=== PATIENT | male | born 1950 | race Caucasian/White ===

== ENCOUNTER → 2018-02-19 | Outpatient (CLI) | payer MEDICARE ==
--- NOTE | 2018-02-19 16:17 | US ---
EXAMINATION TYPE: US venous doppler duplex LE DATE OF EXAM: 02/19/2018 4:09 PM COMPARISON: NONE CLINICAL HISTORY: R60.0 Localized edema. Bilateral leg swelling x 4-5 months SIDE PERFORMED: Bilateral TECHNIQUE: The lower extremity deep venous system is examined utilizing real time linear array sonog shonda with graded compression, doppler sonography and color-flow sonography. VESSELS IMAGED: External Iliac Vein (EIV) Common Femoral Vein Deep Femoral Vein Greater Saphenous Vein * Femoral Vein Popliteal Vein Small Saphenous Vein * Proximal Calf Veins (* superficial vessels) Grayscale, color doppler, spectral doppler imaging performed of the deep veins of the lower extremiti es. There is normal flow, compressibility, vascular waveforms. Right Leg: Negative for DVT Left Leg: Negative for DVT Results called to Trisha at Dr's office at time of exam IMPRESSION: No sonographic evidence of deep venous thrombosis within either lower extremity.
== END ==
LOC: RADUSWWP 15:40
PROVIDERS: ATTEND Family Medicine
DX: R60.0 Localized edema (principal)
CPT/HCPCS: 93970

== ENCOUNTER → 2018-02-26 | Outpatient (CLI) | payer MEDICARE ==
--- NOTE | 2018-02-26 13:05 | US ---
EXAMINATION TYPE: US duplex aorta DATE OF EXAM: 02/26/2018 COMPARISON: NONE CLINICAL HISTORY: Z13.9 Encounter for screening, unspecified. Patient stated no HTN; HT6'4, WT 300lbs EXAM MEASUREMENTS: Abdominal Aorta: Proximal: 2.0 by 2.2cm Trans Mid: 2.2cm A/P by 1.9 cm transversely Distal: 2.0 by 2.1cm Trans Bifurcation: not seen due to overlying bowel gas Exam was technically limited for visualization of aorta due to large body habitus and overlying bowel gas. Suboptimal study as the aorta is not successfully visualized bifurcation. Visualized portions show no aneurysm change. IMPRESSION: Suboptimal study, visualized portion of aorta shows no aneurysmal change.
== END ==
LOC: RADUSWWP 07:29
PROVIDERS: ATTEND Family Medicine
DX: Z13.9 Encounter for screening, unspecified (principal)
CPT/HCPCS: 93979

== ENCOUNTER 2020-07-17 10:48 | Inpatient (IN) | payer MEDICARE ==
[2020-07-17 10:54] LABS: Glucose,Whole Blood >600 mg/dL (75-99)
[2020-07-17] MEDS ORDERED: SODIUM CHLORIDE 0.9% 1,000 ML IV STA (11:06)
[2020-07-17 11:39] LABS: HCT 48.3 % (39.0-53.0); HGB 15.1 gm/dL (13.0-17.5); Hypochromasia Slight; MCHC 31.3 g/dL (31.0-37.0); MCV 99.3 fL (80.0-100.0); Mean Platelet Volume 9.8; Platelet Count 179 k/uL (150-450); RBC 4.86 m/uL (4.30-5.90); RDW 13.6 % (11.5-15.5); WBC 9.3 k/uL (3.8-10.6)
[2020-07-17 11:40] LABS: ALT 30 U/L (4-49); AST 23 U/L (17-59); African American GFR (CKD) 12 (>60 ml/min/1.73 sqM); Albumin 3.2 g/dL (3.5-5.0); Alkaline Phosphatase 114 U/L (38-126); Anion Gap 22 mmol/L; Blood Urea Nitrogen 85 mg/dL (9-20); Calcium 8.9 mg/dL (8.4-10.2); Carbon Dioxide 15 mmol/L (22-30); Chloride 89 mmol/L (98-107); Magnesium 2.4 mg/dL (1.6-2.3); Non-African American GFR(CKD) 10 (>60 ml/min/1.73 sqM); Potassium 5.1 mmol/L (3.5-5.1); Sodium 126 mmol/L (137-145); Total Bilirubin 0.7 mg/dL (0.2-1.3)
[2020-07-17 11:45] LABS: INR 0.9 (<1.2)
--- NOTE | 2020-07-17 11:46 | XR ---
EXAMINATION TYPE: XR chest 2V DATE OF EXAM: 07/17/2020 COMPARISON: NONE HISTORY: Weakness, trauma TECHNIQUE: Frontal and lateral views of the chest are obtained. FINDINGS: There is no focal air space opacity, pleural effusion, or pneumothorax seen. The cardiac silhouette size is within normal limits. The osseous structures are intact, there is thoracic spond ylosis, there are overlying cardiac leads. IMPRESSION: No acute cardiopulmonary process.
[2020-07-17 11:49] LABS: Glucose 910 mg/dL (74-99)
[2020-07-17 11:51] LABS: Partial Thromboplastin Time 19.5 sec (22.0-30.0)
[2020-07-17] MEDS ORDERED: INSULIN REGULAR BOLUS (FROM DRIP BAG) IV ONE (11:51)
[2020-07-17] MEDS: INSULIN REGULAR 100 UNIT in SODIUM CHLORIDE 0.9% 100 ML IV SCH ×3 (12:06→18:13)
[2020-07-17] MEDS ORDERED: SODIUM CHLORIDE 0.9% 1,000 ML IV SCH (12:15)
[2020-07-17 12:16] LABS: Amorphous Sediment,Urine Occasional /hpf; Appearance,Urine Cloudy (Clear); Bacteria,Urine Moderate /hpf; Bilirubin,Urine Negative (Negative); Blood,Urine Moderate (Negative); Budding Yeast,Urine Rare /hpf; Color,Urine Light Yellow; Glucose,Urine (UA) 4+ (Negative); Ketones,Urine 1+ (Negative); Leukocyte Esterase,Urine Large (Negative); Mucus,Urine Rare /hpf; Nitrite,Urine Negative (Negative); PH, Urine 6.5 (5.0-8.0); Protein,Urine 2+ (Negative); RBC,Urine 31 /hpf (0-5); Specific Gravity,Urine 1.013 (1.001-1.035); Squamous Epithelial Cell,Urine 17 /hpf (0-4); Urobilinogen,Urine <2.0 mg/dL (<2.0); WBC,Urine 15 /hpf (0-5)
[2020-07-17] MEDS ORDERED: SODIUM CHLORIDE 0.9% 1,000 ML IV ONE (12:28)
--- NOTE | 2020-07-17 12:34 | ED ---
General Adult HPI - General Chief complaint: Weakness Stated complaint: weakness Time Seen by Provider: 07/17/20 10:56 Source: patient, RN notes reviewed Mode of arrival: EMS Limitations: no limitations - History of Present Illness Initial comments: 69-year-old male presents emergency Department chief complaint of generalized weakness, increased thirst, not feeling well. Patient states started after receiving his covid vaccine a few days ago. Patient states she'sa past history does not taking current medications he states he sees Dr. Daugherty has not had any recent lab work. Patient states she's had polyuria did see, shaking episodes and states his legs are so weak. - Related Data Home Medications Medication Instructions Recorded Confirmed No Known Home Medications 07/17/20 07/17/20 Allergies Allergy/AdvReac Type Severity Reaction Status Date / Time No Known Allergies Allergy Verified 07/17/20 11:54 Review of Systems ROS Statement: Those systems with pertinent positive or pertinent negative responses have been documented in the HPI. ROS Other: All systems not noted in ROS Statement are negative. Past Medical History Past Medical History: No Reported History History of Any Multi-Drug Resistant Organisms: None Reported Past Surgical History: No Surgical Hx Reported Additional Past Surgical History / Comment(s): eye sx Past Anesthesia/Blood Transfusion Reactions: No Reported Reaction Past Psychological History: No Psychological Hx Reported Smoking Status: Former smoker Past Alcohol Use History: Rare Past Drug Use History: None Reported - Past Family History Mother Family Medical History: Cancer Additional Family Medical History / Comment(s): CA: breast, she's 91 Father Family Medical History: Cancer Additional Family Medical History / Comment(s): CA: lung (" from") General Exam Limitations: no limitations General appearance: alert, in no apparent distress Head exam: Present: atraumatic, normocephalic, normal inspection Eye exam: Present: normal appearance, PERRL, EOMI. Absent: scleral icterus, conjunctival injection, periorbital swelling ENT exam: Present: normal oropharynx, mucous membranes dry. Absent: normal exam, mucous membranes moist Neck exam: Present: normal inspection. Absent: tenderness, meningismus, lymphadenopathy Respiratory exam: Present: normal lung sounds bilaterally. Absent: respiratory distress, wheezes, rales, rhonchi, stridor Cardiovascular Exam: Present: regular rate, normal rhythm, normal heart sounds. Absent: systolic murmur, diastolic murmur, rubs, gallop, clicks GI/Abdominal exam: Present: soft, normal bowel sounds. Absent: distended, tenderness, guarding, rebound, rigid Neurological exam: Present: alert, oriented X3, CN II-XII intact, reflexes normal. Absent: motor sensory deficit Course Vital Signs 07/17/20 07/17/20 07/17/20 10:50 11:28 12:00 Temperature 98.1 F 98.5 F Pulse Rate 94 90 89 Respiratory 20 18 18 Rate Blood Pressure 132/92 114/84 116/82 O2 Sat by Pulse 96 94 L 95 Oximetry Medical Decision Making - Medical Decision Making Case discussed with Dr. Barth. Patient will be admitted on DKA protocol. Patient will have consultation to nephrology. Patient was started on fluids insulin drip - Lab Data Result diagrams: 07/17/20 10:58 07/17/20 10:58 Lab Results 07/17/20 07/17/20 07/17/20 Range/Units 10:52 10:58 10:58 WBC 9.3 (3.8-10.6) k/uL RBC 4.86 (4.30-5.90) m/uL Hgb 15.1 (13.0-17.5) gm/dL Hct 48.3 (39.0-53.0) % MCV 99.3 (80.0-100.0) fL MCH 31.0 (25.0-35.0) pg MCHC 31.3 (31.0-37.0) g/dL RDW 13.6 (11.5-15.5) % Plt Count 179 (150-450) k/uL MPV 9.8 Neutrophils % Not Reportable Lymphocytes % Not Reportable Monocytes % Not Reportable Eosinophils % Not Reportable Basophils % Not Reportable Neutrophils # Not Reportable Lymphocytes # Not Reportable Monocytes # Not Reportable Eosinophils # Not Reportable Basophils # Not Reportable Hypochromasia Slight PT 10.0 (9.0-12.0) sec INR 0.9 (<1.2) APTT 19.5 L (22.0-30.0) sec Sodium (137-145) mmol/L Potassium (3.5-5.1) mmol/L Chloride (98-107) mmol/L Carbon Dioxide (22-30) mmol/L Anion Gap mmol/L BUN (9-20) mg/dL Creatinine (0.66-1.25) mg/dL Est GFR (CKD-EPI)AfAm (>60 ml/min/1.73 sqM) Est GFR (CKD-EPI)NonAf (>60 ml/min/1.73 sqM) Glucose (74-99) mg/dL POC Glucose (mg/dL) >600 H (75-99) mg/dL POC Glu [place]htank Operator ID Familia Peterson Plasma Lactic Acid Rajan (0.7-2.0) mmol/L Calcium (8.4-10.2) mg/dL Magnesium (1.6-2.3) mg/dL Total Bilirubin (0.2-1.3) mg/dL AST (17-59) U/L ALT (4-49) U/L Alkaline Phosphatase (38-126) U/L Troponin I (0.000-0.034) ng/mL Total Protein (6.3-8.2) g/dL Albumin (3.5-5.0) g/dL Urine Color Urine Appearance (Clear) Urine pH (5.0-8.0) Ur Specific [place] (1.001-1.035) Urine Protein (Negative) Urine Glucose (UA) (Negative) Urine Ketones (Negative) Urine Blood (Negative) Urine Nitrite (Negative) Urine Bilirubin (Negative) Urine Urobilinogen (<2.0) mg/dL Ur Leukocyte Esterase (Negative) Urine RBC (0-5) /hpf Urine WBC (0-5) /hpf Urine WBC Clumps (None) /hpf Ur Squamous Epith Cells (0-4) /hpf Amorphous Sediment (None) /hpf Urine Bacteria (None) /hpf Urine Mucus (None) /hpf Urine Yeast (Budding) (None) /hpf Acetone, Qual (Negative) 07/17/20 07/17/20 07/17/20 Range/Units 10:58 10:58 10:58 WBC (3.8-10.6) k/uL RBC (4.30-5.90) m/uL Hgb (13.0-17.5) gm/dL Hct (39.0-53.0) % MCV (80.0-100.0) fL MCH (25.0-35.0) pg MCHC (31.0-37.0) g/dL RDW (11.5-15.5) % Plt Count (150-450) k/uL MPV Neutrophils % Lymphocytes % Monocytes % Eosinophils % Basophils % Neutrophils # Lymphocytes # Monocytes # Eosinophils # Basophils # Hypochromasia PT (9.0-12.0) sec INR (<1.2) APTT (22.0-30.0) sec Sodium 126 L (137-145) mmol/L Potassium 5.1 (3.5-5.1) mmol/L Chloride 89 L (98-107) mmol/L Carbon Dioxide 15 L (22-30) mmol/L Anion Gap 22 mmol/L BUN 85 H (9-20) mg/dL Creatinine 5.36 H (0.66-1.25) mg/dL Est GFR (CKD-EPI)AfAm 12 (>60 ml/min/1.73 sqM) Est GFR (CKD-EPI)NonAf 10 (>60 ml/min/1.73 sqM) Glucose 910 H* (74-99) mg/dL POC Glucose (mg/dL) (75-99) mg/dL POC Glu [place]ht[place] Operator ID Plasma Lactic Acid Rajan 2.9 H* (0.7-2.0) mmol/L Calcium 8.9 (8.4-10.2) mg/dL Magnesium 2.4 H (1.6-2.3) mg/dL Total Bilirubin 0.7 (0.2-1.3) mg/dL AST 23 (17-59) U/L ALT 30 (4-49) U/L Alkaline Phosphatase 114 (38-126) U/L Troponin I 0.097 H* (0.000-0.034) ng/mL Total Protein 6.0 L (6.3-8.2) g/dL Albumin 3.2 L (3.5-5.0) g/dL Urine Color Urine Appearance (Clear) Urine pH (5.0-8.0) Ur Specific [place] (1.001-1.035) Urine Protein (Negative) Urine Glucose (UA) (Negative) Urine Ketones (Negative) Urine Blood (Negative) Urine Nitrite (Negative) Urine Bilirubin (Negative) Urine Urobilinogen (<2.0) mg/dL Ur Leukocyte Esterase (Negative) Urine RBC (0-5) /hpf Urine WBC (0-5) /hpf Urine WBC Clumps (None) /hpf Ur Squamous Epith Cells (0-4) /hpf Amorphous Sediment (None) /hpf Urine Bacteria (None) /hpf Urine Mucus (None) /hpf Urine Yeast (Budding) (None) /hpf Acetone, Qual Positive (Negative) 07/17/20 Range/Units 12:00 WBC (3.8-10.6) k/uL RBC (4.30-5.90) m/uL Hgb (13.0-17.5) gm/dL Hct (39.0-53.0) % MCV (80.0-100.0) fL MCH (25.0-35.0) pg MCHC (31.0-37.0) g/dL RDW (11.5-15.5) % Plt Count (150-450) k/uL MPV Neutrophils % Lymphocytes % Monocytes % Eosinophils % Basophils % Neutrophils # Lymphocytes # Monocytes # Eosinophils # Basophils # Hypochromasia PT (9.0-12.0) sec INR (<1.2) APTT (22.0-30.0) sec Sodium (137-145) mmol/L Potassium (3.5-5.1) mmol/L Chloride (98-107) mmol/L Carbon Dioxide (22-30) mmol/L Anion Gap mmol/L BUN (9-20) mg/dL Creatinine (0.66-1.25) mg/dL Est GFR (CKD-EPI)AfAm (>60 ml/min/1.73 sqM) Est GFR (CKD-EPI)NonAf (>60 ml/min/1.73 sqM) Glucose (74-99) mg/dL POC Glucose (mg/dL) (75-99) mg/dL POC Glu [place]ht[place] Operator ID Plasma Lactic Acid Rajan (0.7-2.0) mmol/L Calcium (8.4-10.2) mg/dL Magnesium (1.6-2.3) mg/dL Total Bilirubin (0.2-1.3) mg/dL AST (17-59) U/L ALT (4-49) U/L Alkaline Phosphatase (38-126) U/L Troponin I (0.000-0.034) ng/mL Total Protein (6.3-8.2) g/dL Albumin (3.5-5.0) g/dL Urine Color Light Yellow Urine Appearance Cloudy (Clear) Urine pH 6.5 (5.0-8.0) Ur Specific [place] 1.013 (1.001-1.035) Urine Protein 2+ H (Negative) Urine Glucose (UA) 4+ H (Negative) Urine Ketones 1+ H (Negative) Urine Blood Moderate H (Negative) Urine Nitrite Negative (Negative) Urine Bilirubin Negative (Negative) Urine Urobilinogen <2.0 (<2.0) mg/dL Ur Leukocyte Esterase Large H (Negative) Urine RBC 31 H (0-5) /hpf Urine WBC 15 H (0-5) /hpf Urine WBC Clumps Rare H (None) /hpf Ur Squamous Epith Cells 17 H (0-4) /hpf Amorphous Sediment Occasional H (None) /hpf Urine Bacteria Moderate H (None) /hpf Urine Mucus Rare H (None) /hpf Urine Yeast (Budding) Rare H (None) /hpf Acetone, Qual (Negative) Critical Care Time Critical Care Time: Yes Total Critical Care Time: 35 Critical Care Time: Total 35 minutes of critical care time used to initiate outpatient now review past multiple history or during labs EKG. Patient found to be in acute DKA, glucose of 910 with an anion gap of 22 and bicarb 15. Patient does have mild lactic acidosis at 2.9. Patient also vomited in acute renal failure with a creatinine of 5.36 and GFR 10. Patient concerned fluid bolus, maintenance fluids, insulin infusion. Patient does have an elevated troponin with no EKG changes. Most likely elevated from renal failure. Disposition Clinical Impression: DKA (diabetic ketoacidoses), Diabetes mellitus, new onset, UTI (urinary tract infection), Hyponatremia, Dehydration, Acute renal failure Disposition: ADMITTED IP TO THIS HOSP Condition: Serious Referrals: Shen Daugherty MD [Primary Care Provider] - 1-2 days
[2020-07-17 12:46] LABS: Band Neutrophils % 10 %; Lymphocytes # (M) 0.47 k/uL (1.0-4.8); Monocytes # (M) 0.84 k/uL (0-1.0); Neutrophils % (M) 76 %; Nucleated Red Blood Cells 0 /100 WBC (0-0); Total Cells Counted 100
[2020-07-17 13:08] LABS: Glucose,Whole Blood >600 mg/dL (75-99)
[2020-07-17] MEDS: SODIUM CHLORIDE 0.9% 1,000 ML IV SCH ×2 (14:01→17:32)
[2020-07-17 14:04] LABS: Glucose,Whole Blood >600 mg/dL (75-99)
[2020-07-17 15:01] LABS: Phosphorus 7.1 mg/dL (2.5-4.5)
[2020-07-17] MEDS ORDERED: ALPRAZolam 0.25 MG TAB PO PRN (15:04)
[2020-07-17] MEDS ORDERED: HYDROcodone/APAP 5-325MG 1 EACH TAB PO PRN (15:04)
[2020-07-17 15:14] LABS: Glucose,Whole Blood 430 mg/dL (75-99)
[2020-07-17 16:20] LABS: Glucose,Whole Blood 429 mg/dL (75-99)
--- NOTE | 2020-07-17 17:03 | HP ---
HISTORY AND PHYSICAL I am covering for Dr. Daugherty. DATE OF SERVICE: 07/17/2020 CHIEF COMPLAINT: Weakness. HISTORY OF PRESENT ILLNESS: This 69-year-old gentleman with a past medical history of no significant medical issues, being followed by by Dr. Shen Daugherty in the outpatient setting. The patient apparently recently got Covid vaccine, but currently the patient complaining of increased weakness and tiredness and recent thirst and the patient thought it was a Covid vaccine reaction. Because of increased difficulty, the patient came to [facility] and was admitted for further evaluation and treatment. Recent lab work was also done. In the ER, the patient had multiple medical issues, including diabetes mellitus and acute diabetic ketosis. Glucose was 1910. The anion gap was 20, CO2 was 15, and patient also had significant renal failure with creatinine 5.36 and DKA protocol was initiated. Patient also has some abnormal urine indicating UTI also. There is no history of fever, rigors. No history of headache, loss of consciousness, seizures. PAST MEDICAL HISTORY: No significant cardiorespiratory illness. MEDICATIONS: Prior to admission include home medications are none. ALLERGIES: None. FAMILY HISTORY: History of breast cancer in the family. SOCIAL HISTORY: Previous history of smoking, otherwise no history of alcohol intake. REVIEW OF SYSTEMS: ENT diminished hearing. Diminished vision. CARDIOVASCULAR: No angina. RESPIRATION: No cough. GI: As mentioned earlier. : As mentioned earlier. NERVOUS SYSTEM: As mentioned earlier. ALLERGY/IMMUNOLOGY: No history of asthma or hayfever. MUSCULOSKELETAL: As mentioned earlier. HEMATOLOGY/ONCOLOGY: No history of anemia. ENDOCRINE: As mentioned earlier. CONSTITUTIONAL: As mentioned earlier. DERMATOLOGY: Negative. RHEUMATOLOGY: Negative. PSYCHIATRY: As mentioned earlier. PHYSICAL EXAMINATION: Alert and oriented times three. Pulse 78, blood pressure 117/69, respiration 20, temperature 98.4, pulse ox 94% on room air. HEENT: Conjunctivae normal. Oral mucosa dry. NECK is no jugular venous distention. No carotid bruit. No lymph node enlargement. CARDIOVASCULAR SYSTEM: S1, S2. No S3, no S4. RESPIRATION: Breath sounds diminished in the bases. A few scattered rhonchi. ABDOMEN: Soft, nontender. No mass palpable. LEGS: No edema. No swelling. NERVOUS SYSTEM: Higher functions as mentioned earlier. Moves all 4 limbs. No focal motor or sensory deficits. LYMPHATICS: No lymph nodes palpable in the neck, axillae or groin. SKIN: No ulcer, no rash and no bleeding. JOINTS: No active deforming arthropathy. LABS: CBC within normal limits. INR 0.9 sodium 126, potassium 5.1, BUN is 15, creatinine 5.3, glucose 1910. Lactic acid 2.90. Troponin 0.097. Albumin 3.2. ASSESSMENT: 1. Diabetes mellitus type 2 new onset with uncontrolled hyperglycemia with acute diabetic ketoacidosis, present on admission. 2. Acute renal failure with acute tubular necrosis and prerenal factors. 3. Hyponatremia. 4. Severe metabolic acidosis. 5. Elevated plasma lactic acid. 6. Possible acute urinary tract infection with sepsis, present on admission. 7. Elevated troponin 0.097. 8. Hypoalbuminemia with mild protein calorie malnutrition. 9. Gait dysfunction. 10.Remote history of nicotine dependence. RECOMMENDATIONS AND DISCUSSION: This 69-year-old gentleman who presented with multiple complex medical issues, we will monitor the patient closely, continue the current medications, management and symptomatic treatment. We will initiate DKA protocol. Otherwise, empiric antibiotics will be initiated. Cultures will be ere obtained. Monitor closely. Nephrology evaluation for the renal failure. DVT prophylaxis. Incentive spirometry. Proton pump inhibitors. Symptomatic treatment will also be provided. PT/OT will also be consulted. Possible ECF rehab also will be looked up to because of the multiple complex medical issues. Overall prognosis extremely guarded because of multiple complex medical issues which I discussed with the family at bedside. A copy of dictation is being forwarded to Dr. Shen Daugherty who is the primary physician. MMODL / IJN: [id number] /
[2020-07-17 17:20] LABS: Glucose,Whole Blood 274 mg/dL (75-99)
[2020-07-17] MEDS: D5-0.45% NACL WITH KCL 20MEQ/L 1,000 ML IV SCH (18:05)
[2020-07-17 18:18] LABS: Phosphorus 5.7 mg/dL (2.5-4.5); Potassium 3.8 mmol/L (3.5-5.1)
[2020-07-17 18:22] LABS: Glucose,Whole Blood 238 mg/dL (75-99)
[2020-07-17] MEDS: PANTOPRAZOLE 40 MG/10 ML VIAL IVP SCH (18:24)
[2020-07-17 19:31] LABS: Glucose,Whole Blood 192 mg/dL (75-99)
[2020-07-17] MEDS: HEPARIN SODIUM,PORCINE 5,000 UNIT/ML 1 ML VIAL SQ SCH (19:47)
[2020-07-17 20:34] LABS: Glucose,Whole Blood 160 mg/dL (75-99)
[2020-07-17 21:45] LABS: Glucose,Whole Blood 90 mg/dL (75-99)
[2020-07-17 22:24] LABS: Glucose,Whole Blood 70 mg/dL (75-99)
[2020-07-17 22:48] LABS: Glucose,Whole Blood 108 mg/dL (75-99)
[2020-07-17 23:18] LABS: Glucose,Whole Blood 143 mg/dL (75-99)
[2020-07-17 23:29] LABS: Hemoglobin A1C 16.4 % (4.0-6.0)
[2020-07-18 00:15] LABS: Glucose,Whole Blood 170 mg/dL (75-99)
[2020-07-18 00:24] LABS: Phosphorus 5.4 mg/dL (2.5-4.5); Potassium 4.2 mmol/L (3.5-5.1)
[2020-07-18] MEDS: D5-0.45% NACL WITH KCL 20MEQ/L 1,000 ML IV SCH ×2 (00:29→06:56)
[2020-07-18 01:14] LABS: Glucose,Whole Blood 107 mg/dL (75-99)
[2020-07-18 02:00] LABS: Glucose,Whole Blood 105 mg/dL (75-99)
[2020-07-18 03:14] LABS: Glucose,Whole Blood 108 mg/dL (75-99)
[2020-07-18 03:57] LABS: Glucose,Whole Blood 132 mg/dL (75-99)
[2020-07-18 04:49] LABS: HCT 42.4 % (39.0-53.0); HGB 13.7 gm/dL (13.0-17.5); MCH 30.4 pg (25.0-35.0); MCHC 32.3 g/dL (31.0-37.0); Platelet Count 153 k/uL (150-450); RBC 4.52 m/uL (4.30-5.90); RDW 13.9 % (11.5-15.5)
[2020-07-18 05:06] LABS: Calcium 8.2 mg/dL (8.4-10.2); Phosphorus 4.9 mg/dL (2.5-4.5); Potassium 4.3 mmol/L (3.5-5.1)
[2020-07-18 05:13] LABS: Glucose,Whole Blood 187 mg/dL (75-99)
[2020-07-18 05:13] LABS: Band Neutrophils % 27 %; Lymphocytes # (M) 1.12 k/uL (1.0-4.8); Monocytes # (M) 1.28 k/uL (0-1.0); Neutrophils % (M) 43 %; Nucleated Red Blood Cells 0 /100 WBC (0-0); Total Cells Counted 200
[2020-07-18 05:14] LABS: Toxic Granulation Present
[2020-07-18 06:07] LABS: Glucose,Whole Blood 192 mg/dL (75-99)
[2020-07-18 07:02] LABS: Glucose,Whole Blood 233 mg/dL (75-99)
[2020-07-18 08:05] LABS: Glucose,Whole Blood 274 mg/dL (75-99)
[2020-07-18] MEDS: PANTOPRAZOLE 40 MG/10 ML VIAL IVP SCH (08:19)
[2020-07-18] MEDS: MULTIVITAMINS, THERA 1 EACH TAB PO SCH (08:20)
[2020-07-18] MEDS: HEPARIN SODIUM,PORCINE 5,000 UNIT/ML 1 ML VIAL SQ SCH ×2 (08:20→21:20)
[2020-07-18 09:03] LABS: Glucose,Whole Blood 269 mg/dL (75-99)
[2020-07-18 10:08] LABS: Glucose,Whole Blood 291 mg/dL (75-99)
--- NOTE | 2020-07-18 10:41 | US ---
EXAMINATION TYPE: US kidneys/renal and bladder DATE OF EXAM: 07/18/2020 COMPARISON: Ultrasound December 31, 2011 CLINICAL HISTORY: RF. abn labs EXAM MEASUREMENTS: Right Kidney: 13.9 x 7.9 x 5.1 cm Left Kidney: 12.0 x 6.7 x 4.0 cm Right Kidney: Cystic area upper pole . 3.0 x 4.1 x 2.9 cm Left Kidney: No kidney tissue visualized. Severe hydronephrosis. Bladder: anechoic Bilateral Jets seen: no The urinary bladder is anechoic. Simple appearing 4.1 cm partially exophytic upper pole of the right kidney is redemonstrated, can be seen on prior study is felt slightly larger in size. No hydronephrosis. Left kidney shows marked cortical thinning and suspected new severe hydronephrosis. Bladder satisfact orily distended. Unable to observe bilateral distal ureter jets. IMPRESSION: New severe left-sided hydronephrosis. Follow-up advised.
[2020-07-18 11:06] LABS: Glucose,Whole Blood 244 mg/dL (75-99)
[2020-07-18 11:39] VITALS: BMI 25.9
[2020-07-18 12:05] LABS: Glucose,Whole Blood 281 mg/dL (75-99)
[2020-07-18 13:05] LABS: Glucose,Whole Blood 248 mg/dL (75-99)
[2020-07-18] MEDS: INSULIN DETEMIR (LEVEMIR) 100 UNIT/ML SYR SQ SCH (13:14)
[2020-07-18] MEDS: INSULIN REGULAR 100 UNIT in SODIUM CHLORIDE 0.9% 100 ML IV SCH (16:20)
[2020-07-18] MEDS: SODIUM CHLORIDE 0.9% 1,000 ML IV SCH (16:22)
[2020-07-18 16:51] LABS: Glucose,Whole Blood 282 mg/dL (75-99)
--- NOTE | 2020-07-18 17:25 | PN ---
PROGRESS NOTE DATE OF SERVICE: 07/18/2020 I am covering for Dr. Daugherty. INTERVAL HISTORY: This is a 69-year-old gentleman admitted with acute diabetic ketoacidosis and diabetes mellitus also. The patient has also had some change in mental status. Patient also has renal failure with creatinine elevated up to 5. The patient's anion gap is improved. At this time I would recommend the patient be switched from insulin drip to Lantus insulin once a day at 40 units and Accu-Cheks before meals and HS with scale also. The patient also had ultrasound of the kidneys, which showed significant hydronephrosis also. Nephrology has been consulted. PAST MEDICAL HISTORY: Reviewed. REVIEW OF SYSTEMS: CARDIOVASCULAR: No angina. RESPIRATORY: As mentioned earlier. GI: As mentioned earlier. : As mentioned earlier. NERVOUS SYSTEM: Diffusely weak. CURRENT MEDICATIONS: Reviewed include Tylenol, [place], Rocephin, NovoLog, Levemir, Protonix. Doses reviewed. PHYSICAL EXAM: GENERAL: Patient is alert and oriented times two. VITAL SIGNS: Pulse 85, blood pressure 117/70, respirations 16, temperature 97.8, pulse ox 94% on room air. HEENT: Conjunctivae normal. NECK: No jugular venous distention. RESPIRATORY: Breath sounds diminished at the bases. A few scattered rhonchi. HEART: S1 and S2, muffled. ABDOMEN: Soft, no tenderness. Obese. EXTREMITIES: No edema, no swelling. NERVOUS: No focal deficits. LABS: Accu-Cheks 244 and 248. Other labs are noted. Sodium 132. ASSESSMENT: 1. Diabetes mellitus type 2, new onset with uncontrolled hyperglycemia with acute diabetic ketoacidosis present on admission. 2. Acute renal failure with acute tubular necrosis and prerenal factors, multifactorial. 3. Change in mental status, acute metabolic encephalopathy. 4. Left hydronephrosis. 5. Hyponatremia. 6. Severe metabolic acidosis. 7. Elevated plasma lactic acid. 8. Acute urinary tract infection present on admission with sepsis. 9. Elevated troponin 0.097, undetermined etiology. 10.Hypoalbuminemia with mild protein calorie malnutrition. 11.Gait dysfunction. 12.Remote history of nicotine dependence. RECOMMENDATIONS AND DISCUSSION: Recommend to continue current medication, continue symptomatic treatment. Otherwise at this time I recommend continue the IV fluids. Start 40 units Lantus insulin. Accu- Cheks before meals and bedtime, continue with scale. Nephrology evaluation. Obtain the cultures. Guarded prognosis. Further recommendations to follow. Continue the antibiotics. Discussed with the patient. Dr. Daugherty will follow tomorrow. JONO / DIONEN: [id number] /
[2020-07-18] MEDS: INSULIN ASPART (NovoLOG) 100 UNIT/ML VIAL SQ SCH ×2 (17:34→21:20)
--- NOTE | 2020-07-18 18:42 | P.GSCN ---
History of Present Illness Consult date: 07/18/20 History of present illness: This is a 69-year-old gentleman who presented emergency room with increasing thirst, increasing weakness with a new onset diagnosis of diabetes. He has diabetic ketoacidosis. He also has acute renal failure. During the evaluation he is found to have severe chronic left hydronephrosis. We are asked to see the patient. The patient was in our office 11 years ago for a kidney stone. He has not been seen since then. He denies symptoms of stones. There's been no hematuria or flank pain and dysuria. His urinalysis looked inflamed however the patient is not circumcised and there are a lot of epithelial cells which could explain the abnormal urinalysis. Review of Systems All systems: negative - Constitutional Denies fever, Denies weight loss - EENT Eyes: denies blurred vision Ears, nose, mouth and throat: Denies dysphagia - Cardiovascular Denies chest pain, Denies shortness of breath - Respiratory Denies cough, Denies 7 - Gastrointestinal Reports as per HPI - Genitourinary Denies dysuria, Denies hematuria - Integumentary Denies rash, Denies unusual bruising - Neurological Denies headaches, Denies syncope - Hematologic/Lymphatic Denies easy bleeding, Denies easy bruising Past Medical History Past Medical History: No Reported History Additional Past Medical History / Comment(s): Kidney stones History of Any Multi-Drug Resistant Organisms: None Reported Past Surgical History: No Surgical Hx Reported Additional Past Surgical History / Comment(s): eye sx for cataracts, colonoscopy prior to 2009 Past Anesthesia/Blood Transfusion Reactions: No Reported Reaction Past Psychological History: No Psychological Hx Reported Smoking Status: Former smoker Past Alcohol Use History: Rare Additional Past Alcohol Use History / Comment(s): started 1969 stop 05/14 ppd. ETOH: 2 drinks per week Past Drug Use History: None Reported - Past Family History Mother Family Medical History: Cancer Additional Family Medical History / Comment(s): CA: breast, she's 91 Father Family Medical History: Cancer Additional Family Medical History / Comment(s): CA: lung (" from") Medications and Allergies Home Medications Medication Instructions Recorded Confirmed Type No Known Home Medications 07/17/20 07/17/20 History Allergies Allergy/AdvReac Type Severity Reaction Status Date / Time No Known Allergies Allergy Verified 07/17/20 11:54 Surgical - Exam Vital Signs Temp Pulse Resp BP Pulse Ox 98.1 F 94 20 132/92 96 07/17/20 10:50 07/17/20 10:50 07/17/20 10:50 07/17/20 10:50 07/17/20 10:50 - General well developed, well nourished, no distress - Eyes PERRL - ENT no hearing loss - Neck trachea midline - Respiratory normal expansion, normal respiratory effort - Cardiovascular Rhythm: regular - Abdomen Abdomen: soft, non tender - Genitourinary The patient is not circumcised. The foreskin is quite chronically scarred and is not easily retractile. The hygiene is poor of the foreskin. The prostate is 30 g soft and benign - Rectum Rectum: no tenderness - Integumentary no rash, no growths - Neurologic normal coordination, normal sensation - Musculoskeletal normal posture - Psychiatric oriented to time, oriented to person, oriented to place, speech is normal, memory intact Results - Labs 07/18/20 04:28 07/18/20 04:28 Abnormal Lab Results - Last 24 Hours (Table) 07/17/20 07/17/20 07/17/20 Range/Units 10:58 19:19 20:23 Monocytes # (Manual) (0-1.0) k/uL Sodium (137-145) mmol/L Carbon Dioxide (22-30) mmol/L BUN (9-20) mg/dL Creatinine (0.66-1.25) mg/dL Glucose (74-99) mg/dL POC Glucose (mg/dL) 192 H 160 H (75-99) mg/dL Hemoglobin A1c 16.4 H (4.0-6.0) % Plasma Lactic Acid Rajan (0.7-2.0) mmol/L Calcium (8.4-10.2) mg/dL Phosphorus (2.5-4.5) mg/dL 07/17/20 07/17/20 07/17/20 Range/Units 20:28 22:14 22:36 Monocytes # (Manual) (0-1.0) k/uL Sodium (137-145) mmol/L Carbon Dioxide (22-30) mmol/L BUN (9-20) mg/dL Creatinine (0.66-1.25) mg/dL Glucose (74-99) mg/dL POC Glucose (mg/dL) 70 L 108 H (75-99) mg/dL Hemoglobin A1c (4.0-6.0) % Plasma Lactic Acid Rajan 3.6 H* (0.7-2.0) mmol/L Calcium (8.4-10.2) mg/dL Phosphorus (2.5-4.5) mg/dL 07/17/20 07/17/20 07/17/20 Range/Units 23:07 23:28 23:33 Monocytes # (Manual) (0-1.0) k/uL Sodium 134 L (137-145) mmol/L Carbon Dioxide 16 L (22-30) mmol/L BUN 86 H (9-20) mg/dL Creatinine 4.91 H (0.66-1.25) mg/dL Glucose (74-99) mg/dL POC Glucose (mg/dL) 143 H (75-99) mg/dL Hemoglobin A1c (4.0-6.0) % Plasma Lactic Acid Rajan 2.9 H* (0.7-2.0) mmol/L Calcium (8.4-10.2) mg/dL Phosphorus 5.4 H (2.5-4.5) mg/dL 07/18/20 07/18/20 07/18/20 Range/Units 00:08 01:12 01:57 Monocytes # (Manual) (0-1.0) k/uL Sodium (137-145) mmol/L Carbon Dioxide (22-30) mmol/L BUN (9-20) mg/dL Creatinine (0.66-1.25) mg/dL Glucose (74-99) mg/dL POC Glucose (mg/dL) 170 H 107 H 105 H (75-99) mg/dL Hemoglobin A1c (4.0-6.0) % Plasma Lactic Acid Rajan (0.7-2.0) mmol/L Calcium (8.4-10.2) mg/dL Phosphorus (2.5-4.5) mg/dL 07/18/20 07/18/20 07/18/20 Range/Units 03:04 03:56 04:28 Monocytes # (Manual) 1.28 H (0-1.0) k/uL Sodium (137-145) mmol/L Carbon Dioxide (22-30) mmol/L BUN (9-20) mg/dL Creatinine (0.66-1.25) mg/dL Glucose (74-99) mg/dL POC Glucose (mg/dL) 108 H 132 H (75-99) mg/dL Hemoglobin A1c (4.0-6.0) % Plasma Lactic Acid Rajan (0.7-2.0) mmol/L Calcium (8.4-10.2) mg/dL Phosphorus (2.5-4.5) mg/dL 07/18/20 07/18/20 07/18/20 Range/Units 04:28 05:12 06:06 Monocytes # (Manual) (0-1.0) k/uL Sodium 132 L (137-145) mmol/L Carbon Dioxide 18 L (22-30) mmol/L BUN 86 H (9-20) mg/dL Creatinine 5.00 H (0.66-1.25) mg/dL Glucose 147 H (74-99) mg/dL POC Glucose (mg/dL) 187 H 192 H (75-99) mg/dL Hemoglobin A1c (4.0-6.0) % Plasma Lactic Acid Rajan (0.7-2.0) mmol/L Calcium 8.2 L (8.4-10.2) mg/dL Phosphorus 4.9 H (2.5-4.5) mg/dL 07/18/20 07/18/20 07/18/20 Range/Units 07:00 08:01 09:01 Monocytes # (Manual) (0-1.0) k/uL Sodium (137-145) mmol/L Carbon Dioxide (22-30) mmol/L BUN (9-20) mg/dL Creatinine (0.66-1.25) mg/dL Glucose (74-99) mg/dL POC Glucose (mg/dL) 233 H 274 H 269 H (75-99) mg/dL Hemoglobin A1c (4.0-6.0) % Plasma Lactic Acid Rajan (0.7-2.0) mmol/L Calcium (8.4-10.2) mg/dL Phosphorus (2.5-4.5) mg/dL 07/18/20 07/18/20 07/18/20 Range/Units 10:05 11:03 12:02 Monocytes # (Manual) (0-1.0) k/uL Sodium (137-145) mmol/L Carbon Dioxide (22-30) mmol/L BUN (9-20) mg/dL Creatinine (0.66-1.25) mg/dL Glucose (74-99) mg/dL POC Glucose (mg/dL) 291 H 244 H 281 H (75-99) mg/dL Hemoglobin A1c (4.0-6.0) % Plasma Lactic Acid Rajan (0.7-2.0) mmol/L Calcium (8.4-10.2) mg/dL Phosphorus (2.5-4.5) mg/dL 07/18/20 07/18/20 Range/Units 13:04 16:49 Monocytes # (Manual) (0-1.0) k/uL Sodium (137-145) mmol/L Carbon Dioxide (22-30) mmol/L BUN (9-20) mg/dL Creatinine (0.66-1.25) mg/dL Glucose (74-99) mg/dL POC Glucose (mg/dL) 248 H 282 H (75-99) mg/dL Hemoglobin A1c (4.0-6.0) % Plasma Lactic Acid Rajan (0.7-2.0) mmol/L Calcium (8.4-10.2) mg/dL Phosphorus (2.5-4.5) mg/dL Microbiology - Last 24 Hours (Table) 07/17/20 13:58 Blood Culture - Preliminary Blood No Growth after 24 hours 07/17/20 12:00 Urine Culture - Preliminary Urine,Voided Diabetes panel 07/17/20 07/17/20 07/18/20 Range/Units 10:58 23:33 04:28 Sodium 134 L 132 L (137-145) mmol/L Potassium 4.2 4.3 (3.5-5.1) mmol/L Chloride 103 104 (98-107) mmol/L Carbon Dioxide 16 L 18 L (22-30) mmol/L BUN 86 H 86 H (9-20) mg/dL Creatinine 4.91 H 5.00 H (0.66-1.25) mg/dL Glucose 147 H (74-99) mg/dL Hemoglobin A1c 16.4 H (4.0-6.0) % Calcium 8.2 L (8.4-10.2) mg/dL Calcium panel 07/17/20 07/18/20 Range/Units 23:33 04:28 Calcium 8.2 L (8.4-10.2) mg/dL Phosphorus 5.4 H 4.9 H (2.5-4.5) mg/dL Pituitary panel 07/17/20 07/18/20 Range/Units 23:33 04:28 Sodium 134 L 132 L (137-145) mmol/L Potassium 4.2 4.3 (3.5-5.1) mmol/L Chloride 103 104 (98-107) mmol/L Carbon Dioxide 16 L 18 L (22-30) mmol/L BUN 86 H 86 H (9-20) mg/dL Creatinine 4.91 H 5.00 H (0.66-1.25) mg/dL Glucose 147 H (74-99) mg/dL Calcium 8.2 L (8.4-10.2) mg/dL Adrenal panel 07/17/20 07/18/20 Range/Units 23:33 04:28 Sodium 134 L 132 L (137-145) mmol/L Potassium 4.2 4.3 (3.5-5.1) mmol/L Chloride 103 104 (98-107) mmol/L Carbon Dioxide 16 L 18 L (22-30) mmol/L BUN 86 H 86 H (9-20) mg/dL Creatinine 4.91 H 5.00 H (0.66-1.25) mg/dL Glucose 147 H (74-99) mg/dL Calcium 8.2 L (8.4-10.2) mg/dL - Imaging US - kidney/bladder: report reviewed, image reviewed Assessment and Plan Assessment: Impression: Diabetic ketoacidosis [place] his new), acute renal failure verbally related to the new onset diabetes. This could be aggravated by the chronic hydronephrosis on the left. History of kidney stones. Recommendations. A computed tomography scan of the abdomen without contrast would be appropriate to look for a cause for the obstruction of the left ureter. Pending the results of that as to further recommendations. Do not think that he has urine infection but more inflamed foreskin making urine looked infected. He would probably need a circumcision down the road.
--- NOTE | 2020-07-18 19:17 | CONS ---
CONSULTATION REASON FOR CONSULT: Renal failure. HISTORY OF PRESENT ILLNESS: Patient is a 69-year-old male who was admitted to the hospital with complaints of weakness, not feeling well, decreased appetite after his second dose of the COVID vaccine. The patient denied any fevers or chills. He did have some nausea. No significant urinary symptoms. On admission, patient was noted to have a serum glucose of 1910 mg/dL. His creatinine was 5.36. A serum acetone was positive. CO2 was 15. The patient is being treated for DKA. He denies any prior history of kidney disease. He has had good urine output. Blood pressure has been slightly on the lower side, although no severe hypotension noted. Patient denies use of any nonsteroidal anti-inflammatory agents. He is not on HARRIET inhibitors or angiotensin receptor blockers. Ultrasound of the kidneys was ordered this morning and shows new severe left-sided hydronephrosis. PAST MEDICAL HISTORY: None. PAST SURGICAL HISTORY: None. MEDICATIONS: None. REVIEW OF SYSTEMS: As per HPI. Other systems negative. ALLERGIES: None. EXAMINATION: Currently patient is comfortable, awake. He is not in any acute distress. This morning blood pressure was 117/70, heart rate 85 per minute, he is afebrile. Examination of the heart S1, S2. Examination of the lungs, bilateral breath sounds are heard. Abdomen is soft, nontender. Examination of lower extremities shows no evidence of edema. NURSE TECHNICIAN exam grossly intact. LAB: Show sodium 132, potassium 4.3, chloride 104, CO2 is 18, BUN 86, serum creatinine 5.0, lactic acid 1.7, phosphorus 4.9, hemoglobin 13.7, white cell count 8.0. UA shows 2+ protein, 4+ glucose, 1+ ketone, moderate blood, RBCs 31, WBCs 15. Coronavirus PCR is negative. ASSESSMENT: 1. Acute kidney injury, prerenal associated with volume depletion, diabetic ketoacidosis as well as a component of obstructive uropathy as ultrasound shows severe left hydronephrosis. The patient may have underlying obstruction on the right side too although not significantly evident on the ultrasound. I will place a Friend catheter and we will consult Urology and continue with the IV fluids for now. 2. New diagnosis of diabetes with diabetic ketoacidosis on admission, currently improved. 3. Pyuria, rule out urinary tract infection, maintained on antibiotics. 4. Mild hyponatremia associated with hyperglycemia, currently improved. 5. Metabolic acidosis associated with diabetic ketoacidosis and renal failure. PLAN: Continue with IV fluids. Consult Urology. Place Friend catheter. Repeat labs in a.m. Thank you for this consultation. We will continue to follow the patient with you during his hospitalization. JONO / JULIAN: [id number] /
[2020-07-18 20:25] LABS: Glucose,Whole Blood 193 mg/dL (75-99)
--- NOTE | 2020-07-18 21:15 | CT ---
EXAMINATION TYPE: CT abdomen pelvis wo con DATE OF EXAM: 07/18/2020 COMPARISON: Patient with ultrasound of the kidneys from 07/18/2020. No prior similar image is available for comparison. HISTORY: Left hydronephrosis. CT DLP: 873.1 mGycm Automated exposure control for dose reduction was used. TECHNIQUE: Helical acquisition of images was performed from the lung bases through the pelvis. FINDINGS: LUNG BASES: No significant abnormality is appreciated. LIVER/GB: No significant abnormality is appreciated. PANCREAS: Atrophic. SPLEEN: No significant abnormality is seen. ADRENALS: No significant abnormality is seen. KIDNEYS: On the left, As seen on ultrasound examination, there is almost complete atrophy of the left kidney. There is severe left-sided hydronephrosis. No obstructive lesion is identified. The ureter d oes not appear dilated. No stones are seen along the ureteral course. On the right, there is moderate right-sided hydronephrosis without evidence of an obstructive lesion. No obstructive stones are seen. Etiology for right-sided hydronephrosis. Right ureter is nondilated. No stones are seen along the right ureter course of the bladder. Bladder appears thin-walled. FREE AIR: No free air is visualized RETROPERITONEAL ADENOPATHY: None visualized REPRODUCTIVE ORGANS: No significant abnormality is seen URINARY BLADDER: No stones. Thin-walled bladder. PELVIC ADENOPATHY: None visualized. OSSEOUS STRUCTURES: No significant abnormality is seen. BOWEL: No significant abnormality is seen. IMPRESSION: SEVERE LEFT CORTICAL ATROPHY AND SEVERE LEFT-SIDED HYDRONEPHROSIS WITHOUT OBSTRUCTING STONE OR MASS. MODERATE RIGHT-SIDED HYDRONEPHROSIS WITHOUT OBSTRUCTIVE STONE OR MASS. NO STONES ARE SEEN ALONG THE C OURSE OR THE BLADDER.
[2020-07-19 05:59] LABS: Glucose,Whole Blood 77 mg/dL (75-99)
[2020-07-19] MEDS: INSULIN ASPART (NovoLOG) 100 UNIT/ML VIAL SQ SCH ×4 (06:52→20:44)
[2020-07-19] MEDS: SODIUM CHLORIDE 0.9% 1,000 ML IV SCH ×2 (06:53→20:44)
[2020-07-19 07:53] LABS: Albumin 2.4 g/dL (3.5-5.0); Calcium 8.3 mg/dL (8.4-10.2); Magnesium 2.2 mg/dL (1.6-2.3); Total Bilirubin 0.4 mg/dL (0.2-1.3); Total Protein 5.1 g/dL (6.3-8.2)
[2020-07-19] MEDS: INSULIN DETEMIR (LEVEMIR) 100 UNIT/ML SYR SQ SCH (08:07)
[2020-07-19] MEDS: HEPARIN SODIUM,PORCINE 5,000 UNIT/ML 1 ML VIAL SQ SCH ×2 (08:07→20:41)
[2020-07-19] MEDS: PANTOPRAZOLE 40 MG TABLET PO SCH (08:07)
[2020-07-19 09:20] LABS: Basophils % (A) 0 %; Eosinophils % (A) 0 %; HCT 42.8 % (39.0-53.0); HGB 13.9 gm/dL (13.0-17.5); Lymphocytes # (A) 0.9 k/uL (1.0-4.8); Lymphocytes % (A) 14 %; MCH 31.2 pg (25.0-35.0); MCHC 32.4 g/dL (31.0-37.0); MCV 96.4 fL (80.0-100.0); Mean Platelet Volume 10.2; Monocytes # (A) 0.6 k/uL (0-1.0); Monocytes % (A) 8 %; Neutrophils % (A) 75 %; Platelet Count 157 k/uL (150-450); RBC 4.44 m/uL (4.30-5.90); RDW 13.7 % (11.5-15.5); WBC 6.7 k/uL (3.8-10.6)
--- NOTE | 2020-07-19 11:00 | ECHOF ---
Referral Reason:[facility] MEASUREMENTS -------- HEIGHT: 162.6 cm WEIGHT: 94.3 kg BP: 94/50 RVIDd: 4.0 cm (< 3.3) IVSd: 1.3 cm (0.6 - 1.1) LVIDd: 3.5 cm (3.9 - 5.3) LVPWd: 1.5 cm (0.6 - 1.1) IVSs: 1.6 cm LVIDs: 3.0 cm LVPWs: 1.2 cm LAESV Index (A-L): 18.89 ml/m Ao Diam: 4.2 cm (2.0 - 3.7) AV Cusp: 2.0 cm (1.5 - 2.6) LA Diam: 4.3 cm (2.7 - 3.8) MV EXCURSION: 17.180 mm (> 18.000) MV EF SLOPE: 60 mm/s (70 - 150) EPSS: 0.7 cm MV E Asif: 0.32 m/s MV DecT: 343 ms MV A Asif: 0.70 m/s MV E/A Ratio: 0.46 RAP: 5.00 mmHg RVSP: 43.59 mmHg FINDINGS -------- Sinus rhythm. This was a technically adequate study. LV size, wall thickness and systolic function are normal, with an EF greater than 55%. The left [place] tricular size is normal. The right ventricle is normal in size. Normal LA size by volume 22+/-6 ml/m2. The right atrial size is normal. Aortic valve is trileaflet and is mildly thickened. The mitral valve leaflets are mildly thickened. Mild mitral regurgitation is present. Mild tricuspid regurgitation present. There is mild pulmonary hypertension. The right ventricular systolic pressure, as measured by Doppler, is 43.59mmHg. There is no pulmonic regurgitation present. The aortic root size is normal. There is no pericardial effusion. CONCLUSIONS -------- 1. LV size, wall thickness and systolic function are normal, with an EF greater than 55%. 2. Normal LA size by volume 22+/-6 ml/m2. 3. Aortic valve is trileaflet and is mildly thickened. 4. Mild mitral regurgitation is present. 5. Mild tricuspid regurgitation present. 6. There is mild pulmonary hypertension. 7. There is no pericardial effusion. TRANSPORT TECH: Rosalinda Harley RDCS
[2020-07-19 11:24] LABS: Cholesterol 139 mg/dL (<200); HDL Cholesterol 42 mg/dL (40-60); LDL Cholesterol,Calculated 65 mg/dL (0-99); Triglycerides 161 mg/dL (<150)
--- NOTE | 2020-07-19 11:34 | P.CRDCN ---
History of Present Illness Consult date: 07/19/20 History of present illness: HISTORY OF PRESENT ILLNESS: This is a 69-year-old male with a past medical history significant for kidney stones and former nicotine dependence. 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 We have been asked to see the patient in consultation for abnormal troponins. Patient examined at the bedside. Patient states he presented to the hospital secondary to weakness, fatigue, and frequent falls. Patient was found to be in acute renal failure and diabetic ketoacidosis. The patient was diagnosed with new-onset diabetes mellitus. The patient denies any chest pain or pressure. He denies shortness of breath. Denies dizziness or lightheadedness. He states he has been expressing some difficulty swallowing since receiving his first Coreg seen on 07/13/2020. He denies a family history of coronary artery disease. The patient is a former cigarette smoker and stopped smoking in 1981. He smoked a half a pack per day at that time. The patient reports occasional alcohol use. EKG reveals sinus mechanism with first-degree AV block. Left axis deviation. Chest xray negative for acute process Laboratory data: WBC 6.7. Hemoglobin 13.9. Platelet count 157. Sodium 138. Potassium 4.0. BUN 87. Creatinine 5.11. Magnesium 2.2. Current home cardiac medications include none Echocardiogram completed revealed ejection fraction greater than 55%, mild mitral regurgitation, mild tricuspid regurgitation, and mild pulmonary hypertension REVIEW OF SYSTEMS: At the time of my exam: CONSTITUTIONAL: Denies fever or chills. HEENT: Denies blurred vision, vision changes, or eye pain. Denies hemoptysis CARDIOVASCULAR: Denies chest pain. Denies orthopnea. Denies PND. Denies palpitat ions RESPIRATORY: Denies shortness of breath. GASTROINTESTINAL: Denies abdominal pain. Denies nausea or vomiting. HEMATOLOGIC: Denies bleeding disorders. GENITOURINARY: Denies any blood in urine. SKIN: Denies pruitis. Denies rash. PHYSICAL EXAM: VITAL SIGNS: Reviewed. GENERAL: Well-developed in no acute distress. HEENT: Head is normocephalic. Pupils are equal, round. Sclerae anicteric. Mucous membranes of the mouth are moist. Neck supple. No JVD or thyromegaly LUNGS: Respirations even and unlabored. Lungs essentially clear to auscultation bilaterally. HEART: Regular rate and rhythm. S1 and S2 heard. ABDOMEN: Soft. Nondistended. Nontender. EXTREMITIES: Normal range of motion. No clubbing or cyanosis. Peripheral pulses intact. No lower extremity edema NEUROLOGIC: Awake and alert. Oriented x 3. ASSESSMENT: New-onset diabetes mellitus Diabetic ketoacidosis Acute renal failure Abnormal troponin, suspect secondary to acute renal failure Former nicotine dependence PLAN: Obtain additional troponin level Obtain lipid panel Will begin Lipitor 10 mg daily secondary to new onset diabetes Will not initiate HARRIET inhibitor at this time secondary to acute renal failure Further recommendations pending patient course Nurse practitioner note has been reviewed by physician. Signing provider agrees with the documented findings, assessment, and plan of care. Past Medical History Past Medical History: No Reported History Additional Past Medical History / Comment(s): Kidney stones History of Any Multi-Drug Resistant Organisms: None Reported Past Surgical History: No Surgical Hx Reported Additional Past Surgical History / Comment(s): eye sx for cataracts, colonoscopy prior to 2009 Past Anesthesia/Blood Transfusion Reactions: No Reported Reaction Past Psychological History: No Psychological Hx Reported Smoking Status: Former smoker Past Alcohol Use History: Rare Additional Past Alcohol Use History / Comment(s): started 1969 stop 05/14 ppd. ETOH: 2 drinks per week Past Drug Use History: None Reported - Past Family History Mother Family Medical History: Cancer Additional Family Medical History / Comment(s): CA: breast, she's 91 Father Family Medical History: Cancer Additional Family Medical History / Comment(s): CA: lung (" from") Medications and Allergies Home Medications Medication Instructions Recorded Confirmed Type No Known Home Medications 07/17/20 07/17/20 History Allergies Allergy/AdvReac Type Severity Reaction Status Date / Time No Known Allergies Allergy Verified 07/17/20 11:54 Physical Exam Vitals: Vital Signs Temp Pulse Resp BP BP Pulse Ox 07/19/20 08:00 97.9 F 95 16 125/81 92 L 07/19/20 04:00 98.4 F 83 18 94/50 97 07/19/20 00:57 81 18 07/19/20 00:00 97.6 F 81 18 107/68 98 07/18/20 20:00 98.4 F 84 18 114/67 94 L 07/18/20 16:00 97.6 F 72 16 98/54 98 07/18/20 14:00 16 07/18/20 12:00 97.7 F 89 16 113/73 94 L Intake and Output 07/18/20 07/19/20 07/19/20 22:59 06:59 14:59 Intake Total 118 240 Output Total 1200 900 Balance 118 -1200 -660 Intake: Oral 118 240 Output: Urine 1200 900 Other: Voiding Method Urinal Indwelling Catheter Indwelling Catheter # Voids 3 Weight 94.8 kg Results 07/19/20 06:24 07/19/20 06:24 Cardiac Enzymes 07/19/20 Range/Units 06:24 AST 17 (17-59) U/L CBC 07/19/20 Range/Units 06:24 WBC 6.7 (3.8-10.6) k/uL RBC 4.44 (4.30-5.90) m/uL Hgb 13.9 (13.0-17.5) gm/dL Hct 42.8 (39.0-53.0) % Plt Count 157 (150-450) k/uL Comprehensive Metabolic Panel 07/19/20 Range/Units 06:24 Sodium 138 (137-145) mmol/L Potassium 4.0 (3.5-5.1) mmol/L Chloride 111 H (98-107) mmol/L Carbon Dioxide 19 L (22-30) mmol/L BUN 87 H (9-20) mg/dL Creatinine 5.11 H (0.66-1.25) mg/dL Glucose 63 L (74-99) mg/dL Calcium 8.3 L (8.4-10.2) mg/dL AST 17 (17-59) U/L ALT 16 (4-49) U/L Alkaline Phosphatase 75 (38-126) U/L Total Protein 5.1 L (6.3-8.2) g/dL Albumin 2.4 L (3.5-5.0) g/dL Current Medications Generic Name Dose Route Start Last Admin Trade Name Freq PRN Reason Stop Dose Admin Acetaminophen 500 mg 07/17/20 15:04 Acetaminophen Tab 500 Mg Tab PO Q6HR PRN Fever and/ or Pain Hydrocodone Bitart/Acetaminophen 1 each 07/17/20 15:04 Hydrocodone/Apap 5-325mg 1 Each Tab PO Q6HR PRN Pain Alprazolam 0.25 mg 07/17/20 15:04 Alprazolam 0.25 Mg Tab PO TID PRN Anxiety Atorvastatin Calcium 10 mg 07/19/20 21:00 Atorvastatin 10 Mg Tab PO HS NAI Heparin Sodium (Porcine) 5,000 unit 07/17/20 21:00 07/19/20 08:07 Heparin Sodium,Porcine 5,000 Unit/Ml 1 Ml Vial SQ 5,000 unit Q12HR NAI Administration Ceftriaxone Sodium 1 gm/ 50 mls @ 100 mls/hr 07/18/20 09:00 07/19/20 08:06 Sodium Chloride IVPB 100 mls/hr Q24HR NAI Administration Sodium Chloride 1,000 mls @ 75 mls/hr 07/18/20 15:45 07/19/20 06:53 Saline 0.9% IV 75 mls/hr .[id number] NAI Administration Insulin Aspart 0 unit 07/18/20 17:30 07/19/20 06:52 Insulin Aspart (Novolog) 100 Unit/Ml Vial SQ Not Given ACHS [facility] Protocol Insulin Detemir 40 unit 07/18/20 13:00 07/19/20 08:07 Insulin Detemir (Levemir) 100 Unit/Ml Syr SQ 40 unit DAILY@0700 NAI Administration Multivitamins 1 each 07/18/20 12:00 07/18/20 08:20 Multivitamins, Thera 1 Each Tab PO 1 each DAILY@1200 NAI Administration Pantoprazole Sodium 40 mg 07/19/20 09:00 07/19/20 08:07 Pantoprazole 40 Mg Tablet PO 40 mg DAILY NAI Administration Intake and Output 07/18/20 07/19/20 07/19/20 22:59 06:59 14:59 Intake Total 118 240 Output Total 1200 900 Balance 118 -1200 -660 Intake: Oral 118 240 Output: Urine 1200 900 Other: Voiding Method Urinal Indwelling Catheter Indwelling Catheter # Voids 3 Weight 94.8 kg 07/19/20 06:24 07/19/20 06:24
[2020-07-19] MEDS: MULTIVITAMINS, THERA 1 EACH TAB PO SCH (11:45)
[2020-07-19 11:49] LABS: Glucose,Whole Blood 102 mg/dL (75-99)
--- NOTE | 2020-07-19 15:57 | P.PN ---
Subjective Progress Note Date: 07/19/20 The patient was seen for hydronephrosis. He is in the hospital with diabetic ketoacidosis, new onset. A computed tomography scan of the abdomen was obtained. He has bilateral hydronephrosis. The left shows a chronically dilated kidney with minimal remaining parenchyma. The right shows a mild to moderate hydronephrosis. The patient's creatinine today is 5. His sugars are much better controlled. 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 The left side looks to be beyond repair. The right side probably will need to be dealt with. I think urgently cystoscopy and placement of double-J catheter on the right would be the treatment of choice until the sugar has been stabilized and the patient has a treatment plan in the future. There also was question of urinary infection. The patient has severe phimosis with significant amounts of debris under the foreskin leading to be abnormal urinalysis. I do not think he is infected. Plan on doing cystoscopy retrograde pyelograms and probable double-J catheter placement tomorrow. Objective - Vital Signs Vital signs: Vital Signs Temp 98.0 F 07/19/20 11:40 Pulse 78 07/19/20 11:40 Resp 16 07/19/20 11:40 BP 111/69 07/19/20 11:40 Pulse Ox 100 07/19/20 11:40 Intake & Output 07/18/20 07/19/20 07/19/20 18:59 06:59 18:59 Intake Total 728.390 360 Output Total 1200 900 Balance 728.390 -1200 -540 Weight 96.5 kg 94.8 kg Intake: Intake, IV Titration 10.390 Amount Insulin Regular 100 unit 10.390 In Sodium Chloride 0.9% 100 ml @ 0.1 UNITS/KG/HR 9.04 mls/hr IV .[id number] [facility] Rx#:[id number] Oral 718 360 Output: Urine 1200 900 Other: Voiding Method Urinal Indwelling Catheter Indwelling Catheter # Voids 3 - Labs CBC & Chem 7: 07/19/20 06:24 07/19/20 06:24 Labs: Abnormal Lab Results - Last 24 Hours (Table) 07/18/20 07/18/20 07/19/20 Range/Units 16:49 20:23 06:24 Lymphocytes # 0.9 L (1.0-4.8) k/uL Chloride (98-107) mmol/L Carbon Dioxide (22-30) mmol/L BUN (9-20) mg/dL Creatinine (0.66-1.25) mg/dL Glucose (74-99) mg/dL POC Glucose (mg/dL) 282 H 193 H (75-99) mg/dL Calcium (8.4-10.2) mg/dL Troponin I (0.000-0.034) ng/mL Total Protein (6.3-8.2) g/dL Albumin (3.5-5.0) g/dL Triglycerides (<150) mg/dL 07/19/20 07/19/20 07/19/20 Range/Units 06:24 06:24 06:24 Lymphocytes # (1.0-4.8) k/uL Chloride 111 H (98-107) mmol/L Carbon Dioxide 19 L (22-30) mmol/L BUN 87 H (9-20) mg/dL Creatinine 5.11 H (0.66-1.25) mg/dL Glucose 63 L (74-99) mg/dL POC Glucose (mg/dL) (75-99) mg/dL Calcium 8.3 L (8.4-10.2) mg/dL Troponin I 0.044 H* (0.000-0.034) ng/mL Total Protein 5.1 L (6.3-8.2) g/dL Albumin 2.4 L (3.5-5.0) g/dL Triglycerides 161 H (<150) mg/dL 07/19/20 Range/Units 11:48 Lymphocytes # (1.0-4.8) k/uL Chloride (98-107) mmol/L Carbon Dioxide (22-30) mmol/L BUN (9-20) mg/dL Creatinine (0.66-1.25) mg/dL Glucose (74-99) mg/dL POC Glucose (mg/dL) 102 H (75-99) mg/dL Calcium (8.4-10.2) mg/dL Troponin I (0.000-0.034) ng/mL Total Protein (6.3-8.2) g/dL Albumin (3.5-5.0) g/dL Triglycerides (<150) mg/dL Microbiology - Last 24 Hours (Table) 07/17/20 12:00 Urine Culture - Final Urine,Voided 07/17/20 13:58 Blood Culture - Preliminary Blood No Growth after 24 hours
--- NOTE | 2020-07-19 16:31 | PN ---
PROGRESS NOTE Patient is seen for followup for acute kidney injury. Patient's CT of the abdomen showed bilateral hydronephrosis with evidence of right renal atrophy as well. Currently patient is comfortable, awake. He is not in any acute distress. He has an indwelling Friend catheter. PHYSICAL EXAMINATION: On examination today, blood pressure 125/81, heart rate 95 per minute. He is afebrile. EXAMINATION OF THE HEART: S1 and S2. EXAMINATION OF LUNGS: Bilateral breath sounds are heard. ABDOMEN: Soft, non-tender. Examination of lower extremities shows no significant edema. REHABILITATION SERVICES COORDINATOR exam is grossly intact. LABS: Sodium 138, potassium 4.0, chloride 111. CO2 is 19, BUN 87, serum creatinine 5.1 mg/dL. ASSESSMENT: 1. Acute kidney injury, obstructive uropathy with left renal atrophy and bilateral hydronephrosis noted on CT scan of the abdomen and pelvis. Patient has been evaluated by Nephrology. He will likely need further intervention, as serum creatinine is staying at 5 mg/dL. 2. New diagnosis of diabetes this admission. 3. Diabetic ketoacidosis on admission. 4. Metabolic acidosis associated with diabetic ketoacidosis as well as renal failure, improved. 5. Pyuria with urine culture showing skin and genital letha. PLAN: Await urology input. May continue with IV fluids for now. Repeat labs in a.m. MMODL / IJN: [id number] /
[2020-07-19 16:40] LABS: Glucose,Whole Blood 155 mg/dL (75-99)
--- NOTE | 2020-07-19 19:49 | P.PN ---
Subjective Progress Note Date: 07/19/20 (0800) Principal diagnosis: Acute diabetic ketoacidosis new onset diabetes mellitus acute kidney injury with elevated creatinine of five possibly acute urinary tract infection 69-year-old male was admitted to the hospital with acute diabetic ketoacidosis, with new on set diabetes mellitus. Secondarily, patient has acute kidney injury with elevated serum creatinine and BUN. Patient ion gap has closed, insulin drip stop yesterday patient on basal insulin and sliding scale for glycemic control. Nephrology, urology and cardiology for multidisciplinary approach. Patient denies any complaints at this time. Objective - Vital Signs Vital signs: Vital Signs Temp 98.0 F 07/19/20 16:00 Pulse 75 07/19/20 16:00 Resp 16 07/19/20 16:00 BP 108/59 07/19/20 16:00 Pulse Ox 92 L 07/19/20 16:00 Intake & Output 07/19/20 07/19/20 07/20/20 06:59 18:59 06:59 Intake Total 360 600 Output Total 1200 900 900 Balance -1200 -540 -300 Weight 94.8 kg Intake: Intake, IV Titration 600 Amount Sodium Chloride 0.9% 1, 600 000 ml @ 75 mls/hr IV . [id number] [facility] Rx#:[id number] Oral 360 Output: Urine 1200 900 900 Other: Voiding Method Indwelling Catheter Indwelling Catheter - Constitutional General appearance: Present: cooperative - EENT Eyes: Present: EOMI, PERRLA ENT: Present: pharyngeal erythema Ears: bilateral: normal - Neck Neck: Present: normal ROM Carotids: bilateral: upstroke normal - Respiratory Respiratory: bilateral: diminished (Anterior posterior lung castrejon) - Cardiovascular Details: Normal sinus rhythm with the first-degree block Heart rate: 74 Rhythm: regular Heart sounds: normal: S1, S2 - Peripheral pulses radial pulse Peripheral Pulses: bilateral: Normal dorsalis pedis Peripheral Pulses: bilateral: Normal - Gastrointestinal General gastrointestinal: Present: normal bowel sounds - Integumentary Integumentary: Present: decreased turgor - Neurologic Neurologic: Present: CNII-XII intact - Musculoskeletal Musculoskeletal: Present: generalized weakness - Psychiatric Psychiatric: Present: appropriate affect, intact judgment & insight - Allied health notes Allied health notes reviewed: nursing - Labs CBC & Chem 7: 07/19/20 06:24 07/19/20 06:24 Labs: Abnormal Lab Results - Last 24 Hours (Table) 07/18/20 07/19/20 07/19/20 Range/Units 20:23 06:24 06:24 Lymphocytes # 0.9 L (1.0-4.8) k/uL Chloride 111 H (98-107) mmol/L Carbon Dioxide 19 L (22-30) mmol/L BUN 87 H (9-20) mg/dL Creatinine 5.11 H (0.66-1.25) mg/dL Glucose 63 L (74-99) mg/dL POC Glucose (mg/dL) 193 H (75-99) mg/dL Calcium 8.3 L (8.4-10.2) mg/dL Troponin I (0.000-0.034) ng/mL Total Protein 5.1 L (6.3-8.2) g/dL Albumin 2.4 L (3.5-5.0) g/dL Triglycerides (<150) mg/dL 07/19/20 07/19/20 07/19/20 Range/Units 06:24 06:24 11:48 Lymphocytes # (1.0-4.8) k/uL Chloride (98-107) mmol/L Carbon Dioxide (22-30) mmol/L BUN (9-20) mg/dL Creatinine (0.66-1.25) mg/dL Glucose (74-99) mg/dL POC Glucose (mg/dL) 102 H (75-99) mg/dL Calcium (8.4-10.2) mg/dL Troponin I 0.044 H* (0.000-0.034) ng/mL Total Protein (6.3-8.2) g/dL Albumin (3.5-5.0) g/dL Triglycerides 161 H (<150) mg/dL 07/19/20 Range/Units 16:39 Lymphocytes # (1.0-4.8) k/uL Chloride (98-107) mmol/L Carbon Dioxide (22-30) mmol/L BUN (9-20) mg/dL Creatinine (0.66-1.25) mg/dL Glucose (74-99) mg/dL POC Glucose (mg/dL) 155 H (75-99) mg/dL Calcium (8.4-10.2) mg/dL Troponin I (0.000-0.034) ng/mL Total Protein (6.3-8.2) g/dL Albumin (3.5-5.0) g/dL Triglycerides (<150) mg/dL Microbiology - Last 24 Hours (Table) 07/17/20 13:58 Blood Culture - Preliminary Blood No Growth after 48 hours 07/17/20 12:00 Urine Culture - Final Urine,Voided - Imaging and Cardiology Echocardiogram pending Assessment and Plan Assessment: Diabetes mellitus type II new onset, with acute diabetic ketoacidosis present on admission acute renal failure with acute tubular necrosis multifactorial left hydronephrosis hyponatremia metabolic acidosis elevated plasma lactic acid acute urinary tract infection present on admission Plan: Diabetes mellitus type II sliding scale with basal insulin acute renal failure consult nephrology and urology for treatment plan and recommendations elevated troponins consultation with cardiology for treatment plan and recommendations continue current medications further recommendations to follow Time with Patient: Greater than 30
[2020-07-19 20:39] LABS: Glucose,Whole Blood 130 mg/dL (75-99)
[2020-07-19] MEDS: ATORVASTATIN 10 MG TAB PO SCH (20:40)
[2020-07-20 06:20] LABS: Glucose,Whole Blood 108 mg/dL (75-99)
[2020-07-20] MEDS: INSULIN ASPART (NovoLOG) 100 UNIT/ML VIAL SQ SCH ×4 (06:20→19:55)
[2020-07-20] MEDS: INSULIN DETEMIR (LEVEMIR) 100 UNIT/ML SYR SQ SCH (06:20)
[2020-07-20] MEDS: SODIUM CHLORIDE 0.9% 1,000 ML IV SCH (06:34)
[2020-07-20] MEDS: PANTOPRAZOLE 40 MG TABLET PO SCH (07:34)
[2020-07-20] MEDS: HEPARIN SODIUM,PORCINE 5,000 UNIT/ML 1 ML VIAL SQ SCH ×2 (08:07→19:55)
[2020-07-20 08:31] LABS: HCT 41.7 % (39.0-53.0); HGB 13.2 gm/dL (13.0-17.5); MCHC 31.6 g/dL (31.0-37.0); MCV 94.9 fL (80.0-100.0); Mean Platelet Volume 9.7; Platelet Count 186 k/uL (150-450); RBC 4.39 m/uL (4.30-5.90); RDW 14.3 % (11.5-15.5); WBC 6.3 k/uL (3.8-10.6)
[2020-07-20 08:41] LABS: Albumin 2.2 g/dL (3.5-5.0); Calcium 8.2 mg/dL (8.4-10.2); Magnesium 2.1 mg/dL (1.6-2.3); Potassium 4.1 mmol/L (3.5-5.1); Total Bilirubin 0.3 mg/dL (0.2-1.3); Total Protein 4.7 g/dL (6.3-8.2)
[2020-07-20 09:04] LABS: Band Neutrophils % 2 %; Eosinophils # (M) 0.06 k/uL (0-0.7); Lymphocytes # (M) 1.07 k/uL (1.0-4.8); Metamyelocytes # (M) 0.06 k/uL (0); Metamyelocytes % 1 %; Monocytes # (M) 0.88 k/uL (0-1.0); Myelocytes # (M) 0.13 k/uL (0); Myelocytes % 2 %; Neutrophils % (M) 65 %; Nucleated Red Blood Cells 0 /100 WBC (0-0); Total Cells Counted 200
[2020-07-20 11:32] LABS: Glucose,Whole Blood 149 mg/dL (75-99)
[2020-07-20] MEDS: MULTIVITAMINS, THERA 1 EACH TAB PO SCH (12:26)
[2020-07-20] MEDS ORDERED: LACTATED RINGERS 1,000 ML IV SCH (12:40)
[2020-07-20] MEDS ORDERED: IV FLUID CONTINUATION 1,000 ML IV ONE (12:44)
[2020-07-20] MEDS ORDERED: ONDANSETRON 4 MG/2 ML VIAL ONE (12:46)
[2020-07-20] MEDS ORDERED: DEXAMETHASONE SOD PHOSPHATE 4 MG/ML 1 ML VIAL IV ONE (12:49)
[2020-07-20] MEDS ORDERED: ONDANSETRON 4 MG/2 ML VIAL IVP ONE (12:49)
--- NOTE | 2020-07-20 13:04 | P.PN ---
Subjective Progress Note Date: 07/20/20 HISTORY OF PRESENT ILLNESS: 07/19/2020 This is a 69-year-old male with a past medical history significant for kidney stones and former nicotine dependence. Patient does not follow with a scheduling coordinator. We have been asked to see the patient in consultation for abnormal troponins. Patient examined at the bedside. Patient states he presented to the hospital secondary to weakness, fatigue, and frequent falls. Patient was found to be in acute renal failure and diabetic ketoacidosis. The patient was diagnosed with new-onset diabetes mellitus. The patient denies any chest pain or pressure. He denies shortness of breath. Denies dizziness or lightheadedness. He states he has been expressing some difficulty swallowing since receiving his first Coreg seen on 07/13/2020. He denies a family history of coronary artery disease. The patient is a former cigarette smoker and stoppe d smoking in 1981. He smoked a half a pack per day at that time. The patient reports occasional alcohol use. EKG reveals sinus mechanism with first-degree AV block. Left axis deviation. Chest xray negative for acute process Laboratory data: WBC 6.7. Hemoglobin 13.9. Platelet count 157. Sodium 138. Potassium 4.0. BUN 87. Creatinine 5.11. Magnesium 2.2. Current home cardiac medications include none 07/20/2020 Patient examined this morning at the bedside. Patient denies chest pain or pr essure. He denies shortness of breath. Creatinine 5.05. Patient is scheduled to undergo cystoscopy today with urology. Echocardiogram completed revealed ejection fraction greater than 55%, mild mitral regurgitation, mild tricuspid regurgitation, and mild pulmonary hypertension PHYSICAL EXAM: VITAL SIGNS: Reviewed. GENERAL: Well-developed in no acute distress. HEENT: Head is normocephalic. Pupils are equal, round. Sclerae anicteric. Mucous membranes of the mouth are moist. Neck supple. No JVD or thyromegaly LUNGS: Respirations even and unlabored. Lungs essentially clear to auscultation bilaterally. HEART: Regular rate and rhythm. S1 and S2 heard. ABDOMEN: Soft. Nondistended. Nontender. EXTREMITIES: Normal range of motion. No clubbing or cyanosis. Peripheral pul ses intact. No lower extremity edema NEUROLOGIC: Awake and alert. Oriented x 3. ASSESSMENT: New-onset diabetes mellitus Diabetic ketoacidosis Acute renal failure Abnormal troponin, suspect secondary to acute renal failure Former nicotine dependence PLAN: Continue Lipitor 10 mg daily secondary to new onset diabetes Will not initiate HARRIET inhibitor at this time secondary to acute renal failure No contraindications to undergo cystoscopy from a cardiac perspective We will sign off. Please reconsult if needed. Nurse practitioner note has been reviewed by physician. Signing provider agrees with the documented findings, assessment, and plan of care. Objective - Vital Signs Vital signs: Vital Signs Temp 96.9 F L 07/20/20 12:37 Pulse 88 07/20/20 12:37 Resp 16 07/20/20 12:37 BP 106/62 07/20/20 12:37 Pulse Ox 96 07/20/20 12:37 Intake & Output 07/19/20 07/20/20 07/20/20 18:59 06:59 18:59 Intake Total 360 600 Output Total 900 2125 Balance -540 -1525 Weight 88.5 kg Intake: Intake, IV Titration 600 Amount Sodium Chloride 0.9% 1, 600 000 ml @ 75 mls/hr IV . [id number] [facility] Rx#:[id number] Oral 360 Output: Urine 900 2125 Other: Voiding Method Indwelling Catheter Indwelling Catheter Indwelling Catheter - Labs CBC & Chem 7: 07/20/20 07:27 07/20/20 07:27 Labs: Abnormal Lab Results - Last 24 Hours (Table) 07/19/20 07/19/20 07/20/20 Range/Units 16:39 20:38 06:19 Metamyelocytes # (Man) (0) k/uL Myelocytes # (Manual) (0) k/uL Chloride (98-107) mmol/L Carbon Dioxide (22-30) mmol/L BUN (9-20) mg/dL Creatinine (0.66-1.25) mg/dL Glucose (74-99) mg/dL POC Glucose (mg/dL) 155 H 130 H 108 H (75-99) mg/dL Calcium (8.4-10.2) mg/dL AST (17-59) U/L Total Protein (6.3-8.2) g/dL Albumin (3.5-5.0) g/dL 07/20/20 07/20/20 07/20/20 Range/Units 07:27 07:27 11:30 Metamyelocytes # (Man) 0.06 H (0) k/uL Myelocytes # (Manual) 0.13 H (0) k/uL Chloride 117 H (98-107) mmol/L Carbon Dioxide 16 L (22-30) mmol/L BUN 82 H (9-20) mg/dL Creatinine 5.05 H (0.66-1.25) mg/dL Glucose 105 H (74-99) mg/dL POC Glucose (mg/dL) 149 H (75-99) mg/dL Calcium 8.2 L (8.4-10.2) mg/dL AST 15 L (17-59) U/L Total Protein 4.7 L (6.3-8.2) g/dL Albumin 2.2 L (3.5-5.0) g/dL Microbiology - Last 24 Hours (Table) 07/17/20 13:58 Blood Culture - Preliminary Blood No Growth after 48 hours
[2020-07-20] MEDS ORDERED: MIDAZOLAM 2 MG/2 ML VIAL ONE (13:22)
[2020-07-20] MEDS ORDERED: PHENYLEPHRINE-0.9% NACL SYG 1,000 MCG/10 ML SYRINGE ONE (13:22)
[2020-07-20] MEDS ORDERED: PROPOFOL 10 MG/ML 20 ML VIAL IV ONE (13:22)
[2020-07-20] MEDS ORDERED: fentaNYL (PF) 50 MCG/ML 2 ML AMP ONE (13:22)
[2020-07-20] MEDS ORDERED: IOPAMIDOL-370 50ML BTL MISCELLANE ONE (13:24)
[2020-07-20] MEDS ORDERED: LACTATED RINGERS 1,000 ML IV ONE (14:03)
--- NOTE | 2020-07-20 14:12 | P.OP ---
Date of Procedure: 07/20/20 Preoperative Diagnosis: Bilateral hydronephrosis, acute renal failure Postoperative Diagnosis: Same, Procedure(s) Performed: Cystoscopy, right retrograde pyelogram, placement of double-J catheter right, failed left retrograde pyelogram Anesthesia: JUAN CARLOS Surgeon: Kush Burleson Pathology: none sent Condition: stable Disposition: PACU Indications for Procedure: The patient is 69. He came in the hospital diabetic ketoacidosis. Evaluation identified acute renal failure with creatinine of 5.1. The patient has computed tomography scan identified bilateral hydronephrosis with an atrophic left kidney and moderate hydronephrosis on the right. No stones were seen. He comes for cystoscopy retrograde pyelogram Description of Procedure: Patient is brought to the operating suite. He is given a general anesthetic. He's placed lithotomy position with sterile prep and drape. The foreskin is extremely 5 moderate compared I'm able to stretch it enough to get the scope into the urethral meatus. The anterior urethra is normal with prostate does show some lateral lobe obstruction. The bladder judd heavily trabeculated. The left ureteral orifice appears very scarred. I'm unable to pass a wire or retrograde catheter for retrograde pyelogram The right ureteral orifice is identified. Notable J hooking of the ureter. I eventually I'm able to get a wire through the orifice up the ureter. I do retrograde pyelogram and there is some UPJ narrowing however the calyces are not extremely blunted. I reintroduced the wire backloaded on the cystoscope. Over the wire is passed a 6 x 26 double-J catheter that coils in the renal pelvis and the bladder. The cystoscope was removed. The 16-Norwegian Friend catheters introduced. The patient's awake and returned recovery in good condition. Impression: Left-sided hydronephrosis with atrophy due to ureteral obstruction of indeterminate cause probably scar tissue from past stone disease Right ureteral obstruction does not appear to be as prominent as I suspected. There is a UPJ obstruction but he also has J hooking of the ureters. The double-J catheters placed we'll see how this if this does help with renal failure than the question is whether we need to relieve the outlet obstruction ,repair the UPJ or both. The patient is awakened and returned recovery in good condition
--- NOTE | 2020-07-20 14:20 | PN ---
PROGRESS NOTE Patient is seen for followup for acute kidney injury. Patient is scheduled to undergo cystoscopy and double-J ureteral stent placement for bilateral hydronephrosis. This morning he is comfortable not in any acute distress. PHYSICAL EXAMINATION: Blood pressure was 119/62, heart rate 58 per minute. He is afebrile. EXAMINATION OF THE HEART: S1, S2. EXAMINATION OF THE LUNGS: Bilateral breath sounds are heard. Abdomen is soft, nontender. Examination of lower extremities shows no evidence of edema. HISTORY PROFESSOR exam grossly intact. LABS: Labs show sodium 141, potassium 4.1, chloride 117, CO2 of 16. BUN 82, creatinine 5.05. Hemoglobin 13.2, white cell count 6.3 g/dL. ASSESSMENT: 1. Acute kidney injury secondary to bilateral hydronephrosis, obstructive uropathy scheduled for cystoscopy and ureteral stent placement. 2. Metabolic acidosis associated with renal failure. I will add oral bicarb and switch IV fluids to Ringer lactate. 3. Pyuria with no evidence of infection on the urine culture. 4. Diabetic ketoacidosis on admission with new diagnosis of diabetes, currently resolved. PLAN: Switch to Ringer lactate at 75 mL an hour. Repeat labs in a.m. Add oral sodium bicarb. MMODL / IJN: [id number] /
[2020-07-20 14:30] LABS: Glucose,Whole Blood 139 mg/dL (75-99)
--- NOTE | 2020-07-20 14:30 | FL ---
Fluoroscopy HISTORY: Cystoscopy with stent 26 seconds fluoroscopy time supplied to the referring clinician. 6 intraoperative C-arm images docum ent the procedure. See dictated report from urology.
[2020-07-20] MEDS: ACETAMINOPHEN TAB 500 MG TAB PO PRN (16:05)
[2020-07-20 17:11] LABS: Glucose,Whole Blood 282 mg/dL (75-99)
[2020-07-20 19:44] LABS: Glucose,Whole Blood 416 mg/dL (75-99)
[2020-07-20] MEDS: SODIUM BICARBONATE TAB 650 MG TAB PO SCH (19:55)
[2020-07-20] MEDS: ATORVASTATIN 10 MG TAB PO SCH (19:55)
--- NOTE | 2020-07-20 21:11 | P.PN ---
Subjective Progress Note Date: 07/20/20 (3045) Principal diagnosis: Acute diabetic ketoacidosis new onset diabetes mellitus acute kidney injury with elevated creatinine of five possibly acute urinary tract infection 69-year-old male was admitted to the hospital with acute diabetic ketoacidosis, with new on set diabetes mellitus. Secondarily, patient has acute kidney injury with elevated serum creatinine and BUN. patient on basal insulin and sliding scale for glycemic control. Nephrology, urology and cardiology for multidisciplinary approach. Patient denies any complaints at this time.Urology underwent a procedure to see if there was obstructive right utere emplacement of catheter Objective - Vital Signs Vital signs: Vital Signs Temp 96.8 F L 07/20/20 14:12 Pulse 86 07/20/20 15:17 Resp 18 07/20/20 15:17 BP 155/86 07/20/20 15:17 Pulse Ox 94 L 07/20/20 15:17 Intake & Output 07/20/20 07/20/20 07/21/20 06:59 18:59 06:59 Intake Total 600 972 Output Total 2125 1201 Balance -1525 -229 Weight 88.5 kg Intake: IV 750 Intake, IV Titration 600 Amount Sodium Chloride 0.9% 1, 600 000 ml @ 75 mls/hr IV . [id number] [facility] Rx#:[id number] Oral 222 Output: Urine 2125 1200 Estimated Blood Loss 1 Other: Voiding Method Indwelling Catheter Indwelling Catheter - Constitutional General appearance: Present: cooperative - EENT Eyes: Present: EOMI, PERRLA ENT: Present: normal oropharynx Ears: bilateral: normal - Neck Neck: Present: normal ROM Carotids: bilateral: upstroke normal Thyroid: bilateral: normal size - Respiratory Respiratory: bilateral: CTA (Anterior and posterior lung castrejon) - Cardiovascular Details: Normal sinus rhythm with the first-degree AV block Heart rate: 74 Rhythm: regular Heart sounds: normal: S1, S2 - Peripheral pulses radial pulse Peripheral Pulses: bilateral: Normal femoral Peripheral Pulses: bilateral: Normal - Gastrointestinal General gastrointestinal: Present: normal bowel sounds - Integumentary Integumentary: Present: decreased turgor - Neurologic Neurologic: Present: CNII-XII intact - Musculoskeletal Musculoskeletal: Present: generalized weakness - Psychiatric Psychiatric: Present: A&O x's 3, appropriate affect, intact judgment & insight - Allied health notes Allied health notes reviewed: nursing - Labs CBC & Chem 7: 07/20/20 07:27 07/20/20 07:27 Labs: Abnormal Lab Results - Last 24 Hours (Table) 07/20/20 07/20/20 07/20/20 Range/Units 06:19 07:27 07:27 Metamyelocytes # (Man) 0.06 H (0) k/uL Myelocytes # (Manual) 0.13 H (0) k/uL Chloride 117 H (98-107) mmol/L Carbon Dioxide 16 L (22-30) mmol/L BUN 82 H (9-20) mg/dL Creatinine 5.05 H (0.66-1.25) mg/dL Glucose 105 H (74-99) mg/dL POC Glucose (mg/dL) 108 H (75-99) mg/dL Calcium 8.2 L (8.4-10.2) mg/dL AST 15 L (17-59) U/L Total Protein 4.7 L (6.3-8.2) g/dL Albumin 2.2 L (3.5-5.0) g/dL 07/20/20 07/20/20 07/20/20 Range/Units 11:30 14:28 17:08 Metamyelocytes # (Man) (0) k/uL Myelocytes # (Manual) (0) k/uL Chloride (98-107) mmol/L Carbon Dioxide (22-30) mmol/L BUN (9-20) mg/dL Creatinine (0.66-1.25) mg/dL Glucose (74-99) mg/dL POC Glucose (mg/dL) 149 H 139 H 282 H (75-99) mg/dL Calcium (8.4-10.2) mg/dL AST (17-59) U/L Total Protein (6.3-8.2) g/dL Albumin (3.5-5.0) g/dL 07/20/20 Range/Units 19:41 Metamyelocytes # (Man) (0) k/uL Myelocytes # (Manual) (0) k/uL Chloride (98-107) mmol/L Carbon Dioxide (22-30) mmol/L BUN (9-20) mg/dL Creatinine (0.66-1.25) mg/dL Glucose (74-99) mg/dL POC Glucose (mg/dL) 416 H (75-99) mg/dL Calcium (8.4-10.2) mg/dL AST (17-59) U/L Total Protein (6.3-8.2) g/dL Albumin (3.5-5.0) g/dL Microbiology - Last 24 Hours (Table) 07/17/20 13:58 Blood Culture - Preliminary Blood No Growth after 72 hours Assessment and Plan Assessment: Diabetes mellitus type II new onset, with acute diabetic ketoacidosis present on admission acute renal failure with acute tubular necrosis multifactorial left hydronephrosis hyponatremia metabolic acidosis elevated plasma lactic acid acute urinary tract infection present on admission Plan: Diabetes mellitus type II sliding scale with basal insulin acute renal failure consult nephrology and urology for treatment plan and recommendations elevated troponins consultation with cardiology for treatment plan and recommendations continue current medications further recommendations to follow Time with Patient: Greater than 30
[2020-07-21 06:53] LABS: Glucose,Whole Blood 286 mg/dL (75-99)
[2020-07-21] MEDS: INSULIN DETEMIR (LEVEMIR) 100 UNIT/ML SYR SQ SCH (07:05)
[2020-07-21] MEDS: INSULIN ASPART (NovoLOG) 100 UNIT/ML VIAL SQ SCH ×4 (07:06→20:12)
[2020-07-21] MEDS: ACETAMINOPHEN TAB 500 MG TAB PO PRN (07:08)
[2020-07-21] MEDS: HEPARIN SODIUM,PORCINE 5,000 UNIT/ML 1 ML VIAL SQ SCH ×2 (08:02→20:12)
[2020-07-21] MEDS: SODIUM BICARBONATE TAB 650 MG TAB PO SCH ×2 (08:03→20:12)
[2020-07-21] MEDS: PANTOPRAZOLE 40 MG TABLET PO SCH (08:03)
--- NOTE | 2020-07-21 08:53 | XR ---
EXAMINATION TYPE: XR chest 1V portable DATE OF EXAM: 07/21/2020 COMPARISON: Chest x-ray 07/17/2020 HISTORY: Shortness of breath TECHNIQUE: Single frontal view of the chest is obtained. FINDINGS: There is no focal air space opacity, pleural effusion, or pneumothorax seen. The cardiac silhouette size is stable. There are overlying leads. The aorta is dense. The osseous structures are intact. IMPRESSION: No acute process.
[2020-07-21 09:33] LABS: Basophils # (A) 0.1 k/uL (0-0.2); Basophils % (A) 1 %; Calcium 9.1 mg/dL (8.4-10.2); Eosinophils % (A) 0 %; HCT 49.2 % (39.0-53.0); HGB 15.3 gm/dL (13.0-17.5); Hypochromasia Slight; Lymphocytes # (A) 1.2 k/uL (1.0-4.8); Lymphocytes % (A) 11 %; MCH 30.1 pg (25.0-35.0); MCHC 31.1 g/dL (31.0-37.0); Magnesium 2.1 mg/dL (1.6-2.3); Mean Platelet Volume 9.8; Monocytes # (A) 0.9 k/uL (0-1.0); Monocytes % (A) 8 %; Neutrophils # (A) 8.6 k/uL (1.3-7.7); Neutrophils % (A) 79 %; Platelet Count 274 k/uL (150-450); Potassium 5.3 mmol/L (3.5-5.1); RBC 5.07 m/uL (4.30-5.90); RDW 14.2 % (11.5-15.5); Total Bilirubin 0.5 mg/dL (0.2-1.3); WBC 10.8 k/uL (3.8-10.6)
[2020-07-21] MEDS: DEXTROSE 5% IN WATER 1,000 ML with SODIUM BICARB (1 MEQ/ML) 150 ML IV SCH (11:18)
[2020-07-21 11:51] LABS: Glucose,Whole Blood 292 mg/dL (75-99)
[2020-07-21] MEDS: MULTIVITAMINS, THERA 1 EACH TAB PO SCH (12:16)
--- NOTE | 2020-07-21 14:17 | PN ---
PROGRESS NOTE The patient is seen for followup for acute kidney injury mostly obstructive uropathy with bilateral hydronephrosis noted on CAT scan. The patient is status post cystoscopy and placement of ureteral stent on the right side. Left ureteral stent could not be placed. The patient currently has good output in a Friend bag. His renal function, however, has not improved. His creatinine is actually worse today at 5.4 from 5.0 yesterday. No episodes of hypotension. No nephrotoxic medications noted. The patient is also acidotic and the IV fluids will be switched to IV bicarb. PHYSICAL EXAMINATION: On examination today, blood pressure was 128/76, heart rate 99 per minute. Patient is afebrile. EXAMINATION OF THE HEART: S1, S2. EXAMINATION OF THE LUNGS: Bilateral breath sounds are heard. Abdomen is soft, nontender. Examination of lower extremities shows no evidence of edema. DOUGHNUT FRYER exam grossly intact. LABS: Labs show sodium 142, potassium 5.3, chloride 111, CO2 is 13, BUN 85, creatinine 5.4, hemoglobin 15.3 g/dL. ASSESSMENT: 1. Acute kidney injury, obstructive uropathy. Renal function not yet improved post intervention yesterday. We will continue with the IV fluids for now. No nephrotoxic agents on board. I will try and obtain previous labs as I do not have any other labs available for comparison. 2. Metabolic acidosis and anion gap associated with renal failure obstructive uropathy. There is an element of non gap acidosis as well. I will start the patient on bicarb drip. He is maintained on oral sodium bicarb tablets. 3. Mild hyperkalemia associated with obstructive uropathy and advanced renal failure. 4. Bilateral hydronephrosis, status post right ureteral stent. The left ureteral stent could not be placed. Currently patient has good urine output in his Friend bag. A 24-hour output noted to be about 2.4 L. PLAN: Add IV bicarb. Continue oral sodium bicarb. Repeat labs in a.m. If renal function continues to worsen, patient will need dialysis. I will also try and obtain old labs for comparison. However, patient denies any previous history of kidney disease. MMODL / IJN: [id number] /
[2020-07-21 14:58] LABS: Amylase 73 U/L (30-110); Lipase 499 U/L (23-300)
--- NOTE | 2020-07-21 15:33 | US ---
EXAMINATION TYPE: US gallbladder DATE OF EXAM: 07/21/2020 COMPARISON: CT 2020 CLINICAL HISTORY: pain with eating. Exam done portable. EXAM MEASUREMENTS: Liver Length: 16.8 cm Gallbladder Wall: 0.2 cm CBD: 0.4 cm Right Kidney: 13.4 x 8.5 x 7.6 cm Pancreas: obscured by overlying midline bowel gas Liver: wnl Gallbladder: wnl Evidence for sonographic Moody's sign: no CBD: visualized portions wnl, limited by overlying bowel gas Right Kidney: enlarged, 3.3cm cyst lateral superior pole IMPRESSION: 1. Right kidney is prominent in size but no hydronephrosis. Simple appearing right renal cyst. 2. No evidence of gallstones.
[2020-07-21 16:55] LABS: Glucose,Whole Blood 251 mg/dL (75-99)
--- NOTE | 2020-07-21 19:12 | P.PN ---
Subjective Progress Note Date: 07/21/20 Principal diagnosis: Acute diabetic ketoacidosis new onset diabetes mellitus acute kidney injury with elevated creatinine of five possibly acute urinary tract infection 69-year-old male was admitted to the hospital with acute diabetic ketoacidosis, with new on set diabetes mellitus. Secondarily, patient has acute kidney injury with elevated serum creatinine and BUN. patient on basal insulin and sliding scale for glycemic control. Urology placed a double J catheter to assist in urinary output. Patient resting comfortably in bed, Urology placed a double J catheter to assist in urinary output, catheter flowing with urine output. Patient denies any fever, chills, shortness of breath, palpitations abdominal pain, nausea or vomiting. Objective - Vital Signs Vital signs: Vital Signs Temp 97.6 F 07/21/20 16:00 Pulse 70 07/21/20 16:00 Resp 16 07/21/20 16:00 BP 129/74 07/21/20 16:00 Pulse Ox 95 07/21/20 16:00 Intake & Output 07/21/20 07/21/20 07/22/20 06:59 18:59 06:59 Intake Total 560 660 Output Total 1225 1500 Balance -665 -840 Weight 90 kg Intake: Intake, IV Titration 560 Amount Lactated Ringers 1,000 ml 560 @ 70 mls/hr IV .[id number] [facility] Rx#:[id number] Oral 660 Output: Urine 1225 1500 Other: Voiding Method Indwelling Catheter Indwelling Catheter - Constitutional General appearance: Present: cooperative - EENT Eyes: Present: edentulous, PERRLA ENT: Present: hard of hearing Ears: bilateral: normal - Neck Neck: Present: normal ROM Carotids: bilateral: upstroke normal Thyroid: bilateral: normal size - Respiratory Respiratory: bilateral: diminished (Anterior posterior lung castrejon) - Cardiovascular Details: Normal sinus rhythm Heart rate: 71 Rhythm: regular Heart sounds: normal: S1, S2 - Peripheral pulses radial pulse Peripheral Pulses: bilateral: Normal dorsalis pedis Peripheral Pulses: bilateral: Normal - Gastrointestinal General gastrointestinal: Present: normal bowel sounds - Genitourinary Genitourinary Comment(s): Double J catheter in place - Integumentary Integumentary: Present: decreased turgor - Neurologic Neurologic: Present: CNII-XII intact - Musculoskeletal Musculoskeletal: Present: generalized weakness - Psychiatric Psychiatric: Present: A&O x's 3, appropriate affect - Allied health notes Allied health notes reviewed: nursing - Labs CBC & Chem 7: 07/21/20 07:13 07/21/20 07:13 Labs: Abnormal Lab Results - Last 24 Hours (Table) 07/20/20 07/21/20 07/21/20 Range/Units 19:41 06:51 07:13 WBC (3.8-10.6) k/uL Neutrophils # (1.3-7.7) k/uL Potassium 5.3 H (3.5-5.1) mmol/L Chloride 111 H (98-107) mmol/L Carbon Dioxide 13 L (22-30) mmol/L BUN 85 H (9-20) mg/dL Creatinine 5.44 H (0.66-1.25) mg/dL Glucose 336 H (74-99) mg/dL POC Glucose (mg/dL) 416 H 286 H (75-99) mg/dL Total Protein 6.0 L (6.3-8.2) g/dL Albumin 3.0 L (3.5-5.0) g/dL Lipase (23-300) U/L 07/21/20 07/21/20 07/21/20 Range/Units 07:13 07:13 11:50 WBC 10.8 H (3.8-10.6) k/uL Neutrophils # 8.6 H (1.3-7.7) k/uL Potassium (3.5-5.1) mmol/L Chloride (98-107) mmol/L Carbon Dioxide (22-30) mmol/L BUN (9-20) mg/dL Creatinine (0.66-1.25) mg/dL Glucose (74-99) mg/dL POC Glucose (mg/dL) 292 H (75-99) mg/dL Total Protein (6.3-8.2) g/dL Albumin (3.5-5.0) g/dL Lipase 499 H (23-300) U/L 07/21/20 Range/Units 16:53 WBC (3.8-10.6) k/uL Neutrophils # (1.3-7.7) k/uL Potassium (3.5-5.1) mmol/L Chloride (98-107) mmol/L Carbon Dioxide (22-30) mmol/L BUN (9-20) mg/dL Creatinine (0.66-1.25) mg/dL Glucose (74-99) mg/dL POC Glucose (mg/dL) 251 H (75-99) mg/dL Total Protein (6.3-8.2) g/dL Albumin (3.5-5.0) g/dL Lipase (23-300) U/L Microbiology - Last 24 Hours (Table) 07/17/20 13:58 Blood Culture - Preliminary Blood No Growth after 96 hours Assessment and Plan Assessment: Diabetes mellitus type II new onset, with acute diabetic ketoacidosis present on admission acute renal failure with acute tubular necrosis multifactorial left hydronephrosis hyponatremia metabolic acidosis elevated plasma lactic acid acute urinary tract infection present on admission Plan: Diabetes mellitus type II sliding scale with basal insulin acute renal failure consult nephrology and urology for treatment plan and recommendations elevated troponins consultation with cardiology for treatment plan and recommendations continue current medications further recommendations to follow Time with Patient: Greater than 30
--- NOTE | 2020-07-21 19:21 | P.PN ---
Subjective Progress Note Date: 07/21/20 The patient underwent a cysto with palcement of a double j catheter for possible obstruction on the right. 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 Unfortunately the cr is still levated at 5.44 this am. The arf may not be obstructive. Will follow. The urine culture was negative and the abnormal ua was secondary to poor hygiene from chronic phimosis. Objective - Vital Signs Vital signs: Vital Signs Temp 97.6 F 07/21/20 16:00 Pulse 70 07/21/20 16:00 Resp 16 07/21/20 16:00 BP 129/74 07/21/20 16:00 Pulse Ox 95 07/21/20 16:00 Intake & Output 07/21/20 07/21/20 07/22/20 06:59 18:59 06:59 Intake Total 560 660 Output Total 1225 1500 Balance -665 -840 Weight 90 kg Intake: Intake, IV Titration 560 Amount Lactated Ringers 1,000 ml 560 @ 70 mls/hr IV .[id number] [facility] Rx#:[id number] Oral 660 Output: Urine 1225 1500 Other: Voiding Method Indwelling Catheter Indwelling Catheter - Labs CBC & Chem 7: 07/21/20 07:13 07/21/20 07:13 Labs: Abnormal Lab Results - Last 24 Hours (Table) 07/20/20 07/21/20 07/21/20 Range/Units 19:41 06:51 07:13 WBC (3.8-10.6) k/uL Neutrophils # (1.3-7.7) k/uL Potassium 5.3 H (3.5-5.1) mmol/L Chloride 111 H (98-107) mmol/L Carbon Dioxide 13 L (22-30) mmol/L BUN 85 H (9-20) mg/dL Creatinine 5.44 H (0.66-1.25) mg/dL Glucose 336 H (74-99) mg/dL POC Glucose (mg/dL) 416 H 286 H (75-99) mg/dL Total Protein 6.0 L (6.3-8.2) g/dL Albumin 3.0 L (3.5-5.0) g/dL Lipase (23-300) U/L 07/21/20 07/21/20 07/21/20 Range/Units 07:13 07:13 11:50 WBC 10.8 H (3.8-10.6) k/uL Neutrophils # 8.6 H (1.3-7.7) k/uL Potassium (3.5-5.1) mmol/L Chloride (98-107) mmol/L Carbon Dioxide (22-30) mmol/L BUN (9-20) mg/dL Creatinine (0.66-1.25) mg/dL Glucose (74-99) mg/dL POC Glucose (mg/dL) 292 H (75-99) mg/dL Total Protein (6.3-8.2) g/dL Albumin (3.5-5.0) g/dL Lipase 499 H (23-300) U/L 07/21/20 Range/Units 16:53 WBC (3.8-10.6) k/uL Neutrophils # (1.3-7.7) k/uL Potassium (3.5-5.1) mmol/L Chloride (98-107) mmol/L Carbon Dioxide (22-30) mmol/L BUN (9-20) mg/dL Creatinine (0.66-1.25) mg/dL Glucose (74-99) mg/dL POC Glucose (mg/dL) 251 H (75-99) mg/dL Total Protein (6.3-8.2) g/dL Albumin (3.5-5.0) g/dL Lipase (23-300) U/L Microbiology - Last 24 Hours (Table) 07/17/20 13:58 Blood Culture - Preliminary Blood No Growth after 96 hours
[2020-07-21 19:36] LABS: Glucose,Whole Blood 169 mg/dL (75-99)
[2020-07-21] MEDS: ATORVASTATIN 10 MG TAB PO SCH (20:12)
[2020-07-22 05:57] LABS: Basophils % (A) 0 %; Eosinophils # (A) 0.1 k/uL (0-0.7); Eosinophils % (A) 1 %; HCT 39.8 % (39.0-53.0); HGB 12.9 gm/dL (13.0-17.5); Lymphocytes # (A) 1.2 k/uL (1.0-4.8); Lymphocytes % (A) 12 %; MCH 30.5 pg (25.0-35.0); MCHC 32.4 g/dL (31.0-37.0); Mean Platelet Volume 9.1; Monocytes # (A) 0.6 k/uL (0-1.0); Monocytes % (A) 6 %; Neutrophils # (A) 7.5 k/uL (1.3-7.7); Neutrophils % (A) 78 %; Platelet Count 230 k/uL (150-450); RBC 4.23 m/uL (4.30-5.90); RDW 13.8 % (11.5-15.5); WBC 9.5 k/uL (3.8-10.6)
[2020-07-22 06:13] LABS: Glucose,Whole Blood 166 mg/dL (75-99)
[2020-07-22] MEDS: INSULIN ASPART (NovoLOG) 100 UNIT/ML VIAL SQ SCH ×4 (06:14→21:03)
[2020-07-22] MEDS: INSULIN DETEMIR (LEVEMIR) 100 UNIT/ML SYR SQ SCH (06:14)
[2020-07-22] MEDS: DEXTROSE 5% IN WATER 1,000 ML with SODIUM BICARB (1 MEQ/ML) 150 ML IV SCH ×2 (06:14→15:30)
[2020-07-22 06:24] LABS: Albumin 2.3 g/dL (3.5-5.0); Calcium 8.4 mg/dL (8.4-10.2); Phosphorus 4.7 mg/dL (2.5-4.5); Potassium 4.1 mmol/L (3.5-5.1); Total Bilirubin 0.3 mg/dL (0.2-1.3); Total Protein 4.8 g/dL (6.3-8.2)
[2020-07-22] MEDS: MULTIVITAMINS, THERA 1 EACH TAB PO SCH (09:23)
[2020-07-22] MEDS: PANTOPRAZOLE 40 MG TABLET PO SCH ×2 (09:23→17:05)
[2020-07-22] MEDS: SODIUM BICARBONATE TAB 650 MG TAB PO SCH ×2 (09:23→21:03)
[2020-07-22] MEDS: HEPARIN SODIUM,PORCINE 5,000 UNIT/ML 1 ML VIAL SQ SCH ×2 (09:24→21:03)
--- NOTE | 2020-07-22 09:31 | P.PN ---
Subjective Progress Note Date: 07/22/20 Principal diagnosis: Acute diabetic ketoacidosis new onset diabetes mellitus acute kidney injury With elevated BUN and creatinine decrease GFR possibly acute urinary tract infection 69-year-old male was admitted to the hospital with acute diabetic ketoacidosis, with new on set diabetes mellitus. Secondarily, patient has acute kidney injury with elevated serum creatinine and BUN. Glycemic control has been controlled with basal insulin and sliding scale. Urology placed a double J catheter to assist in urinary output. Patient resting comfortably in bed, Uro logy placed a double J catheter to assist in urinary output, catheter flowing with urine output. Patient denies any fever, chills, shortness of breath, palpitations abdominal pain, nausea or vomiting.Nephrology to follow to discuss measures for acute renal failure. Objective - Vital Signs Vital signs: Vital Signs Temp 98.0 F 07/22/20 03:38 Pulse 87 07/22/20 08:00 Resp 16 07/22/20 08:00 BP 129/70 07/22/20 08:00 Pulse Ox 97 07/22/20 08:00 Intake & Output 07/21/20 07/22/20 07/22/20 18:59 06:59 18:59 Intake Total 660 820 Output Total 1500 1450 Balance -840 -630 Weight 94.4 kg Intake: Intake, IV Titration 160 Amount Dextrose 5% in Water 1, 160 000 ml @ 80 mls/hr IV . [id number] NAI with Sodium Bicarb (1 Meq/ml) 150 ml Rx#:[id number] Oral 660 660 Output: Urine 1500 1450 Other: Voiding Method Indwelling Catheter Indwelling Catheter - Constitutional General appearance: Present: cooperative - EENT Eyes: Present: EOMI, PERRLA ENT: Present: hard of hearing Ears: bilateral: normal - Neck Neck: Present: normal ROM Carotids: bilateral: upstroke normal Thyroid: bilateral: normal size - Respiratory Respiratory: bilateral: diminished (Anterior and posterior lung castrejon) - Cardiovascular Details: Normal sinus rhythm Heart rate: 82 Rhythm: regular Heart sounds: normal: S1, S2 - Peripheral pulses radial pulse Peripheral Pulses: bilateral: Normal dorsalis pedis Peripheral Pulses: bilateral: Normal - Gastrointestinal General gastrointestinal: Present: normal bowel sounds - Genitourinary Genitourinary Comment(s): Fully catheter in place - Integumentary Integumentary: Present: decreased turgor - Neurologic Neurologic: Present: CNII-XII intact - Musculoskeletal Musculoskeletal: Present: generalized weakness - Psychiatric Psychiatric: Present: A&O x's 3, appropriate affect, intact judgment & insight - Labs CBC & Chem 7: 07/22/20 05:37 07/22/20 05:37 Labs: Abnormal Lab Results - Last 24 Hours (Table) 07/21/20 07/21/20 07/21/20 Range/Units 07:13 07:13 07:13 WBC 10.8 H (3.8-10.6) k/uL RBC (4.30-5.90) m/uL Hgb (13.0-17.5) gm/dL Neutrophils # 8.6 H (1.3-7.7) k/uL Potassium 5.3 H (3.5-5.1) mmol/L Chloride 111 H (98-107) mmol/L Carbon Dioxide 13 L (22-30) mmol/L BUN 85 H (9-20) mg/dL Creatinine 5.44 H (0.66-1.25) mg/dL Glucose 336 H (74-99) mg/dL POC Glucose (mg/dL) (75-99) mg/dL Phosphorus (2.5-4.5) mg/dL AST (17-59) U/L Total Protein 6.0 L (6.3-8.2) g/dL Albumin 3.0 L (3.5-5.0) g/dL Lipase 499 H (23-300) U/L 07/21/20 07/21/20 07/21/20 Range/Units 11:50 16:53 19:33 WBC (3.8-10.6) k/uL RBC (4.30-5.90) m/uL Hgb (13.0-17.5) gm/dL Neutrophils # (1.3-7.7) k/uL Potassium (3.5-5.1) mmol/L Chloride (98-107) mmol/L Carbon Dioxide (22-30) mmol/L BUN (9-20) mg/dL Creatinine (0.66-1.25) mg/dL Glucose (74-99) mg/dL POC Glucose (mg/dL) 292 H 251 H 169 H (75-99) mg/dL Phosphorus (2.5-4.5) mg/dL AST (17-59) U/L Total Protein (6.3-8.2) g/dL Albumin (3.5-5.0) g/dL Lipase (23-300) U/L 07/22/20 07/22/20 07/22/20 Range/Units 05:37 05:37 06:12 WBC (3.8-10.6) k/uL RBC 4.23 L (4.30-5.90) m/uL Hgb 12.9 L (13.0-17.5) gm/dL Neutrophils # (1.3-7.7) k/uL Potassium (3.5-5.1) mmol/L Chloride 115 H (98-107) mmol/L Carbon Dioxide 21 L (22-30) mmol/L BUN 84 H (9-20) mg/dL Creatinine 4.85 H (0.66-1.25) mg/dL Glucose 153 H (74-99) mg/dL POC Glucose (mg/dL) 166 H (75-99) mg/dL Phosphorus 4.7 H (2.5-4.5) mg/dL AST 15 L (17-59) U/L Total Protein 4.8 L (6.3-8.2) g/dL Albumin 2.3 L (3.5-5.0) g/dL Lipase (23-300) U/L Microbiology - Last 24 Hours (Table) 07/17/20 13:58 Blood Culture - Preliminary Blood No Growth after 96 hours - Imaging and Cardiology US - abdomen: report reviewed Assessment and Plan Assessment: Diabetes mellitus type II new onset, with acute diabetic ketoacidosis present on admission acute renal failure with acute tubular necrosis multifactorial left hydronephrosis hyponatremia metabolic acidosis elevated plasma lactic acid acute urinary tract infection present on admission Plan: Diabetes mellitus type II sliding scale with basal insulin acute renal failure consult nephrology and urology for treatment plan and recommendations elevated troponins consultation with cardiology for treatment plan and recommendations continue current medications further recommendations to follow
[2020-07-22 11:49] LABS: Glucose,Whole Blood 267 mg/dL (75-99)
--- NOTE | 2020-07-22 15:44 | PN ---
PROGRESS NOTE Patient is seen for followup for acute kidney injury, mostly obstructive uropathy. Patient is status post cystoscopy and right ureteral stent placement. The left ureteral stent could not be placed. Patient was noted to have bilateral hydronephrosis on the CT scan. He is currently comfortable. Renal function has finally started to improved, with creatinine down to 4.8 from 5.4 yesterday. Patient has good urine output. He is maintained on bicarb drip. On examination today, blood pressure was 129/70, heart rate 87 per minute. He is afebrile. EXAMINATION OF THE HEART: S1 and S2. EXAMINATION OF LUNGS: Bilateral breath sounds are heard. ABDOMEN: Soft, non-tender. Examination of lower extremities shows evidence of edema. MEDICAL TYPIST exam is grossly intact. Labs show sodium 144, potassium 4.1, chloride 115. CO2 is 21, BUN 84, creatinine 4.8, hemoglobin 12.9 g/dL. ASSESSMENT: 1. Acute kidney injury, obstructive uropathy with bilateral hydronephrosis noted on CT scan, status post cystoscopy and right ureteral stent placement. Left ureteral stent could not be placed. Currently patient has good urine output. His creatinine is down to 4.8 today from 5.4 yesterday. 2. Metabolic acidosis associated with renal failure, obstructive uropathy, maintained on bicarb drip, also maintained on sodium chloride tabs. The acidosis has improved. 3. Mild hyperkalemia associated with acute kidney injury, obstructive uropathy, now improved. PLAN: Discontinue bicarb drip tomorrow. Continue with the oral sodium bicarb for now, and if renal function is further improved tomorrow, patient could be discharged and follow up as outpatient. MMODL / IJN: [id number] /
--- NOTE | 2020-07-22 17:00 | P.CONS ---
History of Present Illness - Reason for Consult Consult date: 07/22/20 Difficulty swallowing Requesting physician: Low Tillman - Chief Complaint Generalized weakness - History of Present Illness This is a 69-year-old male who presented to the hospital 5 days ago with chief complaint of generalized weakness, increased thirst and overall not feeling well. He is a patient of Dr. Daugherty, denies any significant past medical history. He was found to have an elevated glucose level and diagnosed with a new onset of diabetes well as drawn nephrosis with acute kidney failure. He underwent bilateral cystoscopy and pyelogram with urology on 07/20/2020. We were asked to see the patient because during this hospitalization he stated that he started to have some difficulty with swallowing which he reports as a pain in his mid chest area. He denies any vomiting with it. He states it is uncomfortable with both liquids and solids. He does state that today he is feeling much better and not having as much pain with swallowing. He denies any significant acid reflux, but states sometimes when lying down will have some. He has no prior history of upper endoscopy. No previous history of ulcerative disease. Review of Systems Constitutional: Reports weakness, Denies anorexia, Denies weight loss Eyes: denies blurred vision, denies pain Cardiovascular: Denies chest pain, Denies shortness of breath Respiratory: Denies cough Gastrointestinal: Reports heartburn, Denies abdominal pain, Denies bloating, Denies constipation, Denies early satiety, Denies nausea, Denies vomiting Integumentary: Denies pruritus, Denies rash Neurological: Denies numbness, Denies weakness Endocrine: Reports excessive thirst, Reports high blood sugars, Reports polyuria Past Medical History Past Medical History: No Reported History Additional Past Medical History / Comment(s): Kidney stones History of Any Multi-Drug Resistant Organisms: None Reported Past Surgical History: No Surgical Hx Reported Additional Past Surgical History / Comment(s): eye sx for cataracts, colonoscopy prior to 2009 Past Anesthesia/Blood Transfusion Reactions: No Reported Reaction Past Psychological History: No Psychological Hx Reported Smoking Status: Former smoker Past Alcohol Use History: Rare Additional Past Alcohol Use History / Comment(s): started 1969 stop 05/14 ppd. ETOH: 2 drinks per week Past Drug Use History: None Reported - Past Family History Mother Family Medical History: Cancer Additional Family Medical History / Comment(s): CA: breast, she's 91 Father Family Medical History: Cancer Additional Family Medical History / Comment(s): CA: lung (" from") Medications and Allergies Home Medications Medication Instructions Recorded Confirmed Type No Known Home Medications 07/17/20 07/17/20 History Allergies Allergy/AdvReac Type Severity Reaction Status Date / Time No Known Allergies Allergy Verified 07/17/20 11:54 Physical Exam Vitals: Vital Signs Temp Pulse Resp BP Pulse Ox 07/22/20 15:13 85 18 109/76 97 07/22/20 12:00 80 18 118/69 97 07/22/20 08:00 87 16 129/70 97 07/22/20 03:38 98.0 F 73 16 109/63 94 L 07/21/20 23:00 83 16 114/64 96 07/21/20 20:00 97.5 F L 80 18 150/64 94 L 07/21/20 16:00 97.6 F 70 16 129/74 95 Intake and Output 07/22/20 07/22/20 07/22/20 06:59 14:59 22:59 Intake Total 160 240 Output Total 1050 Balance -890 240 Intake: Intake, IV Titration 160 Amount Dextrose 5% in Water 1, 160 000 ml @ 80 mls/hr IV . [id number] NAI with Sodium Bicarb (1 Meq/ml) 150 ml Rx#:[id number] Oral 240 Output: Urine 1050 Other: Voiding Method Indwelling Catheter # Voids 0 # Bowel Movements 0 Weight 94.4 kg General appearance: The patient is alert, oriented, appears in no acute distress. HET: Head is normocephalic and atraumatic. Conjunctiva pink. Sclera anicteric. Neck: Supple without lymphadenopathy. Abdomen: Soft, nontender, nondistended with bowel sounds. No guarding or rigidity. Extremities: Normal skin color and turgor. No pedal edema Skin: No rashes, no jaundice Neurological: No focal deficits. Alert and oriented 3. Results CBC & Chem 7: 07/22/20 05:37 07/22/20 05:37 Labs: Abnormal Lab Results - Last 24 Hours (Table) 07/21/20 07/21/20 07/22/20 Range/Units 16:53 19:33 05:37 RBC 4.23 L (4.30-5.90) m/uL Hgb 12.9 L (13.0-17.5) gm/dL Chloride (98-107) mmol/L Carbon Dioxide (22-30) mmol/L BUN (9-20) mg/dL Creatinine (0.66-1.25) mg/dL Glucose (74-99) mg/dL POC Glucose (mg/dL) 251 H 169 H (75-99) mg/dL Phosphorus (2.5-4.5) mg/dL AST (17-59) U/L Total Protein (6.3-8.2) g/dL Albumin (3.5-5.0) g/dL 07/22/20 07/22/20 07/22/20 Range/Units 05:37 06:12 11:48 RBC (4.30-5.90) m/uL Hgb (13.0-17.5) gm/dL Chloride 115 H (98-107) mmol/L Carbon Dioxide 21 L (22-30) mmol/L BUN 84 H (9-20) mg/dL Creatinine 4.85 H (0.66-1.25) mg/dL Glucose 153 H (74-99) mg/dL POC Glucose (mg/dL) 166 H 267 H (75-99) mg/dL Phosphorus 4.7 H (2.5-4.5) mg/dL AST 15 L (17-59) U/L Total Protein 4.8 L (6.3-8.2) g/dL Albumin 2.3 L (3.5-5.0) g/dL Microbiology - Last 24 Hours (Table) 07/17/20 13:58 Blood Culture - Preliminary Blood No Growth after 96 hours Comments: Ultrasound kidney and bladder: Showed new severe left-sided hydronephrosis Echocardiogram with an EF greater than 55%, mild mitral regurgitation, mild tricuspid regurgitation, mild pulmonary hypertension Ultrasound gallbladder shows right kidney is prominent in size but no hydronephrosis. Simple appearing right renal cyst. No evidence of gallstones CT of abdomen and pelvis showed severe left cortical atrophy and severe left-sided hydronephrosis without obstructing stone or mass. Moderate right- sided hydronephrosis without obstructing stone or mass. No stones are seen along the course or the bladder Assessment and Plan (1) Dysphasia Narrative/Plan: This is a pleasant 69-year-old gentleman who presented to the hospital 4 days ago with generalized weakness who was found to be hyperglycemic. He was diagnosed with new onset of diabetes along with acute kidney failure. During this hospitalization he was complaining of discomfort with swallowing. He states that it is painful in his chest with swallowing with both liquids and solids. He denies any nausea or vomiting. He has no previous history of upper endoscopy. He states he does have some mild acid reflux. He does state the pain is improved today. Was currently on Protonix 40 mg once a day in the hospital, this will be increased to twice a day. Discussed with patient we'll see if increase in medication improved symptoms, otherwise will consider proceeding with upper endoscopy. Patient agreeable with plan. Current Visit: Yes Status: Acute Code(s): R47.02 - DYSPHASIA SNOMED Code(s): 16759899 (2) Acute renal failure Current Visit: Yes Status: Acute Code(s): N17.9 - ACUTE KIDNEY FAILURE, UNSPECIFIED SNOMED Code(s): 60518809 (3) Diabetes mellitus, new onset Current Visit: Yes Status: Acute Code(s): E11.9 - TYPE 2 DIABETES MELLITUS WITHOUT COMPLICATIONS SNOMED Code(s): 575998859 Plan: 1. Supportive care 2. Diet as tolerated 3. Will increase Protonix 40 mg 2 twice a day 4. Continue medical management 5. If no further improvement in pain with swallowing, will consider proceeding with upper endoscopy Thank you for this consultation, we will follow with you closely Dr. Gabrielle Aquino I agree with the dictator's note, documented as a scribe by Nasra Mittal.
[2020-07-22 17:06] LABS: Glucose,Whole Blood 185 mg/dL (75-99)
[2020-07-22 20:51] LABS: Glucose,Whole Blood 203 mg/dL (75-99)
[2020-07-22] MEDS: ATORVASTATIN 10 MG TAB PO SCH (21:03)
[2020-07-23 06:20] LABS: Glucose,Whole Blood 107 mg/dL (75-99)
[2020-07-23] MEDS: DEXTROSE 5% IN WATER 1,000 ML with SODIUM BICARB (1 MEQ/ML) 150 ML IV SCH (06:21)
[2020-07-23] MEDS: INSULIN ASPART (NovoLOG) 100 UNIT/ML VIAL SQ SCH ×4 (06:22→20:16)
[2020-07-23] MEDS: PANTOPRAZOLE 40 MG TABLET PO SCH ×2 (06:28→17:06)
[2020-07-23 06:35] LABS: Basophils % (A) 0 %; Eosinophils # (A) 0.2 k/uL (0-0.7); Eosinophils % (A) 2 %; HCT 37.8 % (39.0-53.0); HGB 12.3 gm/dL (13.0-17.5); Lymphocytes # (A) 1.2 k/uL (1.0-4.8); Lymphocytes % (A) 12 %; MCH 30.4 pg (25.0-35.0); MCHC 32.7 g/dL (31.0-37.0); MCV 93.1 fL (80.0-100.0); Mean Platelet Volume 8.9; Monocytes # (A) 0.5 k/uL (0-1.0); Monocytes % (A) 5 %; Neutrophils # (A) 8.3 k/uL (1.3-7.7); Neutrophils % (A) 80 %; Platelet Count 233 k/uL (150-450); RBC 4.06 m/uL (4.30-5.90); RDW 13.8 % (11.5-15.5); WBC 10.3 k/uL (3.8-10.6)
[2020-07-23 06:47] LABS: Albumin 2.2 g/dL (3.5-5.0); Calcium 8.1 mg/dL (8.4-10.2); Magnesium 1.8 mg/dL (1.6-2.3); Phosphorus 4.5 mg/dL (2.5-4.5); Potassium 3.6 mmol/L (3.5-5.1); Total Bilirubin 0.4 mg/dL (0.2-1.3); Total Protein 4.7 g/dL (6.3-8.2)
[2020-07-23] MEDS: MULTIVITAMINS, THERA 1 EACH TAB PO SCH (08:23)
[2020-07-23] MEDS: HEPARIN SODIUM,PORCINE 5,000 UNIT/ML 1 ML VIAL SQ SCH ×2 (08:23→19:54)
[2020-07-23] MEDS: SODIUM BICARBONATE TAB 650 MG TAB PO SCH ×2 (08:23→19:54)
[2020-07-23] MEDS: INSULIN DETEMIR (LEVEMIR) 100 UNIT/ML SYR SQ SCH (08:23)
--- NOTE | 2020-07-23 08:28 | PN ---
PROGRESS NOTE The patient is a 69-year-old pleasant white male doing much better today. He has been having dysphagia/odynophagia for the last 3-4 days duration. Symptoms are gradually improving. He remains on Protonix 40 mg twice daily. He reports no abdominal pain. No nausea, no vomiting. PHYSICAL EXAMINATION: Appears comfortable. VITAL SIGNS: Stable. Blood pressure 102/57, pulse rate 76, temperature 97.7. HEENT examination unremarkable. Conjunctivae pink. Sclerae anicteric. Oral cavity no lesions. NECK: No JVD or lymph node enlargement. CHEST was clear to auscultation. HEART: Regular rate and rhythm. ABDOMEN: Soft. Bowel sounds are positive. No organomegaly. EXTREMITIES: No pedal edema. NEURO: He is alert and oriented x3. No focal deficits. LABS: From today WBC 10.3, hemoglobin 12.3, platelets normal. BUN is 73, creatinine 4.33. IMPRESSION: 1. Dysphagia/odynophagia. Rule out pill induced esophagitis, rule out gastroesophageal reflux disease, symptoms gradually improving on Protonix 40 mg daily. 2. Acute kidney injury secondary to obstructive uropathy status post right ureteral stent placement. 3. New onset diabetes mellitus. RECOMMENDATIONS: 1. Continue with Protonix 40 mg twice daily. 2. Continue with soft diet. 3. We will proceed with EGD tomorrow. Discussed with the patient risks, benefits and complications of the procedure and he is agreeable to it. Thank you for this consultation. MMODL / IJN: [id number] /
--- NOTE | 2020-07-23 09:21 | P.PN ---
Subjective Progress Note Date: 07/23/20 Principal diagnosis: This 69-year-old male who was admitted with generalized weakness, was noted to have elevated creatinine. Workup showed chronic left-sided hydronephrosis with atrophy kidney on computed tomography scan and a right hydronephrosis. He had a stent placed and a Friend catheter placed. His creatinine on admission was 5.36 and is slowly improved to 4.3 as of this morning with urine output of 5500 mL. Patient has probably had remote kidney stone otherwise he denies any complaints. There is no mass noted. The cause of bilateral hydronephrosis likely from ou tlet obstruction. Patient denies any nausea vomiting appetite is good. Generalized weakness but was able to walk with the help of a walker. No diarrhea actually was cons. Had her first bowel movement about 4 days Objective - Vital Signs Vital signs: Vital Signs Temp 97.7 F 07/23/20 06:56 Pulse 76 07/23/20 06:56 Resp 16 07/23/20 06:56 BP 102/57 07/23/20 06:56 Pulse Ox 95 07/23/20 06:56 Intake & Output 07/22/20 07/23/20 07/23/20 18:59 06:59 18:59 Intake Total 480 470 236 Output Total 2600 2900 Balance -2120 -2430 236 Weight 87.5 kg Intake: Intake, IV Titration 320 Amount Dextrose 5% in Water 1, 320 000 ml @ 80 mls/hr IV . [id number] NAI with Sodium Bicarb (1 Meq/ml) 150 ml Rx#:[id number] Oral 480 150 236 Output: Urine 2600 2900 Uretheral (Frined) 1950 Other: Voiding Method Indwelling Catheter Indwelling Catheter # Voids 0 # Bowel Movements 0 1 On examination is awake alert oriented comfortable HEENT exam no JVP neck is supple no facial asymmetry Lungs clear to auscultation good air entry bilaterally Heart sounds are unremarkable for any murmur rub gallop Abdomen soft nontender no organomegaly tenderness Extreme exam was no edema He has a Friend catheter Neurologically awake alert oriented no asterixis - Labs CBC & Chem 7: 07/23/20 05:39 07/23/20 05:39 Labs: Abnormal Lab Results - Last 24 Hours (Table) 07/22/20 07/22/20 07/22/20 Range/Units 11:48 17:01 20:49 RBC (4.30-5.90) m/uL Hgb (13.0-17.5) gm/dL Hct (39.0-53.0) % Neutrophils # (1.3-7.7) k/uL Chloride (98-107) mmol/L BUN (9-20) mg/dL Creatinine (0.66-1.25) mg/dL POC Glucose (mg/dL) 267 H 185 H 203 H (75-99) mg/dL Calcium (8.4-10.2) mg/dL Total Protein (6.3-8.2) g/dL Albumin (3.5-5.0) g/dL 07/23/20 07/23/20 07/23/20 Range/Units 05:39 05:39 06:17 RBC 4.06 L (4.30-5.90) m/uL Hgb 12.3 L (13.0-17.5) gm/dL Hct 37.8 L (39.0-53.0) % Neutrophils # 8.3 H (1.3-7.7) k/uL Chloride 112 H (98-107) mmol/L BUN 73 H (9-20) mg/dL Creatinine 4.38 H (0.66-1.25) mg/dL POC Glucose (mg/dL) 107 H (75-99) mg/dL Calcium 8.1 L (8.4-10.2) mg/dL Total Protein 4.7 L (6.3-8.2) g/dL Albumin 2.2 L (3.5-5.0) g/dL Microbiology - Last 24 Hours (Table) 07/17/20 13:58 Blood Culture - Preliminary Blood No Growth after 120 hours Assessment and Plan Assessment: Impression 1. Chronic kidney disease with chronic atrophic left kidney with hydronephrosis. 2. Right hydronephrosis status post stent and a Friend catheter placement good urine output and slight improvement in creatinine from a peak of 5.4 for 2 days ago to 4.3 this morning. 3. Non-gap metabolic acidosis resolved. 4. Diabetes mellitus. 5. Blood pressure is somewhat low but not on any medications, has a large amount of urine output that might be contributing to the low blood. Because of post obstructive diuresis Recommendation 1. Discontinue IV bicarbonate drip and continue oral bicarbonate. 2. Defer to urology regarding cause of the obstruction, has a stent on the right kidney, with no obvious obstruction based on computed tomography scan 3. Follow labs and urine output. 4. Watch blood pressure closely. We will continue IV fluids with lactated Ringer's so that he does not become hypotensive
--- NOTE | 2020-07-23 09:53 | P.PN ---
Subjective Progress Note Date: 07/23/20 The patient is in the hospital diabetic ketoacidosis. He also has renal failure acute and chronic. His left kidney is nonfunctioning. The right kidney had a stent placed. With the Friend catheter and stent his creatinine is come down to 4.3. The stent will remain in place until for now. We'll see how his kidney function returns. I will continue to follow Objective - Vital Signs Vital signs: Vital Signs Temp 97.7 F 07/23/20 06:56 Pulse 76 07/23/20 06:56 Resp 16 07/23/20 06:56 BP 102/57 07/23/20 06:56 Pulse Ox 95 07/23/20 06:56 Intake & Output 07/22/20 07/23/20 07/23/20 18:59 06:59 18:59 Intake Total 480 470 236 Output Total 2600 2900 Balance -2120 -2430 236 Weight 87.5 kg Intake: Intake, IV Titration 320 Amount Dextrose 5% in Water 1, 320 000 ml @ 80 mls/hr IV . [id number] NAI with Sodium Bicarb (1 Meq/ml) 150 ml Rx#:[id number] Oral 480 150 236 Output: Urine 2600 2900 Uretheral (Friend) 1950 Other: Voiding Method Indwelling Catheter Indwelling Catheter # Voids 0 # Bowel Movements 0 1 - Labs CBC & Chem 7: 07/23/20 05:39 07/23/20 05:39 Labs: Abnormal Lab Results - Last 24 Hours (Table) 07/22/20 07/22/20 07/22/20 Range/Units 11:48 17:01 20:49 RBC (4.30-5.90) m/uL Hgb (13.0-17.5) gm/dL Hct (39.0-53.0) % Neutrophils # (1.3-7.7) k/uL Chloride (98-107) mmol/L BUN (9-20) mg/dL Creatinine (0.66-1.25) mg/dL POC Glucose (mg/dL) 267 H 185 H 203 H (75-99) mg/dL Calcium (8.4-10.2) mg/dL Total Protein (6.3-8.2) g/dL Albumin (3.5-5.0) g/dL 0307/23/20 07/23/20 Range/Units 05:39 05:39 06:17 RBC 4.06 L (4.30-5.90) m/uL Hgb 12.3 L (13.0-17.5) gm/dL Hct 37.8 L (39.0-53.0) % Neutrophils # 8.3 H (1.3-7.7) k/uL Chloride 112 H (98-107) mmol/L BUN 73 H (9-20) mg/dL Creatinine 4.38 H (0.66-1.25) mg/dL POC Glucose (mg/dL) 107 H (75-99) mg/dL Calcium 8.1 L (8.4-10.2) mg/dL Total Protein 4.7 L (6.3-8.2) g/dL Albumin 2.2 L (3.5-5.0) g/dL Microbiology - Last 24 Hours (Table) 07/17/20 13:58 Blood Culture - Preliminary Blood No Growth after 120 hours
[2020-07-23] MEDS: LACTATED RINGERS 1,000 ML IV SCH ×2 (11:36→22:10)
[2020-07-23 11:52] LABS: Glucose,Whole Blood 210 mg/dL (75-99)
[2020-07-23 16:22] LABS: Glucose,Whole Blood 106 mg/dL (75-99)
[2020-07-23] MEDS: ATORVASTATIN 10 MG TAB PO SCH (19:54)
[2020-07-23 20:08] LABS: Glucose,Whole Blood 143 mg/dL (75-99)
[2020-07-24 06:06] LABS: Glucose,Whole Blood 111 mg/dL (75-99)
[2020-07-24 06:14] LABS: Basophils % (A) 0 %; Eosinophils # (A) 0.1 k/uL (0-0.7); Eosinophils % (A) 1 %; HCT 37.8 % (39.0-53.0); HGB 12.3 gm/dL (13.0-17.5); Lymphocytes # (A) 1.3 k/uL (1.0-4.8); Lymphocytes % (A) 10 %; MCH 30.7 pg (25.0-35.0); MCHC 32.6 g/dL (31.0-37.0); MCV 94.3 fL (80.0-100.0); Mean Platelet Volume 9.1; Monocytes # (A) 0.6 k/uL (0-1.0); Monocytes % (A) 5 %; Neutrophils # (A) 10.3 k/uL (1.3-7.7); Neutrophils % (A) 83 %; Platelet Count 242 k/uL (150-450); RDW 13.8 % (11.5-15.5); WBC 12.4 k/uL (3.8-10.6)
[2020-07-24] MEDS: INSULIN ASPART (NovoLOG) 100 UNIT/ML VIAL SQ SCH ×4 (06:17→20:48)
[2020-07-24 06:23] LABS: Albumin 2.2 g/dL (3.5-5.0); Magnesium 1.8 mg/dL (1.6-2.3); Phosphorus 4.5 mg/dL (2.5-4.5); Potassium 3.6 mmol/L (3.5-5.1); Total Bilirubin 0.3 mg/dL (0.2-1.3); Total Protein 4.6 g/dL (6.3-8.2)
[2020-07-24] MEDS ORDERED: PROPOFOL 10 MG/ML 20 ML VIAL IV ONE (08:07)
[2020-07-24] MEDS: HEPARIN SODIUM,PORCINE 5,000 UNIT/ML 1 ML VIAL SQ SCH ×2 (08:10→20:09)
[2020-07-24] MEDS ORDERED: IV FLUID CONTINUATION 1,000 ML IV ONE ×2 (08:11)
--- NOTE | 2020-07-24 08:18 | P.PCN ---
Date of Procedure: 07/24/20 Procedure(s) Performed: BRIEF HISTORY: Patient is a 69-year-old, pleasant, white male scheduled for an upper endoscopy as a part of evaluation of severe dysphagia and odynophagia for the last 3-4 days duration. He was started on Protonix 40 mg twice daily and symptoms are gradually improving. He denies any heartburn.. PROCEDURE PERFORMED: Esophagogastroduodenoscopy. PREOPERATIVE DIAGNOSIS: Dysphagia/odynophagia or 4 days duration. IV sedation per anesthesia. PROCEDURE: After informed consent was obtained, the patient was brought into the endoscopy unit. IV sedation was administered by Anesthesia under continuous monitoring. Initially the Olympus GIF-140 video endoscope was inserted into the mouth. Esophagus intubated without any difficulty. It was gradually advanced into the stomach and duodenum and carefully examined. The bulb and the second part of the duodenum appeared normal. The scope at this time was withdrawn to the stomach, adequately insufflated with air, and upon careful examination, mucosa of the antrum, body, cardia and the fundus appeared normal. The scope was then withdrawn into the esophagus. Small hiatal hernia noted. The GE junction was located at 39 cm from the incisors. There were circumferential erosions or ulcerations with exudates noted in the mid and distal esophagus extending from 25-40 cm from the incisors consistent with LA grade D reflux esophagitis. The rest of esophagus appeared normal and the patient tolerated the procedure well. IMPRESSION: 1. Circumferential erosions with ulcerations and exudates involving the mid and distal esophagus extending from 25-40 cm from the incisors consistent with LA grade D reflux esophagitis. 2. Small hiatal hernia. RECOMMENDATIONS: The findings of this examination were discussed with the patient . She will continue on Protonix 40 mg twice daily. Diet will be advanced as tolerated..
--- NOTE | 2020-07-24 09:16 | P.PN ---
Subjective Progress Note Date: 07/24/20 Principal diagnosis: This 69-year-old male who was admitted with generalized weakness, was noted to have elevated creatinine. Workup showed chronic left-sided hydronephrosis with atrophic left kidney on computed tomography scan and a right hydronephrosis. He had a stent placed and a Friend catheter placed. Cause of his right-sided hydronephrosis likely from outlet obstruction, pending urology assessment of the same His creatinine on admission was 5.36 and is slowly improved to 4.3 and further to 3.93 with urine output as of this morning with urine output off 1300 mL last 12 hours and 2900 mL prior to that for the 12 hours. This morning he had EGD done because of the dysphagia. Currently he is fairly asymptomatic no nausea vomiting was able to drink some liquids this morning after the EGD and did not have any difficulty with swallowing and there was no choking Is able to walk with a walker denies any dizziness Objective - Vital Signs Vital signs: Vital Signs Temp 97.5 F L 07/24/20 07:45 Pulse 75 07/24/20 08:35 Resp 20 07/24/20 08:35 BP 90/53 07/24/20 08:35 Pulse Ox 91 L 07/24/20 08:35 Intake & Output 07/23/20 07/24/20 07/24/20 17:59 06:59 18:59 Intake Total 25 Output Total Balance 25 Intake: IV 25 Invasive Line 4 Intake, IV Titration Amount Lactated Ringers 1,000 ml @ 75 mls/hr IV .[id number] [facility] Rx#:[id number] Oral Output: Urine Uretheral (Friend) Other: Voiding Method Indwelling Catheter On examination is awake alert oriented comfortable yet HEENT exam no JVP neck is supple no facial asymmetry Lungs clear to auscultation good air entry bilaterally Heart sounds unremarkable for any murmur rub gallop Abdomen soft nontender no renal angle tenderness Extremity exam was trace edema Neurologically awake alert oriented - Labs CBC & Chem 7: 07/24/20 05:17 07/24/20 05:17 Labs: Abnormal Lab Results - Last 24 Hours (Table) 07/23/20 07/23/20 07/23/20 Range/Units 11:51 16:20 20:07 WBC (3.8-10.6) k/uL RBC (4.30-5.90) m/uL Hgb (13.0-17.5) gm/dL Hct (39.0-53.0) % Neutrophils # (1.3-7.7) k/uL Chloride (98-107) mmol/L BUN (9-20) mg/dL Creatinine (0.66-1.25) mg/dL Glucose (74-99) mg/dL POC Glucose (mg/dL) 210 H 106 H 143 H (75-99) mg/dL Calcium (8.4-10.2) mg/dL Total Protein (6.3-8.2) g/dL Albumin (3.5-5.0) g/dL 07/24/20 07/24/20 07/24/20 Range/Units 05:17 05:17 06:05 WBC 12.4 H (3.8-10.6) k/uL RBC 4.00 L (4.30-5.90) m/uL Hgb 12.3 L (13.0-17.5) gm/dL Hct 37.8 L (39.0-53.0) % Neutrophils # 10.3 H (1.3-7.7) k/uL Chloride 112 H (98-107) mmol/L BUN 65 H (9-20) mg/dL Creatinine 3.93 H (0.66-1.25) mg/dL Glucose 57 L (74-99) mg/dL POC Glucose (mg/dL) 111 H (75-99) mg/dL Calcium 8.0 L (8.4-10.2) mg/dL Total Protein 4.6 L (6.3-8.2) g/dL Albumin 2.2 L (3.5-5.0) g/dL Microbiology - Last 24 Hours (Table) 07/17/20 13:58 Blood Culture - Final Blood No Growth after 144 hours Assessment and Plan Assessment: Impression 1. Chronic kidney disease with chronic atrophic left kidney with h ydronephrosis. Likely causes outlet obstruction 2. Right hydronephrosis status post stent and a Friend catheter placement good urine output and slight improvement in creatinine from a peak of 5.4 to 3.9 this morning with good urine output 3. Non-gap metabolic acidosis resolved. 4. Diabetes mellitus. 5. Blood pressure is somewhat low but not on any medications, has a large amount of urine output that might be contributing to the low blood. Because of post obstructive diuresis. On IV fluids 6. EGD performed this morning showing esophagitis. Recommendation 1. Discontinue IV fluids as she is able to eat and drink without any difficulty 2. Defer to urology regarding cause of the obstruction, has a stent on the right kidney, with no obvious obstruction based on computed tomography scan 3. Follow labs and urine output. 4. Watch blood pressure closely. 5. Monitor labs
[2020-07-24] MEDS: PANTOPRAZOLE 40 MG TABLET PO SCH ×2 (09:18→17:14)
[2020-07-24] MEDS: SODIUM BICARBONATE TAB 650 MG TAB PO SCH ×2 (09:18→20:09)
[2020-07-24] MEDS: INSULIN DETEMIR (LEVEMIR) 100 UNIT/ML SYR SQ SCH (09:19)
--- NOTE | 2020-07-24 11:17 | P.PN ---
Subjective Principal diagnosis: The patient is in the hospital with diabetic ketoacidosis acute and chronic renal failure. He has a nonfunctioning left kidney. He had a creatinine of 5.4. Computed tomography scan suggested hydronephrosis on the right. Retrograde pyelogram showed a UPJ obstruction but there was not much calyceal blunting. A double-J catheter is placed as well as a Friend catheter. His creatinine is dropped to 3.9. How much of his renal insufficiency is due to upper versus lower tract obstruction is yet to be determined. When the creatinine stabilizes I would recommend removing the Friend to see what happens to his creatinine. If his creatinine starts to rise then my impression is that the renal insufficiency his lower tract. If the creatinine remains stable then upper tract obstruction would be the possible cause. From a urologic standpoint this will be an ongoing evaluation and most likely will end up finalizing the diagnosis as an outpatient. Objective - Vital Signs Vital signs: Vital Signs Temp 97.5 F L 07/24/20 07:45 Pulse 75 07/24/20 08:35 Resp 20 07/24/20 08:35 BP 90/53 07/24/20 08:35 Pulse Ox 91 L 07/24/20 08:35 Intake & Output 07/23/20 07/24/20 07/24/20 17:59 06:59 18:59 Intake Total 25 Output Total Balance 25 Intake: IV 25 Invasive Line 4 Intake, IV Titration Amount Lactated Ringers 1,000 ml @ 75 mls/hr IV .[id number] [facility] Rx#:[id number] Oral Output: Urine Uretheral (Friend) Other: Voiding Method Indwelling Catheter - Labs CBC & Chem 7: 07/24/20 05:17 07/24/20 05:17 Labs: Abnormal Lab Results - Last 24 Hours (Table) 07/23/20 07/23/20 07/23/20 Range/Units 11:51 16:20 20:07 WBC (3.8-10.6) k/uL RBC (4.30-5.90) m/uL Hgb (13.0-17.5) gm/dL Hct (39.0-53.0) % Neutrophils # (1.3-7.7) k/uL Chloride (98-107) mmol/L BUN (9-20) mg/dL Creatinine (0.66-1.25) mg/dL Glucose (74-99) mg/dL POC Glucose (mg/dL) 210 H 106 H 143 H (75-99) mg/dL Calcium (8.4-10.2) mg/dL Total Protein (6.3-8.2) g/dL Albumin (3.5-5.0) g/dL 07/24/20 07/24/20 07/24/20 Range/Units 05:17 05:17 06:05 WBC 12.4 H (3.8-10.6) k/uL RBC 4.00 L (4.30-5.90) m/uL Hgb 12.3 L (13.0-17.5) gm/dL Hct 37.8 L (39.0-53.0) % Neutrophils # 10.3 H (1.3-7.7) k/uL Chloride 112 H (98-107) mmol/L BUN 65 H (9-20) mg/dL Creatinine 3.93 H (0.66-1.25) mg/dL Glucose 57 L (74-99) mg/dL POC Glucose (mg/dL) 111 H (75-99) mg/dL Calcium 8.0 L (8.4-10.2) mg/dL Total Protein 4.6 L (6.3-8.2) g/dL Albumin 2.2 L (3.5-5.0) g/dL Microbiology - Last 24 Hours (Table) 07/17/20 13:58 Blood Culture - Final Blood No Growth after 144 hours
[2020-07-24 11:50] LABS: Glucose,Whole Blood 185 mg/dL (75-99)
[2020-07-24] MEDS: MULTIVITAMINS, THERA 1 EACH TAB PO SCH (12:07)
[2020-07-24 16:32] LABS: Glucose,Whole Blood 221 mg/dL (75-99)
[2020-07-24] MEDS: ATORVASTATIN 10 MG TAB PO SCH (20:09)
[2020-07-24 20:24] LABS: Glucose,Whole Blood 230 mg/dL (75-99)
--- NOTE | 2020-07-25 00:39 | P.PN ---
Subjective Progress Note Date: 07/23/20 Principal diagnosis: Acute diabetic ketoacidosis new onset diabetes mellitus acute kidney injury With elevated BUN and creatinine decrease GFR possibly acute urinary tract infection 69-year-old male was admitted to the hospital with acute diabetic ketoacidosis, with new on set diabetes mellitus. Secondarily, patient has acute kidney injury with elevated serum creatinine and BUN. Glycemic control has been controlled with basal insulin and sliding scale. Urology placed a double J catheter to assist in urinary output. Patient resting comfortably in bed, Urology placed a double J catheter to assist in urinary output, catheter flowing with urine output. Patient denies any fever, chills, shortness of breath, palpitations abdominal pain, nausea or vomiting.Nephrology to follow to discuss measures for acute renal failure. 07/23/2020 Patient is currently sitting in the chair comfortably. Denies any complaints of chest pain or shortness of breath. Blood sugar is controlled. Laboratory data showed BUN 73 and creatinine improving to 4.38. Patient is status post stent placement and Friend catheter. Patient has been afebrile. Urine output is improving. No complaints of abdominal pain. No nausea vomiting. Tolerating oral diet. Continued on insulin dosing. Current medications reviewed. Objective - Vital Signs Vital signs: Vital Signs Temp 98.6 F 07/23/20 11:37 Pulse 97 07/23/20 11:37 Resp 16 07/23/20 11:37 BP 106/67 07/23/20 11:37 Pulse Ox 98 07/23/20 11:37 Intake & Output 07/22/20 07/23/20 07/23/20 18:59 06:59 18:59 Intake Total 956 768 2119 Output Total 2600 2900 1000 Balance -2120 -2430 336 Weight 87.5 kg Intake: Intake, IV Titration 320 Amount Dextrose 5% in Water 1, 320 000 ml @ 80 mls/hr IV . [id number] NAI with Sodium Bicarb (1 Meq/ml) 150 ml Rx#:[id number] Oral 054 177 4110 Output: Urine 2600 2900 1000 Uretheral (Friend) 1950 1000 Other: Voiding Method Indwelling Catheter Indwelling Catheter Indwelling Catheter # Voids 0 # Bowel Movements 0 1 - Exam PHYSICAL EXAMINATION: Patient is lying in the bed comfortably, no acute distress, awake alert and oriented.. HEENT: Normocephalic. Neck is supple. Pupils reactive. Nostrils clear. Oral cavity is moist. Ears reveal no drainage. Neck reveals no JVD, carotid bruits, or thyromegaly. CHEST EXAMINATION: Trachea is central. Symmetrical expansion. Lung castrejon clear to auscultation and percussion. CARDIAC: Normal S1, S2 with no gallops. No murmurs ABDOMEN: Soft. Bowel sounds normal. No organomegaly. No abdominal bruits. Extremities: reveal no edema. No clubbing or cyanosis Neurologically awake, alert, oriented x3 with well-coordinated movements. No focal deficits noted Skin: No rash or skin lesions. Psychiatric: Coperative. Nonsuicidal Musculoskeletal: No joint swelling or deformity. Normal range of motion. - Labs CBC & Chem 7: 07/24/20 05:17 07/24/20 05:17 Labs: Abnormal Lab Results - Last 24 Hours (Table) 07/22/20 07/22/20 07/23/20 Range/Units 17:01 20:49 05:39 RBC 4.06 L (4.30-5.90) m/uL Hgb 12.3 L (13.0-17.5) gm/dL Hct 37.8 L (39.0-53.0) % Neutrophils # 8.3 H (1.3-7.7) k/uL Chloride (98-107) mmol/L BUN (9-20) mg/dL Creatinine (0.66-1.25) mg/dL POC Glucose (mg/dL) 185 H 203 H (75-99) mg/dL Calcium (8.4-10.2) mg/dL Total Protein (6.3-8.2) g/dL Albumin (3.5-5.0) g/dL 07/23/20 07/23/20 07/23/20 Range/Units 05:39 06:17 11:51 RBC (4.30-5.90) m/uL Hgb (13.0-17.5) gm/dL Hct (39.0-53.0) % Neutrophils # (1.3-7.7) k/uL Chloride 112 H (98-107) mmol/L BUN 73 H (9-20) mg/dL Creatinine 4.38 H (0.66-1.25) mg/dL POC Glucose (mg/dL) 107 H 210 H (75-99) mg/dL Calcium 8.1 L (8.4-10.2) mg/dL Total Protein 4.7 L (6.3-8.2) g/dL Albumin 2.2 L (3.5-5.0) g/dL Microbiology - Last 24 Hours (Table) 07/17/20 13:58 Blood Culture - Preliminary Blood No Growth after 120 hours Assessment and Plan Assessment: Diabetes mellitus type II new onset, with acute diabetic ketoacidosis present on admission acute renal failure with acute tubular necrosis multifactorial left hydronephrosis hyponatremia metabolic acidosis elevated plasma lactic acid acute urinary tract infection present on admission Dysphagia and odynophagia. EGD scheduled. Plan: Diabetes mellitus type II sliding scale with basal insulin acute renal failure Patient is status post stent placement and urology and nep hrology on board. continue current medications further recommendations to follow Time with Patient: Greater than 30
--- NOTE | 2020-07-25 00:42 | P.PN ---
Subjective Progress Note Date: 07/24/20 Principal diagnosis: Acute diabetic ketoacidosis new onset diabetes mellitus acute kidney injury With elevated BUN and creatinine decrease GFR possibly acute urinary tract infection 69-year-old male was admitted to the hospital with acute diabetic ketoacidosis, with new on set diabetes mellitus. Secondarily, patient has acute kidney injury with elevated serum creatinine and BUN. Glycemic control has been controlled with basal insulin and sliding scale. Urology placed a double J catheter to assist in urinary output. Patient resting comfortably in bed, Urology placed a double J catheter to assist in urinary output, catheter flowing with urine output. Patient denies any fever, chills, shortness of breath, palpitations abdominal pain, nausea or vomiting.Nephrology to follow to discuss measures for acute renal failure. 07/23/2020 Patient is currently sitting in the chair comfortably. Denies any complaints of chest pain or shortness of breath. Blood sugar is controlled. Laboratory data showed BUN 73 and creatinine improving to 4.38. Patient is status post stent placement and Friend catheter. Patient has been afebrile. Urine output is improving. No complaints of abdominal pain. No nausea vomiting. Tolerating oral diet. Continued on insulin dosing. 07/24/2020 Patient is currently sitting in bedside comfortably. Urine output is stable. Status post double-J catheter placement and Friend catheter placement. Renal function is improving with a creatinine level 3.9 today. Blood sugar is controlled. Patient is scheduled for EGD due to odynophagia. Patient is a complaining of pain with swallowing her last 3 to 4 days. Seen by GI and is planning for EGD today. EGD showed circumferential erosions with ulcerations and exudates involving the mid and distal esophagus extending from 25 to 40 cm from the incisors consistent with LA grade D reflux esophagitis. Small hiatal hernia. Patient is being continued on Protonix. Current medications reviewed. Objective - Vital Signs Vital signs: Vital Signs Temp 96.9 F L 07/24/20 11:49 Pulse 91 07/24/20 11:49 Resp 20 07/24/20 11:49 BP 107/63 07/24/20 11:49 Pulse Ox 98 07/24/20 11:49 Intake & Output 07/23/20 07/24/20 07/24/20 17:59 06:59 18:59 Intake Total 836 Output Total 700 Balance 136 Intake: IV 25 Invasive Line 4 Intake, IV Titration 575 Amount Lactated Ringers 1,000 ml 525 @ 75 mls/hr IV .[id number] [facility] Rx#:[id number] cefTRIAXone 1 gm In 50 Sodium Chloride 0.9% 50 ml @ 100 mls/hr IVPB Q24HR [facility] Rx#:[id number] Oral 236 Output: Urine 700 Uretheral (Friend) Other: Voiding Method Indwelling Catheter - Exam PHYSICAL EXAMINATION: Patient is lying in the bed comfortably, no acute distress, awake alert and oriented.. HEENT: Normocephalic. Neck is supple. Pupils reactive. Nostrils clear. Oral cavity is moist. Ears reveal no drainage. Neck reveals no JVD, carotid bruits, or thyromegaly. CHEST EXAMINATION: Trachea is central. Symmetrical expansion. Lung castrejon clear to auscultation and percussion. CARDIAC: Normal S1, S2 with no gallops. No murmurs ABDOMEN: Soft. Bowel sounds normal. No organomegaly. No abdominal bruits. Extremities: reveal no edema. No clubbing or cyanosis Neurologically awake, alert, oriented x3 with well-coordinated movements. No focal deficits noted Skin: No rash or skin lesions. Psychiatric: Coperative. Nonsuicidal Musculoskeletal: No joint swelling or deformity. Normal range of motion. - Labs CBC & Chem 7: 07/24/20 05:17 07/24/20 05:17 Labs: Abnormal Lab Results - Last 24 Hours (Table) 07/23/20 07/23/20 07/24/20 Range/Units 16:20 20:07 05:17 WBC 12.4 H (3.8-10.6) k/uL RBC 4.00 L (4.30-5.90) m/uL Hgb 12.3 L (13.0-17.5) gm/dL Hct 37.8 L (39.0-53.0) % Neutrophils # 10.3 H (1.3-7.7) k/uL Chloride (98-107) mmol/L BUN (9-20) mg/dL Creatinine (0.66-1.25) mg/dL Glucose (74-99) mg/dL POC Glucose (mg/dL) 106 H 143 H (75-99) mg/dL Calcium (8.4-10.2) mg/dL Total Protein (6.3-8.2) g/dL Albumin (3.5-5.0) g/dL 07/24/20 07/24/20 07/24/20 Range/Units 05:17 06:05 11:48 WBC (3.8-10.6) k/uL RBC (4.30-5.90) m/uL Hgb (13.0-17.5) gm/dL Hct (39.0-53.0) % Neutrophils # (1.3-7.7) k/uL Chloride 112 H (98-107) mmol/L BUN 65 H (9-20) mg/dL Creatinine 3.93 H (0.66-1.25) mg/dL Glucose 57 L (74-99) mg/dL POC Glucose (mg/dL) 111 H 185 H (75-99) mg/dL Calcium 8.0 L (8.4-10.2) mg/dL Total Protein 4.6 L (6.3-8.2) g/dL Albumin 2.2 L (3.5-5.0) g/dL Microbiology - Last 24 Hours (Table) 07/17/20 13:58 Blood Culture - Final Blood No Growth after 144 hours Assessment and Plan Assessment: Diabetes mellitus type II new onset, with acute diabetic ketoacidosis present on admission acute renal failure with acute tubular necrosis multifactorial left hydronephrosis hyponatremia metabolic acidosis elevated plasma lactic acid acute urinary tract infection present on admission Dysphagia and odynophagia.LA grade D reflux esophagitis. s/p EGD. Plan: Diabetes mellitus type II sliding scale with basal insulin acute renal failure Patient is status post stent placement and urology and nephrology on board. continue current medications. c/w PPI further recommendations to follow Time with Patient: Greater than 30
[2020-07-25 06:01] LABS: Glucose,Whole Blood 102 mg/dL (75-99)
[2020-07-25] MEDS: INSULIN ASPART (NovoLOG) 100 UNIT/ML VIAL SQ SCH ×4 (06:06→20:53)
[2020-07-25] MEDS: PANTOPRAZOLE 40 MG TABLET PO SCH ×2 (06:09→18:23)
[2020-07-25 06:42] LABS: Basophils % (A) 0 %; Eosinophils # (A) 0.1 k/uL (0-0.7); Eosinophils % (A) 0 %; HCT 36.9 % (39.0-53.0); HGB 11.8 gm/dL (13.0-17.5); Lymphocytes % (A) 7 %; MCH 30.7 pg (25.0-35.0); MCV 95.9 fL (80.0-100.0); Mean Platelet Volume 8.4; Monocytes # (A) 0.5 k/uL (0-1.0); Monocytes % (A) 3 %; Neutrophils # (A) 12.9 k/uL (1.3-7.7); Neutrophils % (A) 89 %; Platelet Count 251 k/uL (150-450); RBC 3.85 m/uL (4.30-5.90); RDW 13.8 % (11.5-15.5); WBC 14.5 k/uL (3.8-10.6)
[2020-07-25 07:02] LABS: Albumin 2.2 g/dL (3.5-5.0); Calcium 7.9 mg/dL (8.4-10.2); Magnesium 1.8 mg/dL (1.6-2.3); Phosphorus 4.6 mg/dL (2.5-4.5); Total Bilirubin 0.2 mg/dL (0.2-1.3); Total Protein 4.6 g/dL (6.3-8.2)
[2020-07-25] MEDS: INSULIN DETEMIR (LEVEMIR) 100 UNIT/ML SYR SQ SCH (08:32)
[2020-07-25] MEDS: SODIUM BICARBONATE TAB 650 MG TAB PO SCH (10:10)
[2020-07-25] MEDS: HEPARIN SODIUM,PORCINE 5,000 UNIT/ML 1 ML VIAL SQ SCH ×4 (10:10→20:53)
--- NOTE | 2020-07-25 10:23 | P.PN ---
Subjective From records: 69-year-old male was admitted to the hospital with acute diabetic ketoacidosis, with new on set diabetes mellitus. Secondarily, patient has acute kidney injury with elevated serum creatinine and BUN. Glycemic control has been controlled with basal insulin and sliding scale. Urology placed a double J catheter to assist in urinary output. Patient resting comfortably in bed, Urology placed a double J catheter to assist in urinary output, catheter flowing with urine output. Patient denies any fever, chills, shortness of breath, palpitations abdominal pain, nausea or vomiting.Nephrology to follow to discuss measures for acute renal failure. 07/23/2020 Patient is currently sitting in the chair comfortably. Denies any complaints of chest pain or shortness of breath. Blood sugar is controlled. Laboratory data showed BUN 73 and creatinine improving to 4.38. Patient is status post stent placement and Friend catheter. Patient has been afebrile. Urine output is improving. No complaints of abdominal pain. No nausea vomiting. Tolerating oral diet. Continued on insulin dosing. 07/24/2020 Patient is currently sitting in bedside comfortably. Urine output is stable. Status post double-J catheter placement and Friend catheter placement. Renal function is improving with a creatinine level 3.9 today. Blood sugar is controlled. Patient is scheduled for EGD due to odynophagia. Patient is a complaining of pain with swallowing her last 3 to 4 days. Seen by GI and is planning for EGD today. EGD showed circumferential erosions with ulcerations and exudates involving the mid and distal esophagus extending from 25 to 40 cm from the incisors consistent with LA grade D reflux esophagitis. Small hiatal hernia. Patient is being continued on Protonix. subjective: 07/25/2020 this is a pleasant 69 years old male with multiple medical problemswas admitted on 07/18 for generalized weakness. Patient was found to have high glucoses suspicious for DKA, bilateral hydronephrosis with nonfunctioning left kidney and hydroureter nephrosis of the right infection Status post stent placement by urologist with acute kidney injury and creatinine on admission was 5.3, yesterday was 3.9 and today is 4.0 however patient has goo d urine output , neurology and nephrology recommended outpatient follow-up, patient informed and he agrees Also yesterday he had EGD by Dr. Aquino for his dysphagia and odynophagia and found distal and mid esophagitis with ulceration,he is currently on Protonix twice a day and he feels better today and able to eat better ejection fraction more than 55% Also he is on ceftriaxone today for UTI. Urine culture showed no growth.ceftriaxone was stopped. Patient with no urinary symptoms. Also he was started on Levemir insulin 40 units dailyhowever he has low glucose earlier this morning at 66. We switched his Levemir to 25 units daily and 7 units with meals and continue with insulin sliding scale discussed the case with nephrology team CONSTITUTIONAL: No fever, no malaise, no fatigue. HEENT: No recent visual problems or hearing problems. Denied any sore throat. CARDIOVASCULAR: No orthopnea, PND, no palpitations, no syncope. PULMONARY: No shortness of breath, no cough, no hemoptysis. GASTROINTESTINAL: No diarrhea, no nausea, no vomiting, no abdominal pain. Normoactive bowel sounds. NEUROLOGICAL: No headaches, no weakness, no numbness. HEMATOLOGICAL: Denies any bleeding or petechiae. GENITOURINARY: Denies any burning micturition, frequency, or urgency. Active Medications Generic Name Dose Route Start Last Admin Trade Name Freq PRN Reason Stop Dose Admin Acetaminophen 500 mg 07/17/20 15:04 07/21/20 07:08 Acetaminophen Tab 500 Mg Tab PO 500 mg Q6HR PRN Administration Fever and/ or Pain Hydrocodone Bitart/Acetaminophen 1 each 07/17/20 15:04 Hydrocodone/Apap 5-325mg 1 Each Tab PO Q6HR PRN Pain Alprazolam 0.25 mg 07/17/20 15:04 Alprazolam 0.25 Mg Tab PO TID PRN Anxiety Atorvastatin Calcium 10 mg 07/19/20 21:00 07/24/20 20:09 Atorvastatin 10 Mg Tab PO 10 mg HS [facility] Administration Heparin Sodium (Porcine) 5,000 unit 07/17/20 21:00 07/25/20 10:10 Heparin Sodium,Porcine 5,000 Unit/Ml 1 Ml Vial SQ 5,000 unit Q12HR [facility] Administration Heparin Sodium (Porcine) 5,000 unit 07/25/20 10:15 Heparin Sodium,Porcine 5,000 Unit/Ml 1 Ml Vial SQ Q12HR [facility] Insulin Aspart 0 unit 07/18/20 17:30 07/25/20 06:06 Insulin Aspart (Novolog) 100 Unit/Ml Vial SQ Not Given ACHS [facility] Protocol Insulin Aspart 7 unit 07/26/20 12:30 Insulin Aspart (Novolog) 100 Unit/Ml Vial SQ AC-TID [facility] Insulin Detemir 30 unit 07/26/20 07:00 Insulin Detemir (Levemir) 100 Unit/Ml Syr SQ DAILY@0700 [facility] Multivitamins 1 each 07/18/20 12:00 07/24/20 12:07 Multivitamins, Thera 1 Each Tab PO 1 each DAILY@1200 [facility] Administration Pantoprazole Sodium 40 mg 07/22/20 17:30 07/25/20 06:09 Pantoprazole 40 Mg Tablet PO 40 mg AC-BID [facility] Administration Sodium Bicarbonate 650 mg 07/20/20 21:00 07/25/20 10:10 Sodium Bicarbonate Tab 650 Mg Tab PO 650 mg BID [facility] Administration Objective - Vital Signs Vital signs: Vital Signs Temp 97.4 F L 07/25/20 04:00 Pulse 72 07/25/20 04:00 Resp 18 07/25/20 04:00 BP 100/63 07/25/20 04:00 Pulse Ox 93 L 07/25/20 04:00 Intake & Output 07/24/20 07/25/20 07/25/20 18:59 06:59 18:59 Intake Total 1072 Output Total 700 1875 Balance 372 -1875 Weight 96.3 kg Intake: IV 25 Intake, IV Titration 575 Amount Lactated Ringers 1,000 ml 525 @ 75 mls/hr IV .[id number] [facility] Rx#:[id number] cefTRIAXone 1 gm In 50 Sodium Chloride 0.9% 50 ml @ 100 mls/hr IVPB Q24HR [facility] Rx#:[id number] Oral 472 Output: Urine 700 1875 Other: Voiding Method Indwelling Catheter Indwelling Catheter - Exam GENERAL: The patient is alert and oriented x3, not in any acute distress. Well developed, well nourished. HEENT: Pupils are round and equally reacting to light. EOMI. No scleral icterus. No conjunctival pallor. Normocephalic, atraumatic. No pharyngeal erythema. No thyromegaly. CARDIOVASCULAR: S1 and S2 present. No murmurs, rubs, or gallops. PULMONARY: Chest is clear to auscultation, no wheezing or crackles. -ABDOMEN: Soft, nontender, nondistended, normoactive bowel sounds. No palpable organomegaly. the catheter is in place MUSCULOSKELETAL: No joint swelling or deformity. -EXTREMITIES: No cyanosis, clubbing, , 1+ bilateral pitting leg edema. NEUROLOGICAL: Gross neurological examination did not reveal any focal deficits. SKIN: No rashes. no petechiae. - Labs CBC & Chem 7: 07/25/20 05:56 07/25/20 05:56 Labs: Abnormal Lab Results - Last 24 Hours (Table) 07/24/20 07/24/20 07/24/20 Range/Units 11:48 16:31 20:22 WBC (3.8-10.6) k/uL RBC (4.30-5.90) m/uL Hgb (13.0-17.5) gm/dL Hct (39.0-53.0) % Neutrophils # (1.3-7.7) k/uL Chloride (98-107) mmol/L BUN (9-20) mg/dL Creatinine (0.66-1.25) mg/dL Glucose (74-99) mg/dL POC Glucose (mg/dL) 185 H 221 H 230 H (75-99) mg/dL Calcium (8.4-10.2) mg/dL Phosphorus (2.5-4.5) mg/dL Total Protein (6.3-8.2) g/dL Albumin (3.5-5.0) g/dL 07/25/20 07/25/20 07/25/20 Range/Units 05:56 05:56 06:00 WBC 14.5 H (3.8-10.6) k/uL RBC 3.85 L (4.30-5.90) m/uL Hgb 11.8 L (13.0-17.5) gm/dL Hct 36.9 L (39.0-53.0) % Neutrophils # 12.9 H (1.3-7.7) k/uL Chloride 109 H (98-107) mmol/L BUN 56 H (9-20) mg/dL Creatinine 4.07 H (0.66-1.25) mg/dL Glucose 66 L (74-99) mg/dL POC Glucose (mg/dL) 102 H (75-99) mg/dL Calcium 7.9 L (8.4-10.2) mg/dL Phosphorus 4.6 H (2.5-4.5) mg/dL Total Protein 4.6 L (6.3-8.2) g/dL Albumin 2.2 L (3.5-5.0) g/dL Assessment and Plan Assessment: Diabetes mellitus type II new onset, with acute diabetic ketoacidosis present on admission acute renal failure with acute tubular necrosis multifactorial left hydronephrosis hyponatremia metabolic acidosis elevated plasma lactic acid acute urinary tract infection present on admission Dysphagia and odynophagia.LA grade D reflux esophagitis. s/p EGD: ulcerations inthe mid and distal esophagus with LA grade D reflux esophagitis. Plan: for his Diabetes mellitus type II sliding scale with basal insulin , today we added NovoLog insulin with meals for his acute renal failureand hydronephrosis Patient is status post stent placement and urology and nephrology on board.patient will need follow-up as an outpatient with urology and nephrology, he informed and he agrees for his dysphagia , continue current medications. c/w PPI, status post EGD and patient was instructed to follow up with GI team upon discharge and he agrees as well Continue same treatment. Continue with symptomatic treatment. Resume home medication. Monitor lytes and vitals. DVT and GI prophylaxis. Further r ecommendations depends on the clinical course of the patient DVT prophylaxis: Subcutaneous heparin GI Prophylaxis: Ppi PT/OT: physical therapy recommended home health care, occupational therapy recommended home health care versus subacute rehab. Patient was to go to rehab Dr. Daugherty team will resume the care of the patient tomorrow
--- NOTE | 2020-07-25 11:38 | P.PN ---
Subjective Patient is seen in follow-up for acute kidney injury. Denies chest pain or shortness of breath. Nonoliguric. No vomiting or diarrhea. Vital signs are stable. General: The patient appeared well nourished and normally developed. HEENT: Head exam is unremarkable. Neck is without jugular venous distension. LUNGS:. Breath sounds decreased. HEART: Rate and Rhythm are regular. ABDOMEN: Soft, nontender. EXTREMITITES: No edema. Objective - Vital Signs Vital signs: Vital Signs Temp 97.4 F L 07/25/20 04:00 Pulse 74 07/25/20 08:00 Resp 18 07/25/20 08:00 BP 116/68 07/25/20 08:00 Pulse Ox 100 07/25/20 08:00 Intake & Output 07/24/20 07/25/20 07/25/20 18:59 06:59 18:59 Intake Total 1072 960 Output Total 700 1875 500 Balance 372 -1875 460 Weight 96.3 kg Intake: IV 25 Intake, IV Titration 575 Amount Lactated Ringers 1,000 ml 525 @ 75 mls/hr IV .[id number] [facility] Rx#:[id number] cefTRIAXone 1 gm In 50 Sodium Chloride 0.9% 50 ml @ 100 mls/hr IVPB Q24HR [facility] Rx#:[id number] Oral 472 960 Output: Urine 700 1875 500 Other: Voiding Method Indwelling Catheter Indwelling Catheter # Bowel Movements 1 - Labs CBC & Chem 7: 07/25/20 05:56 07/25/20 05:56 Labs: Abnormal Lab Results - Last 24 Hours (Table) 07/24/20 07/24/20 07/24/20 Range/Units 11:48 16:31 20:22 WBC (3.8-10.6) k/uL RBC (4.30-5.90) m/uL Hgb (13.0-17.5) gm/dL Hct (39.0-53.0) % Neutrophils # (1.3-7.7) k/uL Chloride (98-107) mmol/L BUN (9-20) mg/dL Creatinine (0.66-1.25) mg/dL Glucose (74-99) mg/dL POC Glucose (mg/dL) 185 H 221 H 230 H (75-99) mg/dL Calcium (8.4-10.2) mg/dL Phosphorus (2.5-4.5) mg/dL Total Protein (6.3-8.2) g/dL Albumin (3.5-5.0) g/dL 07/25/20 07/25/20 07/25/20 Range/Units 05:56 05:56 06:00 WBC 14.5 H (3.8-10.6) k/uL RBC 3.85 L (4.30-5.90) m/uL Hgb 11.8 L (13.0-17.5) gm/dL Hct 36.9 L (39.0-53.0) % Neutrophils # 12.9 H (1.3-7.7) k/uL Chloride 109 H (98-107) mmol/L BUN 56 H (9-20) mg/dL Creatinine 4.07 H (0.66-1.25) mg/dL Glucose 66 L (74-99) mg/dL POC Glucose (mg/dL) 102 H (75-99) mg/dL Calcium 7.9 L (8.4-10.2) mg/dL Phosphorus 4.6 H (2.5-4.5) mg/dL Total Protein 4.6 L (6.3-8.2) g/dL Albumin 2.2 L (3.5-5.0) g/dL Assessment and Plan Plan: Assessment: 1. Acute kidney injury secondary to obstructive uropathy. Creatinine was 5.36 on admission and he did come down to 3.93 as of July 24. 4.07 today. Nonoliguric. Unknown baseline renal function. 2. Left renal atrophy with right-sided hydronephrosis status post ureteral stent placement. Urology following. 3. Diabetes mellitus. 4. Metabolic acidosis secondary to acute kidney injury maintained on oral bicarbonate. Plan: Maintain Friend catheter per urology. Encourage oral intake. Avoid nephrotoxins. Decreased bicarb to once daily.
[2020-07-25 11:51] LABS: Glucose,Whole Blood 99 mg/dL (75-99)
[2020-07-25] MEDS: MULTIVITAMINS, THERA 1 EACH TAB PO SCH (14:18)
--- NOTE | 2020-07-25 15:35 | P.PN ---
Subjective Progress Note Date: 07/25/20 Principal diagnosis: Difficulty swallowing This is a 69-year-old pleasant white male patient whose been evaluated for difficulty swallowing for 3-4 days duration. Yesterday he underwent an upper endoscopy which revealed circumferential erosions with ulcerations and exudate involving the mid and distal esophagus consistent with LA grade B reflux esophagitis and a small hiatal hernia. He has seen sitting up in the bedside chair. He reports his swallowing is significantly better. He is able to eat solids and liquids without any difficulty. He denies any abdominal pain, n ausea, or vomiting. Objective - Vital Signs Vital signs: Vital Signs Temp 97.4 F L 07/25/20 04:00 Pulse 72 07/25/20 04:00 Resp 18 07/25/20 04:00 BP 100/63 07/25/20 04:00 Pulse Ox 93 L 07/25/20 04:00 Intake & Output 07/24/20 07/25/20 07/25/20 18:59 06:59 18:59 Intake Total 1072 Output Total 700 1875 Balance 372 -1875 Weight 96.3 kg Intake: IV 25 Intake, IV Titration 575 Amount Lactated Ringers 1,000 ml 525 @ 75 mls/hr IV .[id number] [facility] Rx#:[id number] cefTRIAXone 1 gm In 50 Sodium Chloride 0.9% 50 ml @ 100 mls/hr IVPB Q24HR [facility] Rx#:[id number] Oral 472 Output: Urine 700 1875 Other: Voiding Method Indwelling Catheter Indwelling Catheter - Exam General appearance: The patient is alert, oriented, appears in no acute distress. HET: Head is normocephalic and atraumatic. Conjunctiva pink. Sclera anicteric. Neck: Supple without lymphadenopathy. Abdomen: Soft, nontender, nondistended with bowel sounds. No guarding or rigidity. Extremities: Normal skin color and turgor. No pedal edema Skin: No rashes, no jaundice Neurological: No focal deficits. Alert and oriented 3. - Labs CBC & Chem 7: 07/25/20 05:56 07/25/20 05:56 Labs: Abnormal Lab Results - Last 24 Hours (Table) 07/24/20 07/24/20 07/24/20 Range/Units 11:48 16:31 20:22 WBC (3.8-10.6) k/uL RBC (4.30-5.90) m/uL Hgb (13.0-17.5) gm/dL Hct (39.0-53.0) % Neutrophils # (1.3-7.7) k/uL Chloride (98-107) mmol/L BUN (9-20) mg/dL Creatinine (0.66-1.25) mg/dL Glucose (74-99) mg/dL POC Glucose (mg/dL) 185 H 221 H 230 H (75-99) mg/dL Calcium (8.4-10.2) mg/dL Phosphorus (2.5-4.5) mg/dL Total Protein (6.3-8.2) g/dL Albumin (3.5-5.0) g/dL 07/25/20 07/25/20 07/25/20 Range/Units 05:56 05:56 06:00 WBC 14.5 H (3.8-10.6) k/uL RBC 3.85 L (4.30-5.90) m/uL Hgb 11.8 L (13.0-17.5) gm/dL Hct 36.9 L (39.0-53.0) % Neutrophils # 12.9 H (1.3-7.7) k/uL Chloride 109 H (98-107) mmol/L BUN 56 H (9-20) mg/dL Creatinine 4.07 H (0.66-1.25) mg/dL Glucose 66 L (74-99) mg/dL POC Glucose (mg/dL) 102 H (75-99) mg/dL Calcium 7.9 L (8.4-10.2) mg/dL Phosphorus 4.6 H (2.5-4.5) mg/dL Total Protein 4.6 L (6.3-8.2) g/dL Albumin 2.2 L (3.5-5.0) g/dL Assessment and Plan (1) Dysphasia Narrative/Plan: This is a pleasant 69-year-old gentleman who presented to the hospital 4 days ago with generalized weakness who was found to be hyperglycemic. He was diagnosed with new onset of diabetes along with acute kidney failure. During this hospitalization he was complaining of discomfort with swallowing. He states that it is painful in his chest with swallowing with both liquids and solids. He denies any nausea or vomiting. He has no previous history of upper endoscopy. He states he does have some mild acid reflux. He does state the pain is improved today. Was currently on Protonix 40 mg once a day in the hospital, this will be increased to twice a day. Discussed with patient we'll see if increase in medication improved symptoms, otherwise will consider proceeding with upper endoscopy. Patient agreeable with plan. Status post upper endoscopy which revealed circum-parenteral erosions with ulcerations and exudates involving the mid and distal esophagus consistent with LA grade D reflux esophagitis and a small hiatal hernia Current Visit: Yes Status: Acute Code(s): R47.02 - DYSPHASIA SNOMED Code(s): 50188484 (2) Acute renal failure Current Visit: Yes Status: Acute Code(s): N17.9 - ACUTE KIDNEY FAILURE, UNSPECIFIED SNOMED Code(s): 89762436 (3) Diabetes mellitus, new onset Current Visit: Yes Status: Acute Code(s): E11.9 - TYPE 2 DIABETES MELLITUS WITHOUT COMPLICATIONS SNOMED Code(s): 644103902 Plan: 1. Supportive care 2. Diet as tolerated 3. Continue Protonix 40 mg 2 twice a day 4. Continue medical management 5. Patient is status post upper endoscopy 6. Patient to be discharged home from a gastroenterology standpoint and was instructed to follow-up with gastroenterology in 6-8 weeks Thank you for this consultation, we'll sign off at this time Dr. Gabrielle Aquino I agree with the dictator's note, documented as a scribe by Nasra Mittal.
[2020-07-25 17:08] LABS: Glucose,Whole Blood 171 mg/dL (75-99)
[2020-07-25 20:11] LABS: Glucose,Whole Blood 170 mg/dL (75-99)
[2020-07-25] MEDS: ATORVASTATIN 10 MG TAB PO SCH (20:53)
[2020-07-26 06:31] LABS: Basophils % (A) 0 %; Eosinophils # (A) 0.2 k/uL (0-0.7); Eosinophils % (A) 1 %; HGB 11.9 gm/dL (13.0-17.5); Lymphocytes # (A) 1.6 k/uL (1.0-4.8); Lymphocytes % (A) 12 %; MCH 30.6 pg (25.0-35.0); MCHC 32.1 g/dL (31.0-37.0); MCV 95.2 fL (80.0-100.0); Mean Platelet Volume 8.5; Monocytes # (A) 0.6 k/uL (0-1.0); Monocytes % (A) 4 %; Neutrophils # (A) 11.1 k/uL (1.3-7.7); Neutrophils % (A) 82 %; Platelet Count 289 k/uL (150-450); RBC 3.88 m/uL (4.30-5.90); RDW 13.6 % (11.5-15.5); WBC 13.6 k/uL (3.8-10.6)
[2020-07-26 06:39] LABS: Calcium 8.2 mg/dL (8.4-10.2); Magnesium 1.7 mg/dL (1.6-2.3); Potassium 3.8 mmol/L (3.5-5.1)
[2020-07-26 06:46] LABS: Glucose,Whole Blood 39 mg/dL (75-99)
[2020-07-26] MEDS: INSULIN ASPART (NovoLOG) 100 UNIT/ML VIAL SQ SCH ×4 (06:54→20:49)
[2020-07-26] MEDS: PANTOPRAZOLE 40 MG TABLET PO SCH ×2 (06:58→17:09)
[2020-07-26] MEDS ORDERED: INSULIN DETEMIR (LEVEMIR) 100 UNIT/ML SYR SQ SCH ×2 (07:00→21:00)
[2020-07-26 07:02] LABS: Glucose,Whole Blood 60 mg/dL (75-99)
[2020-07-26 07:18] LABS: Glucose,Whole Blood 98 mg/dL (75-99)
--- NOTE | 2020-07-26 09:15 | P.PN ---
Subjective Progress Note Date: 07/26/20 Principal diagnosis: Acute diabetic ketoacidosis new onset diabetes mellitus acute kidney injury With elevated BUN and creatinine decrease GFR possibly acute urinary tract infection 69-year-old male was admitted to the hospital with acute diabetic ketoacidosis, with new on set diabetes mellitus. Secondarily, patient has acute kidney injury with elevated serum creatinine and BUN. Glycemic control has been controlled with basal insulin and sliding scale. Urology placed a double J catheter to assist in urinary output. Patient resting comfortably in bed, ans wering questions appropriately and moving all extremities. Patient denies any fever, chills, shortness of breath, palpitations abdominal pain, nausea or vomiting.Nephrology to follow to discuss measures for acute renal failure. Patient had an acute episode of hypoglycemia this a.m. of 39, hypoglycemia protocol was initiated. Upon evaluation this a.m., patient resting comfortably in bed, no acute signs of distress. Objective - Vital Signs Vital signs: Vital Signs Temp 97.7 F 07/26/20 08:00 Pulse 83 07/26/20 08:00 Resp 16 07/26/20 08:00 BP 111/60 07/26/20 08:00 Pulse Ox 99 07/26/20 08:00 Intake & Output 07/25/20 07/26/20 07/26/20 18:59 06:59 18:59 Intake Total 1920 Output Total 1200 1600 Balance 720 -1600 Weight 96.2 kg Intake: Oral 1920 Output: Urine 1200 1600 Other: Voiding Method Indwelling Catheter Indwelling Catheter Indwelling Catheter # Bowel Movements 1 - Constitutional General appearance: Present: cooperative - EENT Eyes: Present: EOMI, PERRLA ENT: Present: normal oropharynx - Neck Thyroid: bilateral: normal size - Respiratory Respiratory: bilateral: CTA (Anterior and posterior castrejon) - Cardiovascular Details: Normal sinus rhythm Heart rate: 64 Rhythm: regular Heart sounds: normal: S1, S2 - Peripheral pulses radial pulse Peripheral Pulses: bilateral: Normal dorsalis pedis Peripheral Pulses: bilateral: Normal - Gastrointestinal General gastrointestinal: Present: normal bowel sounds - Genitourinary Genitourinary Comment(s): Friend catheter present with clear yellow urine - Integumentary Integumentary: Present: decreased turgor - Neurologic Neurologic: Present: CNII-XII intact - Musculoskeletal Musculoskeletal: Present: generalized weakness - Psychiatric Psychiatric: Present: A&O x's 3, appropriate affect, intact judgment & insight - Labs CBC & Chem 7: 07/26/20 05:42 07/26/20 05:42 Labs: Abnormal Lab Results - Last 24 Hours (Table) 07/25/20 07/25/20 07/26/20 Range/Units 17:03 20:10 05:42 WBC 13.6 H (3.8-10.6) k/uL RBC 3.88 L (4.30-5.90) m/uL Hgb 11.9 L (13.0-17.5) gm/dL Hct 37.0 L (39.0-53.0) % Neutrophils # 11.1 H (1.3-7.7) k/uL BUN (9-20) mg/dL Creatinine (0.66-1.25) mg/dL Glucose (74-99) mg/dL POC Glucose (mg/dL) 171 H 170 H (75-99) mg/dL Calcium (8.4-10.2) mg/dL 07/26/20 07/26/20 07/26/20 Range/Units 05:42 06:44 07:01 WBC (3.8-10.6) k/uL RBC (4.30-5.90) m/uL Hgb (13.0-17.5) gm/dL Hct (39.0-53.0) % Neutrophils # (1.3-7.7) k/uL BUN 50 H (9-20) mg/dL Creatinine 3.64 H (0.66-1.25) mg/dL Glucose 32 L* (74-99) mg/dL POC Glucose (mg/dL) 39 L 60 L (75-99) mg/dL Calcium 8.2 L (8.4-10.2) mg/dL Assessment and Plan Assessment: Diabetes mellitus type II new onset, with acute diabetic ketoacidosis present on admission acute renal failure with acute tubular necrosis multifactorial left hydronephrosis hyponatremia metabolic acidosis elevated plasma lactic acid acute urinary tract infection present on admission Plan: Diabetes mellitus type II sliding scale with basal insulin-reduce basal insulin to Levemir 20 units subcutaneous and continued sliding scale acute renal failure-noted improvement and BUN and creatinine and GFR since admissionawaiting on nephrology and urology for discharge recommendations Esophagitiscontinue proton pump inhibitor twice a day Continue to monitor vital signs and diagnostic labs continue current medications further recommendations to follow
[2020-07-26] MEDS: SODIUM BICARBONATE TAB 650 MG TAB PO SCH (10:03)
[2020-07-26] MEDS: HEPARIN SODIUM,PORCINE 5,000 UNIT/ML 1 ML VIAL SQ SCH ×2 (10:03→20:49)
[2020-07-26 11:48] LABS: Glucose,Whole Blood 168 mg/dL (75-99)
[2020-07-26] MEDS ORDERED: INSULIN ASPART (NovoLOG) 100 UNIT/ML VIAL SQ SCH (12:30)
[2020-07-26] MEDS: MULTIVITAMINS, THERA 1 EACH TAB PO SCH (13:06)
--- NOTE | 2020-07-26 13:14 | P.PN ---
Subjective Patient is seen in follow-up for acute kidney injury. Denies chest pain or shortness of breath. Nonoliguric. No vomiting or diarrhea. Renal function better today. Vital signs are stable. General: The patient appeared well nourished and normally developed. HEENT: Head exam is unremarkable. Neck is without jugular venous distension. LUNGS:. Breath sounds decreased. HEART: Rate and Rhythm are regular. ABDOMEN: Soft, nontender. EXTREMITITES: No edema. Objective - Vital Signs Vital signs: Vital Signs Temp 97.7 F 07/26/20 08:00 Pulse 83 07/26/20 08:00 Resp 16 07/26/20 08:00 BP 111/60 07/26/20 08:00 Pulse Ox 99 07/26/20 08:00 Intake & Output 07/25/20 07/26/20 07/26/20 18:59 06:59 18:59 Intake Total 1920 360 Output Total 1200 1600 850 Balance 720 -1600 -490 Weight 96.2 kg Intake: Oral 1920 360 Output: Urine 1200 1600 850 Other: Voiding Method Indwelling Catheter Indwelling Catheter Indwelling Catheter # Bowel Movements 1 - Labs CBC & Chem 7: 07/26/20 05:42 07/26/20 05:42 Labs: Abnormal Lab Results - Last 24 Hours (Table) 07/25/20 07/25/20 07/26/20 Range/Units 17:03 20:10 05:42 WBC 13.6 H (3.8-10.6) k/uL RBC 3.88 L (4.30-5.90) m/uL Hgb 11.9 L (13.0-17.5) gm/dL Hct 37.0 L (39.0-53.0) % Neutrophils # 11.1 H (1.3-7.7) k/uL BUN (9-20) mg/dL Creatinine (0.66-1.25) mg/dL Glucose (74-99) mg/dL POC Glucose (mg/dL) 171 H 170 H (75-99) mg/dL Calcium (8.4-10.2) mg/dL 07/26/20 07/26/20 07/26/20 Range/Units 05:42 06:44 07:01 WBC (3.8-10.6) k/uL RBC (4.30-5.90) m/uL Hgb (13.0-17.5) gm/dL Hct (39.0-53.0) % Neutrophils # (1.3-7.7) k/uL BUN 50 H (9-20) mg/dL Creatinine 3.64 H (0.66-1.25) mg/dL Glucose 32 L* (74-99) mg/dL POC Glucose (mg/dL) 39 L 60 L (75-99) mg/dL Calcium 8.2 L (8.4-10.2) mg/dL 07/26/20 Range/Units 11:47 WBC (3.8-10.6) k/uL RBC (4.30-5.90) m/uL Hgb (13.0-17.5) gm/dL Hct (39.0-53.0) % Neutrophils # (1.3-7.7) k/uL BUN (9-20) mg/dL Creatinine (0.66-1.25) mg/dL Glucose (74-99) mg/dL POC Glucose (mg/dL) 168 H (75-99) mg/dL Calcium (8.4-10.2) mg/dL Assessment and Plan Plan: Assessment: 1. Acute kidney injury secondary to obstructive uropathy. Creatinine was 5.36 on admission and is down to 3.64 today. Nonoliguric. Unknown baseline renal function. 2. Left renal atrophy with right-sided hydronephrosis status post ureteral stent placement. Urology following. 3. Diabetes mellitus. 4. Metabolic acidosis secondary to acute kidney injury maintained on oral bicarbonate. Plan: Maintain Friend catheter per urology. Encourage oral intake. Avoid nephrotoxins. No changes from nephrology standpoint.
[2020-07-26 16:49] LABS: Glucose,Whole Blood 266 mg/dL (75-99)
[2020-07-26] MEDS: ATORVASTATIN 10 MG TAB PO SCH (20:49)
[2020-07-26 21:02] LABS: Glucose,Whole Blood 274 mg/dL (75-99)
[2020-07-26] MEDS ORDERED: Magnesium Replacement Protocol 1 EACH MISC MISCELLANE PRN (21:51)
[2020-07-27 01:51] LABS: Glucose,Whole Blood 189 mg/dL (75-99)
[2020-07-27 06:24] LABS: Glucose,Whole Blood 225 mg/dL (75-99)
[2020-07-27] MEDS: INSULIN ASPART (NovoLOG) 100 UNIT/ML VIAL SQ SCH ×2 (06:44→11:55)
[2020-07-27] MEDS: PANTOPRAZOLE 40 MG TABLET PO SCH (06:44)
--- NOTE | 2020-07-27 07:19 | XR ---
EXAMINATION TYPE: XR chest 1V portable DATE OF EXAM: 07/27/2020 CLINICAL HISTORY: Cough and shortness of breath progress study. TECHNIQUE: Single AP portable upright view of the chest is obtained. COMPARISON: Chest x-ray from 6 days earlier FINDINGS: There is no new suspicious focal airspace opacity, pleural effusion, or pneumothorax seen bilaterally. Cardiac silhouette size is stable and mildly enlarged. Multilevel spurring in the spine redemonstrated. Overlying EKG leads again seen. IMPRESSION: Mild Cardiomegaly without acute pulmonary process, no significant change from prior.
[2020-07-27 07:48] LABS: Calcium 8.5 mg/dL (8.4-10.2); Magnesium 1.7 mg/dL (1.6-2.3); Potassium 4.4 mmol/L (3.5-5.1)
[2020-07-27] MEDS: HEPARIN SODIUM,PORCINE 5,000 UNIT/ML 1 ML VIAL SQ SCH (08:21)
[2020-07-27] MEDS: SODIUM BICARBONATE TAB 650 MG TAB PO SCH (08:21)
--- NOTE | 2020-07-27 10:32 | P.PN ---
Subjective Patient is seen in follow-up for acute kidney injury. Denies chest pain or shortness of breath. Nonoliguric. No vomiting or diarrhea. Renal function stable. Vital signs are stable. General: The patient appeared well nourished and normally developed. HEENT: Head exam is unremarkable. Neck is without jugular venous distension. LUNGS:. Breath sounds decreased. HEART: Rate and Rhythm are regular. ABDOMEN: Soft, nontender. EXTREMITITES: No edema. Objective - Vital Signs Vital signs: Vital Signs Temp 98.5 F 07/27/20 07:34 Pulse 98 07/27/20 07:34 Resp 16 07/27/20 08:25 BP 105/66 07/27/20 07:34 Pulse Ox 99 07/27/20 07:34 Intake & Output 07/26/20 07/27/20 07/27/20 18:59 06:59 18:59 Intake Total 840 120 125 Output Total 1700 1200 525 Balance -860 -1080 -400 Weight 96.5 kg Intake: Oral 840 120 125 Output: Urine 1700 1200 525 Stool 0 0 Other: Voiding Method Indwelling Catheter Indwelling Catheter Indwelling Catheter # Voids 0 # Bowel Movements 0 - Labs CBC & Chem 7: 07/26/20 05:42 07/27/20 06:49 Labs: Abnormal Lab Results - Last 24 Hours (Table) 07/26/20 07/26/20 07/26/20 Range/Units 11:47 16:46 20:27 BUN (9-20) mg/dL Creatinine (0.66-1.25) mg/dL Glucose (74-99) mg/dL POC Glucose (mg/dL) 168 H 266 H 274 H (75-99) mg/dL 07/27/20 07/27/20 07/27/20 Range/Units 01:48 05:46 06:49 BUN 48 H (9-20) mg/dL Creatinine 3.59 H (0.66-1.25) mg/dL Glucose 150 H (74-99) mg/dL POC Glucose (mg/dL) 189 H 225 H (75-99) mg/dL Assessment and Plan Plan: Assessment: 1. Acute kidney injury secondary to obstructive uropathy. Creatinine was 5.36 on admission and is stable at 3.59 today. Nonoliguric. Unknown baseline renal function. 2. Left renal atrophy with right-sided hydronephrosis status post ureteral stent placement. Urology following. 3. Diabetes mellitus. 4. Metabolic acidosis secondary to acute kidney injury maintained on oral bicarbonate. Plan: Maintain Friend catheter per urology. Encourage oral intake. Avoid nephrotoxins. No changes from nephrology standpoint. Follow up outpatient in 7-10 days.
--- NOTE | 2020-07-27 11:32 | P.PN ---
Subjective Progress Note Date: 07/27/20 The creatinine appears to have leveled around 3.6. I will recommend trying the catheter out see if it affects his creatinine. If not then he can go home with a double-J catheter. If the creatinine rises however then would have to look at the lower tract as a cause of the obstruction. Objective - Vital Signs Vital signs: Vital Signs Temp 98.5 F 07/27/20 07:34 Pulse 98 07/27/20 07:34 Resp 16 07/27/20 08:25 BP 105/66 07/27/20 07:34 Pulse Ox 99 07/27/20 07:34 Intake & Output 07/26/20 07/27/20 07/27/20 18:59 06:59 18:59 Intake Total 840 120 125 Output Total 1700 1200 525 Balance -860 1080 -400 Weight 96.5 kg Intake: Oral 840 120 125 Output: Urine 1700 1200 525 Stool 0 0 Other: Voiding Method Indwelling Catheter Indwelling Catheter Indwelling Catheter # Voids 0 # Bowel Movements 0 - Labs CBC & Chem 7: 07/26/20 05:42 07/27/20 06:49 Labs: Abnormal Lab Results - Last 24 Hours (Table) 07/26/20 07/26/20 07/26/20 Range/Units 11:47 16:46 20:27 BUN (9-20) mg/dL Creatinine (0.66-1.25) mg/dL Glucose (74-99) mg/dL POC Glucose (mg/dL) 168 H 266 H 274 H (75-99) mg/dL 07/27/20 07/27/20 07/27/20 Range/Units 01:48 05:46 06:49 BUN 48 H (9-20) mg/dL Creatinine 3.59 H (0.66-1.25) mg/dL Glucose 150 H (74-99) mg/dL POC Glucose (mg/dL) 189 H 225 H (75-99) mg/dL
[2020-07-27 11:55] VITALS: BP 106/63; PULSE 86; TEMP 98.2
[2020-07-27] MEDS: MULTIVITAMINS, THERA 1 EACH TAB PO SCH (11:59)
[2020-07-27 12:11] LABS: Glucose,Whole Blood 112 mg/dL (75-99)
--- NOTE | 2020-07-27 15:45 | P.DS ---
Providers Date of admission: 07/17/20 12:43 Expected date of discharge: 07/27/20 Attending physician: Shen Daugherty Consults: 07/17/20 12:42 Consult Physician Urgent Consulting Provider: Don Romano Consult Reason/Comments: Acute renal failure Do you want consulting provider notified?: Yes 07/18/20 16:00 Consult Physician Routine Consulting Provider: Mark Marcial Consult Reason/Comments: hydronephrosis Do you want consulting provider notified?: Yes Primary care physician: Shen Daugherty Hospital Course: 69-year-old male was admitted to the hospital with a new onset of diabetes with diabetic ketoacidosis blood sugar was found to be 1910, ion gap was 20, CO2 was 15, patient also has significant renal failure with creatinine 5.36. Patient was initiated on insulin drip for DKA protocol. Patient was weaned from insulin drip, tolerated sliding scale with basal insulin for glycemic control. Patient had a multidisciplinary approach from urology, nephrology, gastroenterology, cardiology, and primary care team. Patient noted to have improvement with glycemic control/renal failure with interventions of insulin drip/sliding scale with basal insulin; double J catheter was placed by urology with decrease and creatinine and BUN. I personally spoke with patient and family regarding discharge instructions of the complexity of sliding scale with f requent blood sugar monitoring and comorbidity of renal failure with the importance of frequent checks and monitoring and reporting to primary care. Patient to follow up with primary care one to two days, and consultants within the next 3 to 4 weeks. Patient will have home care to assist with new diagnosis of diabetes and renal failure. Assessment: New onset diabetes mellitus type II-with uncontrolled hyperglycemia with acute diabetic ketoacidosis present on admission resolved acute renal failure with acute tubular necrosis hyponatremia severe metabolic acidosis elevated plasma lactic acid during admission resolved urinary tract infection on admission cultures negative resolved generalized weakness gait dysfunction history of nicotine dependence Full code Health Concerns: New onset diabetes new onset renal failure comprehension of sliding scale for blood glucose monitoring and administration of subcu insulin Pertinent Studies: Serial chest x-rays ultrasound abdomen bladder CAT scan abdomen and pelvis echocardiogram ultrasound gallbladder See dictation's from radiologists Procedures: Cystoscopy right retrograde Polygram placement of double J catheter right.see operative notes from Dr. Sarah Beth SUNG see operative notes from Dr. Goins Patient Condition at Discharge: Serious Plan - Discharge Summary Discharge Rx Participant: Yes New Discharge Prescriptions: New Insulin Aspart [Insulin Aspart Flexpen] See Protocol SQ TID-W/MEALS #4 pen Insulin Detemir [Levemir Flextouch] 20 units SQ HS #4 pen Atorvastatin Calcium [Lipitor] 10 mg PO HS #30 tab Multivitamin [Multivitamins Adult Gummies] 1 each PO DAILY #30 tablet Pantoprazole [Protonix] 40 mg PO BID #60 tablet. Sodium Bicarbonate Tab 650 mg PO DAILY #30 tab Discharge Medication List Atorvastatin Calcium [Lipitor] 10 mg PO HS #30 tab 07/27/20 [Rx] Insulin Aspart [Insulin Aspart Flexpen] See Protocol SQ TID-W/MEALS #4 pen 07/27/20 [Rx] Insulin Detemir [Levemir Flextouch] 20 units SQ HS #4 pen 07/27/20 [Rx] Multivitamin [Multivitamins Adult Gummies] 1 each PO DAILY #30 tablet 07/27/20 [Rx] Pantoprazole [Protonix] 40 mg PO BID #60 tablet. 07/27/20 [Rx] Sodium Bicarbonate Tab 650 mg PO DAILY #30 tab 07/27/20 [Rx] Follow up Appointment(s)/Referral(s): Shen Daugherty MD [Primary Care Provider] - 07/29/20 3:30 pm [facility], [NON-STAFF] - Danielle Aquino MD [STAFF PHYSICIAN] - 09/08/20 3:30 pm Nelida Redd MD [STAFF PHYSICIAN] - 1 Week Patient Instructions/Handouts: Urinary Tract Infection in Men (DC), Diabetic Ketoacidosis (DC), Type 1 Diabetes in Adults: New Diagnosis (DC), Upper Endoscopy (DC) Activity/Diet/Wound Care/Special Instructions: Patient requires glucose testing 3x/day. Patient has insulin dependent diabetes Order for glucometer and testing supplies [facility] - [phone]. Patient will receive an agreement letter in the mail that must be signed and mailed back to [facility] in order to obtain his permanent meter. Discharge Disposition: HOME WITH HOME HEALTH SERVICES
[2020-07-27 17:41] VITALS: RESP 16
--- NOTE | 2020-07-28 15:30 | CDI ---
Documentation Clarification Form Date: 07/28/20 From: Nguyen Clarke Phone: Admit Date: 07/17/2020 12:43:00 PM Patient Name: Juan Watts Visit Number: [id number] Discharge Date: 07/27/2020 04:46:00 PM ATTENTION: The Clinical Documentation Specialists (CDI) and [facility] Coding Staff appreciate your assistance in clarifying documentation. Please respond to the clarification below the line at the bottom and electronically sign. The CDI & [facility] Coding staff will review the response and follow-up if needed. Please note: Queries are made part of the Legal Health Record. If you have any questions, please contact the author of this message via ITS. Dr. Shen Daugherty, The diagnosis sepsis was documented in the H&P, but is not noted in subsequent documentation. History/Risk Factors: DKA, ATN, metabolic encephalopathy, UTI w hydronephrosis Clinical Indicators: WBC-9.3 (07/17) 10.8 (07/21), Neutrophils 7.90 (07/17) 8.6 (07/21), lactic acid 2.9 (07/17), VS 07/17: T-98.1, P-94, R-20, BP-132/92, O2-96/94 (room air) Treatment: IV fluids, IV Rocephin, Please clarify if the sepsis was Present/active and treated this admission YES MTDD
--- NOTE | 2020-07-28 15:43 | CDI ---
Documentation Clarification Form Date: 07/28/20 From: Nguyen Clarke Phone: Admit Date: 07/17/2020 12:43:00 PM Patient Name: Juan Watts Visit Number: [id number] Discharge Date: 07/27/2020 04:46:00 PM ATTENTION: The Clinical Documentation Specialists (CDI) and [facility] Coding Staff appreciate your assistance in clarifying documentation. Please respond to the clarification below the line at the bottom and electronically sign. The CDI & [facility] Coding staff will review the response and follow-up if needed. Please note: Queries are made part of the Legal Health Record. If you have any questions, please contact the author of this message via ITS. Dr. 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 History/Risk Factors: No prior GFR available Clinical Indicators: 07/17-07/27/20 Current BUN: 85, 85, 85, 86, 86, 87, 82, 85, 84, 73, 65, 56, 50, 48 Current CR: 5.36, 5.31, 5.14, 4.91, 5.00, 5.11, 5.05, 5.44, 4.85, 4.38, 3.93, 4.07, 3.64, 3.59 Current GFR: 10, 10, 10 11, 11, 11, 11, 10, 11, 13, 15, 14, 16, 16 Treatment: Discontinue IV bicarbonate drip and continue oral bicarbonate. Defer to urology regarding cause of the obstruction, has a stent on the right kidney. Follow labs and urine output In order to capture the severity of condition, please clarify the stage of the CKD and POA, if known: CKD ruled out CKD Stage 1 (GFR > 90) CKD Stage 2 (GFR 60-89) CKD Stage 3a (GFR 45-59) CKD Stage 3b (GFR 30-44) CKD Stage 4 (GFR 15-29) CKD Stage 5 (GFR <15) ESRD Other, please specify CKD 4-5 secondary to obstructive nephropathy Unable to determine MTDD
== END 2020-07-27 16:46 | disposition home health service (06) | DRG 853 ==
LOC: EC 10:48 → 3SCARD 12:43
PROVIDERS: ADMIT Family Medicine; ATTEND Family Medicine
PROC: BT1D1ZZ Fluoroscopy of Right Kidney, Ureter and Bladder using Low Osmolar Contrast (ICD-10-PCS; principal; 2020-07-20 08:50)
PROC: 0T768DZ Dilation of Right Ureter with Intraluminal Device, Via Natural or Artificial Opening Endoscopic (ICD-10-PCS; principal; 2020-07-20 08:50)
PROC: 0DJ08ZZ Inspection of Upper Intestinal Tract, Via Natural or Artificial Opening Endoscopic (ICD-10-PCS; 2020-07-24)
DX: A41.9 Sepsis, unspecified organism (principal); E11.10 Type 2 diabetes mellitus with ketoacidosis without coma; N17.0 Acute kidney failure with tubular necrosis; G93.41 Metabolic encephalopathy; E44.1 Mild protein-calorie malnutrition; E87.2 Acidosis; E87.1 Hypo-osmolality and hyponatremia; N18.4 Chronic kidney disease, stage 4 (severe); N13.6 Pyonephrosis; I27.20 Pulmonary hypertension, unspecified; E11.22 Type 2 diabetes mellitus with diabetic chronic kidney disease; Z20.822 Contact with and (suspected) exposure to COVID-19; E87.5 Hyperkalemia; E86.0 Dehydration; I44.0 Atrioventricular block, first degree; I08.1 Rheumatic disorders of both mitral and tricuspid valves; N47.1 Phimosis; R29.6 Repeated falls; K21.00 Gastro-esophageal reflux disease with esophagitis, without bleeding; N26.1 Atrophy of kidney (terminal); R13.10 Dysphagia, unspecified; R47.02 Dysphasia; K44.9 Diaphragmatic hernia without obstruction or gangrene; H91.90 Unspecified hearing loss, unspecified ear; H54.7 Unspecified visual loss; R26.9 Unspecified abnormalities of gait and mobility; Z87.891 Personal history of nicotine dependence; Z87.442 Personal history of urinary calculi; Z98.42 Cataract extraction status, left eye; Z98.41 Cataract extraction status, right eye; Z80.3 Family history of malignant neoplasm of breast; Z80.1 Family history of malignant neoplasm of trachea, bronchus and lung
CPT/HCPCS: 36415; 43235; 71045; 71046; 74176; 74420; 76705; 76770; 80048; 80051; 80053; 80061; 81001; 82009; 82150; 82565; 82947; 83036; 83605; 83690; 83735; 84100; 84484; 84520; 85025; 85610; 85730; 87040; 87086; 87635; 93005; 93306; 96361; 96365; 99291

== ENCOUNTER → 2020-08-04 | Outpatient (CLI) | payer MEDICARE ==
--- NOTE | 2020-08-04 13:40 | XR ---
EXAMINATION TYPE: XR chest 2V DATE OF EXAM: 08/04/2020 COMPARISON: 07/27/2020 INDICATION: Short of breath tachypnea TECHNIQUE: Frontal and lateral views of the chest are obtained. FINDINGS: The heart size is normal. The pulmonary vasculature is normal. Subtle infiltrate may be through the lingula with partial silhouetting the left heart border. This is not well-visualized on the lateral projection. Correlate for atelectasis. Atypical pneumonia could b e considered. IMPRESSION: 1. There may be a subtle lingular infiltrate. Correlate for atelectasis or atypical pneumonia
== END | disposition home or self-care (01) ==
LOC: RADXRMAIN 12:45
PROVIDERS: ATTEND Nurse Practitioner
DX: R06.02 Shortness of breath (principal)
CPT/HCPCS: 71046

== ENCOUNTER → 2020-08-15 | Outpatient (CLI) | payer MEDICARE | END | disposition home or self-care (01) | LOC: LABWHC1 16:23 | PROVIDERS: ATTEND Family Medicine | DX: U07.1 COVID-19 (principal) | CPT/HCPCS: U0003; C9803; U0005 ==

== ENCOUNTER 2020-08-19 07:45 | Inpatient (IN) | payer MEDICARE ==
--- NOTE | 2020-08-19 07:52 | ED ---
General Adult HPI - General Stated complaint: Weakness Time Seen by Provider: 08/19/20 07:45 Source: patient, RN notes reviewed, old records reviewed - History of Present Illness Initial comments: This is a 69-year-old male who presents emergency Department who was recently diagnosed with COVID. Patient has exposure from his daughter was COVID. Patient also has a history of diabetes and renal failure. Patient states his only complaint is that he is weak and had started on Saturday. Patient states occasionally he gets up walks on is a little bit short of breath patient denies any diarrhea denies any chest pain or palpitations. Patient states he has not had a fever or chills. Patient had the first shot of the vaccine in July. Patient states he has lost his taste and smell. Patient states he has not had any diarrhea. - Related Data Previous Rx's Medication Instructions Recorded Atorvastatin Calcium [Lipitor] 10 mg PO HS #30 tab 07/27/20 Insulin Aspart [Insulin Aspart See Protocol SQ TID-W/MEALS #4 pen 07/27/20 Flexpen] Insulin Detemir [Levemir Flextouch] 20 units SQ HS #4 pen 07/27/20 Multivitamin [Multivitamins Adult 1 each PO DAILY #30 tablet 07/27/20 Gummies] Pantoprazole [Protonix] 40 mg PO BID #60 tablet. 07/27/20 Sodium Bicarbonate Tab 650 mg PO DAILY #30 tab 07/27/20 Allergies Allergy/AdvReac Type Severity Reaction Status Date / Time No Known Allergies Allergy Verified 08/19/20 08:54 Review of Systems ROS Statement: Those systems with pertinent positive or pertinent negative responses have been documented in the HPI. ROS Other: All systems not noted in ROS Statement are negative. Past Medical History Past Medical History: No Reported History Additional Past Medical History / Comment(s): Kidney stones History of Any Multi-Drug Resistant Organisms: None Reported Past Surgical History: No Surgical Hx Reported Additional Past Surgical History / Comment(s): eye sx for cataracts, colonoscopy prior to 2009 Past Anesthesia/Blood Transfusion Reactions: No Reported Reaction Past Psychological History: No Psychological Hx Reported Smoking Status: Former smoker Past Alcohol Use History: Rare Additional Past Alcohol Use History / Comment(s): started 1969 stop 05/14 ppd. ETOH: 2 drinks per week Past Drug Use History: None Reported - Past Family History Mother Family Medical History: Cancer Additional Family Medical History / Comment(s): CA: breast, she's 91 Father Family Medical History: Cancer Additional Family Medical History / Comment(s): CA: lung (" from") General Exam - General Exam Comments Initial Comments: GENERAL: Patient is well-developed and well-nourished. Patient is nontoxic and well- hydrated and is in mild distress. ENT: Neck is soft and supple. No significant lymphadenopathy is noted. Oropharynx is clear. Moist mucous membranes. Neck has full range of motion without eliciting any pain. EYES: The sclera were anicteric and conjunctiva were pink and moist. Extraocular movements were intact and pupils were equal round and reactive to light. Eyelids were unremarkable. PULMONARY: Unlabored respirations. Good breath sounds bilaterally. No audible rales rhonchi or wheezing was noted. CARDIOVASCULAR: There is a regular rate and rhythm without any murmurs gallops or rubs. ABDOMEN: Soft and nontender with normal bowel sounds. SKIN: Skin is clear with no lesions or rashes and otherwise unremarkable. NEUROLOGIC: Patient is alert and oriented x3. Cranial nerves II through XII are grossly intact. Motor and sensory are also intact. Normal speech, volume and content. Symmetrical smile. MUSCULOSKELETAL: Normal extremities with adequate strength and full range of motion. No lower extremity swelling or edema. No calf tenderness. LYMPHATICS: No significant lymphadenopathy is noted PSYCHIATRIC: Normal psychiatric evaluation. Course Vital Signs 08/19/20 07:49 Temperature 100.2 F H Pulse Rate 102 H Respiratory 18 Rate Blood Pressure 97/57 O2 Sat by Pulse 94 L Oximetry Medical Decision Making - Medical Decision Making Chest x-ray shows a right lower lobe infiltrate. Patient is positive for COVID. I spoke with Dr. Daugherty's physician physical laboratory assistant Low and he agreed to admit the patient admitted the patient wrote admitting orders - Lab Data Result diagrams: 08/19/20 08:14 08/19/20 08:14 Lab Results 08/19/20 08/19/20 08/19/20 Range/Units 08:14 08:14 08:14 WBC 16.7 H (3.8-10.6) k/uL RBC 3.69 L (4.30-5.90) m/uL Hgb 11.3 L (13.0-17.5) gm/dL Hct 33.6 L (39.0-53.0) % MCV 91.0 (80.0-100.0) fL MCH 30.6 (25.0-35.0) pg MCHC 33.6 (31.0-37.0) g/dL RDW 13.8 (11.5-15.5) % Plt Count 384 (150-450) k/uL MPV 7.7 Neutrophils % 89 % Lymphocytes % 4 % Monocytes % 5 % Eosinophils % 1 % Basophils % 0 % Neutrophils # 14.8 H (1.3-7.7) k/uL Lymphocytes # 0.7 L (1.0-4.8) k/uL Monocytes # 0.8 (0-1.0) k/uL Eosinophils # 0.2 (0-0.7) k/uL Basophils # 0.0 (0-0.2) k/uL Sodium 135 L (137-145) mmol/L Potassium 5.0 (3.5-5.1) mmol/L Chloride 107 (98-107) mmol/L Carbon Dioxide 16 L (22-30) mmol/L Anion Gap 12 mmol/L BUN 60 H (9-20) mg/dL Creatinine 5.89 H (0.66-1.25) mg/dL Est GFR (CKD-EPI)AfAm 10 (>60 ml/min/1.73 sqM) Est GFR (CKD-EPI)NonAf 9 (>60 ml/min/1.73 sqM) Glucose 77 (74-99) mg/dL Calcium 8.4 (8.4-10.2) mg/dL Magnesium 1.5 L (1.6-2.3) mg/dL Total Bilirubin 0.8 (0.2-1.3) mg/dL AST 30 (17-59) U/L ALT 13 (4-49) U/L Alkaline Phosphatase 113 (38-126) U/L NT-Pro-B Natriuret Pep pg/mL Total Protein 6.3 (6.3-8.2) g/dL Albumin 2.9 L (3.5-5.0) g/dL Coronavirus (PCR) Detected A (Not Detectd) 08/19/20 Range/Units 08:14 WBC (3.8-10.6) k/uL RBC (4.30-5.90) m/uL Hgb (13.0-17.5) gm/dL Hct (39.0-53.0) % MCV (80.0-100.0) fL MCH (25.0-35.0) pg MCHC (31.0-37.0) g/dL RDW (11.5-15.5) % Plt Count (150-450) k/uL MPV Neutrophils % % Lymphocytes % % Monocytes % % Eosinophils % % Basophils % % Neutrophils # (1.3-7.7) k/uL Lymphocytes # (1.0-4.8) k/uL Monocytes # (0-1.0) k/uL Eosinophils # (0-0.7) k/uL Basophils # (0-0.2) k/uL Sodium (137-145) mmol/L Potassium (3.5-5.1) mmol/L Chloride (98-107) mmol/L Carbon Dioxide (22-30) mmol/L Anion Gap mmol/L BUN (9-20) mg/dL Creatinine (0.66-1.25) mg/dL Est GFR (CKD-EPI)AfAm (>60 ml/min/1.73 sqM) Est GFR (CKD-EPI)NonAf (>60 ml/min/1.73 sqM) Glucose (74-99) mg/dL Calcium (8.4-10.2) mg/dL Magnesium (1.6-2.3) mg/dL Total Bilirubin (0.2-1.3) mg/dL AST (17-59) U/L ALT (4-49) U/L Alkaline Phosphatase (38-126) U/L NT-Pro-B Natriuret Pep 3730 pg/mL Total Protein (6.3-8.2) g/dL Albumin (3.5-5.0) g/dL Coronavirus (PCR) (Not Detectd) Disposition Clinical Impression: Pneumonia due to COVID-19 virus Disposition: ADMITTED IP TO THIS HOSP Referrals: Shen Daugherty MD [Primary Care Provider] - 1-2 days Time of Disposition: 09:37
[2020-08-19] MEDS ORDERED: ACETAMINOPHEN TAB 500 MG TAB PO STA (08:07)
[2020-08-19] MEDS ORDERED: IBUPROFEN 600 MG TAB PO STA (08:07)
[2020-08-19 08:31] LABS: Basophils % (A) 0 %; Eosinophils # (A) 0.2 k/uL (0-0.7); Eosinophils % (A) 1 %; HCT 33.6 % (39.0-53.0); HGB 11.3 gm/dL (13.0-17.5); Lymphocytes # (A) 0.7 k/uL (1.0-4.8); Lymphocytes % (A) 4 %; MCH 30.6 pg (25.0-35.0); MCHC 33.6 g/dL (31.0-37.0); Mean Platelet Volume 7.7; Monocytes # (A) 0.8 k/uL (0-1.0); Monocytes % (A) 5 %; Neutrophils # (A) 14.8 k/uL (1.3-7.7); Neutrophils % (A) 89 %; Platelet Count 384 k/uL (150-450); RBC 3.69 m/uL (4.30-5.90); RDW 13.8 % (11.5-15.5); WBC 16.7 k/uL (3.8-10.6)
[2020-08-19 08:43] LABS: Calcium 8.4 mg/dL (8.4-10.2); Total Bilirubin 0.8 mg/dL (0.2-1.3)
[2020-08-19 08:49] LABS: Magnesium 1.5 mg/dL (1.6-2.3); Total Protein 6.3 g/dL (6.3-8.2)
[2020-08-19 08:50] LABS: Albumin 2.9 g/dL (3.5-5.0)
--- NOTE | 2020-08-19 09:01 | XR ---
EXAMINATION TYPE: XR chest 1V portable DATE OF EXAM: 08/19/2020 COMPARISON: 08/04/2020 INDICATION: Short of breath TECHNIQUE: Single frontal view of the chest is obtained. Patient is rotated to the right FINDINGS: The heart size is normal. The pulmonary vasculature is normal. Subtle minimal subsegmental filtrates may be at the right base. Correlate for atelectasis. Atypical p neumonia could be considered IMPRESSION: 1. Subtle minimal subsegmental infiltrates at the right base could be atelectasis or atypical pneumon ia. Follow up can be performed as clinically indicated.
[2020-08-19] MEDS ORDERED: cefTRIAXone IN SWFI 1,000 MG/10 ML SYRINGE IVP STA (09:34)
[2020-08-19] MEDS ORDERED: ACETAMINOPHEN TAB 500 MG TAB PO PRN (12:46)
[2020-08-19] MEDS ORDERED: ALBUTEROL HFA INHALER INHALATION PRN (12:46)
[2020-08-19] MEDS ORDERED: HEPARIN SODIUM 1,000 UN/ML (10ML VL) IV ONE (13:01)
[2020-08-19] MEDS ORDERED: HEPARIN SOD,PORK IN 0.45% NACL 25,000 UNIT in 0.45% NACL 1 250ML.BAG IV SCH (13:15)
[2020-08-19 13:21] LABS: Magnesium 1.5 mg/dL (1.6-2.3)
[2020-08-19] MEDS: ZINC SULFATE 220 MG CAP PO SCH (13:43)
[2020-08-19] MEDS: ASCORBIC ACID 500 MG TAB PO SCH (13:43)
[2020-08-19] MEDS: DEXAMETHASONE SOD PHOSPHATE 10 MG/ML 1 ML VIAL IV SCH (13:43)
[2020-08-19] MEDS: HEPARIN SOD,PORK IN 0.45% NACL 25,000 UNIT in 0.45% NACL 1 250ML.BAG IV SCH (13:44)
[2020-08-19] MEDS ORDERED: Magnesium Replacement Protocol 1 EACH MISC MISCELLANE PRN (13:54)
[2020-08-19 13:58] LABS: Fibrinogen 711 mg/dL (200-500); Prothrombin Time 10.5 sec (9.0-12.0)
[2020-08-19 14:00] LABS: Partial Thromboplastin Time 19.8 sec (22.0-30.0)
[2020-08-19] MEDS ORDERED: REMDESIVIR 200 MG in SODIUM CHLORIDE 0.9% 250 ML IVPB ONE (14:00)
[2020-08-19 14:06] LABS: D-Dimer >34.10 mg/L FEU (<0.60)
[2020-08-19 14:18] LABS: Appearance,Urine Turbid (Clear); Bacteria,Urine Many /hpf; Bilirubin,Urine Negative (Negative); Blood,Urine Moderate (Negative); Color,Urine Yellow; Glucose,Urine (UA) Negative (Negative); Ketones,Urine Negative (Negative); Leukocyte Esterase,Urine Large (Negative); Nitrite,Urine Negative (Negative); Protein,Urine 1+ (Negative); RBC,Urine 24 /hpf (0-5); Specific Gravity,Urine 1.011 (1.001-1.035); Squamous Epithelial Cell,Urine 20 /hpf (0-4); Urobilinogen,Urine <2.0 mg/dL (<2.0); WBC,Urine >182 /hpf (0-5)
[2020-08-19 14:30] LABS: Glucose,Whole Blood 56 mg/dL (75-99)
[2020-08-19 14:30] LABS: Glucose,Whole Blood 57 mg/dL (75-99)
[2020-08-19] MEDS ORDERED: DEXTROSE 50% SYRINGE 50 ML IVP STA (14:37)
[2020-08-19 14:45] LABS: Glucose,Whole Blood 65 mg/dL (75-99)
[2020-08-19 14:46] LABS: Glucose,Whole Blood 123 mg/dL (75-99)
[2020-08-19] MEDS: MAGNESIUM SULFATE-D5W PMX 1 GM in DEXTROSE/WATER 1 100ML.BAG IVPB SCH ×2 (15:48→17:24)
[2020-08-19] MEDS: INSULIN ASPART (NovoLOG) 100 UNIT/ML VIAL SQ SCH ×2 (17:13→22:59)
[2020-08-19 17:25] LABS: Glucose,Whole Blood 128 mg/dL (75-99)
--- NOTE | 2020-08-19 17:49 | P.CNPUL ---
History of Present Illness Consult date: 08/19/20 Reason for consult: dyspnea, cough, hypoxemia, pneumonia Chief complaint: Shortness of breath and generalized progressive weakness History of present illness: This is a 69-year-old male who started having symptoms about a week ago testing came back positive for coronary 19 pneumonia, patient has been exposed from his daughter, he does have a history of diabetes as well as chronic renal failure, chest x-ray significant for right basal atelectasis, patient currently is on room air, saturation is 95%, GFR is on a 10 Review of Systems All systems: negative Past Medical History Past Medical History: Diabetes Mellitus Additional Past Medical History / Comment(s): Kidney stones History of Any Multi-Drug Resistant Organisms: None Reported Past Surgical History: No Surgical Hx Reported Additional Past Surgical History / Comment(s): eye sx for cataracts, colonoscopy prior to 2009 Past Anesthesia/Blood Transfusion Reactions: No Reported Reaction Past Psychological History: No Psychological Hx Reported Smoking Status: Former smoker Past Alcohol Use History: Rare Additional Past Alcohol Use History / Comment(s): started 1969 stop 05/14 ppd. ETOH: 2 drinks per week Past Drug Use History: None Reported - Past Family History Mother Family Medical History: Cancer Additional Family Medical History / Comment(s): CA: breast, she's 91 Father Family Medical History: Cancer Additional Family Medical History / Comment(s): CA: lung (" from") Medications and Allergies Home Medications Medication Instructions Recorded Confirmed Type Atorvastatin Calcium [Lipitor] 10 mg PO HS #30 tab 07/27/20 08/19/20 Rx Insulin Aspart [Insulin Aspart See Protocol SQ TID-W/MEALS #4 pen 07/27/20 08/19/20 Rx Flexpen] Insulin Detemir [Levemir Flextouch] 20 units SQ HS #4 pen 07/27/20 08/19/20 Rx Multivitamin [Multivitamins Adult 1 each PO DAILY #30 tablet 07/27/20 08/19/20 Rx Gummies] Pantoprazole [Protonix] 40 mg PO BID #60 tablet. 07/27/20 08/19/20 Rx Sodium Bicarbonate Tab 650 mg PO DAILY #30 tab 07/27/20 08/19/20 Rx Allergies Allergy/AdvReac Type Severity Reaction Status Date / Time No Known Allergies Allergy Verified 08/19/20 08:54 Physical Exam Vitals: Vital Signs Temp Pulse Pulse Resp BP BP Pulse Ox 08/19/20 14:00 97.6 F 76 16 92/57 95 08/19/20 13:54 76 18 104/63 98 08/19/20 12:02 98.2 F 08/19/20 11:30 80 18 103/65 98 08/19/20 09:44 98.9 F 97 18 92/57 95 08/19/20 07:49 100.2 F H 102 H 18 97/57 94 L Intake and Output 08/19/20 08/19/20 08/19/20 06:59 14:59 22:59 Output Total 600 Balance -600 Output: Urine 600 Other: Weight 92.986 kg - Constitutional General appearance: average body habitus, cooperative, disheveled - EENT Eyes: PERRLA Ears: bilateral: normal - Neck Neck: normal ROM Carotids: bilateral: upstroke normal - Respiratory Respiratory: bilateral: CTA - Cardiovascular Rhythm: regular Heart sounds: normal: S1, S2 - Gastrointestinal General gastrointestinal: normal bowel sounds - Neurologic Neurologic: CNII-XII intact - Musculoskeletal Musculoskeletal: gait normal, generalized weakness, strength equal bilaterally - Psychiatric Psychiatric: A&O x's 3, appropriate affect, intact judgment & insight Results - Laboratory Findings CBC and BMP: 08/19/20 08:14 08/19/20 08:14 PT/INR, D-dimer PT 10.5 sec (9.0-12.0) 08/19/20 09:57 INR 1.0 (<1.2) 08/19/20 09:57 D-Dimer >34.10 mg/L FEU (<0.60) H 08/19/20 09:57 Abnormal lab findings: Abnormal Labs 08/19/20 08/19/20 08/19/20 08:14 08:14 08:14 WBC 16.7 H RBC 3.69 L Hgb 11.3 L Hct 33.6 L Neutrophils # 14.8 H Lymphocytes # 0.7 L APTT Fibrinogen D-Dimer Sodium 135 L Carbon Dioxide 16 L BUN 60 H Creatinine 5.89 H POC Glucose (mg/dL) Magnesium 1.5 L Lactate Dehydrogenase Creatine Kinase Troponin I Albumin 2.9 L Urine Protein Urine Blood Ur Leukocyte Esterase Urine RBC Urine WBC Urine WBC Clumps Ur Squamous Epith Cells Urine Bacteria Coronavirus (PCR) Detected A 08/19/20 08/19/20 08/19/20 08:14 09:57 09:57 WBC RBC Hgb Hct Neutrophils # Lymphocytes # APTT 19.8 L Fibrinogen 711 H D-Dimer >34.10 H Sodium Carbon Dioxide BUN Creatinine POC Glucose (mg/dL) Magnesium 1.5 L Lactate Dehydrogenase 938 H Creatine Kinase 47 L Troponin I 0.048 H* Albumin Urine Protein Urine Blood Ur Leukocyte Esterase Urine RBC Urine WBC Urine WBC Clumps Ur Squamous Epith Cells Urine Bacteria Coronavirus (PCR) 08/19/20 08/19/20 08/19/20 13:51 14:08 14:19 WBC RBC Hgb Hct Neutrophils # Lymphocytes # APTT Fibrinogen D-Dimer Sodium Carbon Dioxide BUN Creatinine POC Glucose (mg/dL) 57 L 56 L Magnesium Lactate Dehydrogenase Creatine Kinase Troponin I Albumin Urine Protein 1+ H Urine Blood Moderate H Ur Leukocyte Esterase Large H Urine RBC 24 H Urine WBC >182 H Urine WBC Clumps Many H Ur Squamous Epith Cells 20 H Urine Bacteria Many H Coronavirus (PCR) 08/19/20 08/19/20 08/19/20 14:34 14:45 16:16 WBC RBC Hgb Hct Neutrophils # Lymphocytes # APTT 38.0 H Fibrinogen D-Dimer Sodium Carbon Dioxide BUN Creatinine POC Glucose (mg/dL) 65 L 123 H Magnesium Lactate Dehydrogenase Creatine Kinase Troponin I Albumin Urine Protein Urine Blood Ur Leukocyte Esterase Urine RBC Urine WBC Urine WBC Clumps Ur Squamous Epith Cells Urine Bacteria Coronavirus (PCR) 08/19/20 17:18 WBC RBC Hgb Hct Neutrophils # Lymphocytes # APTT Fibrinogen D-Dimer Sodium Carbon Dioxide BUN Creatinine POC Glucose (mg/dL) 128 H Magnesium Lactate Dehydrogenase Creatine Kinase Troponin I Albumin Urine Protein Urine Blood Ur Leukocyte Esterase Urine RBC Urine WBC Urine WBC Clumps Ur Squamous Epith Cells Urine Bacteria Coronavirus (PCR) - Diagnostic Findings Chest x-ray: report reviewed, image reviewed (Finding as noted above) Assessment and Plan Assessment: Acute covid19 pneumonia Chronic renal failure with GFR of 10 Type 2 diabetes mellitus Hypertension hypertensive cardiovascular disease Plan: Continue Decadron Deep breathing exercise incentive spirometry Prone positioning Continue anticoagulation IV Rocephin As per pharmacy guideline patient is not a candidate for IV REM doesn't wear as oxygenation have been stable on 95% symptoms onset over 1 week and GFR of only 10 Time with Patient: Greater than 30
[2020-08-19 18:13] LABS: Glucose,Whole Blood 106 mg/dL (75-99)
--- NOTE | 2020-08-19 18:36 | P.HPIM ---
History of Present Illness H&P Date: 08/19/20 Chief Complaint: Covid 19 pneumonia/shortness of breath and generalized weakness 69-year-old male was evaluated in the emergency department found to have covid 19 pneumonia with associated urinary tract infection she has significant history of type 2 diabetes mellitus insulin-dependent, chronic renal failure with a GFR of 10. Patient states he was exposed to his daughter within the last week. Patient should endorses fever, chills shortness of breath at rest, exertional shortness of breath, intermittent palpitations, and intermittent abdominal pain. Patient will require Covid 19 cocktail, unable to use high-dose Lovenox due to low GFR, low-dose heparin for anticoagulation therapy will be used due to chronic kidney disease. Review of Systems Constitutional: Reports fatigue, Reports fever, Reports weakness Ears, nose, mouth and throat: Reports sore throat Cardiovascular: Reports dyspnea on exertion, Reports shortness of breath Respiratory: Reports cough, Reports dyspnea, Reports pain on inspiration Musculoskeletal: Reports muscle cramps, Reports muscle weakness Neurological: Reports balance difficulties, Reports hearing difficulties, Reports lack of coordination, Reports memory loss, Reports weakness Psychiatric: Reports anxiety Endocrine: Reports cold intolerance Past Medical History Past Medical History: Diabetes Mellitus, Renal Disease Additional Past Medical History / Comment(s): Kidney stones History of Any Multi-Drug Resistant Organisms: None Reported Past Surgical History: No Surgical Hx Reported Additional Past Surgical History / Comment(s): eye sx for cataracts, colonoscopy prior to 2009 Past Anesthesia/Blood Transfusion Reactions: No Reported Reaction Past Psychological History: No Psychological Hx Reported Smoking Status: Former smoker Past Alcohol Use History: Rare Additional Past Alcohol Use History / Comment(s): started 1969 stop 05/14 ppd. ETOH: 2 drinks per week Past Drug Use History: None Reported - Past Family History Mother Family Medical History: Cancer Additional Family Medical History / Comment(s): CA: breast, she's 91 Father Family Medical History: Cancer Additional Family Medical History / Comment(s): CA: lung (" from") Medications and Allergies Home Medications and Allergies Comment(s): Medications and ALLERGIES reviewed Home Medications Medication Instructions Recorded Confirmed Type Atorvastatin Calcium [Lipitor] 10 mg PO HS #30 tab 07/27/20 08/19/20 Rx Insulin Aspart [Insulin Aspart See Protocol SQ TID-W/MEALS #4 pen 07/27/20 08/19/20 Rx Flexpen] Insulin Detemir [Levemir Flextouch] 20 units SQ HS #4 pen 07/27/20 08/19/20 Rx Multivitamin [Multivitamins Adult 1 each PO DAILY #30 tablet 07/27/20 08/19/20 Rx Gummies] Pantoprazole [Protonix] 40 mg PO BID #60 tablet. 07/27/20 08/19/20 Rx Sodium Bicarbonate Tab 650 mg PO DAILY #30 tab 07/27/20 08/19/20 Rx Allergies Allergy/AdvReac Type Severity Reaction Status Date / Time No Known Allergies Allergy Verified 08/19/20 08:54 Physical Exam Vitals: Vital Signs Temp Pulse Pulse Resp BP BP Pulse Ox 08/19/20 17:54 94 22 111/63 96 08/19/20 17:51 98.2 F 08/19/20 14:00 97.6 F 76 16 92/57 95 08/19/20 13:54 76 18 104/63 98 08/19/20 12:02 98.2 F 08/19/20 11:30 80 18 103/65 98 08/19/20 09:44 98.9 F 97 18 92/57 95 08/19/20 07:49 100.2 F H 102 H 18 97/57 94 L Intake and Output 08/19/20 08/19/20 08/19/20 06:59 14:59 22:59 Output Total 600 Balance -600 Output: Urine 600 Other: Weight 92.986 kg - Constitutional General appearance: mild distress - EENT Eyes: EOMI, PERRLA Ears: bilateral: normal - Neck Carotids: bilateral: upstroke normal Thyroid: negative: normal size - Respiratory Respiratory: bilateral: rhonchi (Anterior and posterior lung castrejon) - Cardiovascular Heart rate: 88 Rhythm: regular Heart sounds: normal: S1, S2 radial pulse Peripheral Pulses: bilateral: Normal dorsalis pedis Peripheral Pulses: bilateral: Normal - Gastrointestinal General gastrointestinal: normal bowel sounds - Integumentary Integumentary: decreased turgor, pale - Musculoskeletal Musculoskeletal: generalized weakness - Psychiatric Psychiatric: A&O x's 3, appropriate affect, intact judgment & insight Results CBC & Chem 7: 08/19/20 08:14 08/19/20 08:14 Labs: Abnormal Lab Results - Last 24 Hours (Table) 08/19/20 08/19/20 08/19/20 Range/Units 08:14 08:14 08:14 WBC 16.7 H (3.8-10.6) k/uL RBC 3.69 L (4.30-5.90) m/uL Hgb 11.3 L (13.0-17.5) gm/dL Hct 33.6 L (39.0-53.0) % Neutrophils # 14.8 H (1.3-7.7) k/uL Lymphocytes # 0.7 L (1.0-4.8) k/uL APTT (22.0-30.0) sec Fibrinogen (200-500) mg/dL D-Dimer (<0.60) mg/L FEU Sodium 135 L (137-145) mmol/L Carbon Dioxide 16 L (22-30) mmol/L BUN 60 H (9-20) mg/dL Creatinine 5.89 H (0.66-1.25) mg/dL POC Glucose (mg/dL) (75-99) mg/dL Magnesium 1.5 L (1.6-2.3) mg/dL Lactate Dehydrogenase (313-618) U/L Creatine Kinase (55-170) U/L Troponin I (0.000-0.034) ng/mL Albumin 2.9 L (3.5-5.0) g/dL Urine Protein (Negative) Urine Blood (Negative) Ur Leukocyte Esterase (Negative) Urine RBC (0-5) /hpf Urine WBC (0-5) /hpf Urine WBC Clumps (None) /hpf Ur Squamous Epith Cells (0-4) /hpf Urine Bacteria (None) /hpf Coronavirus (PCR) Detected A (Not Detectd) 08/19/20 08/19/20 08/19/20 Range/Units 08:14 09:57 09:57 WBC (3.8-10.6) k/uL RBC (4.30-5.90) m/uL Hgb (13.0-17.5) gm/dL Hct (39.0-53.0) % Neutrophils # (1.3-7.7) k/uL Lymphocytes # (1.0-4.8) k/uL APTT 19.8 L (22.0-30.0) sec Fibrinogen 711 H (200-500) mg/dL D-Dimer >34.10 H (<0.60) mg/L FEU Sodium (137-145) mmol/L Carbon Dioxide (22-30) mmol/L BUN (9-20) mg/dL Creatinine (0.66-1.25) mg/dL POC Glucose (mg/dL) (75-99) mg/dL Magnesium 1.5 L (1.6-2.3) mg/dL Lactate Dehydrogenase 938 H (313-618) U/L Creatine Kinase 47 L (55-170) U/L Troponin I 0.048 H* (0.000-0.034) ng/mL Albumin (3.5-5.0) g/dL Urine Protein (Negative) Urine Blood (Negative) Ur Leukocyte Esterase (Negative) Urine RBC (0-5) /hpf Urine WBC (0-5) /hpf Urine WBC Clumps (None) /hpf Ur Squamous Epith Cells (0-4) /hpf Urine Bacteria (None) /hpf Coronavirus (PCR) (Not Detectd) 08/19/20 08/19/20 08/19/20 Range/Units 13:51 14:08 14:19 WBC (3.8-10.6) k/uL RBC (4.30-5.90) m/uL Hgb (13.0-17.5) gm/dL Hct (39.0-53.0) % Neutrophils # (1.3-7.7) k/uL Lymphocytes # (1.0-4.8) k/uL APTT (22.0-30.0) sec Fibrinogen (200-500) mg/dL D-Dimer (<0.60) mg/L FEU Sodium (137-145) mmol/L Carbon Dioxide (22-30) mmol/L BUN (9-20) mg/dL Creatinine (0.66-1.25) mg/dL POC Glucose (mg/dL) 57 L 56 L (75-99) mg/dL Magnesium (1.6-2.3) mg/dL Lactate Dehydrogenase (313-618) U/L Creatine Kinase (55-170) U/L Troponin I (0.000-0.034) ng/mL Albumin (3.5-5.0) g/dL Urine Protein 1+ H (Negative) Urine Blood Moderate H (Negative) Ur Leukocyte Esterase Large H (Negative) Urine RBC 24 H (0-5) /hpf Urine WBC >182 H (0-5) /hpf Urine WBC Clumps Many H (None) /hpf Ur Squamous Epith Cells 20 H (0-4) /hpf Urine Bacteria Many H (None) /hpf Coronavirus (PCR) (Not Detectd) 08/19/20 08/19/20 08/19/20 Range/Units 14:34 14:45 16:16 WBC (3.8-10.6) k/uL RBC (4.30-5.90) m/uL Hgb (13.0-17.5) gm/dL Hct (39.0-53.0) % Neutrophils # (1.3-7.7) k/uL Lymphocytes # (1.0-4.8) k/uL APTT 38.0 H (22.0-30.0) sec Fibrinogen (200-500) mg/dL D-Dimer (<0.60) mg/L FEU Sodium (137-145) mmol/L Carbon Dioxide (22-30) mmol/L BUN (9-20) mg/dL Creatinine (0.66-1.25) mg/dL POC Glucose (mg/dL) 65 L 123 H (75-99) mg/dL Magnesium (1.6-2.3) mg/dL Lactate Dehydrogenase (313-618) U/L Creatine Kinase (55-170) U/L Troponin I (0.000-0.034) ng/mL Albumin (3.5-5.0) g/dL Urine Protein (Negative) Urine Blood (Negative) Ur Leukocyte Esterase (Negative) Urine RBC (0-5) /hpf Urine WBC (0-5) /hpf Urine WBC Clumps (None) /hpf Ur Squamous Epith Cells (0-4) /hpf Urine Bacteria (None) /hpf Coronavirus (PCR) (Not Detectd) 08/19/20 08/19/20 Range/Units 17:18 17:54 WBC (3.8-10.6) k/uL RBC (4.30-5.90) m/uL Hgb (13.0-17.5) gm/dL Hct (39.0-53.0) % Neutrophils # (1.3-7.7) k/uL Lymphocytes # (1.0-4.8) k/uL APTT (22.0-30.0) sec Fibrinogen (200-500) mg/dL D-Dimer (<0.60) mg/L FEU Sodium (137-145) mmol/L Carbon Dioxide (22-30) mmol/L BUN (9-20) mg/dL Creatinine (0.66-1.25) mg/dL POC Glucose (mg/dL) 128 H 106 H (75-99) mg/dL Magnesium (1.6-2.3) mg/dL Lactate Dehydrogenase (313-618) U/L Creatine Kinase (55-170) U/L Troponin I (0.000-0.034) ng/mL Albumin (3.5-5.0) g/dL Urine Protein (Negative) Urine Blood (Negative) Ur Leukocyte Esterase (Negative) Urine RBC (0-5) /hpf Urine WBC (0-5) /hpf Urine WBC Clumps (None) /hpf Ur Squamous Epith Cells (0-4) /hpf Urine Bacteria (None) /hpf Coronavirus (PCR) (Not Detectd) Chest x-ray: report reviewed Thrombosis Risk Factor Assmnt - Choose All That Apply Each Factor Represents 1 point: Age 41-60 years Other Risk Factors: Yes Each Risk Factor Represents 2 Points: Age 61-74 years Other congenital or acquired thrombophilia - If yes, enter type in comment: No Thrombosis Risk Factor Assessment Total Risk Factor Score: 3 Thrombosis Risk Factor Assessment Level: Moderate Risk Assessment and Plan Assessment: Acute covid 19 pneumonia Acute hypoxic respiratory failure secondary to coven 19 infection Chronic renal failure with a GFR of 10 Type 2 diabetes mellitus insulin-dependent Hypertension Full code Plan: Covid 19 infectioncontinue Decadron, anticoagulation therapy, IV Rocephin for possible atypical pneumonia and urinary tract infection ,consultation with pulmonary critical care for recommendations and treatment plan Continue anticoagulation therapy of heparin drip low intensity due to low GFR Continue use incentive spirometer 10 times an hour Continue to use D5.9 at 20 mL an hour due to several episodes of hypoglycemia Continue home medications Further recommendations to come based on patient's clinical condition Time with Patient: Greater than 30
[2020-08-19] MEDS: HEPARIN SODIUM 1,000 UN/ML (10ML VL) IV PRN (19:27)
[2020-08-19 20:49] LABS: Glucose,Whole Blood 139 mg/dL (75-99)
[2020-08-19] MEDS: DEXTROSE 5%-0.9% NACL 1,000 ML IV SCH (22:57)
[2020-08-19] MEDS: INSULIN DETEMIR (LEVEMIR) 100 UNIT/ML SYR SQ SCH (22:59)
[2020-08-19] MEDS: ATORVASTATIN 10 MG TAB PO SCH (23:00)
[2020-08-19] MEDS: PANTOPRAZOLE 40 MG TABLET PO SCH (23:03)
[2020-08-20 01:04] LABS: Ferritin 1440.2 ng/mL (22.0-322.0)
[2020-08-20 07:24] LABS: Glucose,Whole Blood 93 mg/dL (75-99)
[2020-08-20 08:19] LABS: Basophils # (A) 0.1 k/uL (0-0.2); Basophils % (A) 0 %; Eosinophils # (A) 0.1 k/uL (0-0.7); Eosinophils % (A) 0 %; HCT 35.2 % (39.0-53.0); HGB 11.6 gm/dL (13.0-17.5); Lymphocytes % (A) 6 %; MCH 30.3 pg (25.0-35.0); MCHC 32.9 g/dL (31.0-37.0); MCV 92.1 fL (80.0-100.0); Mean Platelet Volume 7.8; Monocytes # (A) 1.1 k/uL (0-1.0); Monocytes % (A) 6 %; Neutrophils # (A) 15.5 k/uL (1.3-7.7); Neutrophils % (A) 86 %; Platelet Count 392 k/uL (150-450); RBC 3.83 m/uL (4.30-5.90); RDW 13.9 % (11.5-15.5); WBC 17.9 k/uL (3.8-10.6)
[2020-08-20 08:32] LABS: ALT 20 U/L (4-49); AST 39 U/L (17-59); African American GFR (CKD) 11 (>60 ml/min/1.73 sqM); Albumin 2.7 g/dL (3.5-5.0); Albumin/Globulin Ratio 0.9; Alkaline Phosphatase 198 U/L (38-126); Anion Gap 13 mmol/L; Blood Urea Nitrogen 59 mg/dL (9-20); Calcium 8.3 mg/dL (8.4-10.2); Carbon Dioxide 17 mmol/L (22-30); Chloride 105 mmol/L (98-107); Creatine Kinase 148 U/L (55-170); Globulin 3.1 g/dL; Glucose 132 mg/dL (74-99); LDH 689 U/L (313-618); Magnesium 2.1 mg/dL (1.6-2.3); Non-African American GFR(CKD) 10 (>60 ml/min/1.73 sqM); Potassium 4.3 mmol/L (3.5-5.1); Sodium 135 mmol/L (137-145); Total Bilirubin 0.4 mg/dL (0.2-1.3); Total Protein 5.8 g/dL (6.3-8.2)
[2020-08-20 08:41] LABS: D-Dimer 9.15 mg/L FEU (<0.60); Partial Thromboplastin Time 45.5 sec (22.0-30.0); Prothrombin Time 10.5 sec (9.0-12.0)
[2020-08-20] MEDS ORDERED: SODIUM BICARBONATE TAB 650 MG TAB PO SCH (09:00)
[2020-08-20 09:15] LABS: C Reactive Protein 341.4 mg/L (<10.0)
[2020-08-20] MEDS: INSULIN ASPART (NovoLOG) 100 UNIT/ML VIAL SQ SCH ×4 (09:32→21:07)
[2020-08-20] MEDS: ASCORBIC ACID 500 MG TAB PO SCH (09:40)
[2020-08-20] MEDS: CHOLECALCIFEROL 25 MCG (1000 IU) TABLET PO SCH (09:40)
[2020-08-20] MEDS: PANTOPRAZOLE 40 MG TABLET PO SCH ×2 (09:40→21:06)
[2020-08-20] MEDS: DEXAMETHASONE SOD PHOSPHATE 10 MG/ML 1 ML VIAL IV SCH (09:40)
[2020-08-20] MEDS: ZINC SULFATE 220 MG CAP PO SCH (09:40)
[2020-08-20 11:29] LABS: Glucose,Whole Blood 78 mg/dL (75-99)
--- NOTE | 2020-08-20 12:15 | P.NPCON ---
History of Present Illness - Reason for Consult acute renal failure, chronic renal failure - History of Present Illness Reason for consultation: Acute kidney injury and chronic kidney disease History of present illness: Patient is a 69-year-old male seen in renal consultation for acute kidney injury and chronic disease. Patient was admitted to the hospital in July 2020 and was noted to have obstructive uropathy. He was noted to have an atrophic left kidney and also had a ureteral stent placed in the right kidney on 07/20/2020. Patient's creatinine did improve to 3.59 upon discharge. This admission it was 5.89 and is 5.4 today. He presented to the hospital with generalized weakness. Patient states he was exposed to covid-19 in the family and did test positive on admission. He is currently on room air. Blood pressures stable. He has an external Friend catheter and is nonoliguric. States he had no difficulty with urination. No hematuria or dysuria. Denies use of nonsteroidals. No evidence of fluid overload on chest x-ray. Denies cough. No fever or chills prior to admission. He did have a temperature of 100.3F this morning. Vital signs are stable. General: The patient appeared well nourished and normally developed. HEENT: Head exam is unremarkable. Neck is without jugular venous distension. LUNGS: Breath sounds decreased. HEART: Rate and Rhythm are regular. ABDOMEN: Soft, non-tender. EXTREMITITES: No edema. Past Medical History Past Medical History: Diabetes Mellitus, Renal Disease Additional Past Medical History / Comment(s): Kidney stones History of Any Multi-Drug Resistant Organisms: None Reported Past Surgical History: No Surgical Hx Reported Additional Past Surgical History / Comment(s): eye sx for cataracts, colonoscopy prior to 2009 Past Anesthesia/Blood Transfusion Reactions: No Reported Reaction Past Psychological History: No Psychological Hx Reported Smoking Status: Former smoker Past Alcohol Use History: Rare Additional Past Alcohol Use History / Comment(s): started 1969 stop 05/14 ppd. ETOH: 2 drinks per week Past Drug Use History: None Reported - Past Family History Mother Family Medical History: Cancer Additional Family Medical History / Comment(s): CA: breast, she's 91 Father Family Medical History: Cancer Additional Family Medical History / Comment(s): CA: lung (" from") Medications and Allergies Home Medications Medication Instructions Recorded Confirmed Type Atorvastatin Calcium [Lipitor] 10 mg PO HS #30 tab 07/27/20 08/19/20 Rx Insulin Aspart [Insulin Aspart See Protocol SQ TID-W/MEALS #4 pen 07/27/20 08/19/20 Rx Flexpen] Insulin Detemir [Levemir Flextouch] 20 units SQ HS #4 pen 07/27/20 08/19/20 Rx Multivitamin [Multivitamins Adult 1 each PO DAILY #30 tablet 07/27/20 08/19/20 Rx Gummies] Pantoprazole [Protonix] 40 mg PO BID #60 tablet. 07/27/20 08/19/20 Rx Sodium Bicarbonate Tab 650 mg PO DAILY #30 tab 07/27/20 08/19/20 Rx Allergies Allergy/AdvReac Type Severity Reaction Status Date / Time No Known Allergies Allergy Verified 08/19/20 08:54 Physical Exam Vitals: Vital Signs Temp Pulse Pulse Resp BP BP Pulse Ox 08/20/20 09:53 98.3 F 100 17 106/72 94 L 08/20/20 05:45 100.3 F H 114 H 21 115/76 08/20/20 02:00 99.4 F 105 H 19 108/70 90 L 08/19/20 22:09 101.9 F H 100 18 107/72 92 L 08/19/20 20:00 114 H 18 08/19/20 17:54 94 22 111/63 96 08/19/20 17:51 98.2 F 08/19/20 14:00 97.6 F 76 16 92/57 95 08/19/20 13:54 76 18 104/63 98 Intake and Output 08/19/20 08/20/20 08/20/20 22:59 06:59 14:59 Intake Total 52.5 Output Total 600 Balance -547.5 Intake: Intake, IV Titration 52.5 Amount Heparin Sod,Pork in 0.45% 52.5 NaCl 25,000 unit In 0.45 % NaCl 1 250ml.bag @ 10. 754 UNITS/KG/HR 10 mls/hr IV .Q24H [facility] Rx#: [id number] Output: Urine 600 Other: Voiding Method Diaper Incontinent # Voids 3 # Bowel Movements 1 Results - Lab Results Most recent lab results Calcium 8.3 mg/dL (8.4-10.2) L 08/20/20 07:41 Magnesium 2.1 mg/dL (1.6-2.3) 08/20/20 07:41 08/20/20 07:41 08/20/20 07:41 Assessment and Plan Plan: Assessment: 1. Acute kidney injury secondary to ATN secondary to COVID-19 infection. Rule out obstructive uropathy. Creatinine 5.8 on admission is 5.4 today. 2. Chronic kidney disease stage IV with creatinine as low as 3.1 as of 08/04/2020. 3. Left renal atrophy with right ureteral stent due to hydronephrosis. 4. Metabolic acidosis secondary to acute kidney injury. 5. Diabetes mellitus. Plan: Start normal saline at 50 mL an hour. Increase dose of oral bicarbonate. Check renal ultrasound. Check phosphorus level. Continue to monitor renal function and urine output. Strict I's and O's. Discussed potential need for renal replacement therapy if no improvement in renal function. Continue to assess on daily basis. Thank you for the consultation. I will continue to follow the patient with you during his hospital stay.
[2020-08-20 12:36] LABS: Ferritin 2620.8 ng/mL (22.0-322.0)
[2020-08-20] MEDS: SODIUM CHLORIDE 0.9% 1,000 ML IV SCH (12:50)
[2020-08-20] MEDS: HEPARIN SOD,PORK IN 0.45% NACL 25,000 UNIT in 0.45% NACL 1 250ML.BAG IV SCH (12:51)
--- NOTE | 2020-08-20 13:02 | US ---
EXAMINATION TYPE: US venous doppler duplex LE BI DATE OF EXAM: 08/20/2020 12:45 PM COMPARISON: 02/19/2018 CLINICAL HISTORY: rule out DVT. COVID SIDE PERFORMED: bilateral TECHNIQUE: The lower extremity deep venous system is examined utilizing real time linear array sonog shonda with graded compression, doppler sonography and color-flow sonography. VESSELS IMAGED: Common Femoral Vein Deep Femoral Vein Greater Saphenous Vein * Femoral Vein Popliteal Vein Small Saphenous Vein * Proximal Calf Veins (* superficial vessels) Right Leg: *positive for DVT right CFV extending into popliteal vein Left Leg: *positive for DVT left CFV extending into poplitea vein IMPRESSION: 1. Bilateral lower extremity deep venous thrombosis
--- NOTE | 2020-08-20 13:09 | US ---
EXAMINATION TYPE: US kidneys/renal and bladder DATE OF EXAM: 08/20/2020 COMPARISON: NONE CLINICAL HISTORY: robbie. ROBBIE. history of hydronephrosis and right renal stent EXAM MEASUREMENTS: Right Kidney: 13.5 x 7.0 x 7.0 cm Left Kidney: 13.1 x 7.6 x 5.6 cm Right Kidney: cystic area upper pole = 4.2 x 3.1 x 3.6cm, moderate hydronephrosis Left Kidney: severe hydronephrosis, little to no renal tissue visualized Bladder: debris noted posterior wall Bilateral Jets seen: no Urinary bladder is sonolucent. Appears to be a ureteral stent may be within the dependent portion the urinary bladder IMPRESSION: 1. Moderate right hydronephrosis. 2. Severe left hydronephrosis.
--- NOTE | 2020-08-20 13:15 | P.CRDCN ---
History of Present Illness Consult date: 08/20/20 History of present illness: This is a pleasant 69-year-old gentleman with a past medical history significant for diabetes and dyslipidemia presented to the hospital not feeling well. The patient was experiencing symptoms of increasing shortness of breath but no symptoms of chest pain or chest discomfort. He was diagnosed positive COVID-19 infection and currently he is on the fourth floor. We requested to the patient because of abnormal cardiac enzymes and abnormal troponin. The patient did not have any symptoms of chest pain or chest discomfort. The EKG showed sinus rhythm without any significant ST or T-wave abnormalities. The patient is not aware of any prior cardiac history like coronary artery disease or congestive heart failure or cardiac arrhythmia. The patient does have chronic kidney disease and currently nephrology is on the case. He has a slightly tachycardic. We'll going to start the patient on Toprol-XL at 25 mg by mouth daily. Beside that we'll start the patient on aspirin. He is on heparin IV because d-dimer came in to be abnormal but VQ scan still in process to be done. Past Medical History Past Medical History: Diabetes Mellitus, Renal Disease Additional Past Medical History / Comment(s): Kidney stones History of Any Multi-Drug Resistant Organisms: None Reported Past Surgical History: No Surgical Hx Reported Additional Past Surgical History / Comment(s): eye sx for cataracts, colonoscopy prior to 2009 Past Anesthesia/Blood Transfusion Reactions: No Reported Reaction Past Psychological History: No Psychological Hx Reported Smoking Status: Former smoker Past Alcohol Use History: Rare Additional Past Alcohol Use History / Comment(s): started 1969 stop 05/14 ppd. ETOH: 2 drinks per week Past Drug Use History: None Reported - Past Family History Mother Family Medical History: Cancer Additional Family Medical History / Comment(s): CA: breast, she's 91 Father Family Medical History: Cancer Additional Family Medical History / Comment(s): CA: lung (" from") Medications and Allergies Home Medications Medication Instructions Recorded Confirmed Type Atorvastatin Calcium [Lipitor] 10 mg PO HS #30 tab 07/27/20 08/19/20 Rx Insulin Aspart [Insulin Aspart See Protocol SQ TID-W/MEALS #4 pen 07/27/20 08/19/20 Rx Flexpen] Insulin Detemir [Levemir Flextouch] 20 units SQ HS #4 pen 07/27/20 08/19/20 Rx Multivitamin [Multivitamins Adult 1 each PO DAILY #30 tablet 07/27/20 08/19/20 Rx Gummies] Pantoprazole [Protonix] 40 mg PO BID #60 tablet. 07/27/20 08/19/20 Rx Sodium Bicarbonate Tab 650 mg PO DAILY #30 tab 07/27/20 08/19/20 Rx Allergies Allergy/AdvReac Type Severity Reaction Status Date / Time No Known Allergies Allergy Verified 08/19/20 08:54 Physical Exam Vitals: Vital Signs Temp Pulse Pulse Resp BP BP Pulse Ox 08/20/20 09:53 98.3 F 100 17 106/72 94 L 08/20/20 05:45 100.3 F H 114 H 21 115/76 08/20/20 02:00 99.4 F 105 H 19 108/70 90 L 08/19/20 22:09 101.9 F H 100 18 107/72 92 L 08/19/20 20:00 114 H 18 08/19/20 17:54 94 22 111/63 96 08/19/20 17:51 98.2 F 08/19/20 14:00 97.6 F 76 16 92/57 95 08/19/20 13:54 76 18 104/63 98 Intake and Output 08/19/20 08/20/20 08/20/20 22:59 06:59 14:59 Intake Total 52.5 197.5 Output Total 600 Balance -547.5 197.5 Intake: Intake, IV Titration 52.5 197.5 Amount Heparin Sod,Pork in 0.45% 52.5 197.5 NaCl 25,000 unit In 0.45 % NaCl 1 250ml.bag @ 10. 754 UNITS/KG/HR 10 mls/hr IV .Q24H [facility] Rx#: [id number] Output: Urine 600 Other: Voiding Method Diaper Incontinent # Voids 3 # Bowel Movements 1 - Constitutional General appearance: no acute distress Results 08/20/20 07:41 08/20/20 07:41 Cardiac Enzymes 08/19/20 08/19/20 08/20/20 Range/Units 08:14 09:57 07:41 AST 39 (17-59) U/L Lactate Dehydrogenase 938 H 689 H (313-618) U/L Troponin I 0.048 H* (0.000-0.034) ng/mL 08/20/20 Range/Units 07:41 AST (17-59) U/L Lactate Dehydrogenase (313-618) U/L Troponin I 0.041 H* (0.000-0.034) ng/mL Coagulation 08/19/20 08/19/20 08/19/20 Range/Units 09:57 16:16 22:13 PT 10.5 (9.0-12.0) sec APTT 19.8 L 38.0 H 51.5 H (22.0-30.0) sec 08/20/20 Range/Units 07:41 PT 10.5 (9.0-12.0) sec APTT 45.5 H (22.0-30.0) sec CBC 08/20/20 Range/Units 07:41 WBC 17.9 H (3.8-10.6) k/uL RBC 3.83 L (4.30-5.90) m/uL Hgb 11.6 L (13.0-17.5) gm/dL Hct 35.2 L (39.0-53.0) % Plt Count 392 (150-450) k/uL Comprehensive Metabolic Panel 08/20/20 Range/Units 07:41 Sodium 135 L (137-145) mmol/L Potassium 4.3 (3.5-5.1) mmol/L Chloride 105 (98-107) mmol/L Carbon Dioxide 17 L (22-30) mmol/L BUN 59 H (9-20) mg/dL Creatinine 5.40 H (0.66-1.25) mg/dL Glucose 132 H (74-99) mg/dL Calcium 8.3 L (8.4-10.2) mg/dL AST 39 (17-59) U/L ALT 20 (4-49) U/L Alkaline Phosphatase 198 H (38-126) U/L Total Protein 5.8 L (6.3-8.2) g/dL Albumin 2.7 L (3.5-5.0) g/dL Current Medications Generic Name Dose Route Start Last Admin Trade Name Freq PRN Reason Stop Dose Admin Acetaminophen 1,000 mg 08/19/20 12:46 Acetaminophen Tab 500 Mg Tab PO Q6HR PRN Fever>101 Albuterol Sulfate 2 puff 08/19/20 12:46 Albuterol Hfa Inhaler INHALATION RT-Q6H PRN Shortness Of Breath Or Wheezing Ascorbic Acid 1,000 mg 08/19/20 13:00 08/20/20 09:40 Ascorbic Acid 500 Mg Tab PO 1,000 mg DAILY NAI Administration Aspirin 81 mg 08/20/20 13:15 Aspirin 81 Mg PO DAILY NAI Atorvastatin Calcium 10 mg 08/19/20 21:00 08/19/20 23:00 Atorvastatin 10 Mg Tab PO 10 mg HS NAI Administration Cholecalciferol 25 mcg 08/20/20 09:00 08/20/20 09:40 Cholecalciferol 25 Mcg (1000 Iu) Tablet PO 25 mcg DAILY NAI Administration Dexamethasone Sodium Phosphate 6 mg 08/19/20 13:00 08/20/20 09:40 Dexamethasone Sod Phosphate 10 Mg/Ml 1 Ml Vial IV 08/28/20 09:01 6 mg DAILY NAI Administration Heparin Sodium (Porcine) 0 unit 08/19/20 13:01 08/19/20 19:27 Heparin Sodium 1,000 Un/Ml (10ml Vl) IV 2,324 unit PER PROTOCOL PRN Administration Low PTT Protocol Heparin Sodium/Sodium Chloride 250 mls @ 10 mls/hr 08/19/20 13:15 08/20/20 12:51 25,000 unit/ Sodium Chloride IV 12.754 units/kg/hr .Q24H NAI 11.859 mls/hr Administration Protocol 10.754 UNITS/KG/HR Ceftriaxone Sodium 1 gm/ 50 mls @ 100 mls/hr 08/20/20 09:00 08/20/20 09:41 Sodium Chloride IVPB 100 mls/hr Q24HR NAI Administration Dextrose/Sodium Chloride 1,000 mls @ 20 mls/hr 08/19/20 18:15 08/19/20 22:57 Dextrose 5%-Ns Iv Soln IV 20 mls/hr .Q24H NAI Administration Sodium Chloride 1,000 mls @ 50 mls/hr 08/20/20 12:15 08/20/20 12:50 Saline 0.9% IV 50 mls/hr .Q20H NAI Administration Insulin Aspart 0 unit 08/19/20 17:30 08/20/20 11:57 Insulin Aspart (Novolog) 100 Unit/Ml Vial SQ Not Given ACHS NAI Protocol Insulin Detemir 20 unit 08/19/20 21:00 08/19/20 22:59 Insulin Detemir (Levemir) 100 Unit/Ml Syr SQ 20 unit HS NAI Administration Metoprolol Succinate 25 mg 08/20/20 13:15 Metoprolol Succinate (Er) 25 Mg Tab.Er.24h PO DAILY NAI Miscellaneous Information 1 each 08/19/20 13:54 Magnesium Replacement Protocol 1 Each Misc MISCELLANE DAILY PRN Per Protocol Protocol Pantoprazole Sodium 40 mg 08/19/20 21:00 08/20/20 09:40 Pantoprazole 40 Mg Tablet PO 40 mg BID NAI Administration Sodium Bicarbonate 650 mg 08/20/20 16:00 Sodium Bicarbonate Tab 650 Mg Tab PO TID NAI Zinc Sulfate 220 mg 08/19/20 13:00 08/20/20 09:40 Zinc Sulfate 220 Mg Cap PO 220 mg DAILY NAI Administration Intake and Output 08/19/20 08/20/20 08/20/20 22:59 06:59 14:59 Intake Total 52.5 197.5 Output Total 600 Balance -547.5 197.5 Intake: Intake, IV Titration 52.5 197.5 Amount Heparin Sod,Pork in 0.45% 52.5 197.5 NaCl 25,000 unit In 0.45 % NaCl 1 250ml.bag @ 10. 754 UNITS/KG/HR 10 mls/hr IV .Q24H [facility] Rx#: [id number] Output: Urine 600 Other: Voiding Method Diaper Incontinent # Voids 3 # Bowel Movements 1 08/20/20 07:41 08/20/20 07:41 Assessment and Plan Assessment: Assessment #1 acute COVID pneumonia #2 renal failure #3 mildly abnormal troponin in the absence of chest pain or EKG changes #4 multiple comorbid conditions Plan #1 conservative medical approach #2 continue heparin IV #3 start the patient on aspirin #4 start the patient on Toprol-XL #5 limited echocardiogram to assess ejection fraction
[2020-08-20] MEDS: ASPIRIN 81 MG PO SCH (13:49)
[2020-08-20] MEDS: METOPROLOL SUCCINATE (ER) 25 MG TAB.ER.24H PO SCH (13:49)
--- NOTE | 2020-08-20 13:57 | NM ---
EXAMINATION TYPE: NM pul perfusion DATE OF EXAM: 08/20/2020 COMPARISON: Chest x-ray 08/19/2020 HISTORY: Short of breath Following administration of 4.9 mCi Tc 99m MAA. Images obtained post injection. FINDINGS: Lateral right lung moderate sized defect is present. Right lower lobe large defect appears to be pres ent. A large left mid upper lung field defect is present. IMPRESSION: High probability for pulmonary embolus based on modified perfusion PIOPED 2 criteria.
--- NOTE | 2020-08-20 15:58 | P.PN ---
Subjective Progress Note Date: 08/20/20 Principal diagnosis: Acute pulmonary embolism Bilateral deep venous thrombosis Acute covid19 pneumonia Chronic renal failure with GFR of 10 Type 2 diabetes mellitus Hypertension hypertensive cardiovascular disease 08/20/2020, patient seen and evaluated examined during the rounds patient remains on room air now chest pain is present ongoing shortness of breath, patient has been found to be positive for deep venous thrombosis of both lower extremity also has positive VQ scan of high probability for pulmonary embolism has been on IV heparin, denies any chest pain remains on room air, renal service is following for stage V chronic kidney disease, given multiple comorbidities decided to hold IV REM doesn't wear a therapy however continue Decadron for now This is a 69-year-old male who started having symptoms about a week ago testing came back positive for coronary 19 pneumonia, patient has been exposed from his daughter, he does have a history of diabetes as well as chronic renal failure, chest x-ray significant for right basal atelectasis, patient currently is on room air, saturation is 95%, GFR is on a 10 Objective - Vital Signs Vital signs: Vital Signs Temp 98.4 F 08/20/20 14:00 Pulse 89 08/20/20 14:00 Resp 18 08/20/20 14:00 BP 115/72 08/20/20 14:00 Pulse Ox 93 L 08/20/20 14:00 Intake & Output 08/19/20 08/20/20 08/20/20 18:59 06:59 18:59 Intake Total 52.5 197.5 Output Total 600 Balance -547.5 197.5 Weight 92.986 kg Intake: Intake, IV Titration 52.5 197.5 Amount Heparin Sod,Pork in 0.45% 52.5 197.5 NaCl 25,000 unit In 0.45 % NaCl 1 250ml.bag @ 10. 754 UNITS/KG/HR 10 mls/hr IV .Q24H [facility] Rx#: [id number] Output: Urine 600 Other: Voiding Method Diaper Incontinent # Voids 3 # Bowel Movements 1 - Exam - Constitutional General appearance: average body habitus, cooperative, disheveled - EENT Eyes: PERRLA Ears: bilateral: normal - Neck Neck: normal ROM Carotids: bilateral: upstroke normal - Respiratory Respiratory: bilateral: CTA - Cardiovascular Rhythm: regular Heart sounds: normal: S1, S2 - Gastrointestinal General gastrointestinal: normal bowel sounds - Neurologic Neurologic: CNII-XII intact - Musculoskeletal Musculoskeletal: gait normal, generalized weakness, strength equal bilaterally - Psychiatric Psychiatric: A&O x's 3, appropriate affect, intact judgment & insight - Labs CBC & Chem 7: 08/20/20 07:41 08/20/20 07:41 Labs: Abnormal Lab Results - Last 24 Hours (Table) 08/19/20 08/19/20 08/19/20 Range/Units 08:14 08:14 16:16 WBC (3.8-10.6) k/uL RBC (4.30-5.90) m/uL Hgb (13.0-17.5) gm/dL Hct (39.0-53.0) % Neutrophils # (1.3-7.7) k/uL Monocytes # (0-1.0) k/uL APTT 38.0 H (22.0-30.0) sec Fibrinogen (200-500) mg/dL D-Dimer (<0.60) mg/L FEU Sodium (137-145) mmol/L Carbon Dioxide (22-30) mmol/L BUN (9-20) mg/dL Creatinine (0.66-1.25) mg/dL Glucose (74-99) mg/dL POC Glucose (mg/dL) (75-99) mg/dL Calcium (8.4-10.2) mg/dL Ferritin 1440.2 H (22.0-322.0) ng/mL Alkaline Phosphatase (38-126) U/L Lactate Dehydrogenase (313-618) U/L Troponin I (0.000-0.034) ng/mL C-Reactive Protein (<10.0) mg/L Total Protein (6.3-8.2) g/dL Albumin (3.5-5.0) g/dL Procalcitonin 1.83 H (0.02-0.09) ng/mL 08/19/20 08/19/20 08/19/20 Range/Units 17:18 17:54 20:48 WBC (3.8-10.6) k/uL RBC (4.30-5.90) m/uL Hgb (13.0-17.5) gm/dL Hct (39.0-53.0) % Neutrophils # (1.3-7.7) k/uL Monocytes # (0-1.0) k/uL APTT (22.0-30.0) sec Fibrinogen (200-500) mg/dL D-Dimer (<0.60) mg/L FEU Sodium (137-145) mmol/L Carbon Dioxide (22-30) mmol/L BUN (9-20) mg/dL Creatinine (0.66-1.25) mg/dL Glucose (74-99) mg/dL POC Glucose (mg/dL) 128 H 106 H 139 H (75-99) mg/dL Calcium (8.4-10.2) mg/dL Ferritin (22.0-322.0) ng/mL Alkaline Phosphatase (38-126) U/L Lactate Dehydrogenase (313-618) U/L Troponin I (0.000-0.034) ng/mL C-Reactive Protein (<10.0) mg/L Total Protein (6.3-8.2) g/dL Albumin (3.5-5.0) g/dL Procalcitonin (0.02-0.09) ng/mL 08/19/20 08/20/20 08/20/20 Range/Units 22:13 07:41 07:41 WBC 17.9 H (3.8-10.6) k/uL RBC 3.83 L (4.30-5.90) m/uL Hgb 11.6 L (13.0-17.5) gm/dL Hct 35.2 L (39.0-53.0) % Neutrophils # 15.5 H (1.3-7.7) k/uL Monocytes # 1.1 H (0-1.0) k/uL APTT 51.5 H 45.5 H (22.0-30.0) sec Fibrinogen 651 H (200-500) mg/dL D-Dimer 9.15 H (<0.60) mg/L FEU Sodium (137-145) mmol/L Carbon Dioxide (22-30) mmol/L BUN (9-20) mg/dL Creatinine (0.66-1.25) mg/dL Glucose (74-99) mg/dL POC Glucose (mg/dL) (75-99) mg/dL Calcium (8.4-10.2) mg/dL Ferritin (22.0-322.0) ng/mL Alkaline Phosphatase (38-126) U/L Lactate Dehydrogenase (313-618) U/L Troponin I (0.000-0.034) ng/mL C-Reactive Protein (<10.0) mg/L Total Protein (6.3-8.2) g/dL Albumin (3.5-5.0) g/dL Procalcitonin (0.02-0.09) ng/mL 08/20/20 08/20/20 Range/Units 07:41 07:41 WBC (3.8-10.6) k/uL RBC (4.30-5.90) m/uL Hgb (13.0-17.5) gm/dL Hct (39.0-53.0) % Neutrophils # (1.3-7.7) k/uL Monocytes # (0-1.0) k/uL APTT (22.0-30.0) sec Fibrinogen (200-500) mg/dL D-Dimer (<0.60) mg/L FEU Sodium 135 L (137-145) mmol/L Carbon Dioxide 17 L (22-30) mmol/L BUN 59 H (9-20) mg/dL Creatinine 5.40 H (0.66-1.25) mg/dL Glucose 132 H (74-99) mg/dL POC Glucose (mg/dL) (75-99) mg/dL Calcium 8.3 L (8.4-10.2) mg/dL Ferritin 2620.8 H (22.0-322.0) ng/mL Alkaline Phosphatase 198 H (38-126) U/L Lactate Dehydrogenase 689 H (313-618) U/L Troponin I 0.041 H* (0.000-0.034) ng/mL C-Reactive Protein 341.4 H (<10.0) mg/L Total Protein 5.8 L (6.3-8.2) g/dL Albumin 2.7 L (3.5-5.0) g/dL Procalcitonin (0.02-0.09) ng/mL Microbiology - Last 24 Hours (Table) 08/19/20 09:57 Blood Culture - Preliminary Blood No Growth after 24 hours 08/19/20 09:57 Blood Culture - Preliminary Blood No Growth after 24 hours 04/09/21 13:51 Urine Culture - Preliminary Urine,Voided Assessment and Plan Assessment: Acute pulmonary embolism Bilateral deep venous thrombosis Acute covid19 pneumonia Chronic renal failure with GFR of 10 Type 2 diabetes mellitus Hypertension hypertensive cardiovascular disease Plan: IV heparin Continue Decadron Deep breathing exercise incentive spirometry Prone positioning IV Rocephin As per pharmacy guideline patient is not a candidate for IV REM doesn't wear as oxygenation have been stable on 95% symptoms onset over 1 week and GFR of only 10 Time with Patient: Greater than 30
--- NOTE | 2020-08-20 16:08 | PN ---
PROGRESS NOTE DATE OF SERVICE: 08/20/2020 I am covering for Dr. Daugherty's. HISTORY OF PRESENT ILLNESS: This 69-year-old gentleman who was recently admitted with new onset diabetes type 2. He was admitted with significant weakness and Covid 19. The chest x-ray which was reviewed personally by me showed some bilateral lesions. The patient also running some fever. The patient was seen by Pulmonary. Empiric antibiotics initiated at this time. The patient has elevated D-dimer and ultrasound of the legs and V/Q scan ordered today by me showed evidence of bilateral DVT and pulmonary embolism. Patient is being maintained on IV heparin. Past medical history reviewed. REVIEW OF SYSTEMS: CARDIOVASCULAR SYSTEM: No angina or palpitations. RESPIRATION: As mentioned earlier. GI as mentioned earlier. patient has significant renal failure, not on hemodialysis. CURRENT MEDICATIONS: Reviewed and include: Tylenol, Ventolin, vitamin C, heparin, Lipitor and Rocephin, Decadron and Zosyn. Other medications reviewed. PHYSICAL EXAM: Patient is alert, oriented x3. Pulse is 100. Blood pressure 106/72, respirations 17, temperature 98.2, pulse ox 94% on room air. HEENT: Conjunctivae normal. NECK: No JVD. CARDIOVASCULAR: S1, S2 muffled. RESPIRATIONS: Breath sounds diminished in the bases. Few rhonchi. No crackles. ABDOMEN: Soft, nontender. LEGS: No edema. No swelling. NERVOUS SYSTEM: No focal deficits. LABS: Sodium 135, creatinine 5.4. Other labs are noted. ASSESSMENT: 1. Acute COVID-19 infection, acute Covid 19 pneumonia with acute hypoxic respiratory failure. 2. Acute bilateral deep vein thromboses. 3. Acute pulmonary embolism. 4. Chronic renal failure with GFR 10. 5. Diabetes mellitus type 2, insulin dependent. 6. Hypertension. 7. Troponin indeterminate at 0.041. 8. Hyponatremia. 9. Increased WBC. 10.Anemia. 11.Elevated procalcitonin. 12.Remote history of nicotine dependence. 13.FULL CODE. RECOMMENDATIONS AND DISCUSSION: In this 69-year-old gentleman who presented with multiple complex medical issues, we will monitor the patient closely. Continue the current medications, management and symptomatic treatment. Otherwise, I would recommend infectious disease evaluation. Cardiology has also seen. Nephrology following the patient closely. I would recommend IV heparin currently and continue for a few days and continue the rest of medications. Prognosis guarded because of multiple complex medical issues. Further recommendations to follow. MMODL / IJN: [id number] /
--- NOTE | 2020-08-20 16:27 | CT ---
EXAMINATION TYPE: CT chest wo con DATE OF EXAM: 08/20/2020 COMPARISON: None available. HISTORY: positive covid CT DLP: 388.9 mGycm. Automated Exposure Control for Dose Reduction was Utilized. TECHNIQUE: CT scan of the thorax is performed without IV contrast. FINDINGS: LUNGS: There are bilateral diffuse moderate patchy groundglass opacities predominantly in the mid to lower lungs. There is no pleural effusion or pneumothorax seen. The tracheobronchial tree is paten t. MEDIASTINUM: Lack of IV contrast is noted to limit evaluation for mediastinal and especially hilar ad enopathy. There are no definitive greater than 1 cm hilar or mediastinal lymph nodes. No cardiomega ly or pericardial effusion is seen. OTHER: Simple-appearing bilateral renal cyst, measuring up to 3.4 cm are seen. There is chronic appea ring mild T3 compression deformity. There is nonspecific, nonaggressive appearing mixed lucency and s clerotic changes of T5 vertebral body, may relate to vertebral hemangioma IMPRESSION: Bilateral diffuse patchy groundglass opacities, consistent with history of Covid pneumoni a. Incidental findings as above.
[2020-08-20 16:45] LABS: Glucose,Whole Blood 164 mg/dL (75-99)
[2020-08-20] MEDS: DEXTROSE 5%-0.9% NACL 1,000 ML IV SCH (17:01)
[2020-08-20] MEDS: SODIUM BICARBONATE TAB 650 MG TAB PO SCH ×2 (17:30→21:06)
--- NOTE | 2020-08-20 18:11 | P.GSCN ---
History of Present Illness Consult date: 08/20/20 Reason for Consult: Hydronephrosis, urinary retention Requesting physician: Jeison Garza History of present illness: This is a 69-year-old gentleman hospitalized last month with new onset diagnosis of diabetes, DKA, and acute renal failure. During the evaluation he was found to have severe chronic left hydronephrosis and moderate right hydronephrosis. He has a history of kidney stones. He denied flank pain, dysuria, and hematuria. Dr. Albrecht performed cystoscopy, right retrograde pyelogram, right ureteral stent insertion. It was not possible to place a left ureteral stent. The patient's renal function improved somewhat. He is now admitted with COVID, DVT, and PE. Ultrasound shows persistent moderate right hydronephrosis. He has been noted to have incontinence, consistent with overflow incontinence. Bladder scan shows a postvoid residual of over 999 mL. Attempted Friend catheter placement by the nursing staff was unsuccessful. Review of Systems - Constitutional Reports fever, Reports weakness - Respiratory Reports dyspnea - Genitourinary Reports as per HPI Past Medical History Past Medical History: Diabetes Mellitus, Renal Disease Additional Past Medical History / Comment(s): Kidney stones History of Any Multi-Drug Resistant Organisms: None Reported Past Surgical History: No Surgical Hx Reported Additional Past Surgical History / Comment(s): eye sx for cataracts, colonoscopy prior to 2009 Past Anesthesia/Blood Transfusion Reactions: No Reported Reaction Past Psychological History: No Psychological Hx Reported Smoking Status: Former smoker Past Alcohol Use History: Rare Additional Past Alcohol Use History / Comment(s): started 1969 stop 05/14 ppd. ETOH: 2 drinks per week Past Drug Use History: None Reported - Past Family History Mother Family Medical History: Cancer Additional Family Medical History / Comment(s): CA: breast, she's 91 Father Family Medical History: Cancer Additional Family Medical History / Comment(s): CA: lung (" from") Medications and Allergies Home Medications Medication Instructions Recorded Confirmed Type Atorvastatin Calcium [Lipitor] 10 mg PO HS #30 tab 07/27/20 08/19/20 Rx Insulin Aspart [Insulin Aspart See Protocol SQ TID-W/MEALS #4 pen 07/27/20 08/19/20 Rx Flexpen] Insulin Detemir [Levemir Flextouch] 20 units SQ HS #4 pen 07/27/20 08/19/20 Rx Multivitamin [Multivitamins Adult 1 each PO DAILY #30 tablet 07/27/20 08/19/20 Rx Gummies] Pantoprazole [Protonix] 40 mg PO BID #60 tablet. 07/27/20 08/19/20 Rx Sodium Bicarbonate Tab 650 mg PO DAILY #30 tab 07/27/20 08/19/20 Rx Allergies Allergy/AdvReac Type Severity Reaction Status Date / Time No Known Allergies Allergy Verified 08/19/20 08:54 Surgical - Exam Vital Signs Temp Pulse Resp BP Pulse Ox 100.2 F H 102 H 18 97/57 94 L 08/19/20 07:49 08/19/20 07:49 08/19/20 07:49 08/19/20 07:49 08/19/20 07:49 - General well developed, well nourished, no distress - Respiratory normal respiratory effort - Abdomen Abdomen: soft, non tender, no guarding, no rigid, no rebound - Genitourinary other (The penis is uncircumcised. There is evidence of phimosis. The penile skin shows evidence of inflammation with mild skin breakdown.) Results - Labs 08/20/20 07:41 08/20/20 07:41 Abnormal Lab Results - Last 24 Hours (Table) 08/19/20 08/19/20 08/19/20 Range/Units 08:14 08:14 17:54 WBC (3.8-10.6) k/uL RBC (4.30-5.90) m/uL Hgb (13.0-17.5) gm/dL Hct (39.0-53.0) % Neutrophils # (1.3-7.7) k/uL Monocytes # (0-1.0) k/uL APTT (22.0-30.0) sec Fibrinogen (200-500) mg/dL D-Dimer (<0.60) mg/L FEU Sodium (137-145) mmol/L Carbon Dioxide (22-30) mmol/L BUN (9-20) mg/dL Creatinine (0.66-1.25) mg/dL Glucose (74-99) mg/dL POC Glucose (mg/dL) 106 H (75-99) mg/dL Calcium (8.4-10.2) mg/dL Ferritin 1440.2 H (22.0-322.0) ng/mL Alkaline Phosphatase (38-126) U/L Lactate Dehydrogenase (313-618) U/L Troponin I (0.000-0.034) ng/mL C-Reactive Protein (<10.0) mg/L Total Protein (6.3-8.2) g/dL Albumin (3.5-5.0) g/dL Procalcitonin 1.83 H (0.02-0.09) ng/mL 08/19/20 08/19/20 08/20/20 Range/Units 20:48 22:13 07:41 WBC 17.9 H (3.8-10.6) k/uL RBC 3.83 L (4.30-5.90) m/uL Hgb 11.6 L (13.0-17.5) gm/dL Hct 35.2 L (39.0-53.0) % Neutrophils # 15.5 H (1.3-7.7) k/uL Monocytes # 1.1 H (0-1.0) k/uL APTT 51.5 H (22.0-30.0) sec Fibrinogen (200-500) mg/dL D-Dimer (<0.60) mg/L FEU Sodium (137-145) mmol/L Carbon Dioxide (22-30) mmol/L BUN (9-20) mg/dL Creatinine (0.66-1.25) mg/dL Glucose (74-99) mg/dL POC Glucose (mg/dL) 139 H (75-99) mg/dL Calcium (8.4-10.2) mg/dL Ferritin (22.0-322.0) ng/mL Alkaline Phosphatase (38-126) U/L Lactate Dehydrogenase (313-618) U/L Troponin I (0.000-0.034) ng/mL C-Reactive Protein (<10.0) mg/L Total Protein (6.3-8.2) g/dL Albumin (3.5-5.0) g/dL Procalcitonin (0.02-0.09) ng/mL 08/20/20 08/20/20 08/20/20 Range/Units 07:41 07:41 07:41 WBC (3.8-10.6) k/uL RBC (4.30-5.90) m/uL Hgb (13.0-17.5) gm/dL Hct (39.0-53.0) % Neutrophils # (1.3-7.7) k/uL Monocytes # (0-1.0) k/uL APTT 45.5 H (22.0-30.0) sec Fibrinogen 651 H (200-500) mg/dL D-Dimer 9.15 H (<0.60) mg/L FEU Sodium 135 L (137-145) mmol/L Carbon Dioxide 17 L (22-30) mmol/L BUN 59 H (9-20) mg/dL Creatinine 5.40 H (0.66-1.25) mg/dL Glucose 132 H (74-99) mg/dL POC Glucose (mg/dL) (75-99) mg/dL Calcium 8.3 L (8.4-10.2) mg/dL Ferritin 2620.8 H (22.0-322.0) ng/mL Alkaline Phosphatase 198 H (38-126) U/L Lactate Dehydrogenase 689 H (313-618) U/L Troponin I 0.041 H* (0.000-0.034) ng/mL C-Reactive Protein 341.4 H (<10.0) mg/L Total Protein 5.8 L (6.3-8.2) g/dL Albumin 2.7 L (3.5-5.0) g/dL Procalcitonin (0.02-0.09) ng/mL 08/20/20 Range/Units 16:28 WBC (3.8-10.6) k/uL RBC (4.30-5.90) m/uL Hgb (13.0-17.5) gm/dL Hct (39.0-53.0) % Neutrophils # (1.3-7.7) k/uL Monocytes # (0-1.0) k/uL APTT (22.0-30.0) sec Fibrinogen (200-500) mg/dL D-Dimer (<0.60) mg/L FEU Sodium (137-145) mmol/L Carbon Dioxide (22-30) mmol/L BUN (9-20) mg/dL Creatinine (0.66-1.25) mg/dL Glucose (74-99) mg/dL POC Glucose (mg/dL) 164 H (75-99) mg/dL Calcium (8.4-10.2) mg/dL Ferritin (22.0-322.0) ng/mL Alkaline Phosphatase (38-126) U/L Lactate Dehydrogenase (313-618) U/L Troponin I (0.000-0.034) ng/mL C-Reactive Protein (<10.0) mg/L Total Protein (6.3-8.2) g/dL Albumin (3.5-5.0) g/dL Procalcitonin (0.02-0.09) ng/mL Microbiology - Last 24 Hours (Table) 08/19/20 09:57 Blood Culture - Preliminary Blood No Growth after 24 hours 08/19/20 09:57 Blood Culture - Preliminary Blood No Growth after 24 hours 08/19/20 13:51 Urine Culture - Preliminary Urine,Voided Diabetes panel 08/20/20 Range/Units 07:41 Sodium 135 L (137-145) mmol/L Potassium 4.3 (3.5-5.1) mmol/L Chloride 105 (98-107) mmol/L Carbon Dioxide 17 L (22-30) mmol/L BUN 59 H (9-20) mg/dL Creatinine 5.40 H (0.66-1.25) mg/dL Glucose 132 H (74-99) mg/dL Calcium 8.3 L (8.4-10.2) mg/dL AST 39 (17-59) U/L ALT 20 (4-49) U/L Alkaline Phosphatase 198 H (38-126) U/L Total Protein 5.8 L (6.3-8.2) g/dL Albumin 2.7 L (3.5-5.0) g/dL Calcium panel 08/20/20 Range/Units 07:41 Calcium 8.3 L (8.4-10.2) mg/dL Albumin 2.7 L (3.5-5.0) g/dL Pituitary panel 08/20/20 Range/Units 07:41 Sodium 135 L (137-145) mmol/L Potassium 4.3 (3.5-5.1) mmol/L Chloride 105 (98-107) mmol/L Carbon Dioxide 17 L (22-30) mmol/L BUN 59 H (9-20) mg/dL Creatinine 5.40 H (0.66-1.25) mg/dL Glucose 132 H (74-99) mg/dL Calcium 8.3 L (8.4-10.2) mg/dL Adrenal panel 08/20/20 Range/Units 07:41 Sodium 135 L (137-145) mmol/L Potassium 4.3 (3.5-5.1) mmol/L Chloride 105 (98-107) mmol/L Carbon Dioxide 17 L (22-30) mmol/L BUN 59 H (9-20) mg/dL Creatinine 5.40 H (0.66-1.25) mg/dL Glucose 132 H (74-99) mg/dL Calcium 8.3 L (8.4-10.2) mg/dL Total Bilirubin 0.4 (0.2-1.3) mg/dL AST 39 (17-59) U/L ALT 20 (4-49) U/L Alkaline Phosphatase 198 H (38-126) U/L Total Protein 5.8 L (6.3-8.2) g/dL Albumin 2.7 L (3.5-5.0) g/dL - Imaging US - kidney/bladder: report reviewed Assessment and Plan (1) Retention of urine, unspecified Current Visit: Yes Status: Acute Code(s): R33.9 - RETENTION OF URINE, UNSPECIFIED SNOMED Code(s): 425243187 (2) Phimosis Current Visit: Yes Status: Acute Code(s): N47.1 - PHIMOSIS SNOMED Code(s): 025095991 (3) Unspecified hydronephrosis Current Visit: Yes Status: Acute Code(s): N13.30 - UNSPECIFIED HYDRONEPHROSIS SNOMED Code(s): 83913679 Plan: The penis was prepped and draped sterilely. The patient's phimosis was tight. I was able to pass a Friend catheter through the tight fibrotic ring and into the urethral meatus. The catheter was then advanced into the bladder, with return of 1600 mL of urine. The last 100 mL of urine that drained was purulent in appearance. This was sent for culture and sensitivity. It is my impression that the urinary retention is responsible for the persistent hydronephrosis, and I'm hopeful that the patient's renal function will improve with the catheter in place. Time with Patient: Greater than 30
[2020-08-20 18:22] LABS: Appearance,Urine Turbid (Clear); Bilirubin,Urine Negative (Negative); Blood,Urine Small (Negative); Color,Urine Light Red; Glucose,Urine (UA) Negative (Negative); Ketones,Urine Negative (Negative); Leukocyte Esterase,Urine Large (Negative); Nitrite,Urine Negative (Negative); PH, Urine 6.5 (5.0-8.0); Protein,Urine 3+ (Negative); Specific Gravity,Urine >1.050 (1.001-1.035); Urobilinogen,Urine <2.0 mg/dL (<2.0); WBC,Urine >182 /hpf (0-5)
[2020-08-20 20:49] LABS: Glucose,Whole Blood 197 mg/dL (75-99)
[2020-08-20] MEDS: ATORVASTATIN 10 MG TAB PO SCH (21:06)
[2020-08-20] MEDS: INSULIN DETEMIR (LEVEMIR) 100 UNIT/ML SYR SQ SCH (21:07)
[2020-08-21 02:07] LABS: Glucose,Whole Blood 167 mg/dL (75-99)
[2020-08-21 07:06] LABS: Basophils % (A) 0 %; Eosinophils % (A) 0 %; HGB 11.1 gm/dL (13.0-17.5); Hypochromasia Slight; Lymphocytes # (A) 0.9 k/uL (1.0-4.8); Lymphocytes % (A) 6 %; MCH 29.8 pg (25.0-35.0); MCHC 30.8 g/dL (31.0-37.0); MCV 96.9 fL (80.0-100.0); Mean Platelet Volume 8.1; Monocytes # (A) 0.6 k/uL (0-1.0); Monocytes % (A) 4 %; Neutrophils # (A) 13.2 k/uL (1.3-7.7); Neutrophils % (A) 89 %; Platelet Count 410 k/uL (150-450); RBC 3.72 m/uL (4.30-5.90); RDW 14.2 % (11.5-15.5); WBC 14.8 k/uL (3.8-10.6)
[2020-08-21] MEDS: ASPIRIN 81 MG PO SCH (07:10)
[2020-08-21] MEDS: SODIUM BICARBONATE TAB 650 MG TAB PO SCH ×3 (07:10→20:54)
[2020-08-21] MEDS: ZINC SULFATE 220 MG CAP PO SCH (07:11)
[2020-08-21] MEDS: ASCORBIC ACID 500 MG TAB PO SCH (07:11)
[2020-08-21] MEDS: PANTOPRAZOLE 40 MG TABLET PO SCH ×2 (07:11→20:54)
[2020-08-21] MEDS: METOPROLOL SUCCINATE (ER) 25 MG TAB.ER.24H PO SCH (07:11)
[2020-08-21] MEDS: CHOLECALCIFEROL 25 MCG (1000 IU) TABLET PO SCH (07:11)
[2020-08-21] MEDS: DEXAMETHASONE SOD PHOSPHATE 10 MG/ML 1 ML VIAL IV SCH (07:12)
[2020-08-21] MEDS: SODIUM CHLORIDE 0.9% 1,000 ML IV SCH (07:12)
[2020-08-21] MEDS: INSULIN ASPART (NovoLOG) 100 UNIT/ML VIAL SQ SCH ×4 (07:20→21:40)
[2020-08-21 07:21] LABS: Glucose,Whole Blood 175 mg/dL (75-99)
[2020-08-21] MEDS: HEPARIN SODIUM 1,000 UN/ML (10ML VL) IV PRN (07:29)
[2020-08-21 07:36] LABS: African American GFR (CKD) 14 (>60 ml/min/1.73 sqM); Anion Gap 12 mmol/L; Blood Urea Nitrogen 63 mg/dL (9-20); Calcium 8.6 mg/dL (8.4-10.2); Carbon Dioxide 17 mmol/L (22-30); Chloride 109 mmol/L (98-107); Glucose 152 mg/dL (74-99); Non-African American GFR(CKD) 12 (>60 ml/min/1.73 sqM); Phosphorus 7.1 mg/dL (2.5-4.5); Sodium 138 mmol/L (137-145)
[2020-08-21 07:46] LABS: Magnesium 2.1 mg/dL (1.6-2.3)
[2020-08-21] MEDS: HEPARIN SOD,PORK IN 0.45% NACL 25,000 UNIT in 0.45% NACL 1 250ML.BAG IV SCH (09:43)
--- NOTE | 2020-08-21 10:42 | P.PN ---
Progress Note - Text Progress Note Date: 08/21/20 The Friend catheter remains in place. The urine is clearing. Preliminary urine culture shows gram-negative bacilli. He is currently receiving Rocephin. The serum creatinine level is somewhat improved this morning (4.56). Given the degree of bladder distention upon Friend catheter insertion yesterday (1600 cc), I would suggest that the Friend catheter remain in place and that the patient follow up with Dr. Burleson upon discharge. Please notify us if we can be of any further assistance.
--- NOTE | 2020-08-21 11:00 | P.PN ---
Subjective Patient is seen in follow-up for acute kidney injury on chronic kidney disease. Friend catheter was placed yesterday for severe urinary retention. Renal function better today. Nonoliguric. No chest pain or shortness of breath. Oral intake fair. Vital signs are stable. General: The patient appeared well nourished and normally developed. HEENT: Head exam is unremarkable. Neck is without jugular venous distension. LUNGS: Breath sounds decreased. HEART: Rate and Rhythm are regular. ABDOMEN: Soft, nontender. EXTREMITITES: No edema. Objective - Vital Signs Vital signs: Vital Signs Temp 99.3 F 08/21/20 09:44 Pulse 69 08/21/20 09:44 Resp 17 08/21/20 09:44 BP 112/72 08/21/20 09:44 Pulse Ox 95 08/21/20 09:44 Intake & Output 08/20/20 08/21/20 08/21/20 18:59 06:59 18:59 Intake Total 197.5 250.000 Output Total 1900 1700 700 Balance -1702.5 -1700 -450.000 Intake: Intake, IV Titration 197.5 250.000 Amount Heparin Sod,Pork in 0.45% 197.5 250.000 NaCl 25,000 unit In 0.45 % NaCl 1 250ml.bag @ 10. 754 UNITS/KG/HR 10 mls/hr IV .Q24H [facility] Rx#: [id number] Output: Urine 1900 1700 700 Other: Voiding Method Diaper Indwelling Catheter Indwelling Catheter Incontinent # Voids 3 # Bowel Movements 1 1 - Labs CBC & Chem 7: 08/21/20 06:32 08/21/20 06:32 Labs: Abnormal Lab Results - Last 24 Hours (Table) 08/20/20 08/20/20 08/20/20 Range/Units 07:41 16:28 18:00 WBC (3.8-10.6) k/uL RBC (4.30-5.90) m/uL Hgb (13.0-17.5) gm/dL Hct (39.0-53.0) % MCHC (31.0-37.0) g/dL Neutrophils # (1.3-7.7) k/uL Lymphocytes # (1.0-4.8) k/uL APTT (22.0-30.0) sec Chloride (98-107) mmol/L Carbon Dioxide (22-30) mmol/L BUN (9-20) mg/dL Creatinine (0.66-1.25) mg/dL Glucose (74-99) mg/dL POC Glucose (mg/dL) 164 H (75-99) mg/dL Phosphorus (2.5-4.5) mg/dL Ferritin 2620.8 H (22.0-322.0) ng/mL Ur Specific [place] >1.050 H (1.001-1.035) Urine Protein 3+ H (Negative) Urine Blood Small H (Negative) Ur Leukocyte Esterase Large H (Negative) Urine WBC >182 H (0-5) /hpf Urine WBC Clumps Many H (None) /hpf 08/20/20 08/21/20 08/21/20 Range/Units 20:48 02:04 06:32 WBC (3.8-10.6) k/uL RBC (4.30-5.90) m/uL Hgb (13.0-17.5) gm/dL Hct (39.0-53.0) % MCHC (31.0-37.0) g/dL Neutrophils # (1.3-7.7) k/uL Lymphocytes # (1.0-4.8) k/uL APTT (22.0-30.0) sec Chloride 109 H (98-107) mmol/L Carbon Dioxide 17 L (22-30) mmol/L BUN 63 H (9-20) mg/dL Creatinine 4.56 H (0.66-1.25) mg/dL Glucose 152 H (74-99) mg/dL POC Glucose (mg/dL) 197 H 167 H (75-99) mg/dL Phosphorus 7.1 H (2.5-4.5) mg/dL Ferritin (22.0-322.0) ng/mL Ur Specific [place] (1.001-1.035) Urine Protein (Negative) Urine Blood (Negative) Ur Leukocyte Esterase (Negative) Urine WBC (0-5) /hpf Urine WBC Clumps (None) /hpf 08/21/20 08/21/20 08/21/20 Range/Units 06:32 06:32 07:18 WBC 14.8 H (3.8-10.6) k/uL RBC 3.72 L (4.30-5.90) m/uL Hgb 11.1 L (13.0-17.5) gm/dL Hct 36.0 L (39.0-53.0) % MCHC 30.8 L (31.0-37.0) g/dL Neutrophils # 13.2 H (1.3-7.7) k/uL Lymphocytes # 0.9 L (1.0-4.8) k/uL APTT 32.0 H (22.0-30.0) sec Chloride (98-107) mmol/L Carbon Dioxide (22-30) mmol/L BUN (9-20) mg/dL Creatinine (0.66-1.25) mg/dL Glucose (74-99) mg/dL POC Glucose (mg/dL) 175 H (75-99) mg/dL Phosphorus (2.5-4.5) mg/dL Ferritin (22.0-322.0) ng/mL Ur Specific [place] (1.001-1.035) Urine Protein (Negative) Urine Blood (Negative) Ur Leukocyte Esterase (Negative) Urine WBC (0-5) /hpf Urine WBC Clumps (None) /hpf Microbiology - Last 24 Hours (Table) 08/20/20 18:00 Urine Culture - Preliminary Urine,Catheterized 08/19/20 13:51 Urine Culture - Preliminary Urine,Voided Gram Neg Bacilli 08/19/20 09:57 Blood Culture - Preliminary Blood No Growth after 24 hours 08/19/20 09:57 Blood Culture - Preliminary Blood No Growth after 24 hours Assessment and Plan Plan: Assessment: 1. Acute kidney injury secondary to ATN secondary to COVID-19 infection and urinary retention. Creatinine 5.8 on admission is 4.56 today. 2. Chronic kidney disease stage IV with creatinine as low as 3.1 as of 08/04/2020. 3. Left renal atrophy with right ureteral stent due to hydronephrosis. Friend catheter placed for urinary retention. Urology following. 4. Metabolic acidosis secondary to acute kidney injury. Maintained on oral bicarbonate. 5. Diabetes mellitus. 6. Hyperphosphatemia secondary to acute kidney injury. Plan: Maintain normal saline at 50 mL an hour. Add PhosLo with meals. Continue to monitor renal function and urine output. Strict I's and O's. Continue to assess for renal replacement therapy on daily basis.
[2020-08-21 11:21] LABS: Glucose,Whole Blood 246 mg/dL (75-99)
--- NOTE | 2020-08-21 11:31 | P.PN ---
Subjective Progress Note Date: 08/21/20 Principal diagnosis: Abnormal cardiac enzymes This is a 69-year-old gentleman who was admitted to the hospital with a pneumonia related to COVID-19 infection. We consulted to see the patient because of abnormal cardiac enzymes. No symptoms of chest pain or chest discomfort and no EKG changes concerning for severe underlying coronary artery disease. He was slightly tachycardic yesterday and because of that he was started on Toprol-XL. Today 08/21/2020. The heart rate has improved significantly. The patient is not having any symptoms of chest pain or chest discomfort. He was diagnosed with bilateral DVT and currently he is on heparin IV. An echocardiogram was performed and still pending. At this point we'll continue the current medical regimen including the current dose of Toprol-XL and follow-up on the echocardiogram. Objective - Vital Signs Vital signs: Vital Signs Temp 99.3 F 08/21/20 09:44 Pulse 69 08/21/20 09:44 Resp 17 08/21/20 09:44 BP 112/72 08/21/20 09:44 Pulse Ox 95 08/21/20 09:44 Intake & Output 08/20/20 08/21/20 08/21/20 18:59 06:59 18:59 Intake Total 197.5 250.000 Output Total 1900 1700 700 Balance -1702.5 -1700 -450.000 Intake: Intake, IV Titration 197.5 250.000 Amount Heparin Sod,Pork in 0.45% 197.5 250.000 NaCl 25,000 unit In 0.45 % NaCl 1 250ml.bag @ 10. 754 UNITS/KG/HR 10 mls/hr IV .Q24H [facility] Rx#: [id number] Output: Urine 1900 1700 700 Other: Voiding Method Diaper Indwelling Catheter Indwelling Catheter Incontinent # Voids 3 # Bowel Movements 1 1 - Labs CBC & Chem 7: 08/21/20 06:32 08/21/20 06:32 Labs: Abnormal Lab Results - Last 24 Hours (Table) 08/20/20 08/20/20 08/20/20 Range/Units 07:41 16:28 18:00 WBC (3.8-10.6) k/uL RBC (4.30-5.90) m/uL Hgb (13.0-17.5) gm/dL Hct (39.0-53.0) % MCHC (31.0-37.0) g/dL Neutrophils # (1.3-7.7) k/uL Lymphocytes # (1.0-4.8) k/uL APTT (22.0-30.0) sec Chloride (98-107) mmol/L Carbon Dioxide (22-30) mmol/L BUN (9-20) mg/dL Creatinine (0.66-1.25) mg/dL Glucose (74-99) mg/dL POC Glucose (mg/dL) 164 H (75-99) mg/dL Phosphorus (2.5-4.5) mg/dL Ferritin 2620.8 H (22.0-322.0) ng/mL Ur Specific [place] >1.050 H (1.001-1.035) Urine Protein 3+ H (Negative) Urine Blood Small H (Negative) Ur Leukocyte Esterase Large H (Negative) Urine WBC >182 H (0-5) /hpf Urine WBC Clumps Many H (None) /hpf 08/20/20 08/21/20 08/21/20 Range/Units 20:48 02:04 06:32 WBC (3.8-10.6) k/uL RBC (4.30-5.90) m/uL Hgb (13.0-17.5) gm/dL Hct (39.0-53.0) % MCHC (31.0-37.0) g/dL Neutrophils # (1.3-7.7) k/uL Lymphocytes # (1.0-4.8) k/uL APTT (22.0-30.0) sec Chloride 109 H (98-107) mmol/L Carbon Dioxide 17 L (22-30) mmol/L BUN 63 H (9-20) mg/dL Creatinine 4.56 H (0.66-1.25) mg/dL Glucose 152 H (74-99) mg/dL POC Glucose (mg/dL) 197 H 167 H (75-99) mg/dL Phosphorus 7.1 H (2.5-4.5) mg/dL Ferritin (22.0-322.0) ng/mL Ur Specific [place] (1.001-1.035) Urine Protein (Negative) Urine Blood (Negative) Ur Leukocyte Esterase (Negative) Urine WBC (0-5) /hpf Urine WBC Clumps (None) /hpf 08/21/20 08/21/20 08/21/20 Range/Units 06:32 06:32 07:18 WBC 14.8 H (3.8-10.6) k/uL RBC 3.72 L (4.30-5.90) m/uL Hgb 11.1 L (13.0-17.5) gm/dL Hct 36.0 L (39.0-53.0) % MCHC 30.8 L (31.0-37.0) g/dL Neutrophils # 13.2 H (1.3-7.7) k/uL Lymphocytes # 0.9 L (1.0-4.8) k/uL APTT 32.0 H (22.0-30.0) sec Chloride (98-107) mmol/L Carbon Dioxide (22-30) mmol/L BUN (9-20) mg/dL Creatinine (0.66-1.25) mg/dL Glucose (74-99) mg/dL POC Glucose (mg/dL) 175 H (75-99) mg/dL Phosphorus (2.5-4.5) mg/dL Ferritin (22.0-322.0) ng/mL Ur Specific [place] (1.001-1.035) Urine Protein (Negative) Urine Blood (Negative) Ur Leukocyte Esterase (Negative) Urine WBC (0-5) /hpf Urine WBC Clumps (None) /hpf 08/21/20 Range/Units 11:20 WBC (3.8-10.6) k/uL RBC (4.30-5.90) m/uL Hgb (13.0-17.5) gm/dL Hct (39.0-53.0) % MCHC (31.0-37.0) g/dL Neutrophils # (1.3-7.7) k/uL Lymphocytes # (1.0-4.8) k/uL APTT (22.0-30.0) sec Chloride (98-107) mmol/L Carbon Dioxide (22-30) mmol/L BUN (9-20) mg/dL Creatinine (0.66-1.25) mg/dL Glucose (74-99) mg/dL POC Glucose (mg/dL) 246 H (75-99) mg/dL Phosphorus (2.5-4.5) mg/dL Ferritin (22.0-322.0) ng/mL Ur Specific [place] (1.001-1.035) Urine Protein (Negative) Urine Blood (Negative) Ur Leukocyte Esterase (Negative) Urine WBC (0-5) /hpf Urine WBC Clumps (None) /hpf Microbiology - Last 24 Hours (Table) 08/20/20 18:00 Urine Culture - Preliminary Urine,Catheterized 08/19/20 13:51 Urine Culture - Preliminary Urine,Voided Gram Neg Bacilli 08/19/20 09:57 Blood Culture - Preliminary Blood No Growth after 24 hours 08/19/20 09:57 Blood Culture - Preliminary Blood No Growth after 24 hours Assessment and Plan Assessment: Assessment #1 acute COVID pneumonia #2 renal failure #3 mildly abnormal troponin in the absence of chest pain or EKG changes #4 multiple comorbid conditions Plan #1 conservative medical approach for the mildly abnormal troponin #2 continue heparin IV and switch the patient to oral anticoagulation down the line #3 continue Toprol-XL #4 continue aspirin #5 follow-up on the echo
[2020-08-21] MEDS: CALCIUM ACETATE 667 MG TAB PO SCH ×2 (11:58→17:34)
--- NOTE | 2020-08-21 14:13 | P.PN ---
Subjective Progress Note Date: 08/21/20 Principal diagnosis: Acute pulmonary embolism Bilateral deep venous thrombosis Acute covid19 pneumonia Chronic renal failure with GFR of 10 Type 2 diabetes mellitus Hypertension hypertensive cardiovascular disease 08/21/2020, patient seen eval examined during the rounds labs reviewed medications reviewed patient remains on room air oxygen saturation 95% denies any chest pain or shortness of breath, patient remains on IV heparin for bilateral DVT of lower extremity as well as pulmonary embolism, urine is positive for gram-negative rods, final results are pending patient remains on IV Rocephin 08/20/2020, patient seen and evaluated examined during the rounds patient r stephanie on room air now chest pain is present ongoing shortness of breath, patient has been found to be positive for deep venous thrombosis of both lower extremity also has positive VQ scan of high probability for pulmonary embolism has been on IV heparin, denies any chest pain remains on room air, renal service is following for stage V chronic kidney disease, given multiple comorbidities decided to hold IV REM doesn't wear a therapy however continue Decadron for now This is a 69-year-old male who started having symptoms about a week ago testing came back positive for coronary 19 pneumonia, patient has been exposed from his daughter, he does have a history of diabetes as well as chronic renal failure, chest x-ray significant for right basal atelectasis, patient currently is on room air, saturation is 95%, GFR is on a 10 Objective - Vital Signs Vital signs: Vital Signs Temp 99.3 F 08/21/20 13:50 Pulse 76 08/21/20 13:50 Resp 16 08/21/20 13:50 BP 102/68 08/21/20 13:50 Pulse Ox 94 L 08/21/20 13:50 Intake & Output 08/20/20 08/21/20 08/21/20 18:59 06:59 18:59 Intake Total 197.5 250.000 Output Total 1900 1700 700 Balance -1702.5 -1700 -450.000 Intake: Intake, IV Titration 197.5 250.000 Amount Heparin Sod,Pork in 0.45% 197.5 250.000 NaCl 25,000 unit In 0.45 % NaCl 1 250ml.bag @ 10. 754 UNITS/KG/HR 10 mls/hr IV .Q24H [facility] [place] Rx#: [id number] Output: Urine 1900 1700 700 Other: Voiding Method Diaper Indwelling Catheter Indwelling Catheter Incontinent # Voids 3 # Bowel Movements 1 1 - Exam - Constitutional General appearance: average body habitus, cooperative, disheveled - EENT Eyes: PERRLA Ears: bilateral: normal - Neck Neck: normal ROM Carotids: bilateral: upstroke normal - Respiratory Respiratory: bilateral: CTA - Cardiovascular Rhythm: regular Heart sounds: normal: S1, S2 - Gastrointestinal General gastrointestinal: normal bowel sounds - Neurologic Neurologic: CNII-XII intact - Musculoskeletal Musculoskeletal: gait normal, generalized weakness, strength equal bilaterally - Psychiatric Psychiatric: A&O x's 3, appropriate affect, intact judgment & insight - Labs CBC & Chem 7: 08/21/20 06:32 08/21/20 06:32 Labs: Abnormal Lab Results - Last 24 Hours (Table) 08/20/20 08/20/20 08/20/20 Range/Units 16:28 18:00 20:48 WBC (3.8-10.6) k/uL RBC (4.30-5.90) m/uL Hgb (13.0-17.5) gm/dL Hct (39.0-53.0) % MCHC (31.0-37.0) g/dL Neutrophils # (1.3-7.7) k/uL Lymphocytes # (1.0-4.8) k/uL APTT (22.0-30.0) sec Chloride (98-107) mmol/L Carbon Dioxide (22-30) mmol/L BUN (9-20) mg/dL Creatinine (0.66-1.25) mg/dL Glucose (74-99) mg/dL POC Glucose (mg/dL) 164 H 197 H (75-99) mg/dL Phosphorus (2.5-4.5) mg/dL Ur Specific Golden >1.050 H (1.001-1.035) Urine Protein 3+ H (Negative) Urine Blood Small H (Negative) Ur Leukocyte Esterase Large H (Negative) Urine WBC >182 H (0-5) /hpf Urine WBC Clumps Many H (None) /hpf 08/21/20 08/21/20 08/21/20 Range/Units 02:04 06:32 06:32 WBC (3.8-10.6) k/uL RBC (4.30-5.90) m/uL Hgb (13.0-17.5) gm/dL Hct (39.0-53.0) % MCHC (31.0-37.0) g/dL Neutrophils # (1.3-7.7) k/uL Lymphocytes # (1.0-4.8) k/uL APTT 32.0 H (22.0-30.0) sec Chloride 109 H (98-107) mmol/L Carbon Dioxide 17 L (22-30) mmol/L BUN 63 H (9-20) mg/dL Creatinine 4.56 H (0.66-1.25) mg/dL Glucose 152 H (74-99) mg/dL POC Glucose (mg/dL) 167 H (75-99) mg/dL Phosphorus 7.1 H (2.5-4.5) mg/dL Ur Specific Golden (1.001-1.035) Urine Protein (Negative) Urine Blood (Negative) Ur Leukocyte Esterase (Negative) Urine WBC (0-5) /hpf Urine WBC Clumps (None) /hpf 08/21/20 08/21/20 08/21/20 Range/Units 06:32 07:18 11:20 WBC 14.8 H (3.8-10.6) k/uL RBC 3.72 L (4.30-5.90) m/uL Hgb 11.1 L (13.0-17.5) gm/dL Hct 36.0 L (39.0-53.0) % MCHC 30.8 L (31.0-37.0) g/dL Neutrophils # 13.2 H (1.3-7.7) k/uL Lymphocytes # 0.9 L (1.0-4.8) k/uL APTT (22.0-30.0) sec Chloride (98-107) mmol/L Carbon Dioxide (22-30) mmol/L BUN (9-20) mg/dL Creatinine (0.66-1.25) mg/dL Glucose (74-99) mg/dL POC Glucose (mg/dL) 175 H 246 H (75-99) mg/dL Phosphorus (2.5-4.5) mg/dL Ur Specific Golden (1.001-1.035) Urine Protein (Negative) Urine Blood (Negative) Ur Leukocyte Esterase (Negative) Urine WBC (0-5) /hpf Urine WBC Clumps (None) /hpf Microbiology - Last 24 Hours (Table) 08/19/20 09:57 Blood Culture - Preliminary Blood No Growth after 48 hours 08/19/20 09:57 Blood Culture - Preliminary Blood No Growth after 48 hours 08/20/20 18:00 Urine Culture - Preliminary Urine,Catheterized 08/19/20 13:51 Urine Culture - Preliminary Urine,Voided Gram Neg Bacilli Assessment and Plan Assessment: Acute pulmonary embolism Bilateral deep venous thrombosis Acute covid19 infection Urinary tract infection due to gram-negative rods likely E. coli Chronic renal failure with GFR of 10 Type 2 diabetes mellitus Hypertension hypertensive cardiovascular disease Plan: IV heparin Continue Decadron Deep breathing exercise incentive spirometry Prone positioning IV Rocephin As per pharmacy guideline patient is not a candidate for IV REM doesn't wear as oxygenation have been stable on 95% symptoms onset over 1 week and GFR of only 10 Time with Patient: Greater than 30
--- NOTE | 2020-08-21 14:31 | PN ---
PROGRESS NOTE DATE OF SERVICE: 08/21/2020 I am covering for Dr. Daugherty. INTERVAL HISTORY: This 69-year-old gentleman was admitted with acute COVID-19 pneumonia also had acute hypoxic respiratory failure. The patient also had acute bilateral DVT and acute pulmonary embolism. Also patient is on IV heparin. Chest CT showed bilateral pulmonary embolism. Multiple consultants are following the patient closely. The patient has UTI also. PAST MEDICAL HISTORY: Reviewed. REVIEW OF SYSTEMS: CARDIOVASCULAR: No angina or palpitations. RESPIRATORY: As mentioned earlier. GI: As mentioned earlier. : No dysuria. NERVOUS SYSTEM: No numbness or weakness. CURRENT MEDICATIONS: Reviewed include Tylenol, aspirin, Lipitor, PhosLo, Rocephin, IV heparin. PHYSICAL EXAM: GENERAL: Patient is alert and oriented times three. VITAL SIGNS: Pulse 69, blood pressure 112/72, respirations 17, temperature 99.3, pulse ox 94% on room air. HEENT: Conjunctivae normal. NECK: No jugular venous distention. No carotid bruits. RESPIRATORY: Breath sounds diminished at the bases. A few scattered rhonchi. HEART: S1 and S2, muffled. ABDOMEN: Soft, no tenderness. No masses palpable. EXTREMITIES: No edema, no swelling. NERVOUS: No focal deficits. LABS: WBC 14.2, hemoglobin 7.1. Other labs are noted. Creatinine is 4.56. ASSESSMENT: 1. Acute COVID-19 infection with acute COVID-19 bilateral pneumonia with acute hypoxic respiratory failure. 2. Acute bilateral lower leg deep vein thrombosis. 3. Acute pulmonary embolism, on IV heparin. 4. Chronic renal failure with GFR 10. 5. Acute urinary tract infection with gram-negative bacilli. 6. Diabetes mellitus type 2, insulin dependent. 7. Friend catheter. 8. Hypertension. 9. Troponin indeterminate at 0.04. 10.Hyponatremia. 11.Increased WBC. 12.Anemia. 13.Elevated procalcitonin. 14.Remote history of nicotine dependence. 15.FULL CODE. RECOMMENDATIONS AND DISCUSSION: I recommend to continue the current management and continue symptomatic treatment. Continue with IV heparin. Continue the rest of the medications. Continue the antibiotics. Monitor the cultures closely. Otherwise, monitor blood sugars closely and follow closely with multiple consultants. Prognosis guarded. Further recommendations to follow. MMODL / IJN: [id number] /
[2020-08-21] MEDS: DEXTROSE 5%-0.9% NACL 1,000 ML IV SCH (15:19)
[2020-08-21 16:32] LABS: Glucose,Whole Blood 241 mg/dL (75-99)
[2020-08-21] MEDS ORDERED: PIPERACILLIN-TAZOBACTAM 3.375 GM in SODIUM CHLORIDE 0.9% 100 ML IVPB SCH (18:00)
[2020-08-21] MEDS: CEFEPIME 2 GM in SODIUM CHLORIDE 0.9% 100 ML IVPB SCH (20:54)
[2020-08-21] MEDS: ATORVASTATIN 10 MG TAB PO SCH (20:54)
[2020-08-21 21:06] LABS: Glucose,Whole Blood 248 mg/dL (75-99)
[2020-08-21] MEDS: INSULIN DETEMIR (LEVEMIR) 100 UNIT/ML SYR SQ SCH (21:40)
[2020-08-22] MEDS: HEPARIN SOD,PORK IN 0.45% NACL 25,000 UNIT in 0.45% NACL 1 250ML.BAG IV SCH ×2 (02:37→20:25)
[2020-08-22 07:04] LABS: Glucose,Whole Blood 135 mg/dL (75-99)
[2020-08-22] MEDS: SODIUM CHLORIDE 0.9% 1,000 ML IV SCH (07:10)
[2020-08-22 07:19] LABS: African American GFR (CKD) 18 (>60 ml/min/1.73 sqM); Anion Gap 11 mmol/L; Blood Urea Nitrogen 62 mg/dL (9-20); Calcium 8.8 mg/dL (8.4-10.2); Carbon Dioxide 19 mmol/L (22-30); Chloride 110 mmol/L (98-107); Glucose 148 mg/dL (74-99); Magnesium 2.2 mg/dL (1.6-2.3); Non-African American GFR(CKD) 15 (>60 ml/min/1.73 sqM); Potassium 4.7 mmol/L (3.5-5.1); Sodium 140 mmol/L (137-145)
[2020-08-22] MEDS: INSULIN ASPART (NovoLOG) 100 UNIT/ML VIAL SQ SCH ×4 (08:10→20:09)
[2020-08-22] MEDS: HEPARIN SODIUM 1,000 UN/ML (10ML VL) IV PRN (08:26)
[2020-08-22] MEDS: CEFEPIME 2 GM in SODIUM CHLORIDE 0.9% 100 ML IVPB SCH (08:29)
[2020-08-22] MEDS: CALCIUM ACETATE 667 MG TAB PO SCH ×3 (08:29→16:50)
[2020-08-22] MEDS: SODIUM BICARBONATE TAB 650 MG TAB PO SCH ×3 (08:29→20:09)
[2020-08-22] MEDS: ASCORBIC ACID 500 MG TAB PO SCH (08:29)
[2020-08-22] MEDS: CHOLECALCIFEROL 25 MCG (1000 IU) TABLET PO SCH (08:29)
[2020-08-22] MEDS: ZINC SULFATE 220 MG CAP PO SCH (08:29)
[2020-08-22] MEDS: PANTOPRAZOLE 40 MG TABLET PO SCH ×2 (08:29→20:09)
[2020-08-22] MEDS: METOPROLOL SUCCINATE (ER) 25 MG TAB.ER.24H PO SCH (08:29)
[2020-08-22] MEDS: DEXAMETHASONE SOD PHOSPHATE 10 MG/ML 1 ML VIAL IV SCH (08:29)
[2020-08-22] MEDS: ASPIRIN 81 MG PO SCH (08:29)
--- NOTE | 2020-08-22 09:53 | ECHOF ---
Referral Reason:to eval ejection fraction MEASUREMENTS -------- HEIGHT: 193.0 cm WEIGHT: 93.0 kg BP: 106/72 Ao Diam: 4.0 cm (2.0 - 3.7) AV Cusp: 2.7 cm (1.5 - 2.6) RAP: 5.00 mmHg RVSP: 30.35 mmHg FINDINGS -------- Sinus rhythm. Limited Study Overall left ventricular systolic function is normal with, an EF between 55 - 60 %. The aortic valve is trileaflet, and appears structurally normal. No aortic stenosis or regurgitation. There is trace to mild mitral regurgitation. Mild tricuspid regurgitation present. Right ventricular systolic pressure is normal at < 35 mmHg. Trace/mild (physiologic) pulmonic regurgitation. The aortic root is dilated measuring 4.0cm. There is no pericardial effusion. CONCLUSIONS -------- 1. Limited Study 2. Overall left ventricular systolic function is normal with, an EF between 55 - 60 %. 3. The aortic valve is trileaflet, and appears structurally normal. No aortic stenosis or regurgitati on. 4. There is trace to mild mitral regurgitation. 5. Mild tricuspid regurgitation present. 6. Trace/mild (physiologic) pulmonic regurgitation. 7. The aortic root is dilated measuring 4.0cm. 8. There is no pericardial effusion. DIRECTOR OF REHABILITATION: Sarah Allison RDCS
--- NOTE | 2020-08-22 10:57 | P.PN ---
Subjective Patient is seen in follow-up for acute kidney injury on chronic kidney disease. Has Friend catheter for severe urinary retention. Nonoliguric. Renal function better today. No chest pain or shortness of breath. Oral intake fair. Vital signs are stable. General: The patient appeared well nourished and normally developed. HEENT: Head exam is unremarkable. Neck is without jugular venous distension. LUNGS: Breath sounds decreased. HEART: Rate and Rhythm are regular. ABDOMEN: Soft, nontender. EXTREMITITES: No edema. Objective - Vital Signs Vital signs: Vital Signs Temp 97.4 F L 08/22/20 10:50 Pulse 63 08/22/20 10:50 Resp 16 08/22/20 10:50 BP 130/79 08/22/20 10:50 Pulse Ox 94 L 08/22/20 10:50 Intake & Output 08/21/20 08/22/20 08/22/20 18:59 06:59 18:59 Intake Total 331.790 144.716 73.306 Output Total 1500 1400 Balance -1168.210 -1255.284 73.306 Intake: Intake, IV Titration 331.790 144.716 73.306 Amount Heparin Sod,Pork in 0.45% 331.790 144.716 73.306 NaCl 25,000 unit In 0.45 % NaCl 1 250ml.bag @ 10. 754 UNITS/KG/HR 10 mls/hr IV .Q24H [facility] Rx#: [id number] Output: Urine 1500 1400 Other: Voiding Method Indwelling Catheter Indwelling Catheter Indwelling Catheter # Bowel Movements 1 - Labs CBC & Chem 7: 08/21/20 06:32 08/22/20 06:01 Labs: Abnormal Lab Results - Last 24 Hours (Table) 08/21/20 08/21/20 08/21/20 Range/Units 11:20 14:22 16:24 APTT 70.9 H (22.0-30.0) sec Chloride (98-107) mmol/L Carbon Dioxide (22-30) mmol/L BUN (9-20) mg/dL Creatinine (0.66-1.25) mg/dL Glucose (74-99) mg/dL POC Glucose (mg/dL) 246 H 241 H (75-99) mg/dL 08/21/20 08/21/20 08/22/20 Range/Units 21:00 21:05 06:01 APTT 45.4 H (22.0-30.0) sec Chloride 110 H (98-107) mmol/L Carbon Dioxide 19 L (22-30) mmol/L BUN 62 H (9-20) mg/dL Creatinine 3.79 H (0.66-1.25) mg/dL Glucose 148 H (74-99) mg/dL POC Glucose (mg/dL) 248 H (75-99) mg/dL 08/22/20 08/22/20 Range/Units 06:01 07:01 APTT 36.9 H (22.0-30.0) sec Chloride (98-107) mmol/L Carbon Dioxide (22-30) mmol/L BUN (9-20) mg/dL Creatinine (0.66-1.25) mg/dL Glucose (74-99) mg/dL POC Glucose (mg/dL) 135 H (75-99) mg/dL Microbiology - Last 24 Hours (Table) 08/20/20 18:00 Urine Culture - Preliminary Urine,Catheterized Yeast species 08/19/20 13:51 Urine Culture - Final Urine,Voided Pseudomonas aeruginosa 08/19/20 09:57 Blood Culture - Preliminary Blood No Growth after 48 hours 08/19/20 09:57 Blood Culture - Preliminary Blood No Growth after 48 hours Assessment and Plan Plan: Assessment: 1. Acute kidney injury secondary to ATN secondary to COVID-19 infection and urinary retention. Creatinine 5.8 on admission is 3.79 today. 2. Chronic kidney disease stage IV with creatinine as low as 3.1 as of 08/04/2020. 3. Left renal atrophy with right ureteral stent due to hydronephrosis. Friend catheter placed for urinary retention. Urology following. 4. Metabolic acidosis secondary to acute kidney injury. Maintained on oral bicarbonate. Better. 5. Diabetes mellitus. 6. Hyperphosphatemia secondary to acute kidney injury maintained on PhosLo. Plan: Maintain normal saline at 50 mL an hour. Continue to monitor renal function and urine output. Strict I's and O's. No need for renal replacement therapy at this time. Continue to assess on a daily basis.
[2020-08-22 11:57] LABS: Glucose,Whole Blood 206 mg/dL (75-99)
--- NOTE | 2020-08-22 13:08 | P.PN ---
Subjective Progress Note Date: 08/22/20 HISTORY OF PRESENT ILLNESS: This is a 69-year-old male who is admitted to the hospital with pneumonia secondary to Covid 19. Cardiology is following secondary to abnormal troponins. The patient remains on IV heparin for bilateral DVTs and PE. Echocardiogram completed reveals ejection fraction 55-60%, trace to mild mitral regurgitation, and mild tricuspid regurgitation. Blood pressure 130/79. Heart rate in the 60s. Patient is afebrile. Patient is on room air with oxygen saturations greater than 92%. PHYSICAL EXAM: Thorough physical exam not completed secondary to limited evaluation/examination due to Covid19 ASSESSMENT: Covid 19 Pneumonia Acute pulmonary embolism Bilateral DVT Abnormal troponins, secondary to Covid and PE, no evidence of acute coronary syndrome Acute on chronic kidney disease PLAN: Continue current cardiac medications Continue IV heparin. Will defer oral anticoagulation to internal medicine We will sign off. Please reconsult if needed. Nurse practitioner note has been reviewed by physician. Signing provider agrees with the documented findings, assessment, and plan of care. Objective - Vital Signs Vital signs: Vital Signs Temp 97.4 F L 08/22/20 10:50 Pulse 63 08/22/20 10:50 Resp 16 08/22/20 10:50 BP 130/79 08/22/20 10:50 Pulse Ox 94 L 08/22/20 10:50 Intake & Output 08/21/20 08/22/20 08/22/20 18:59 06:59 18:59 Intake Total 331.790 144.716 73.306 Output Total 1500 1400 Balance -1168.210 -1255.284 73.306 Intake: Intake, IV Titration 331.790 144.716 73.306 Amount Heparin Sod,Pork in 0.45% 331.790 144.716 73.306 NaCl 25,000 unit In 0.45 % NaCl 1 250ml.bag @ 10. 754 UNITS/KG/HR 10 mls/hr IV .Q24H [facility] Rx#: [id number] Output: Urine 1500 1400 Other: Voiding Method Indwelling Catheter Indwelling Catheter Indwelling Catheter # Bowel Movements 1 - Labs CBC & Chem 7: 08/21/20 06:32 08/22/20 06:01 Labs: Abnormal Lab Results - Last 24 Hours (Table) 04/11/21 04/11/21 04/11/21 Range/Units 14:22 16:24 21:00 APTT 70.9 H 45.4 H (22.0-30.0) sec Chloride (98-107) mmol/L Carbon Dioxide (22-30) mmol/L BUN (9-20) mg/dL Creatinine (0.66-1.25) mg/dL Glucose (74-99) mg/dL POC Glucose (mg/dL) 241 H (75-99) mg/dL 08/21/20 08/22/20 08/22/20 Range/Units 21:05 06:01 06:01 APTT 36.9 H (22.0-30.0) sec Chloride 110 H (98-107) mmol/L Carbon Dioxide 19 L (22-30) mmol/L BUN 62 H (9-20) mg/dL Creatinine 3.79 H (0.66-1.25) mg/dL Glucose 148 H (74-99) mg/dL POC Glucose (mg/dL) 248 H (75-99) mg/dL 08/22/20 08/22/20 Range/Units 07:01 11:55 APTT (22.0-30.0) sec Chloride (98-107) mmol/L Carbon Dioxide (22-30) mmol/L BUN (9-20) mg/dL Creatinine (0.66-1.25) mg/dL Glucose (74-99) mg/dL POC Glucose (mg/dL) 135 H 206 H (75-99) mg/dL Microbiology - Last 24 Hours (Table) 08/19/20 09:57 Blood Culture - Preliminary Blood No Growth after 72 hours 08/19/20 09:57 Blood Culture - Preliminary Blood No Growth after 72 hours 08/20/20 18:00 Urine Culture - Preliminary Urine,Catheterized Yeast species 08/19/20 13:51 Urine Culture - Final Urine,Voided Pseudomonas aeruginosa
[2020-08-22 16:41] LABS: Glucose,Whole Blood 305 mg/dL (75-99)
[2020-08-22] MEDS: DEXTROSE 5%-0.9% NACL 1,000 ML IV SCH (17:08)
[2020-08-22 20:01] LABS: Glucose,Whole Blood 259 mg/dL (75-99)
[2020-08-22] MEDS: INSULIN DETEMIR (LEVEMIR) 100 UNIT/ML SYR SQ SCH (20:09)
[2020-08-22] MEDS: ATORVASTATIN 10 MG TAB PO SCH (20:09)
[2020-08-22] MEDS: CEFEPIME 1 GM in SODIUM CHLORIDE 0.9% 50 ML IVPB SCH (20:09)
[2020-08-22] MEDS ORDERED: INSULIN DETEMIR (LEVEMIR) 100 UNIT/ML SYR SQ ONE (21:58)
[2020-08-22] MEDS ORDERED: FLUCONAZOLE 100 MG TAB PO SCH (22:00)
--- NOTE | 2020-08-22 22:25 | P.PN ---
Subjective This is a pleasant 69 years old male with past medical history of diabetes mellitus, chronic kidney disease stage IV and kidney stones. Admitted with multiple medical problems including pneumonia as shown so on the CT of the chest with bilateral diffuse patchy ground glass opacity. Bilateral DVT and PE, acute kidney injury, urinary retention status post Friend catheter with bilateral hydronephrosis and acute on chronic kidney disease with pseudomonas UTI currently on antibiotic. Also she had mild elevated troponin. Also patient is hard of hearing. This morning he was sitting in chair comfortable with not so many symptoms, he denies dyspnea or chest pain or coughing. He states that this is the first time he is out of bed to chair. He denies any light pain or hemoptysis. No dysuria or urgency or hesitancy no significant suprapubic tenderness and Friend catheter is in place. No labs from today, yesterday leukocytosis of 14.8 K, creatinine is trending down 5.8 on admission down to 3.7 today. Sugars are elevated more than 200 and his Levemir increased from 20 units to 25 units tonight. Also inflammatory markers ferritin, lactate dehydrogenase and C-reactive protein are all increased. VQ scan: High probability for PE Renal ultrasound showing moderate right hydronephrosis and left hydronephrosis D-dimer is elevated 9.1 and throatconsult troponin is high at 1.8. He had fever 2 days ago at 100.3 but currently he is afebrile, rest of vitals are stable and he is saturating 100% on room air associate dean on case for high tropo dominick, no evidence of acute coronary syndrome and thought it is a due to PE and coated and baby aspirin is added and recommended to continue with heparin for now Proof Operator recommended to continue with gentle hydration with NS at 50 mL/h Patient currently is on cefepime, fluconazole and its for Anjali in urine, he is in normal sinus 50 mL/h, is on dexamethasone, he is on vitamin C, D and zinc. Also he is on insulin 25 units and aspirin 81 mg added by associate dean Review of systems CONSTITUTIONAL: No fever, no malaise, no fatigue. HEENT: No recent visual problems or hearing problems. Denied any sore throat. CARDIOVASCULAR: No orthopnea, PND, no palpitations, no syncope. PULMONARY: No shortness of breath, no cough, no hemoptysis. GASTROINTESTINAL: No diarrhea, no nausea, no vomiting, no abdominal pain. Normoactive bowel sounds. Active Medications Generic Name Dose Route Start Last Admin Trade Name Freq PRN Reason Stop Dose Admin Acetaminophen 1,000 mg 08/19/20 12:46 Acetaminophen Tab 500 Mg Tab PO Q6HR PRN Fever>101 Albuterol Sulfate 2 puff 08/19/20 12:46 Albuterol Hfa Inhaler INHALATION RT-Q6H PRN Shortness Of Breath Or Wheezing Ascorbic Acid 1,000 mg 08/19/20 13:00 08/22/20 08:29 Ascorbic Acid 500 Mg Tab PO 1,000 mg DAILY NAI Administration Aspirin 81 mg 08/20/20 13:15 08/22/20 08:29 Aspirin 81 Mg PO 81 mg DAILY NAI Administration Atorvastatin Calcium 10 mg 08/19/20 21:00 08/22/20 20:09 Atorvastatin 10 Mg Tab PO 10 mg HS NAI Administration Calcium Acetate 667 mg 08/21/20 12:30 08/22/20 16:50 Calcium Acetate 667 Mg Tab PO 667 mg TID-W/MEALS NAI Administration Cholecalciferol 25 mcg 08/20/20 09:00 08/22/20 08:29 Cholecalciferol 25 Mcg (1000 Iu) Tablet PO 25 mcg DAILY NAI Administration Dexamethasone Sodium Phosphate 6 mg 08/19/20 13:00 08/22/20 08:29 Dexamethasone Sod Phosphate 10 Mg/Ml 1 Ml Vial IV 08/28/20 09:01 6 mg DAILY NAI Administration Fluconazole 100 mg 08/22/20 22:00 Fluconazole 100 Mg Tab PO DAILY NAI Heparin Sodium (Porcine) 0 unit 08/19/20 13:01 08/22/20 08:26 Heparin Sodium 1,000 Un/Ml (10ml Vl) IV 2,300 unit PER PROTOCOL PRN Administration Low PTT Protocol Heparin Sodium/Sodium Chloride 250 mls @ 10 mls/hr 08/19/20 13:15 08/22/20 08:21 25,000 unit/ Sodium Chloride IV 15.75 units/kg/hr .Q24H NAI 14.645 mls/hr Titration Protocol 10.754 UNITS/KG/HR Dextrose/Sodium Chloride 1,000 mls @ 20 mls/hr 08/19/20 18:15 08/22/20 17:08 Dextrose 5%-Ns Iv Soln IV Not Given .Q24H NAI Sodium Chloride 1,000 mls @ 50 mls/hr 08/20/20 12:15 08/22/20 07:10 Saline 0.9% IV Not Given .Q20H NAI Cefepime HCl 1 gm/ Sodium 50 mls @ 12.5 mls/hr 08/22/20 21:00 08/22/20 20:09 Chloride IVPB 12.5 mls/hr Q12HR NAI Administration Insulin Aspart 0 unit 08/19/20 17:30 08/22/20 20:09 Insulin Aspart (Novolog) 100 Unit/Ml Vial SQ 4 unit ACHS [facility] Administration Protocol Insulin Detemir 25 unit 08/23/20 21:00 Insulin Detemir (Levemir) 100 Unit/Ml Syr SQ HS [facility] Metoprolol Succinate 25 mg 08/20/20 13:15 08/22/20 08:29 Metoprolol Succinate (Er) 25 Mg Tab.Er.24h PO 25 mg DAILY NAI Administration Miscellaneous Information 1 each 08/19/20 13:54 Magnesium Replacement Protocol 1 Each Misc MISCELLANE DAILY PRN Per Protocol Protocol Pantoprazole Sodium 40 mg 08/19/20 21:00 08/22/20 20:09 Pantoprazole 40 Mg Tablet PO 40 mg BID NAI Administration Sodium Bicarbonate 650 mg 08/20/20 16:00 08/22/20 20:09 Sodium Bicarbonate Tab 650 Mg Tab PO 650 mg TID NAI Administration Zinc Sulfate 220 mg 08/19/20 13:00 08/22/20 08:29 Zinc Sulfate 220 Mg Cap PO 220 mg DAILY NAI Administration Objective - Vital Signs Vital signs: Vital Signs Temp 97.5 F L 08/22/20 13:24 Pulse 77 08/22/20 13:24 Resp 18 08/22/20 13:24 BP 100/66 08/22/20 13:24 Pulse Ox 97 08/22/20 13:24 Intake & Output 08/21/20 08/22/20 08/22/20 18:59 06:59 18:59 Intake Total 331.790 144.716 73.306 Output Total 1500 1400 Balance -1168.210 -1255.284 73.306 Intake: Intake, IV Titration 331.790 144.716 73.306 Amount Heparin Sod,Pork in 0.45% 331.790 144.716 73.306 NaCl 25,000 unit In 0.45 % NaCl 1 250ml.bag @ 10. 754 UNITS/KG/HR 10 mls/hr IV .Q24H [facility] Rx#: [id number] Output: Urine 1500 1400 Other: Voiding Method Indwelling Catheter Indwelling Catheter Indwelling Catheter # Bowel Movements 1 - Exam -GENERAL: The patient is alert and oriented x3, not in any acute distress. Well developed, well nourished. Hard of hearing HEENT: Pupils are round and equally reacting to light. EOMI. No scleral icterus. No conjunctival pallor. Normocephalic, atraumatic. No pharyngeal erythema. No thyromegaly. CARDIOVASCULAR: S1 and S2 present. No murmurs, rubs, or gallops. PULMONARY: Chest is clear to auscultation, no wheezing or crackles. ABDOMEN: Soft, nontender, nondistended, normoactive bowel sounds. No palpable organomegaly. MUSCULOSKELETAL: No joint swelling or deformity. EXTREMITIES: No cyanosis, clubbing, or pedal edema. NEUROLOGICAL: Gross neurological examination did not reveal any focal deficits. SKIN: No rashes. no petechiae. - Labs CBC & Chem 7: 08/21/20 06:32 08/22/20 06:01 Labs: Abnormal Lab Results - Last 24 Hours (Table) 08/21/20 08/21/20 08/21/20 Range/Units 14:22 16:24 21:00 APTT 70.9 H 45.4 H (22.0-30.0) sec Chloride (98-107) mmol/L Carbon Dioxide (22-30) mmol/L BUN (9-20) mg/dL Creatinine (0.66-1.25) mg/dL Glucose (74-99) mg/dL POC Glucose (mg/dL) 241 H (75-99) mg/dL 08/21/20 08/22/20 08/22/20 Range/Units 21:05 06:01 06:01 APTT 36.9 H (22.0-30.0) sec Chloride 110 H (98-107) mmol/L Carbon Dioxide 19 L (22-30) mmol/L BUN 62 H (9-20) mg/dL Creatinine 3.79 H (0.66-1.25) mg/dL Glucose 148 H (74-99) mg/dL POC Glucose (mg/dL) 248 H (75-99) mg/dL 08/22/20 08/22/20 08/22/20 Range/Units 07:01 11:55 13:57 APTT 54.5 H (22.0-30.0) sec Chloride (98-107) mmol/L Carbon Dioxide (22-30) mmol/L BUN (9-20) mg/dL Creatinine (0.66-1.25) mg/dL Glucose (74-99) mg/dL POC Glucose (mg/dL) 135 H 206 H (75-99) mg/dL Microbiology - Last 24 Hours (Table) 08/19/20 09:57 Blood Culture - Preliminary Blood No Growth after 72 hours 08/19/20 09:57 Blood Culture - Preliminary Blood No Growth after 72 hours 08/20/20 18:00 Urine Culture - Preliminary Urine,Catheterized Yeast species 08/19/20 13:51 Urine Culture - Final Urine,Voided Pseudomonas aeruginosa Assessment and Plan Assessment: Bilateral Covid pneumonia without hypoxia Bilateral DVT and pulmonary embolism Acute kidney injury secondary to Covid and urinary retention 1600 mL of urine retention status post Friend catheter. Associated with bilateral hydronephrosis, more severe on the left side Pseudomonas and Anjali UTI Mildly elevated troponin secondary to Covid and infection Diabetes mellitus Generalized weakness and deconditioning Plan: This is a pleasant 69 years old male who presents with covid, ROBBIE, hydronephrosis and Pseudomonas UTI. Continue the current medication cefepime, fluconazole, gentle hydration So continue with dexamethasone, vitamin C, D and zinc. Increase insulin Levemir 25 units. Continue with aspirin added by associate dean Several consultants on the case including cardiology, pulmonary, infectious disease and urology Labs and medication were reviewed.. Continue same treatment. Continue with symptomatic treatment. Resume home medication. Monitor lytes and vitals. DVT and GI prophylaxis. Further recommendationsas per clinical course of the patient DVT prophylaxis: heparin GI Prophylaxis: Ppi PT/OT: Home health care versus subacute rehab, social service manager consulted Prognosis is guarded
--- NOTE | 2020-08-22 22:44 | PN ---
PROGRESS NOTE DATE OF SERVICE: 08/22/2020 REASON FOR FOLLOWUP: Complicated urinary tract infection. INTERVAL HISTORY: The patient is currently afebrile. The patient is breathing comfortably. The patient denies having any chest pain or shortness of breath. Occasional cough. No abdominal pain. Still has a Friend catheter. No diarrhea. PHYSICAL EXAMINATION: Blood pressure is 119/78 with a pulse of 65, temperature 97.5. He is 100% on room air. General description is an elderly male up in the chair in no distress. RESPIRATORY SYSTEM: Unlabored breathing with decreased intensity of breath sounds. No wheeze. HEART: S1, S2. Regular rate and rhythm. ABDOMEN: Soft. No tenderness. EXTREMITIES: No edema of the feet. LABS: No new labs have been obtained today. Repeat urine now showing Anjali albicans. DIAGNOSTIC IMPRESSION AND PLAN: Patient with a complicated urinary tract infection with urinary requiring Friend catheter placement by Urology. Initial urine was positive for Pseudomonas. Repeat urine obtained by Urology is now showing yeast. PLAN: 1. We will add Diflucan 100 mg p.o. daily and continue with cefepime. 2. Will follow his clinical condition and adjust medication further if needed. MMODL / IJN: [id number] / MTDD
[2020-08-23 02:01] LABS: Glucose,Whole Blood 165 mg/dL (75-99)
[2020-08-23] MEDS: SODIUM CHLORIDE 0.9% 1,000 ML IV SCH ×2 (05:11→19:51)
[2020-08-23 07:10] LABS: African American GFR (CKD) 23 (>60 ml/min/1.73 sqM); Anion Gap 11 mmol/L; Blood Urea Nitrogen 65 mg/dL (9-20); C Reactive Protein 77.9 mg/L (<10.0); Carbon Dioxide 19 mmol/L (22-30); Chloride 111 mmol/L (98-107); Glucose 151 mg/dL (74-99); Non-African American GFR(CKD) 20 (>60 ml/min/1.73 sqM); Potassium 4.3 mmol/L (3.5-5.1); Sodium 141 mmol/L (137-145)
[2020-08-23 07:10] LABS: Glucose,Whole Blood 172 mg/dL (75-99)
[2020-08-23] MEDS: CEFEPIME 1 GM in SODIUM CHLORIDE 0.9% 50 ML IVPB SCH ×2 (07:46→20:57)
[2020-08-23] MEDS: INSULIN ASPART (NovoLOG) 100 UNIT/ML VIAL SQ SCH ×4 (07:46→20:57)
[2020-08-23] MEDS: CHOLECALCIFEROL 25 MCG (1000 IU) TABLET PO SCH (07:47)
[2020-08-23] MEDS: ASCORBIC ACID 500 MG TAB PO SCH (07:47)
[2020-08-23] MEDS: DEXAMETHASONE SOD PHOSPHATE 10 MG/ML 1 ML VIAL IV SCH (07:47)
[2020-08-23] MEDS: SODIUM BICARBONATE TAB 650 MG TAB PO SCH ×3 (07:47→20:57)
[2020-08-23] MEDS: PANTOPRAZOLE 40 MG TABLET PO SCH ×2 (07:47→20:57)
[2020-08-23] MEDS: CALCIUM ACETATE 667 MG TAB PO SCH ×3 (07:47→17:04)
[2020-08-23] MEDS: ZINC SULFATE 220 MG CAP PO SCH (07:47)
[2020-08-23] MEDS: ASPIRIN 81 MG PO SCH (07:47)
[2020-08-23] MEDS: METOPROLOL SUCCINATE (ER) 25 MG TAB.ER.24H PO SCH (07:47)
[2020-08-23] MEDS: FLUCONAZOLE 100 MG TAB PO SCH (07:47)
--- NOTE | 2020-08-23 07:50 | XR ---
EXAMINATION TYPE: XR chest 1V portable DATE OF EXAM: 08/23/2020 COMPARISON: Chest x-ray 08/19/2020 HISTORY: Shortness of breath TECHNIQUE: Single frontal view of the chest is obtained. FINDINGS: Findings are similar to prior exam, subtle patchy density within the lungs. There are over lying leads. IMPRESSION: Correlate for pneumonia.
--- NOTE | 2020-08-23 11:18 | P.PN ---
Subjective Patient is seen in follow-up for acute kidney injury on chronic kidney disease. Has Friend catheter for severe urinary retention. Nonoliguric. Renal function continues to improve. No chest pain or shortness of breath. Oral intake fair. Vital signs are stable. General: The patient appeared well nourished and normally developed. HEENT: Head exam is unremarkable. Neck is without jugular venous distension. LUNGS: Breath sounds decreased. HEART: Rate and Rhythm are regular. ABDOMEN: Soft, nontender. EXTREMITITES: No edema. Objective - Vital Signs Vital signs: Vital Signs Temp 97.4 F L 08/23/20 05:45 Pulse 58 L 08/23/20 07:52 Resp 16 08/23/20 07:52 BP 122/72 08/23/20 05:45 Pulse Ox 95 08/23/20 05:45 Intake & Output 08/22/20 08/23/20 08/23/20 18:59 06:59 18:59 Intake Total 73.306 176.694 Output Total 1100 650 Balance -1026.694 -473.306 Intake: Intake, IV Titration 73.306 176.694 Amount Heparin Sod,Pork in 0.45% 73.306 176.694 NaCl 25,000 unit In 0.45 % NaCl 1 250ml.bag @ 10. 754 UNITS/KG/HR 10 mls/hr IV .Q24H [facility] Rx#: [id number] Output: Urine 1100 650 Other: Voiding Method Indwelling Catheter Indwelling Catheter Indwelling Catheter - Labs CBC & Chem 7: 08/21/20 06:32 08/23/20 06:15 Labs: Abnormal Lab Results - Last 24 Hours (Table) 08/22/20 08/22/20 08/22/20 Range/Units 11:55 13:57 16:39 ESR (0-15) mm/hr APTT 54.5 H (22.0-30.0) sec Chloride (98-107) mmol/L Carbon Dioxide (22-30) mmol/L BUN (9-20) mg/dL Creatinine (0.66-1.25) mg/dL Glucose (74-99) mg/dL POC Glucose (mg/dL) 206 H 305 H (75-99) mg/dL C-Reactive Protein (<10.0) mg/L 08/22/20 08/23/20 08/23/20 Range/Units 19:59 01:58 06:15 ESR 96 H (0-15) mm/hr APTT (22.0-30.0) sec Chloride (98-107) mmol/L Carbon Dioxide (22-30) mmol/L BUN (9-20) mg/dL Creatinine (0.66-1.25) mg/dL Glucose (74-99) mg/dL POC Glucose (mg/dL) 259 H 165 H (75-99) mg/dL C-Reactive Protein (<10.0) mg/L 08/23/20 08/23/20 08/23/20 Range/Units 06:15 06:15 07:09 ESR (0-15) mm/hr APTT 59.2 H (22.0-30.0) sec Chloride 111 H (98-107) mmol/L Carbon Dioxide 19 L (22-30) mmol/L BUN 65 H (9-20) mg/dL Creatinine 3.04 H (0.66-1.25) mg/dL Glucose 151 H (74-99) mg/dL POC Glucose (mg/dL) 172 H (75-99) mg/dL C-Reactive Protein 77.9 H (<10.0) mg/L Microbiology - Last 24 Hours (Table) 08/20/20 18:00 Urine Culture - Final Urine,Catheterized Anjali albicans 08/19/20 09:57 Blood Culture - Preliminary Blood No Growth after 72 hours 08/19/20 09:57 Blood Culture - Preliminary Blood No Growth after 72 hours Assessment and Plan Plan: Assessment: 1. Acute kidney injury secondary to ATN secondary to COVID-19 infection and urinary retention. Creatinine 5.8 on admission is 3.04 today. 2. Chronic kidney disease stage IV with creatinine as low as 3.1 as of 08/04/2020. 3. Left renal atrophy with right ureteral stent due to hydronephrosis. Friend catheter placed for urinary retention. Urology following. 4. Metabolic acidosis secondary to acute kidney injury. Maintained on oral bicarbonate. Stable. 5. Diabetes mellitus. 6. Hyperphosphatemia secondary to acute kidney injury maintained on PhosLo. Plan: Maintain normal saline at 50 mL an hour. Continue to monitor renal function and urine output. Strict I's and O's. No need for renal replacement therapy at this time. Continue to assess on a daily basis. No changes from nephrology standpoint today.
--- NOTE | 2020-08-23 11:41 | P.PN ---
Subjective Progress Note Date: 08/22/20 Principal diagnosis: Acute pulmonary embolism Bilateral deep venous thrombosis Acute covid19 pneumonia Chronic renal failure with GFR of 10 Type 2 diabetes mellitus Hypertension hypertensive cardiovascular disease 08/22/2020, patient sitting upright on the chair breathing comfortably, denies any chest pain, remains on room air, remains on antibiotics along with IV heparin 08/21/2020, patient seen eval examined during the rounds labs reviewed medications reviewed patient remains on room air oxygen saturation 95% denies any chest pain or shortness of breath, patient remains on IV heparin for bilateral DVT of lower extremity as well as pulmonary embolism, urine is posi tive for gram-negative rods, final results are pending patient remains on IV Rocephin 08/20/2020, patient seen and evaluated examined during the rounds patient remains on room air now chest pain is present ongoing shortness of breath, patient has been found to be positive for deep venous thrombosis of both lower extremity also has positive VQ scan of high probability for pulmonary embolism has been on IV heparin, denies any chest pain remains on room air, renal service is following for stage V chronic kidney disease, given multiple comorbidities decided to hold IV REM doesn't wear a therapy however continue Decadron for now This is a 69-year-old male who started having symptoms about a week ago testing came back positive for coronary 19 pneumonia, patient has been exposed from his daughter, he does have a history of diabetes as well as chronic renal failure, chest x-ray significant for right basal atelectasis, patient currently is on room air, saturation is 95%, GFR is on a 10 Objective - Vital Signs Vital signs: Vital Signs Temp 97.5 F L 08/22/20 13:24 Pulse 77 08/22/20 13:24 Resp 18 08/22/20 13:24 BP 100/66 08/22/20 13:24 Pulse Ox 97 08/22/20 13:24 Intake & Output 08/21/20 08/22/20 08/22/20 18:59 06:59 18:59 Intake Total 331.790 144.716 73.306 Output Total 1500 1400 Balance -1168.210 -1255.284 73.306 Intake: Intake, IV Titration 331.790 144.716 73.306 Amount Heparin Sod,Pork in 0.45% 331.790 144.716 73.306 NaCl 25,000 unit In 0.45 % NaCl 1 250ml.bag @ 10. 754 UNITS/KG/HR 10 mls/hr IV .Q24H [facility] Rx#: [id number] Output: Urine 1500 1400 Other: Voiding Method Indwelling Catheter Indwelling Catheter Indwelling Catheter # Bowel Movements 1 - Exam - Constitutional General appearance: average body habitus, cooperative, disheveled - EENT Eyes: PERRLA Ears: bilateral: normal - Neck Neck: normal ROM Carotids: bilateral: upstroke normal - Respiratory Respiratory: bilateral: CTA - Cardiovascular Rhythm: regular Heart sounds: normal: S1, S2 - Gastrointestinal General gastrointestinal: normal bowel sounds - Neurologic Neurologic: CNII-XII intact - Musculoskeletal Musculoskeletal: gait normal, generalized weakness, strength equal bilaterally - Psychiatric Psychiatric: A&O x's 3, appropriate affect, intact judgment & insight - Labs CBC & Chem 7: 08/21/20 06:32 08/23/20 06:15 Labs: Abnormal Lab Results - Last 24 Hours (Table) 08/21/20 08/21/20 08/22/20 Range/Units 21:00 21:05 06:01 APTT 45.4 H (22.0-30.0) sec Chloride 110 H (98-107) mmol/L Carbon Dioxide 19 L (22-30) mmol/L BUN 62 H (9-20) mg/dL Creatinine 3.79 H (0.66-1.25) mg/dL Glucose 148 H (74-99) mg/dL POC Glucose (mg/dL) 248 H (75-99) mg/dL 08/22/20 08/22/20 08/22/20 Range/Units 06:01 07:01 11:55 APTT 36.9 H (22.0-30.0) sec Chloride (98-107) mmol/L Carbon Dioxide (22-30) mmol/L BUN (9-20) mg/dL Creatinine (0.66-1.25) mg/dL Glucose (74-99) mg/dL POC Glucose (mg/dL) 135 H 206 H (75-99) mg/dL 08/22/20 Range/Units 13:57 APTT 54.5 H (22.0-30.0) sec Chloride (98-107) mmol/L Carbon Dioxide (22-30) mmol/L BUN (9-20) mg/dL Creatinine (0.66-1.25) mg/dL Glucose (74-99) mg/dL POC Glucose (mg/dL) (75-99) mg/dL Microbiology - Last 24 Hours (Table) 08/19/20 09:57 Blood Culture - Preliminary Blood No Growth after 72 hours 08/19/20 09:57 Blood Culture - Preliminary Blood No Growth after 72 hours 08/20/20 18:00 Urine Culture - Preliminary Urine,Catheterized Yeast species 08/19/20 13:51 Urine Culture - Final Urine,Voided Pseudomonas aeruginosa Assessment and Plan Assessment: Acute pulmonary embolism Bilateral deep venous thrombosis Acute covid19 infection Urinary tract infection due to gram-negative rods likely E. coli Chronic renal failure with GFR of 10 Type 2 diabetes mellitus Hypertension hypertensive cardiovascular disease Plan: IV heparin Continue Decadron Deep breathing exercise incentive spirometry Prone positioning IV Rocephin As per pharmacy guideline patient is not a candidate for IV REM doesn't wear as oxygenation have been stable on 95% symptoms onset over 1 week and GFR of only 10 Time with Patient: Greater than 30
--- NOTE | 2020-08-23 11:43 | P.PN ---
Subjective Progress Note Date: 08/23/20 Principal diagnosis: Acute pulmonary embolism Bilateral deep venous thrombosis Acute covid19 pneumonia Chronic renal failure with GFR of 10 Type 2 diabetes mellitus Hypertension hypertensive cardiovascular disease PERRL 2020 no significant change has been noted, remains on antibiotic therapy along with the IV heparin, and after 48 hour of therapy will be switched to oral diuretic anticoagulants, urine culture came back positive for Pseudomonas aeruginosa 08/22/2020, patient sitting upright on the chair breathing comfortably, denies any chest pain, remains on room air, remains on antibiotics along with IV heparin 08/21/2020, patient seen eval examined during the rounds labs reviewed medications reviewed patient remains on room air oxygen saturation 95% denies a ny chest pain or shortness of breath, patient remains on IV heparin for bilateral DVT of lower extremity as well as pulmonary embolism, urine is positive for gram-negative rods, final results are pending patient remains on IV Rocephin 08/20/2020, patient seen and evaluated examined during the rounds patient remains on room air now chest pain is present ongoing shortness of breath, patient has been found to be positive for deep venous thrombosis of both lower extremity also has positive VQ scan of high probability for pulmonary embolism has been on IV heparin, denies any chest pain remains on room air, renal service is following for stage V chronic kidney disease, given multiple comorbidities decided to hold IV REM doesn't wear a therapy however continue Decadron for now This is a 69-year-old male who started having symptoms about a week ago testing came back positive for coronary 19 pneumonia, patient has been exposed from his daughter, he does have a history of diabetes as well as chronic renal failure, chest x-ray significant for right basal atelectasis, patient currently is on r oom air, saturation is 95%, GFR is on a 10 Objective - Vital Signs Vital signs: Vital Signs Temp 97.4 F L 08/23/20 05:45 Pulse 58 L 08/23/20 07:52 Resp 16 08/23/20 07:52 BP 122/72 08/23/20 05:45 Pulse Ox 95 08/23/20 05:45 Intake & Output 08/22/20 08/23/20 08/23/20 18:59 06:59 18:59 Intake Total 73.306 176.694 Output Total 1100 650 Balance -1026.694 -473.306 Intake: Intake, IV Titration 73.306 176.694 Amount Heparin Sod,Pork in 0.45% 73.306 176.694 NaCl 25,000 unit In 0.45 % NaCl 1 250ml.bag @ 10. 754 UNITS/KG/HR 10 mls/hr IV .Q24H [facility] Rx#: [id number] Output: Urine 1100 650 Other: Voiding Method Indwelling Catheter Indwelling Catheter Indwelling Catheter - Exam - Constitutional General appearance: average body habitus, cooperative, disheveled - EENT Eyes: PERRLA Ears: bilateral: normal - Neck Neck: normal ROM Carotids: bilateral: upstroke normal - Respiratory Respiratory: bilateral: CTA - Cardiovascular Rhythm: regular Heart sounds: normal: S1, S2 - Gastrointestinal General gastrointestinal: normal bowel sounds - Neurologic Neurologic: CNII-XII intact - Musculoskeletal Musculoskeletal: gait normal, generalized weakness, strength equal bilaterally - Psychiatric Psychiatric: A&O x's 3, appropriate affect, intact judgment & insight - Labs CBC & Chem 7: 08/21/20 06:32 08/23/20 06:15 Labs: Abnormal Lab Results - Last 24 Hours (Table) 08/22/20 08/22/20 08/22/20 Range/Units 11:55 13:57 16:39 ESR (0-15) mm/hr APTT 54.5 H (22.0-30.0) sec Chloride (98-107) mmol/L Carbon Dioxide (22-30) mmol/L BUN (9-20) mg/dL Creatinine (0.66-1.25) mg/dL Glucose (74-99) mg/dL POC Glucose (mg/dL) 206 H 305 H (75-99) mg/dL C-Reactive Protein (<10.0) mg/L 08/22/20 08/23/20 08/23/20 Range/Units 19:59 01:58 06:15 ESR 96 H (0-15) mm/hr APTT (22.0-30.0) sec Chloride (98-107) mmol/L Carbon Dioxide (22-30) mmol/L BUN (9-20) mg/dL Creatinine (0.66-1.25) mg/dL Glucose (74-99) mg/dL POC Glucose (mg/dL) 259 H 165 H (75-99) mg/dL C-Reactive Protein (<10.0) mg/L 08/23/20 08/23/20 08/23/20 Range/Units 06:15 06:15 07:09 ESR (0-15) mm/hr APTT 59.2 H (22.0-30.0) sec Chloride 111 H (98-107) mmol/L Carbon Dioxide 19 L (22-30) mmol/L BUN 65 H (9-20) mg/dL Creatinine 3.04 H (0.66-1.25) mg/dL Glucose 151 H (74-99) mg/dL POC Glucose (mg/dL) 172 H (75-99) mg/dL C-Reactive Protein 77.9 H (<10.0) mg/L Microbiology - Last 24 Hours (Table) 08/20/20 18:00 Urine Culture - Final Urine,Catheterized Anjali albicans 08/19/20 09:57 Blood Culture - Preliminary Blood No Growth after 72 hours 08/19/20 09:57 Blood Culture - Preliminary Blood No Growth after 72 hours Assessment and Plan Assessment: Acute pulmonary embolism Bilateral deep venous thrombosis Acute covid19 infection Urinary tract infection due to Pseudomonas aeruginosa Chronic renal failure with GFR of 10 Type 2 diabetes mellitus Hypertension hypertensive cardiovascular disease Plan: IV heparin Continue Decadron Deep breathing exercise incentive spirometry Prone positioning IV Rocephin Time with Patient: Greater than 30
--- NOTE | 2020-08-23 11:52 | P.PN ---
Subjective Progress Note Date: 08/23/20 Principal diagnosis: Covid 19 infection bilateral lower extremity DVTs pulmonary embolism's acute on chronic kidney failure stage four acute urinary tract infection elevated troponins Evaluated 69-year-old male with past medical history of diabetes mellitus type II insulin-dependent, chronic kidney failure stage four, and hyperlipidemia. Patient was admitted with multiple medical problems including Covid pneumonia consistent with diffuse patchy ground glass opacities. CTA of the chest showed pulmonary embolism's, bilateral lower extremity ultrasound showed bilateral lower extremity DVTs, Pseudomonas urinary tract infection, elevated troponins, elevated inflammatory markers consistent Covid 19. Renal ultrasound showed moderate right hydronephrosis and left hydronephrosis. Patient is currently being anticoagulated for Covid 19 and pulmonary embolism's and DVTs. Patient is receiving Covid 19 cocktail at this time. Multiple consultants on the case due to multiple medical problems. Patient continues to endorse chills, shortness of breath at rest and exertion and generalized weakness. Patient denies fever, chest pain, palpitations, nausea, vomiting or diarrhea at this time. Objective - Vital Signs Vital signs: Vital Signs Temp 97.4 F L 08/23/20 05:45 Pulse 58 L 08/23/20 07:52 Resp 16 08/23/20 07:52 BP 122/72 08/23/20 05:45 Pulse Ox 95 08/23/20 05:45 Intake & Output 08/22/20 08/23/20 08/23/20 18:59 06:59 18:59 Intake Total 73.306 176.694 Output Total 1100 650 Balance -1026.694 -473.306 Intake: Intake, IV Titration 73.306 176.694 Amount Heparin Sod,Pork in 0.45% 73.306 176.694 NaCl 25,000 unit In 0.45 % NaCl 1 250ml.bag @ 10. 754 UNITS/KG/HR 10 mls/hr IV .Q24H [facility] Rx#: [id number] Output: Urine 1100 650 Other: Voiding Method Indwelling Catheter Indwelling Catheter Indwelling Catheter - Constitutional General appearance: Present: mild distress - EENT Eyes: Present: EOMI, PERRLA ENT: Present: hard of hearing Ears: bilateral: normal - Neck Carotids: bilateral: upstroke normal Thyroid: bilateral: normal size - Respiratory Respiratory: bilateral: diminished (Anterior and posterior lung castrejon) - Cardiovascular Details: Normal sinus rhythm Heart rate: 74 Rhythm: regular Heart sounds: normal: S1, S2 - Peripheral pulses radial pulse Peripheral Pulses: bilateral: Normal dorsalis pedis Peripheral Pulses: bilateral: Normal - Gastrointestinal General gastrointestinal: Present: normal bowel sounds - Integumentary Integumentary: Present: decreased turgor, pale - Neurologic Neurologic: Present: CNII-XII intact - Musculoskeletal Musculoskeletal: Present: generalized weakness - Psychiatric Psychiatric: Present: A&O x's 3, appropriate affect, intact judgment & insight - Labs CBC & Chem 7: 08/21/20 06:32 08/23/20 06:15 Labs: Abnormal Lab Results - Last 24 Hours (Table) 08/22/20 08/22/20 08/22/20 Range/Units 11:55 13:57 16:39 ESR (0-15) mm/hr APTT 54.5 H (22.0-30.0) sec Chloride (98-107) mmol/L Carbon Dioxide (22-30) mmol/L BUN (9-20) mg/dL Creatinine (0.66-1.25) mg/dL Glucose (74-99) mg/dL POC Glucose (mg/dL) 206 H 305 H (75-99) mg/dL C-Reactive Protein (<10.0) mg/L 08/22/20 08/23/20 08/23/20 Range/Units 19:59 01:58 06:15 ESR 96 H (0-15) mm/hr APTT (22.0-30.0) sec Chloride (98-107) mmol/L Carbon Dioxide (22-30) mmol/L BUN (9-20) mg/dL Creatinine (0.66-1.25) mg/dL Glucose (74-99) mg/dL POC Glucose (mg/dL) 259 H 165 H (75-99) mg/dL C-Reactive Protein (<10.0) mg/L 08/23/20 08/23/20 08/23/20 Range/Units 06:15 06:15 07:09 ESR (0-15) mm/hr APTT 59.2 H (22.0-30.0) sec Chloride 111 H (98-107) mmol/L Carbon Dioxide 19 L (22-30) mmol/L BUN 65 H (9-20) mg/dL Creatinine 3.04 H (0.66-1.25) mg/dL Glucose 151 H (74-99) mg/dL POC Glucose (mg/dL) 172 H (75-99) mg/dL C-Reactive Protein 77.9 H (<10.0) mg/L Microbiology - Last 24 Hours (Table) 08/20/20 18:00 Urine Culture - Final Urine,Catheterized Anjali albicans 08/19/20 09:57 Blood Culture - Preliminary Blood No Growth after 72 hours 08/19/20 09:57 Blood Culture - Preliminary Blood No Growth after 72 hours - Imaging and Cardiology Chest x-ray: report reviewed Assessment and Plan Assessment: Acute covid 19 pneumonia Acute hypoxic respiratory failure secondary to covid- 19 infection Pulmonary embolism's Bilateral lower extremity DVTs Pseudomonas and candid UTI Elevated troponins secondary to Covid 19 infection Chronic renal failure with a GFR of 10 Type 2 diabetes mellitus insulin-dependent Generalized weakness and deconditioning Hypertension Full code Plan: Covid 19 infectioncontinue Decadron, anticoagulation therapy, IV Rocephin for possible atypical pneumonia and urinary tract infection ,consultation with pulmonary critical care for recommendations and treatment plan Continue anticoagulation therapy of heparin drip low intensity due to low GFR Continue cefepime, fluconazole for acute urinary tract infection Continue use incentive spirometer 10 times an hour Continue to monitor vital signs and diagnostic testing Continue home medications Further recommendations to come based on patient's clinical condition Time with Patient: Greater than 30
[2020-08-23 11:54] LABS: Glucose,Whole Blood 239 mg/dL (75-99)
[2020-08-23] MEDS: HEPARIN SOD,PORK IN 0.45% NACL 25,000 UNIT in 0.45% NACL 1 250ML.BAG IV SCH (14:08)
[2020-08-23 16:56] LABS: Glucose,Whole Blood 291 mg/dL (75-99)
[2020-08-23] MEDS: DEXTROSE 5%-0.9% NACL 1,000 ML IV SCH (19:51)
--- NOTE | 2020-08-23 20:29 | PN ---
PROGRESS NOTE DATE OF SERVICE: 08/23/2020 REASON FOR FOLLOWUP: Urinary tract infection. INTERVAL HISTORY: The patient is currently afebrile. The patient is breathing comfortably on room air. Denies any chest pain or cough. No abdominal pain or diarrhea. PHYSICAL EXAMINATION: Blood pressure 109/74 with a pulse of 61, temperature 97.6. He is 96% on room air. General description is an elderly male up in the chair in no distress. RESPIRATORY SYSTEM: Unlabored breathing with decreased intensity of breath sounds. No wheeze. HEART: S1, S2. Regular rate and rhythm. ABDOMEN: Soft. No tenderness. LABS: BUN of 65, creatinine 3.04. CRP is 77.9. DIAGNOSTIC IMPRESSION AND PLAN: Patient with a urinary tract infection, complicated, in this patient who did urine retention requiring a Friend catheter placement. Initial sputum had Pseudomonas. Repeat showed Anjali albicans, covered with cefepime for a short course and monitor his clinical course closely. MMODL / IJN: [id number] / MTDD
[2020-08-23 20:48] LABS: Glucose,Whole Blood 274 mg/dL (75-99)
[2020-08-23] MEDS: ATORVASTATIN 10 MG TAB PO SCH (20:57)
[2020-08-23] MEDS: INSULIN DETEMIR (LEVEMIR) 100 UNIT/ML SYR SQ SCH (20:57)
[2020-08-24] MEDS: HEPARIN SOD,PORK IN 0.45% NACL 25,000 UNIT in 0.45% NACL 1 250ML.BAG IV SCH (04:52)
[2020-08-24 07:03] LABS: Glucose,Whole Blood 188 mg/dL (75-99)
[2020-08-24 07:04] LABS: Basophils # (A) 0.1 k/uL (0-0.2); Basophils % (A) 1 %; Eosinophils % (A) 0 %; HCT 34.2 % (39.0-53.0); Lymphocytes # (A) 1.4 k/uL (1.0-4.8); Lymphocytes % (A) 9 %; MCHC 32.2 g/dL (31.0-37.0); MCV 93.3 fL (80.0-100.0); Mean Platelet Volume 8.2; Monocytes # (A) 0.9 k/uL (0-1.0); Monocytes % (A) 5 %; Neutrophils # (A) 13.4 k/uL (1.3-7.7); Neutrophils % (A) 84 %; Platelet Count 439 k/uL (150-450); RBC 3.67 m/uL (4.30-5.90); RDW 13.9 % (11.5-15.5); WBC 16.1 k/uL (3.8-10.6)
[2020-08-24] MEDS: CEFEPIME 1 GM in SODIUM CHLORIDE 0.9% 50 ML IVPB SCH ×2 (07:28→20:28)
[2020-08-24] MEDS: INSULIN ASPART (NovoLOG) 100 UNIT/ML VIAL SQ SCH ×4 (07:28→20:28)
[2020-08-24] MEDS: DEXAMETHASONE SOD PHOSPHATE 10 MG/ML 1 ML VIAL IV SCH (07:29)
[2020-08-24] MEDS: ASCORBIC ACID 500 MG TAB PO SCH (07:30)
[2020-08-24] MEDS: ASPIRIN 81 MG PO SCH (07:30)
[2020-08-24] MEDS: ZINC SULFATE 220 MG CAP PO SCH (07:30)
[2020-08-24] MEDS: FLUCONAZOLE 100 MG TAB PO SCH (07:30)
[2020-08-24] MEDS: CHOLECALCIFEROL 25 MCG (1000 IU) TABLET PO SCH (07:30)
[2020-08-24] MEDS: METOPROLOL SUCCINATE (ER) 25 MG TAB.ER.24H PO SCH (07:30)
[2020-08-24] MEDS: SODIUM BICARBONATE TAB 650 MG TAB PO SCH ×3 (07:30→20:28)
[2020-08-24] MEDS: CALCIUM ACETATE 667 MG TAB PO SCH ×3 (07:30→17:00)
[2020-08-24] MEDS: PANTOPRAZOLE 40 MG TABLET PO SCH ×2 (07:30→20:28)
[2020-08-24 07:36] LABS: African American GFR (CKD) 24 (>60 ml/min/1.73 sqM); Anion Gap 8 mmol/L; Blood Urea Nitrogen 64 mg/dL (9-20); Calcium 9.1 mg/dL (8.4-10.2); Carbon Dioxide 20 mmol/L (22-30); Chloride 111 mmol/L (98-107); Glucose 167 mg/dL (74-99); Magnesium 1.9 mg/dL (1.6-2.3); Non-African American GFR(CKD) 21 (>60 ml/min/1.73 sqM); Potassium 4.3 mmol/L (3.5-5.1); Sodium 139 mmol/L (137-145)
--- NOTE | 2020-08-24 08:04 | P.PN ---
Subjective Progress Note Date: 08/24/20 Principal diagnosis: Covid 19 infection bilateral lower extremity DVTs pulmonary embolism's acute on chronic kidney failure stage four acute urinary tract infection elevated troponins Evaluated 69-year-old male with past medical history of diabetes mellitus type II insulin-dependent, chronic kidney failure stage four, and hyperlipidemia. Patient was admitted with multiple medical problems including Covid pneumonia consistent with diffuse patchy ground glass opacities. CTA of the chest showed pulmonary embolism's, bilateral lower extremity ultrasound showed bilateral lower extremity DVTs, Pseudomonas urinary tract infection, elevated troponins, elevated inflammatory markers consistent Covid 19. Renal ultrasound showed moderate right hydronephrosis and left hydronephrosis. Patient is currently being anticoagulated for Covid 19 and pulmonary embolism's and DVTs. Patient is receiving Covid 19 cocktail at this time. Multiple consultants on the case due to multiple medical problems. Patient continues to endorse chills, shortness of breath at rest and exertion and generalized weakness. Patient denies fever, chest pain, palpitations, nausea, vomiting or diarrhea at this time. 08/24/2020 Evaluated patient this a.m., patient resting comfortably in bed on room air oxygen saturations greater than 94% patient continues to receive anticoagulation in the form of heparin due to chronic kidney failure, for pulmonary embolisms and bilateral DVTs and Covid 19 infection patient continues receive Covid 19 cocktail for supplemental support. patient has indwelling catheter due to bilateral hydronephrosis, patient receiving Diflucan and cefepime for urinary tract infection per infectious disease.critical care managing covid 19 pneumonia. Patient endorses shortness of breath at rest and exertion and generalized weakness. Reviewed morning labs and vital signs Objective - Vital Signs Vital signs: Vital Signs Temp 97.4 F L 08/24/20 06:24 Pulse 55 L 08/24/20 06:24 Resp 17 08/24/20 06:24 BP 114/71 08/24/20 06:24 Pulse Ox 96 08/24/20 06:24 Intake & Output 08/23/20 08/24/20 08/24/20 18:59 06:59 18:59 Intake Total 900 215.77 Output Total 3600 Balance 900 -3384.23 Intake: Intake, IV Titration 900 215.77 Amount Cefepime 1 gm In Sodium 50 Chloride 0.9% 50 ml @ 12. 5 mls/hr IVPB Q12HR [facility] Rx#:[id number] Heparin Sod,Pork in 0.45% 250 215.77 NaCl 25,000 unit In 0.45 % NaCl 1 250ml.bag @ 10. 754 UNITS/KG/HR 10 mls/hr IV .Q24H [facility] Rx#: [id number] Sodium Chloride 0.9% 1, 600 000 ml @ 50 mls/hr IV . Q20H [facility] Rx#:[id number] Output: Urine 3600 Other: Voiding Method Indwelling Catheter Indwelling Catheter - Constitutional General appearance: Present: mild distress - EENT Eyes: Present: EOMI, PERRLA ENT: Present: hard of hearing Ears: bilateral: normal - Neck Carotids: bilateral: upstroke normal Thyroid: bilateral: normal size - Respiratory Respiratory: bilateral: diminished (Anterior and posterior lung castrejon) - Cardiovascular Details: Normal sinus rhythm with first-degree block Heart rate: 54 Rhythm: regular Heart sounds: normal: S1, S2 - Peripheral pulses radial pulse Peripheral Pulses: bilateral: Normal dorsalis pedis Peripheral Pulses: bilateral: Normal - Gastrointestinal General gastrointestinal: Present: normal bowel sounds - Integumentary Integumentary: Present: decreased turgor, pale - Neurologic Neurologic: Present: CNII-XII intact - Musculoskeletal Musculoskeletal: Present: generalized weakness - Psychiatric Psychiatric: Present: A&O x's 3, appropriate affect, intact judgment & insight - Allied health notes Allied health notes reviewed: nursing - Labs CBC & Chem 7: 08/24/20 06:21 08/24/20 06:21 Labs: Abnormal Lab Results - Last 24 Hours (Table) 08/23/20 08/23/20 08/23/20 Range/Units 06:15 11:53 16:54 WBC (3.8-10.6) k/uL RBC (4.30-5.90) m/uL Hgb (13.0-17.5) gm/dL Hct (39.0-53.0) % Neutrophils # (1.3-7.7) k/uL ESR 96 H (0-15) mm/hr APTT (22.0-30.0) sec Chloride (98-107) mmol/L Carbon Dioxide (22-30) mmol/L BUN (9-20) mg/dL Creatinine (0.66-1.25) mg/dL Glucose (74-99) mg/dL POC Glucose (mg/dL) 239 H 291 H (75-99) mg/dL C-Reactive Protein (<10.0) mg/L 08/23/20 08/24/20 08/24/20 Range/Units 20:47 06:21 06:21 WBC 16.1 H (3.8-10.6) k/uL RBC 3.67 L (4.30-5.90) m/uL Hgb 11.0 L (13.0-17.5) gm/dL Hct 34.2 L (39.0-53.0) % Neutrophils # 13.4 H (1.3-7.7) k/uL ESR (0-15) mm/hr APTT (22.0-30.0) sec Chloride 111 H (98-107) mmol/L Carbon Dioxide 20 L (22-30) mmol/L BUN 64 H (9-20) mg/dL Creatinine 2.95 H (0.66-1.25) mg/dL Glucose 167 H (74-99) mg/dL POC Glucose (mg/dL) 274 H (75-99) mg/dL C-Reactive Protein 51.0 H (<10.0) mg/L 08/24/20 08/24/20 Range/Units 06:21 07:01 WBC (3.8-10.6) k/uL RBC (4.30-5.90) m/uL Hgb (13.0-17.5) gm/dL Hct (39.0-53.0) % Neutrophils # (1.3-7.7) k/uL ESR (0-15) mm/hr APTT 57.3 H (22.0-30.0) sec Chloride (98-107) mmol/L Carbon Dioxide (22-30) mmol/L BUN (9-20) mg/dL Creatinine (0.66-1.25) mg/dL Glucose (74-99) mg/dL POC Glucose (mg/dL) 188 H (75-99) mg/dL C-Reactive Protein (<10.0) mg/L Microbiology - Last 24 Hours (Table) 08/19/20 09:57 Blood Culture - Preliminary Blood No Growth after 96 hours 08/19/20 09:57 Blood Culture - Preliminary Blood No Growth after 96 hours Assessment and Plan Assessment: Acute covid 19 pneumonia Acute hypoxic respiratory failure secondary to covid- 19 infection Pulmonary embolism's Bilateral lower extremity DVTs Pseudomonas and candid UTI Elevated troponins secondary to Covid 19 infection Chronic renal failure with a GFR of 10 Type 2 diabetes mellitus insulin-dependent Generalized weakness and deconditioning Hypertension Full code Plan: Covid 19 infectioncontinue Decadron, anticoagulation therapy, Diflucan and cefepime for urinary tract infection ,consultation with pulmonary critical care for recommendations and treatment plan Continue anticoagulation therapy of heparin drip low intensity due to low GFR Continue cefepime, fluconazole for acute urinary tract infection Continue use incentive spirometer 10 times an hour Continue to monitor vital signs and diagnostic testing Continue home medications Further recommendations to come based on patient's clinical condition Time with Patient: Greater than 30
--- NOTE | 2020-08-24 10:59 | P.PN ---
Subjective Patient is seen in follow-up for acute kidney injury on chronic kidney disease. Has Friend catheter for severe urinary retention. Nonoliguric. Renal function continues to improve. No chest pain or shortness of breath. Oral intake fair. Hemodynamically stable. No changes overnight. Vital signs are stable. General: The patient appeared well nourished and normally developed. HEENT: Head exam is unremarkable. Neck is without jugular venous distension. LUNGS: Breath sounds decreased. HEART: Rate and Rhythm are regular. ABDOMEN: Soft, nontender. EXTREMITITES: No edema. Objective - Vital Signs Vital signs: Vital Signs Temp 97.4 F L 08/24/20 09:39 Pulse 63 08/24/20 09:39 Resp 18 08/24/20 09:39 BP 107/69 08/24/20 09:39 Pulse Ox 96 08/24/20 09:39 Intake & Output 08/23/20 08/24/20 08/24/20 18:59 06:59 18:59 Intake Total 900 215.77 Output Total 3600 Balance 900 -3384.23 Intake: Intake, IV Titration 900 215.77 Amount Cefepime 1 gm In Sodium 50 Chloride 0.9% 50 ml @ 12. 5 mls/hr IVPB Q12HR [facility] Rx#:[id number] Heparin Sod,Pork in 0.45% 250 215.77 NaCl 25,000 unit In 0.45 % NaCl 1 250ml.bag @ 10. 754 UNITS/KG/HR 10 mls/hr IV .Q24H [facility] Rx#: [id number] Sodium Chloride 0.9% 1, 600 000 ml @ 50 mls/hr IV . Q20H [facility] Rx#:[id number] Output: Urine 3600 Other: Voiding Method Indwelling Catheter Indwelling Catheter Indwelling Catheter - Labs CBC & Chem 7: 08/24/20 06:21 08/24/20 06:21 Labs: Abnormal Lab Results - Last 24 Hours (Table) 08/23/20 08/23/20 08/23/20 Range/Units 11:53 16:54 20:47 WBC (3.8-10.6) k/uL RBC (4.30-5.90) m/uL Hgb (13.0-17.5) gm/dL Hct (39.0-53.0) % Neutrophils # (1.3-7.7) k/uL APTT (22.0-30.0) sec Chloride (98-107) mmol/L Carbon Dioxide (22-30) mmol/L BUN (9-20) mg/dL Creatinine (0.66-1.25) mg/dL Glucose (74-99) mg/dL POC Glucose (mg/dL) 239 H 291 H 274 H (75-99) mg/dL C-Reactive Protein (<10.0) mg/L 08/24/20 08/24/20 08/24/20 Range/Units 06:21 06:21 06:21 WBC 16.1 H (3.8-10.6) k/uL RBC 3.67 L (4.30-5.90) m/uL Hgb 11.0 L (13.0-17.5) gm/dL Hct 34.2 L (39.0-53.0) % Neutrophils # 13.4 H (1.3-7.7) k/uL APTT 57.3 H (22.0-30.0) sec Chloride 111 H (98-107) mmol/L Carbon Dioxide 20 L (22-30) mmol/L BUN 64 H (9-20) mg/dL Creatinine 2.95 H (0.66-1.25) mg/dL Glucose 167 H (74-99) mg/dL POC Glucose (mg/dL) (75-99) mg/dL C-Reactive Protein 51.0 H (<10.0) mg/L 08/24/20 Range/Units 07:01 WBC (3.8-10.6) k/uL RBC (4.30-5.90) m/uL Hgb (13.0-17.5) gm/dL Hct (39.0-53.0) % Neutrophils # (1.3-7.7) k/uL APTT (22.0-30.0) sec Chloride (98-107) mmol/L Carbon Dioxide (22-30) mmol/L BUN (9-20) mg/dL Creatinine (0.66-1.25) mg/dL Glucose (74-99) mg/dL POC Glucose (mg/dL) 188 H (75-99) mg/dL C-Reactive Protein (<10.0) mg/L Microbiology - Last 24 Hours (Table) 08/19/20 09:57 Blood Culture - Preliminary Blood No Growth after 96 hours 08/19/20 09:57 Blood Culture - Preliminary Blood No Growth after 96 hours Assessment and Plan Plan: Assessment: 1. Acute kidney injury secondary to ATN secondary to COVID-19 infection and urinary retention. Creatinine 5.8 on admission is 2.95 today. 2. Chronic kidney disease stage IV with creatinine as low as 3.1 as of 08/04/2020. 3. Left renal atrophy with right ureteral stent due to hydronephrosis. Friend catheter placed for urinary retention. Urology following. 4. Metabolic acidosis secondary to acute kidney injury. Maintained on oral bicarbonate. Stable. 5. Diabetes mellitus. 6. Hyperphosphatemia secondary to acute kidney injury maintained on PhosLo. 7. COVID-19 pneumonia maintained on steroids and zinc. Plan: Maintain normal saline at 50 mL an hour. Continue to monitor renal function and urine output. Strict I's and O's. No need for renal replacement therapy at this time. Continue to assess on a daily basis. Avoid nephrotoxins.
--- NOTE | 2020-08-24 11:22 | P.PN ---
Subjective Progress Note Date: 08/24/20 Principal diagnosis: Acute pulmonary embolism Bilateral deep venous thrombosis Acute covid19 pneumonia Chronic renal failure with GFR of 10 Type 2 diabetes mellitus Hypertension hypertensive cardiovascular disease 08/24/2020, patient seen eval examined during the rounds remains on IV heparin, oral direct antiglobulin can be started, denies any chest pain breathing comfor tably on room air August 23 2020 no significant change has been noted, remains on antibiotic therapy along with the IV heparin, and after 48 hour of therapy will be switched to oral diuretic anticoagulants, urine culture came back positive for Pseudomonas aeruginosa 08/22/2020, patient sitting upright on the chair breathing comfortably, denies any chest pain, remains on room air, remains on antibiotics along with IV heparin 08/21/2020, patient seen eval examined during the rounds labs reviewed medications reviewed patient remains on room air oxygen saturation 95% denies any chest pain or shortness of breath, patient remains on IV heparin for bilateral DVT of lower extremity as well as pulmonary embolism, urine is positive for gram-negative rods, final results are pending patient remains on IV Rocephin 08/20/2020, patient seen and evaluated examined during the rounds patient remains on room air now chest pain is present ongoing shortness of breath, patient has been found to be positive for deep venous thrombosis of both lower extremity also has positive VQ scan of high probability for pulmonary embolism has been on IV heparin, denies any chest pain remains on room air, renal service is following for stage V chronic kidney disease, given multiple comorbidities decided to hold IV REM doesn't wear a therapy however continue Decadron for now This is a 69-year-old male who started having symptoms about a week ago testing came back positive for coronary 19 pneumonia, patient has been exposed from his daughter, he does have a history of diabetes as well as chronic renal failure, chest x-ray significant for right basal atelectasis, patient currently is on room air, saturation is 95%, GFR is on a 10 Objective - Vital Signs Vital signs: Vital Signs Temp 97.4 F L 08/24/20 09:39 Pulse 63 08/24/20 09:39 Resp 18 08/24/20 09:39 BP 107/69 08/24/20 09:39 Pulse Ox 96 08/24/20 09:39 Intake & Output 08/23/20 08/24/20 08/24/20 18:59 06:59 18:59 Intake Total 900 215.77 Output Total 3600 Balance 900 -3384.23 Intake: Intake, IV Titration 900 215.77 Amount Cefepime 1 gm In Sodium 50 Chloride 0.9% 50 ml @ 12. 5 mls/hr IVPB Q12HR [facility] Rx#:[id number] Heparin Sod,Pork in 0.45% 250 215.77 NaCl 25,000 unit In 0.45 % NaCl 1 250ml.bag @ 10. 754 UNITS/KG/HR 10 mls/hr IV .Q24H [facility] Rx#: [id number] Sodium Chloride 0.9% 1, 600 000 ml @ 50 mls/hr IV . Q20H [facility] Rx#:[id number] Output: Urine 3600 Other: Voiding Method Indwelling Catheter Indwelling Catheter Indwelling Catheter - Exam - Constitutional General appearance: average body habitus, cooperative, disheveled - EENT Eyes: PERRLA Ears: bilateral: normal - Neck Neck: normal ROM Carotids: bilateral: upstroke normal - Respiratory Respiratory: bilateral: CTA - Cardiovascular Rhythm: regular Heart sounds: normal: S1, S2 - Gastrointestinal General gastrointestinal: normal bowel sounds - Neurologic Neurologic: CNII-XII intact - Musculoskeletal Musculoskeletal: gait normal, generalized weakness, strength equal bilaterally - Psychiatric Psychiatric: A&O x's 3, appropriate affect, intact judgment & insight - Labs CBC & Chem 7: 08/24/20 06:21 08/24/20 06:21 Labs: Abnormal Lab Results - Last 24 Hours (Table) 08/23/20 08/23/20 08/23/20 Range/Units 11:53 16:54 20:47 WBC (3.8-10.6) k/uL RBC (4.30-5.90) m/uL Hgb (13.0-17.5) gm/dL Hct (39.0-53.0) % Neutrophils # (1.3-7.7) k/uL APTT (22.0-30.0) sec Chloride (98-107) mmol/L Carbon Dioxide (22-30) mmol/L BUN (9-20) mg/dL Creatinine (0.66-1.25) mg/dL Glucose (74-99) mg/dL POC Glucose (mg/dL) 239 H 291 H 274 H (75-99) mg/dL C-Reactive Protein (<10.0) mg/L 08/24/20 08/24/20 08/24/20 Range/Units 06:21 06:21 06:21 WBC 16.1 H (3.8-10.6) k/uL RBC 3.67 L (4.30-5.90) m/uL Hgb 11.0 L (13.0-17.5) gm/dL Hct 34.2 L (39.0-53.0) % Neutrophils # 13.4 H (1.3-7.7) k/uL APTT 57.3 H (22.0-30.0) sec Chloride 111 H (98-107) mmol/L Carbon Dioxide 20 L (22-30) mmol/L BUN 64 H (9-20) mg/dL Creatinine 2.95 H (0.66-1.25) mg/dL Glucose 167 H (74-99) mg/dL POC Glucose (mg/dL) (75-99) mg/dL C-Reactive Protein 51.0 H (<10.0) mg/L 08/24/20 Range/Units 07:01 WBC (3.8-10.6) k/uL RBC (4.30-5.90) m/uL Hgb (13.0-17.5) gm/dL Hct (39.0-53.0) % Neutrophils # (1.3-7.7) k/uL APTT (22.0-30.0) sec Chloride (98-107) mmol/L Carbon Dioxide (22-30) mmol/L BUN (9-20) mg/dL Creatinine (0.66-1.25) mg/dL Glucose (74-99) mg/dL POC Glucose (mg/dL) 188 H (75-99) mg/dL C-Reactive Protein (<10.0) mg/L Microbiology - Last 24 Hours (Table) 08/19/20 09:57 Blood Culture - Preliminary Blood No Growth after 96 hours 08/19/20 09:57 Blood Culture - Preliminary Blood No Growth after 96 hours Assessment and Plan Assessment: Acute pulmonary embolism Bilateral deep venous thrombosis Acute covid19 infection Urinary tract infection due to Pseudomonas aeruginosa Chronic renal failure with GFR of 10 Type 2 diabetes mellitus Hypertension hypertensive cardiovascular disease Plan: IV heparin can be switched to oral diuretic anticoagulant Eliquis 5 mg twice a day Continue Decadron Deep breathing exercise incentive spirometry Prone positioning IV Rocephin Time with Patient: Greater than 30
[2020-08-24 11:50] LABS: Glucose,Whole Blood 259 mg/dL (75-99)
[2020-08-24 16:35] LABS: Glucose,Whole Blood 449 mg/dL (75-99)
[2020-08-24] MEDS: APIXABAN 5 MG TAB PO SCH (17:00)
--- NOTE | 2020-08-24 17:56 | PN ---
PROGRESS NOTE DATE OF SERVICE: 08/24/2020 REASON FOR FOLLOWUP: Complicated urinary tract infection. INTERVAL HISTORY: The patient is currently afebrile. The patient is breathing comfortably on room air. The patient denies having any chest pain or shortness of breath or cough. No abdominal pain or diarrhea. PHYSICAL EXAMINATION: Blood pressure 102/65, pulse 64, temperature 97.5. He is 97% on room air. General description is an elderly male up in the chair in no distress. RESPIRATORY SYSTEM: Unlabored breathing. Clear to auscultation anteriorly. HEART: S1, S2. Regular rate and rhythm. ABDOMEN: Soft. No tenderness. LABS: Hemoglobin is 11, white count 16.1. BUN of 64, creatinine is 2.95. DIAGNOSTIC IMPRESSION AND PLAN: 1. Patient with a complicated urinary tract infection. This patient did require placement of the Friend catheter by urologist. Initial culture with Pseudomonas. Repeat is showing a Anjali albicans. Patient is currently on cefepime and Diflucan. 2. White count elevation, more likely related to steroids, and no evidence of any worsening infection. MMODL / IJN: [id number] /
[2020-08-24 20:26] LABS: Glucose,Whole Blood 413 mg/dL (75-99)
[2020-08-24] MEDS: ATORVASTATIN 10 MG TAB PO SCH (20:28)
[2020-08-24] MEDS: INSULIN DETEMIR (LEVEMIR) 100 UNIT/ML SYR SQ SCH (20:28)
[2020-08-24] MEDS: SODIUM CHLORIDE 0.9% 1,000 ML IV SCH (20:28)
[2020-08-24] MEDS ORDERED: APIXABAN 5 MG TAB PO SCH (21:00)
[2020-08-25 02:33] LABS: Glucose,Whole Blood 244 mg/dL (75-99)
[2020-08-25 07:04] LABS: Glucose,Whole Blood 198 mg/dL (75-99)
[2020-08-25] MEDS: APIXABAN 5 MG TAB PO SCH ×2 (08:04→20:54)
[2020-08-25] MEDS: ASPIRIN 81 MG PO SCH (08:05)
[2020-08-25] MEDS: ASCORBIC ACID 500 MG TAB PO SCH (08:05)
[2020-08-25] MEDS: SODIUM BICARBONATE TAB 650 MG TAB PO SCH ×3 (08:05→20:53)
[2020-08-25] MEDS: CHOLECALCIFEROL 25 MCG (1000 IU) TABLET PO SCH (08:05)
[2020-08-25] MEDS: PANTOPRAZOLE 40 MG TABLET PO SCH ×2 (08:05→20:54)
[2020-08-25] MEDS: METOPROLOL SUCCINATE (ER) 25 MG TAB.ER.24H PO SCH (08:05)
[2020-08-25] MEDS: FLUCONAZOLE 100 MG TAB PO SCH (08:05)
[2020-08-25] MEDS: ZINC SULFATE 220 MG CAP PO SCH (08:05)
[2020-08-25] MEDS: CALCIUM ACETATE 667 MG TAB PO SCH ×3 (08:05→16:41)
[2020-08-25] MEDS: DEXAMETHASONE SOD PHOSPHATE 10 MG/ML 1 ML VIAL IV SCH (08:06)
[2020-08-25] MEDS: INSULIN ASPART (NovoLOG) 100 UNIT/ML VIAL SQ SCH ×4 (08:06→20:54)
[2020-08-25] MEDS: CEFEPIME 1 GM in SODIUM CHLORIDE 0.9% 50 ML IVPB SCH (08:17)
--- NOTE | 2020-08-25 08:21 | P.PN ---
Subjective Progress Note Date: 08/25/20 Principal diagnosis: Covid 19 infection bilateral lower extremity DVTs pulmonary embolism's acute on chronic kidney failure stage four acute urinary tract infection elevated troponins Evaluated 69-year-old male with past medical history of diabetes mellitus type II insulin-dependent, chronic kidney failure stage four, and hyperlipidemia. Patient was admitted with multiple medical problems including Covid pneumonia consistent with diffuse patchy ground glass opacities. CTA of the chest showed pulmonary embolism's, bilateral lower extremity ultrasound showed bilateral lower extremity DVTs, Pseudomonas urinary tract infection, elevated troponins, elevated inflammatory markers consistent Covid 19. Renal ultrasound showed moderate right hydronephrosis and left hydronephrosis. Patient is currently being anticoagulated for Covid 19 and pulmonary embolism's and DVTs. Patient is receiving Covid 19 cocktail at this time. Multiple consultants on the case due to multiple medical problems. Patient continues to endorse chills, shortness of breath at rest and exertion and generalized weakness. Patient denies fever, chest pain, palpitations, nausea, vomiting or diarrhea at this time. 08/24/2020 Evaluated patient this a.m., patient resting comfortably in bed on room air oxygen saturations greater than 94% patient continues to receive anticoagulation in the form of heparin due to chronic kidney failure, for pulmonary embolisms and bilateral DVTs and Covid 19 infection patient continues receive Covid 19 cocktail for supplemental support. patient has indwelling catheter due to bilateral hydronephrosis, patient receiving Diflucan and cefepime for urinary tract infection per infectious disease.critical care managing covid 19 pneumonia. Patient endorses shortness of breath at rest and exertion and generalized weakness. Reviewed morning labs and vital signs 08/25/2020 Patient this a.m., patient resting comfortably in bed on room air saturations greater than 94%. Heparin drip stopped initiated eliquis 10 mg by mouth twice a day for 7 days, then transition to eliquis 5 mg twice a day for pulmonary embolisms and bilateral lower extremity DVTs. patient continues to receive Covid 19 cocktail for supplemental support. His indwelling catheter has improved his kidney function, and continues receive Diflucan and cefepime for acute urinary tract infection. He endorses generalized weakness and fatigue. Patient denies fever, chills, shortness of breath, chest pain, palpitations, abdominal pain, nausea, vomiting or diarrhea at this time. Objective - Vital Signs Vital signs: Vital Signs Temp 97.5 F L 08/25/20 05:00 Pulse 48 L 08/25/20 05:00 Resp 14 08/25/20 05:00 BP 117/64 08/25/20 05:00 Pulse Ox 98 08/25/20 05:00 Intake & Output 08/24/20 08/25/20 08/25/20 18:59 06:59 18:59 Output Total 1200 Balance -1200 Output: Urine 1200 Other: Voiding Method Indwelling Catheter Indwelling Catheter # Voids 2 # Bowel Movements 1 - Constitutional General appearance: Present: cooperative - EENT Eyes: Present: EOMI, PERRLA ENT: Present: hard of hearing Ears: bilateral: normal - Neck Neck: Present: normal ROM Carotids: bilateral: upstroke normal Thyroid: bilateral: normal size - Respiratory Respiratory: bilateral: CTA (Anterior and posterior) - Cardiovascular Details: Sinus bradycardia Heart rate: 58 Rhythm: regular Heart sounds: normal: S1, S2 - Peripheral pulses radial pulse Peripheral Pulses: bilateral: Normal dorsalis pedis Peripheral Pulses: bilateral: Normal - Gastrointestinal General gastrointestinal: Present: normal bowel sounds - Genitourinary Genitourinary Comment(s): Indwelling catheter present - Integumentary Integumentary: Present: pale - Neurologic Neurologic: Present: CNII-XII intact - Musculoskeletal Musculoskeletal: Present: generalized weakness - Psychiatric Psychiatric: Present: A&O x's 3, appropriate affect, intact judgment & insight - Allied health notes Allied health notes reviewed: case management - Labs CBC & Chem 7: 08/24/20 06:21 08/24/20 06:21 Labs: Abnormal Lab Results - Last 24 Hours (Table) 08/24/20 08/24/20 08/24/20 Range/Units 11:46 16:32 20:25 POC Glucose (mg/dL) 259 H 449 H 413 H (75-99) mg/dL 08/25/20 08/25/20 Range/Units 02:30 06:57 POC Glucose (mg/dL) 244 H 198 H (75-99) mg/dL Microbiology - Last 24 Hours (Table) 08/19/20 09:57 Blood Culture - Preliminary Blood No Growth after 120 hours 08/19/20 09:57 Blood Culture - Preliminary Blood No Growth after 120 hours - Imaging and Cardiology Chest x-ray: image reviewed Assessment and Plan Assessment: Acute covid 19 pneumonia Acute hypoxic respiratory failure secondary to covid- 19 infection Pulmonary embolism's Bilateral lower extremity DVTs Pseudomonas and candid UTI Elevated troponins secondary to Covid 19 infection Chronic renal failure with a GFR of 10 Type 2 diabetes mellitus insulin-dependent Generalized weakness and deconditioning Hypertension Full code Plan: Covid 19 infectioncontinue Decadron, anticoagulation therapy, Diflucan and cefepime for urinary tract infection ,consultation with pulmonary critical care for recommendations and treatment plan Continue anticoagulation therapy in the form of Eliquis 10 mg twice a day for 7 days then transitioned to 5 mg twice a day Continue cefepime, fluconazole for acute urinary tract infection Continue use incentive spirometer 10 times an hour Continue to monitor vital signs and diagnostic testing Continue home medications Further recommendations to come based on patient's clinical condition Hopeful transfer to [facility] for rehab tomorrow Time with Patient: Greater than 30
--- NOTE | 2020-08-25 08:25 | XR ---
EXAMINATION TYPE: XR chest 1V portable DATE OF EXAM: 08/25/2020 CLINICAL HISTORY: Difficulty breathing progress study. TECHNIQUE: Single AP portable upright view of the chest is obtained. COMPARISON: Chest x-ray from [address] chest 5 days earlier. FINDINGS: Chronic parenchymal changes with patchy lower lung opacities seen better on CT report of p charly film remain present. Stable mild cardiomegaly. Osseous structures are intact. IMPRESSION: Mild cardiomegaly and chronic changes with patchy bilateral lower lung opacities remainin g present. No significant change from most recent studies.
[2020-08-25 09:33] LABS: Basophils # (A) 0.1 k/uL (0-0.2); Basophils % (A) 1 %; Eosinophils % (A) 0 %; HCT 35.4 % (39.0-53.0); HGB 11.4 gm/dL (13.0-17.5); Hypochromasia Slight; Lymphocytes # (A) 1.6 k/uL (1.0-4.8); Lymphocytes % (A) 9 %; MCH 30.3 pg (25.0-35.0); MCHC 32.3 g/dL (31.0-37.0); MCV 93.7 fL (80.0-100.0); Monocytes # (A) 0.9 k/uL (0-1.0); Monocytes % (A) 5 %; Neutrophils # (A) 15.1 k/uL (1.3-7.7); Neutrophils % (A) 84 %; Platelet Count 497 k/uL (150-450); RBC 3.78 m/uL (4.30-5.90)
--- NOTE | 2020-08-25 10:52 | P.PN ---
Subjective Patient is seen in follow-up for acute kidney injury on chronic kidney disease. Has Friend catheter for severe urinary retention. Nonoliguric. Renal function continues to improve. No chest pain or shortness of breath. Oral intake fair. Hemodynamically stable. No changes overnight. Currently sitting up in chair. No active complaints. Vital signs are stable. General: The patient appeared well nourished and normally developed. HEENT: Head exam is unremarkable. Neck is without jugular venous distension. LUNGS: Breath sounds decreased. HEART: Rate and Rhythm are regular. ABDOMEN: Soft, nontender. EXTREMITITES: No edema. Objective - Vital Signs Vital signs: Vital Signs Temp 98.3 F 08/25/20 10:00 Pulse 59 L 08/25/20 10:00 Resp 20 08/25/20 10:00 BP 114/71 08/25/20 10:00 Pulse Ox 98 08/25/20 10:00 Intake & Output 08/24/20 08/25/20 08/25/20 18:59 06:59 18:59 Intake Total 240 Output Total 1200 Balance -1200 240 Intake: Oral 240 Output: Urine 1200 Other: Voiding Method Indwelling Catheter Indwelling Catheter Indwelling Catheter # Voids 2 # Bowel Movements 1 - Labs CBC & Chem 7: 08/25/20 08:51 08/24/20 06:21 Labs: Abnormal Lab Results - Last 24 Hours (Table) 08/24/20 08/24/20 08/24/20 Range/Units 11:46 16:32 20:25 WBC (3.8-10.6) k/uL RBC (4.30-5.90) m/uL Hgb (13.0-17.5) gm/dL Hct (39.0-53.0) % Plt Count (150-450) k/uL Neutrophils # (1.3-7.7) k/uL D-Dimer (<0.60) mg/L FEU POC Glucose (mg/dL) 259 H 449 H 413 H (75-99) mg/dL 08/25/20 08/25/20 08/25/20 Range/Units 02:30 06:57 08:51 WBC 18.0 H (3.8-10.6) k/uL RBC 3.78 L (4.30-5.90) m/uL Hgb 11.4 L (13.0-17.5) gm/dL Hct 35.4 L (39.0-53.0) % Plt Count 497 H (150-450) k/uL Neutrophils # 15.1 H (1.3-7.7) k/uL D-Dimer (<0.60) mg/L FEU POC Glucose (mg/dL) 244 H 198 H (75-99) mg/dL 08/25/20 Range/Units 08:51 WBC (3.8-10.6) k/uL RBC (4.30-5.90) m/uL Hgb (13.0-17.5) gm/dL Hct (39.0-53.0) % Plt Count (150-450) k/uL Neutrophils # (1.3-7.7) k/uL D-Dimer 3.40 H (<0.60) mg/L FEU POC Glucose (mg/dL) (75-99) mg/dL Microbiology - Last 24 Hours (Table) 08/19/20 09:57 Blood Culture - Preliminary Blood No Growth after 120 hours 08/19/20 09:57 Blood Culture - Preliminary Blood No Growth after 120 hours Assessment and Plan Plan: Assessment: 1. Acute kidney injury secondary to ATN secondary to COVID-19 infection and urinary retention. Creatinine 5.8 on admission is 2.95 as of yesterday. 2. Chronic kidney disease stage IV with creatinine as low as 3.1 as of 08/04/2020. 3. Left renal atrophy with right ureteral stent due to hydronephrosis. Friend catheter placed for urinary retention. Urology following. 4. Metabolic acidosis secondary to acute kidney injury. Maintained on oral bicarbonate. Stable. 5. Diabetes mellitus. 6. Hyperphosphatemia secondary to acute kidney injury maintained on PhosLo. 7. COVID-19 pneumonia maintained on steroids and zinc. Plan: Maintain normal saline at 50 mL an hour. Continue to monitor renal function and urine output. Strict I's and O's. No need for renal replacement therapy at this time. Continue to assess on a daily basis. Avoid nephrotoxins. Morning labs pending.
[2020-08-25 11:42] LABS: Glucose,Whole Blood 216 mg/dL (75-99)
[2020-08-25 12:17] LABS: ALT 25 U/L (4-49); AST 22 U/L (17-59); African American GFR (CKD) 30 (>60 ml/min/1.73 sqM); Albumin 2.7 g/dL (3.5-5.0); Albumin/Globulin Ratio 0.8; Alkaline Phosphatase 140 U/L (38-126); Anion Gap 9 mmol/L; Blood Urea Nitrogen 57 mg/dL (9-20); C Reactive Protein 30.4 mg/L (<10.0); Calcium 9.2 mg/dL (8.4-10.2); Carbon Dioxide 21 mmol/L (22-30); Chloride 107 mmol/L (98-107); Globulin 3.2 g/dL; Glucose 269 mg/dL (74-99); Magnesium 1.7 mg/dL (1.6-2.3); Non-African American GFR(CKD) 26 (>60 ml/min/1.73 sqM); Potassium 4.1 mmol/L (3.5-5.1); Sodium 137 mmol/L (137-145); Total Bilirubin 0.4 mg/dL (0.2-1.3); Total Protein 5.9 g/dL (6.3-8.2)
[2020-08-25 12:48] LABS: LDH 513 U/L (313-618)
[2020-08-25 14:48] VITALS: BMI 24.9
--- NOTE | 2020-08-25 15:12 | P.PN ---
Subjective Progress Note Date: 08/25/20 Principal diagnosis: Acute pulmonary embolism Bilateral deep venous thrombosis Acute covid19 pneumonia Chronic renal failure with GFR of 10 Type 2 diabetes mellitus Hypertension hypertensive cardiovascular disease 08/25/2020, patient seen eval examined during the rounds labs reviewed medications reviewed care plan discussed, patient remains on room air, direct oral anticoagulant to be started, heparin has been discontinued, 08/24/2020, patient seen eval examined during the rounds remains on IV heparin, oral direct antiglobulin can be started, denies any chest pain breathing comfortably on room air August 23 2020 no significant change has been noted, remains on antibiotic therapy along with the IV heparin, and after 48 hour of therapy will be switched to oral diuretic anticoagulants, urine culture came back positive for Pseudomonas aeruginosa 08/22/2020, patient sitting upright on the chair breathing comfortably, denies any chest pain, remains on room air, remains on antibiotics along with IV heparin 08/21/2020, patient seen eval examined during the rounds labs reviewed medications reviewed patient remains on room air oxygen saturation 95% denies any chest pain or shortness of breath, patient remains on IV heparin for bilateral DVT of lower extremity as well as pulmonary embolism, urine is positive for gram-negative rods, final results are pending patient remains on IV Rocephin 08/20/2020, patient seen and evaluated examined during the rounds patient remains on room air now chest pain is present ongoing shortness of breath, patient has been found to be positive for deep venous thrombosis of both lower extremity also has positive VQ scan of high probability for pulmonary embolism has been on IV heparin, denies any chest pain remains on room air, renal service is following for stage V chronic kidney disease, given multiple comorbidities decided to hold IV REM doesn't wear a therapy however continue Decadron for now This is a 69-year-old male who started having symptoms about a week ago testing came back positive for coronary 19 pneumonia, patient has been exposed from his daughter, he does have a history of diabetes as well as chronic renal failure, chest x-ray significant for right basal atelectasis, patient currently is on room air, saturation is 95%, GFR is on a 10 Objective - Vital Signs Vital signs: Vital Signs Temp 97.7 F 08/25/20 14:00 Pulse 61 08/25/20 14:00 Resp 16 08/25/20 14:00 BP 104/63 08/25/20 14:00 Pulse Ox 98 08/25/20 14:00 Intake & Output 08/24/20 08/25/20 08/25/20 18:59 06:59 18:59 Intake Total 480 Output Total 1200 1400 Balance -1200 -920 Weight 92.986 kg Intake: Oral 480 Output: Urine 1200 1400 Other: Voiding Method Indwelling Catheter Indwelling Catheter Indwelling Catheter # Voids 2 # Bowel Movements 1 - Exam - Constitutional General appearance: average body habitus, cooperative, disheveled - EENT Eyes: PERRLA Ears: bilateral: normal - Neck Neck: normal ROM Carotids: bilateral: upstroke normal - Respiratory Respiratory: bilateral: CTA - Cardiovascular Rhythm: regular Heart sounds: normal: S1, S2 - Gastrointestinal General gastrointestinal: normal bowel sounds - Neurologic Neurologic: CNII-XII intact - Musculoskeletal Musculoskeletal: gait normal, generalized weakness, strength equal bilaterally - Psychiatric Psychiatric: A&O x's 3, appropriate affect, intact judgment & insight - Labs CBC & Chem 7: 08/25/20 08:51 08/25/20 08:51 Labs: Abnormal Lab Results - Last 24 Hours (Table) 08/24/20 08/24/20 08/25/20 Range/Units 16:32 20:25 02:30 WBC (3.8-10.6) k/uL RBC (4.30-5.90) m/uL Hgb (13.0-17.5) gm/dL Hct (39.0-53.0) % Plt Count (150-450) k/uL Neutrophils # (1.3-7.7) k/uL D-Dimer (<0.60) mg/L FEU Carbon Dioxide (22-30) mmol/L BUN (9-20) mg/dL Creatinine (0.66-1.25) mg/dL Glucose (74-99) mg/dL POC Glucose (mg/dL) 449 H 413 H 244 H (75-99) mg/dL Alkaline Phosphatase (38-126) U/L C-Reactive Protein (<10.0) mg/L Total Protein (6.3-8.2) g/dL Albumin (3.5-5.0) g/dL 08/25/20 08/25/20 08/25/20 Range/Units 06:57 08:51 08:51 WBC 18.0 H (3.8-10.6) k/uL RBC 3.78 L (4.30-5.90) m/uL Hgb 11.4 L (13.0-17.5) gm/dL Hct 35.4 L (39.0-53.0) % Plt Count 497 H (150-450) k/uL Neutrophils # 15.1 H (1.3-7.7) k/uL D-Dimer 3.40 H (<0.60) mg/L FEU Carbon Dioxide (22-30) mmol/L BUN (9-20) mg/dL Creatinine (0.66-1.25) mg/dL Glucose (74-99) mg/dL POC Glucose (mg/dL) 198 H (75-99) mg/dL Alkaline Phosphatase (38-126) U/L C-Reactive Protein (<10.0) mg/L Total Protein (6.3-8.2) g/dL Albumin (3.5-5.0) g/dL 08/25/20 08/25/20 Range/Units 08:51 11:36 WBC (3.8-10.6) k/uL RBC (4.30-5.90) m/uL Hgb (13.0-17.5) gm/dL Hct (39.0-53.0) % Plt Count (150-450) k/uL Neutrophils # (1.3-7.7) k/uL D-Dimer (<0.60) mg/L FEU Carbon Dioxide 21 L (22-30) mmol/L BUN 57 H (9-20) mg/dL Creatinine 2.46 H (0.66-1.25) mg/dL Glucose 269 H (74-99) mg/dL POC Glucose (mg/dL) 216 H (75-99) mg/dL Alkaline Phosphatase 140 H (38-126) U/L C-Reactive Protein 30.4 H (<10.0) mg/L Total Protein 5.9 L (6.3-8.2) g/dL Albumin 2.7 L (3.5-5.0) g/dL Microbiology - Last 24 Hours (Table) 08/19/20 09:57 Blood Culture - Final Blood No Growth after 144 hours 08/19/20 09:57 Blood Culture - Final Blood No Growth after 144 hours Assessment and Plan Assessment: Acute pulmonary embolism Bilateral deep venous thrombosis Acute covid19 infection Urinary tract infection due to Pseudomonas aeruginosa Chronic renal failure with GFR of 10 Type 2 diabetes mellitus Hypertension hypertensive cardiovascular disease Plan: IV heparin can be switched to oral diuretic anticoagulant Eliquis Continue Decadron Deep breathing exercise incentive spirometry Prone positioning IV antibiotics him a antibiotic changes as per infectious disease services Time with Patient: Greater than 30
--- NOTE | 2020-08-25 15:26 | PN ---
PROGRESS NOTE DATE OF SERVICE: 08/25/2020 REASON FOR FOLLOWUP: Complicated urinary tract infection. INTERVAL HISTORY: The patient is afebrile. The patient is breathing comfortably on room air. Denies having any chest pain. No cough. No abdominal pain or diarrhea. PHYSICAL EXAMINATION: Blood pressure 114/71 with a pulse of 59, temperature 98.3. He is 98% on room air. General description is an elderly male up in the chair in no distress. RESPIRATORY SYSTEM: Unlabored breathing, clear to auscultation anteriorly. HEART: S1, S2. Regular rate and rhythm. ABDOMEN: Soft, no tenderness. LABS: Hemoglobin 11.4, white count 18,000. BUN of 57 and creatinine 2.46. Urine repeat is Anjali albicans, on initial Pseudomonas aeruginosa. DIAGNOSTIC IMPRESSION AND PLAN: 1. Patient with complicated urinary tract infection with urine retention with Friend catheter placement. Culture with Pseudomonas and Anjali. Patient is covered with cefepime, which can be discontinued on discharge and continue with Diflucan for another 7 days to finish his course of therapy. 2. Elevated white count more likely steroid effect, as no evidence of any worsening infection. MMODL / IJN: [id number] / MTDD
[2020-08-25] MEDS: SODIUM CHLORIDE 0.9% 1,000 ML IV SCH (16:40)
[2020-08-25 17:01] LABS: Glucose,Whole Blood 366 mg/dL (75-99)
[2020-08-25 17:01] LABS: Glucose,Whole Blood 432 mg/dL (75-99)
[2020-08-25 20:48] LABS: Glucose,Whole Blood 348 mg/dL (75-99)
[2020-08-25] MEDS: ATORVASTATIN 10 MG TAB PO SCH (20:54)
[2020-08-25] MEDS: CEFEPIME 2 GM in SODIUM CHLORIDE 0.9% 100 ML IVPB SCH (20:54)
[2020-08-25] MEDS: INSULIN DETEMIR (LEVEMIR) 100 UNIT/ML SYR SQ SCH (20:55)
[2020-08-26 02:47] LABS: Glucose,Whole Blood 278 mg/dL (75-99)
[2020-08-26 04:27] LABS: Ferritin 1786.4 ng/mL (22.0-322.0)
[2020-08-26 07:19] LABS: Glucose,Whole Blood 221 mg/dL (75-99)
[2020-08-26] MEDS: SODIUM BICARBONATE TAB 650 MG TAB PO SCH (07:45)
[2020-08-26] MEDS: ASCORBIC ACID 500 MG TAB PO SCH (07:45)
[2020-08-26] MEDS: METOPROLOL SUCCINATE (ER) 25 MG TAB.ER.24H PO SCH (07:45)
[2020-08-26] MEDS: CALCIUM ACETATE 667 MG TAB PO SCH ×2 (07:45→12:49)
[2020-08-26] MEDS: FLUCONAZOLE 100 MG TAB PO SCH (07:45)
[2020-08-26] MEDS: PANTOPRAZOLE 40 MG TABLET PO SCH (07:45)
[2020-08-26] MEDS: CHOLECALCIFEROL 25 MCG (1000 IU) TABLET PO SCH (07:45)
[2020-08-26] MEDS: DEXAMETHASONE SOD PHOSPHATE 10 MG/ML 1 ML VIAL IV SCH (07:45)
[2020-08-26] MEDS: CEFEPIME 2 GM in SODIUM CHLORIDE 0.9% 100 ML IVPB SCH (07:46)
[2020-08-26] MEDS: ZINC SULFATE 220 MG CAP PO SCH (07:46)
[2020-08-26] MEDS: APIXABAN 5 MG TAB PO SCH (07:46)
[2020-08-26] MEDS: INSULIN ASPART (NovoLOG) 100 UNIT/ML VIAL SQ SCH ×2 (07:46→12:49)
[2020-08-26] MEDS: SODIUM CHLORIDE 0.9% 1,000 ML IV SCH (07:47)
[2020-08-26 09:54] LABS: Basophils # (A) 0.1 k/uL (0-0.2); Basophils % (A) 0 %; Eosinophils % (A) 0 %; HCT 36.6 % (39.0-53.0); HGB 11.7 gm/dL (13.0-17.5); Hypochromasia Slight; Lymphocytes # (A) 1.3 k/uL (1.0-4.8); Lymphocytes % (A) 5 %; MCH 29.9 pg (25.0-35.0); MCHC 31.9 g/dL (31.0-37.0); MCV 93.6 fL (80.0-100.0); Mean Platelet Volume 8.1; Monocytes # (A) 0.9 k/uL (0-1.0); Monocytes % (A) 4 %; Neutrophils # (A) 21.4 k/uL (1.3-7.7); Neutrophils % (A) 90 %; Platelet Count 559 k/uL (150-450); RBC 3.91 m/uL (4.30-5.90); WBC 23.8 k/uL (3.8-10.6)
[2020-08-26 10:07] LABS: ALT 26 U/L (4-49); AST 21 U/L (17-59); African American GFR (CKD) 31 (>60 ml/min/1.73 sqM); Albumin 2.9 g/dL (3.5-5.0); Albumin/Globulin Ratio 0.9; Alkaline Phosphatase 142 U/L (38-126); Anion Gap 10 mmol/L; Blood Urea Nitrogen 57 mg/dL (9-20); Calcium 9.2 mg/dL (8.4-10.2); Carbon Dioxide 20 mmol/L (22-30); Chloride 106 mmol/L (98-107); Globulin 3.3 g/dL; Glucose 300 mg/dL (74-99); Magnesium 1.7 mg/dL (1.6-2.3); Non-African American GFR(CKD) 27 (>60 ml/min/1.73 sqM); Potassium 3.9 mmol/L (3.5-5.1); Sodium 136 mmol/L (137-145); Total Bilirubin 0.4 mg/dL (0.2-1.3); Total Protein 6.2 g/dL (6.3-8.2)
--- NOTE | 2020-08-26 11:11 | P.PN ---
Subjective Patient is seen in follow-up for acute kidney injury on chronic kidney disease. Has Friend catheter for severe urinary retention. Nonoliguric. Renal function continues to improve. No chest pain or shortness of breath. Oral intake fair. Hemodynamically stable. No changes overnight. Currently sitting up in chair. No active complaints. On room air. Vital signs are stable. General: The patient appeared well nourished and normally developed. HEENT: Head exam is unremarkable. Neck is without jugular venous distension. LUNGS: Breath sounds decreased. HEART: Rate and Rhythm are regular. ABDOMEN: Soft, nontender. EXTREMITITES: No edema. Objective - Vital Signs Vital signs: Vital Signs Temp 97.3 F L 08/26/20 10:00 Pulse 71 08/26/20 10:00 Resp 16 08/26/20 10:00 BP 102/63 08/26/20 10:00 Pulse Ox 97 08/26/20 10:00 Intake & Output 08/25/20 08/26/20 08/26/20 18:59 06:59 18:59 Intake Total 720 Output Total 3337 247 2945 Balance -680 -600 -1200 Weight 92.986 kg Intake: Oral 720 Output: Urine 6122 606 3171 Other: Voiding Method Indwelling Catheter Indwelling Catheter Indwelling Catheter - Labs CBC & Chem 7: 08/26/20 09:08 08/26/20 09:08 Labs: Abnormal Lab Results - Last 24 Hours (Table) 08/25/20 08/25/20 08/25/20 Range/Units 08:51 11:36 16:58 WBC (3.8-10.6) k/uL RBC (4.30-5.90) m/uL Hgb (13.0-17.5) gm/dL Hct (39.0-53.0) % Plt Count (150-450) k/uL Neutrophils # (1.3-7.7) k/uL Sodium (137-145) mmol/L Carbon Dioxide 21 L (22-30) mmol/L BUN 57 H (9-20) mg/dL Creatinine 2.46 H (0.66-1.25) mg/dL Glucose 269 H (74-99) mg/dL POC Glucose (mg/dL) 216 H 432 H (75-99) mg/dL Ferritin 1786.4 H (22.0-322.0) ng/mL Alkaline Phosphatase 140 H (38-126) U/L C-Reactive Protein 30.4 H (<10.0) mg/L Total Protein 5.9 L (6.3-8.2) g/dL Albumin 2.7 L (3.5-5.0) g/dL 08/25/20 08/25/20 08/26/20 Range/Units 16:59 20:45 02:44 WBC (3.8-10.6) k/uL RBC (4.30-5.90) m/uL Hgb (13.0-17.5) gm/dL Hct (39.0-53.0) % Plt Count (150-450) k/uL Neutrophils # (1.3-7.7) k/uL Sodium (137-145) mmol/L Carbon Dioxide (22-30) mmol/L BUN (9-20) mg/dL Creatinine (0.66-1.25) mg/dL Glucose (74-99) mg/dL POC Glucose (mg/dL) 366 H 348 H 278 H (75-99) mg/dL Ferritin (22.0-322.0) ng/mL Alkaline Phosphatase (38-126) U/L C-Reactive Protein (<10.0) mg/L Total Protein (6.3-8.2) g/dL Albumin (3.5-5.0) g/dL 08/26/20 08/26/20 08/26/20 Range/Units 07:18 09:08 09:08 WBC 23.8 H (3.8-10.6) k/uL RBC 3.91 L (4.30-5.90) m/uL Hgb 11.7 L (13.0-17.5) gm/dL Hct 36.6 L (39.0-53.0) % Plt Count 559 H (150-450) k/uL Neutrophils # 21.4 H (1.3-7.7) k/uL Sodium 136 L (137-145) mmol/L Carbon Dioxide 20 L (22-30) mmol/L BUN 57 H (9-20) mg/dL Creatinine 2.38 H (0.66-1.25) mg/dL Glucose 300 H (74-99) mg/dL POC Glucose (mg/dL) 221 H (75-99) mg/dL Ferritin (22.0-322.0) ng/mL Alkaline Phosphatase 142 H (38-126) U/L C-Reactive Protein (<10.0) mg/L Total Protein 6.2 L (6.3-8.2) g/dL Albumin 2.9 L (3.5-5.0) g/dL Microbiology - Last 24 Hours (Table) 08/19/20 09:57 Blood Culture - Final Blood No Growth after 144 hours 08/19/20 09:57 Blood Culture - Final Blood No Growth after 144 hours Assessment and Plan Plan: Assessment: 1. Acute kidney injury secondary to ATN secondary to COVID-19 infection and urinary retention. Creatinine 5.8 on admission is 2.38 today. 2. Chronic kidney disease stage IV with creatinine as low as 3.1 as of 08/04/2020. 3. Left renal atrophy with right ureteral stent due to hydronephrosis. Friend catheter placed for urinary retention. Urology following. 4. Metabolic acidosis secondary to acute kidney injury. Maintained on oral bicarbonate. 5. Diabetes mellitus. 6. Hyperphosphatemia secondary to acute kidney injury maintained on PhosLo. 7. COVID-19 pneumonia maintained on steroids and zinc. Plan: Hep-Lock IV fluids. Continue to monitor renal function and urine output. Strict I's and O's. No need for renal replacement therapy at this time. Continue to assess on a daily basis. Avoid nephrotoxins. Potentially going to rehab today. Repeat BMP and magnesium level 2-3 days postdischarge. Follow up outpatient in 7-10 days.
[2020-08-26 11:40] LABS: Glucose,Whole Blood 310 mg/dL (75-99)
--- NOTE | 2020-08-26 14:32 | P.DS ---
Providers Date of admission: 08/19/20 09:39 Expected date of discharge: 08/26/20 Attending physician: Shen Daugherty Consults: 08/19/20 09:37 Consult Physician Urgent Consulting Provider: Kevin Land Consult Reason/Comments: COVID pneumonia Do you want consulting provider notified?: Yes Consult Physician Urgent Consulting Provider: Jeison Garza Consult Reason/Comments: Acute on chronic renal failure Do you want consulting provider notified?: Yes 08/20/20 14:23 Consult Physician Routine Consulting Provider: Mark Marcial Consult Reason/Comments: bilat hydronephrosis Do you want consulting provider notified?: Yes 08/21/20 17:18 Consult Physician Urgent Consulting Provider: Rhiannon James Consult Reason/Comments: resistant uti Do you want consulting provider notified?: Yes Primary care physician: Shen Daugherty Hospital Course: 69-year-old male with significant medical history of diabetes mellitus type 2 insulin-dependent, chronic renal failure stage IV, and hyperlipidemia. Patient was admitted with multiple medical problems including Covid pneumoniaconsistent with diffuse patchy ground opacities. VQ scan of the chest showed high probability of pulmonary embolism. Ultrasound of bilateral lower extremities showed DVTs of both bilateral lower extremities popliteal. abdominal & renal ultrasound showed left and right hydronephrosisFoley catheter was placedurinary tract infection was present was Pseudomonas and Anjali DStreated with broad-spectrum antibiotics and Diflucan. he was maintained on a heparin drip for anticoagulation until transition to Eliquis by mouth twice a day for anticoagulation of pulmonary embolisms and bilateral lower extremity DVTs. Patient tolerated hospital stay well, inflammatory markers decreased and patient was able to maintain oxygen saturations greater than 94% on room air. Patient worked with physical therapy and occupational therapy to regain strength to be able to go to rehab for rehabilitation. he will need repeat BMP and CBC within the next 3 days. Assessment: Acute Covid 19 infectionCovid 19 pneumonia Bilateral lower extremity DVTspopliteal Pulmonary embolisms Acute on chronic renal failure stage IVleft and right hydronephrosis notedFoley catheter placedurinary tract infection presenttreated with broad- spectrum antibiotics Leukocytosis possibly secondary to IV steroids Elevated inflammatory markers consistent with Covid 19 infection Diabetes mellitus type 2 insulin-dependent Pseudomonas and Anjali S UTI Generalized weakness and deconditioning Hypertension Full code Health Concerns: Multiple comorbidities Generalized weakness Complexity of medical treatment plan Pertinent Studies: Serial chest x-rayschest x-rays consistent of Covid 19 infection Ventilation and perfusion scanpulmonary embolisms present Ultrasound of bilateral lower extremitiesbilateral extremity DVTsbilateral popliteal Abdomen and PelvisRight and Left Hydronephrosis Noted CT of the chest noncontrastgroundglass opacities correlation of Covid 19 pneumonia Procedures: No procedures performed Patient Condition at Discharge: Fair Plan - Discharge Summary Discharge Rx Participant: Yes New Discharge Prescriptions: New Apixaban [Eliquis] 5 mg PO BID 90 Days #180 tab Zinc Sulfate [Orazinc] 220 mg PO DAILY #30 cap Calcium Acetate [PhosLo] 667 mg PO TID-W/MEALS 30 Days #90 tab Acetaminophen Tab [Tylenol] 1,000 mg PO Q6HR PRN #90 tab PRN Reason: Fever>101 Albuterol Inhaler [Ventolin Hfa Inhaler] 2 puff INHALATION RT-Q6H PRN #1 puff PRN Reason: Shortness Of Breath Or Wheezing Metoprolol Succinate (ER) [Toprol XL] 25 mg PO DAILY #30 tab.er.24h Dexamethasone [Decadron] 6 mg PO DAILY #3 tablet Fluconazole [Diflucan] 100 mg PO DAILY #7 tab Ascorbic Acid [Vitamin C] 1,000 mg PO DAILY #30 tab Cholecalciferol [Vitamin D3 (25 Mcg = 1000 Iu)] 25 mcg PO DAILY 30 Days #30 tablet Continue Insulin Aspart [Insulin Aspart Flexpen] See Protocol SQ TID-W/MEALS #4 pen Insulin Detemir [Levemir Flextouch] 20 units SQ HS #4 pen Atorvastatin Calcium [Lipitor] 10 mg PO HS #30 tab Multivitamin [Multivitamins Adult Gummies] 1 each PO DAILY #30 tablet Pantoprazole [Protonix] 40 mg PO BID #60 tablet.dr Sodium Bicarbonate Tab 650 mg PO DAILY #30 tab Discharge Medication List Atorvastatin Calcium [Lipitor] 10 mg PO HS #30 tab 07/27/20 [Rx] Insulin Aspart [Insulin Aspart Flexpen] See Protocol SQ TID-W/MEALS #4 pen 07/27/20 [Rx] Insulin Detemir [Levemir Flextouch] 20 units SQ HS #4 pen 07/27/20 [Rx] Multivitamin [Multivitamins Adult Gummies] 1 each PO DAILY #30 tablet 07/27/20 [Rx] Pantoprazole [Protonix] 40 mg PO BID #60 tablet.dr 07/27/20 [Rx] Sodium Bicarbonate Tab 650 mg PO DAILY #30 tab 07/27/20 [Rx] Apixaban [Eliquis] 5 mg PO BID 90 Days #180 tab 08/25/20 [Rx] Fluconazole [Diflucan] 100 mg PO DAILY #7 tab 08/25/20 [Rx] Acetaminophen Tab [Tylenol] 1,000 mg PO Q6HR PRN #90 tab 08/26/20 [Rx] Albuterol Inhaler [Ventolin Hfa Inhaler] 2 puff INHALATION RT-Q6H PRN #1 puff 08/26/20 [Rx] Ascorbic Acid [Vitamin C] 1,000 mg PO DAILY #30 tab 08/26/20 [Rx] Calcium Acetate [PhosLo] 667 mg PO TID-W/MEALS 30 Days #90 tab 08/26/20 [Rx] Cholecalciferol [Vitamin D3 (25 Mcg = 1000 Iu)] 25 mcg PO DAILY 30 Days #30 tablet 08/26/20 [Rx] Dexamethasone [Decadron] 6 mg PO DAILY #3 tablet 08/26/20 [Rx] Metoprolol Succinate (ER) [Toprol XL] 25 mg PO DAILY #30 tab.er.24h 08/26/20 [Rx] Zinc Sulfate [Orazinc] 220 mg PO DAILY #30 cap 08/26/20 [Rx] Follow up Appointment(s)/Referral(s): [facility] [Provider Group] - 2 Weeks Shen Daugherty MD [Primary Care Provider] - 1-2 days Kush Burleson MD [STAFF PHYSICIAN] - 1 Week Activity/Diet/Wound Care/Special Instructions: Eliquis copay is $112.50 for a 3 month supply Discharge Disposition: TRANSFER TO SNF/ECF
[2020-08-26 14:46] VITALS: BP 108/71; PULSE 61; RESP 19; TEMP 97.1
--- NOTE | 2020-08-27 11:48 | P.PN ---
Subjective Progress Note Date: 08/26/20 Principal diagnosis: Acute pulmonary embolism Bilateral deep venous thrombosis Acute covid19 pneumonia Chronic renal failure with GFR of 10 Type 2 diabetes mellitus Hypertension hypertensive cardiovascular disease 08/26/2020, patient seen eval examined during the rounds has been switched to oral direct antiglobulin doing well remains on room air denies any respiratory complaints, agree with discharge planning on further treatment with Decadron and follow up on telemetry medicine as outpatient 08/25/2020, patient seen eval examined during the rounds labs reviewed medic ations reviewed care plan discussed, patient remains on room air, direct oral anticoagulant to be started, heparin has been discontinued, 08/24/2020, patient seen eval examined during the rounds remains on IV heparin, oral direct antiglobulin can be started, denies any chest pain breathing comfortably on room air August 23 2020 no significant change has been noted, remains on antibiotic therapy along with the IV heparin, and after 48 hour of therapy will be switched to oral diuretic anticoagulants, urine culture came back positive for Pseudomonas aeruginosa 08/22/2020, patient sitting upright on the chair breathing comfortably, denies any chest pain, remains on room air, remains on antibiotics along with IV heparin 08/21/2020, patient seen eval examined during the rounds labs reviewed m edications reviewed patient remains on room air oxygen saturation 95% denies any chest pain or shortness of breath, patient remains on IV heparin for bilateral DVT of lower extremity as well as pulmonary embolism, urine is positive for gram-negative rods, final results are pending patient remains on IV Rocephin 08/20/2020, patient seen and evaluated examined during the rounds patient remains on room air now chest pain is present ongoing shortness of breath, patient has been found to be positive for deep venous thrombosis of both lower extremity also has positive VQ scan of high probability for pulmonary embolism has been on IV heparin, denies any chest pain remains on room air, renal service is following for stage V chronic kidney disease, given multiple comorbidities decided to hold IV REM doesn't wear a therapy however continue Decadron for now This is a 69-year-old male who started having symptoms about a week ago testing came back positive for coronary 19 pneumonia, patient has been exposed from his daughter, he does have a history of diabetes as well as chronic renal failure, chest x-ray significant for right basal atelectasis, patient currently is on room air, saturation is 95%, GFR is on a 10 Objective - Vital Signs Vital signs: Vital Signs Temp 97.1 F L 08/26/20 14:00 Pulse 61 08/26/20 14:00 Resp 19 08/26/20 14:00 BP 108/71 08/26/20 14:00 Pulse Ox 98 08/26/20 14:00 Intake & Output 08/25/20 08/26/20 08/26/20 18:59 06:59 18:59 Intake Total 720 Output Total 8969 517 8813 Balance -680 -600 -1200 Weight 92.986 kg Intake: Oral 720 Output: Urine 7091 359 3539 Other: Voiding Method Indwelling Catheter Indwelling Catheter Indwelling Catheter - Exam - Constitutional General appearance: average body habitus, cooperative, disheveled - EENT Eyes: PERRLA Ears: bilateral: normal - Neck Neck: normal ROM Carotids: bilateral: upstroke normal - Respiratory Respiratory: bilateral: CTA - Cardiovascular Rhythm: regular Heart sounds: normal: S1, S2 - Gastrointestinal General gastrointestinal: normal bowel sounds - Neurologic Neurologic: CNII-XII intact - Musculoskeletal Musculoskeletal: gait normal, generalized weakness, strength equal bilaterally - Psychiatric Psychiatric: A&O x's 3, appropriate affect, intact judgment & insight - Labs CBC & Chem 7: 08/26/20 09:08 08/26/20 09:08 Labs: Abnormal Lab Results - Last 24 Hours (Table) 08/25/20 08/25/20 08/25/20 Range/Units 08:51 16:58 16:59 WBC (3.8-10.6) k/uL RBC (4.30-5.90) m/uL Hgb (13.0-17.5) gm/dL Hct (39.0-53.0) % Plt Count (150-450) k/uL Neutrophils # (1.3-7.7) k/uL Sodium (137-145) mmol/L Carbon Dioxide (22-30) mmol/L BUN (9-20) mg/dL Creatinine (0.66-1.25) mg/dL Glucose (74-99) mg/dL POC Glucose (mg/dL) 432 H 366 H (75-99) mg/dL Ferritin 1786.4 H (22.0-322.0) ng/mL Alkaline Phosphatase (38-126) U/L Total Protein (6.3-8.2) g/dL Albumin (3.5-5.0) g/dL 08/25/20 08/26/20 08/26/20 Range/Units 20:45 02:44 07:18 WBC (3.8-10.6) k/uL RBC (4.30-5.90) m/uL Hgb (13.0-17.5) gm/dL Hct (39.0-53.0) % Plt Count (150-450) k/uL Neutrophils # (1.3-7.7) k/uL Sodium (137-145) mmol/L Carbon Dioxide (22-30) mmol/L BUN (9-20) mg/dL Creatinine (0.66-1.25) mg/dL Glucose (74-99) mg/dL POC Glucose (mg/dL) 348 H 278 H 221 H (75-99) mg/dL Ferritin (22.0-322.0) ng/mL Alkaline Phosphatase (38-126) U/L Total Protein (6.3-8.2) g/dL Albumin (3.5-5.0) g/dL 08/26/20 08/26/20 08/26/20 Range/Units 09:08 09:08 11:23 WBC 23.8 H (3.8-10.6) k/uL RBC 3.91 L (4.30-5.90) m/uL Hgb 11.7 L (13.0-17.5) gm/dL Hct 36.6 L (39.0-53.0) % Plt Count 559 H (150-450) k/uL Neutrophils # 21.4 H (1.3-7.7) k/uL Sodium 136 L (137-145) mmol/L Carbon Dioxide 20 L (22-30) mmol/L BUN 57 H (9-20) mg/dL Creatinine 2.38 H (0.66-1.25) mg/dL Glucose 300 H (74-99) mg/dL POC Glucose (mg/dL) 310 H (75-99) mg/dL Ferritin (22.0-322.0) ng/mL Alkaline Phosphatase 142 H (38-126) U/L Total Protein 6.2 L (6.3-8.2) g/dL Albumin 2.9 L (3.5-5.0) g/dL Microbiology - Last 24 Hours (Table) 08/19/20 09:57 Blood Culture - Final Blood No Growth after 144 hours 08/19/20 09:57 Blood Culture - Final Blood No Growth after 144 hours Assessment and Plan Assessment: Acute pulmonary embolism Bilateral deep venous thrombosis Acute covid19 infection Urinary tract infection due to Pseudomonas aeruginosa Chronic renal failure with GFR of 10 Type 2 diabetes mellitus Hypertension hypertensive cardiovascular disease Plan: continue Eliquis Continue Decadron Deep breathing exercise incentive spirometry Prone positioning further plan of care as per clinical response of the patient agree with discharge planning follow-up telemetry medicine as outpatient Time with Patient: Greater than 30
== END 2020-08-26 15:32 | DRG 177 ==
LOC: EC 07:45 → 4SSUR 09:39
PROVIDERS: ADMIT Family Medicine; ATTEND Family Medicine
PROC: XW033E5 Introduction of Remdesivir Anti-infective into Peripheral Vein, Percutaneous Approach, New Technology Group 5 (ICD-10-PCS; principal; 2020-08-19)
PROC: 3E0333Z Introduction of Anti-inflammatory into Peripheral Vein, Percutaneous Approach (ICD-10-PCS; 2020-08-19)
DX: U07.1 COVID-19 (principal); J12.82 Pneumonia due to coronavirus disease 2019; I26.99 Other pulmonary embolism without acute cor pulmonale; E11.10 Type 2 diabetes mellitus with ketoacidosis without coma; J96.01 Acute respiratory failure with hypoxia; N17.0 Acute kidney failure with tubular necrosis; N18.4 Chronic kidney disease, stage 4 (severe); J98.11 Atelectasis; E87.1 Hypo-osmolality and hyponatremia; B37.49 Other urogenital candidiasis; N13.30 Unspecified hydronephrosis; I82.413 Acute embolism and thrombosis of femoral vein, bilateral; I82.433 Acute embolism and thrombosis of popliteal vein, bilateral; E87.2 Acidosis; Z79.899 Other long term (current) drug therapy; Z79.4 Long term (current) use of insulin; Z87.442 Personal history of urinary calculi; I13.10 Hypertensive heart and chronic kidney disease without heart failure, with stage 1 through stage 4 chronic kidney disease, or unspecified chronic kidney disease; E11.22 Type 2 diabetes mellitus with diabetic chronic kidney disease; Z87.891 Personal history of nicotine dependence; N32.89 Other specified disorders of bladder; D63.1 Anemia in chronic kidney disease; B96.89 Other specified bacterial agents as the cause of diseases classified elsewhere; E83.39 Other disorders of phosphorus metabolism; R00.0 Tachycardia, unspecified; N26.1 Atrophy of kidney (terminal); B96.5 Pseudomonas (aeruginosa) (mallei) (pseudomallei) as the cause of diseases classified elsewhere; E78.5 Hyperlipidemia, unspecified; R00.2 Palpitations; H26.9 Unspecified cataract; E11.649 Type 2 diabetes mellitus with hypoglycemia without coma; N47.1 Phimosis; Z80.1 Family history of malignant neoplasm of trachea, bronchus and lung; H91.90 Unspecified hearing loss, unspecified ear; T38.0X5A Adverse effect of glucocorticoids and synthetic analogues, initial encounter
CPT/HCPCS: 36415; 71045; 71250; 76770; 78580; 80048; 80053; 81001; 82550; 82728; 83615; 83735; 83880; 84100; 84145; 84484; 85025; 85379; 85384; 85610; 85652; 85730; 86140; 87040; 87077; 87086; 87186; 87635; 93005; 93308; 93970; 99285

== ENCOUNTER → 2021-09-12 | Outpatient (CLI) | payer MEDICARE ==
--- NOTE | 2021-09-12 11:39 | XR ---
EXAMINATION TYPE: XR chest 2V DATE OF EXAM: 09/12/2021 COMPARISON: 08/25/2020 TECHNIQUE: PA and lateral views submitted. HISTORY: Shortness of breath FINDINGS: Heart is stable and there is left lower lobe infiltrate. No pleural effusion or pneumothorax. No over t failure. Arthropathy shoulders. Hypertrophic and degenerative change of the spine. IMPRESSION: 1. Left basilar atelectasis or early infiltrate.
== END | disposition home or self-care (01) ==
LOC: RADXRMAIN 11:07
PROVIDERS: ATTEND Internal Medicine Sleep Medicine
DX: R91.8 Other nonspecific abnormal finding of lung field (principal)
CPT/HCPCS: 71046

== ENCOUNTER → 2022-09-05 | Outpatient (CLI) | payer MEDICARE ==
--- NOTE | 2022-09-06 10:23 | US ---
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 No hydronephrosis. Left Kidney: difficult to visualize any normal kidney tissue, multiple anechoic areas noted, ?hydrone phrosis vs. cystic Bladder: Partially distended bladder shows no gross abnormality. Bilateral Jets seen: no IMPRESSION: 1. No hydronephrosis on the right. There is a 4.3 cm mid pole renal cortical cyst redemonstrated. 2. Chronic severe left-sided hydronephrosis.
== END | disposition home or self-care (01) ==
LOC: RADUSWWP 16:05
PROVIDERS: ATTEND Internal Medicine Nephrology
DX: N13.2 Hydronephrosis with renal and ureteral calculous obstruction (principal); N28.1 Cyst of kidney, acquired
CPT/HCPCS: 76770

== ENCOUNTER → 2023-03-05 | Outpatient (CLI) | payer MEDICARE ==
[2023-03-05 15:54] LABS: % Iron Saturation 22.45 (15.00-50.00); Albumin 4.2 d/dL (3.8-4.9); BUN/Creat Ratio 17.93 Ratio (12.00-20.00); Blood Urea Nitrogen 48.4 mg/dL (9.0-27.0); Calcium 9.4 mg/dL (8.7-10.3); Carbon Dioxide 20.7 mmol/L (21.6-31.8); Chloride 107 mmol/L (96-109); Glucose 109 mg/dL (70-110); Iron 66 UG/DL (65-175); Magnesium 2.1 mg/dL (1.5-2.4); Phosphorus 3.2 mg/dL (2.4-5.1); Potassium 5.2 mmol/L (3.5-5.5); Sodium 143 mmol/L (135-145); Total Iron Binding Capacity 294 UG/DL (228-460); Uric Acid 7.4 mg/dL (3.7-8.7)
[2023-03-05 17:37] LABS: Basophils # (A) 0.03 X 10*3/uL (0.00-0.10); Basophils % (A) 0.4 %; Eosinophils # (A) 0.26 X 10*3/uL (0.04-0.35); Eosinophils % (A) 3.8 %; HCT 42.3 % (39.6-50.0); HGB 13.4 d/dL (13.0-17.0); Lymphocytes # (A) 1.23 X 10*3/uL (0.90-5.00); MCH 30.8 pg (27.0-32.0); MCHC 31.7 d/dL (32.0-37.0); MCV 97.2 FL (80.0-97.0); Mean Platelet Volume 11.5 FL (9.5-12.2); Monocytes # (A) 0.67 X 10*3/uL (0.20-1.00); Monocytes % (A) 9.8 %; NRBC Per 100 WBC 0 X 10*3/uL (0.00-0.01); Neutrophils # (A) 4.55 X 10*3/uL (1.80-7.70); Neutrophils % (A) 66.7 %; Platelet Count 258 X 10*3/uL (140-440); RBC 4.35 X 10*6/uL (4.40-5.60); RDW 14.3 % (11.5-14.5); WBC 6.83 X 10*3/uL (4.50-10.00)
[2023-03-05 22:44] LABS: Appearance,Urine Clear (Clear); Bilirubin,Urine Negative (Negative); Blood,Urine Negative (Negative); Color,Urine Yellow (Yellow); Ketones,Urine Negative (Negative); Nitrite,Urine Negative (Negative); Specific Gravity,Urine 1.012 (1.001-1.030)
[2023-03-05 22:52] LABS: Bacteria,Urine None Seen (None Seen)
== END | disposition home or self-care (01) ==
LOC: LABWHC1 08:18
PROVIDERS: ATTEND Internal Medicine Nephrology
DX: E55.9 Vitamin D deficiency, unspecified (principal); N39.0 Urinary tract infection, site not specified; N25.81 Secondary hyperparathyroidism of renal origin; M10.9 Gout, unspecified; D63.1 Anemia in chronic kidney disease; N18.4 Chronic kidney disease, stage 4 (severe); R80.9 Proteinuria, unspecified
CPT/HCPCS: 36415; 80048; 81001; 82040; 82043; 82306; 82570; 82728; 83540; 83550; 83735; 83970; 84100; 84550; 85025; 87086

== ENCOUNTER 2023-04-03 12:43 | Day surgery (SDC) | payer MEDICARE ==
[2023-04-01 11:07] VITALS: BMI 28.5
[2023-04-03] MEDS ORDERED: LIDOCAINE 1% (10MG/ML) FOR IV START INTRADERMA PRN (14:14)
[2023-04-03] MEDS ORDERED: LACTATED RINGERS 1,000 ML IV SCH (14:14)
[2023-04-03 14:40] LABS: Glucose,Whole Blood 91 mg/dL (70-110)
[2023-04-03 14:45] VITALS: TEMP 98
[2023-04-03] MEDS ORDERED: PROPOFOL 10 MG/ML 20 ML VIAL IV ONE (15:24)
--- NOTE | 2023-04-03 15:45 | P.PCN ---
Date of Procedure: 04/03/23 Procedure(s) Performed: BRIEF HISTORY: Patient is a 72-year-old pleasant male scheduled for an elective colonoscopy as a part of evaluation of chronic intermittent diarrhea for the last 1 year duration. PROCEDURE PERFORMED: Colonoscopy with biopsies. PREOPERATIVE DIAGNOSIS: Chronic intermittent diarrhea. IV sedation per Anesthesia. PROCEDURE: After informed consent was obtained, the patient, was brought into the endoscopy unit. IV sedation was administered by Anesthesia under continuous monitoring. Digital rectal examination was normal. Initially the Olympus CF-160 flexible video colonoscope was then inserted in the rectum, gradually advanced into the cecum without any difficulty. Careful examination was performed as the scope was gradually being withdrawn. Ileocecal valve and the appendiceal orifice were visualized and appeared normal. Prep was fair.. Mucosa of the cecum, ascending colon, transverse colon, descending colon, sigmoid colon, and rectum appeared normal. Random biopsies were done from ascending and descending colon to rule out microscopic/collagenous colitis. Retroflexion was performed in the rectum and no lesions were seen. The patient tolerated the procedure well. IMPRESSION: Normal-appearing colon from rectum to cecum with no evidence of colorectal neoplasia. RECOMMENDATIONS: Findings of this examination were discussed with the patient as well as his family. He was advised to follow with the biopsy results. In the meantime he was advised to continue with fiber supplements a regular basis. Follow up in office in 2-3 weeks..
[2023-04-03 16:09] VITALS: BP 114/64; PULSE 70; RESP 16
== END 2023-04-03 16:18 | disposition home or self-care (01) ==
LOC: ORWHC2ENDO 12:43
PROVIDERS: ATTEND Internal Medicine Gastroenterology
DX: K52.9 Noninfective gastroenteritis and colitis, unspecified (principal); Z79.01 Long term (current) use of anticoagulants; Z79.899 Other long term (current) drug therapy; Z79.82 Long term (current) use of aspirin; Z98.890 Other specified postprocedural states
CPT/HCPCS: 88305; 45380; J2704

== ENCOUNTER → 2023-08-29 | Outpatient (CLI) | payer MEDICARE ==
[2023-08-29 16:01] LABS: Appearance,Urine Clear (Clear); Bilirubin,Urine Negative (Negative); Blood,Urine Negative (Negative); Color,Urine Yellow (Yellow); Ketones,Urine Negative (Negative); Nitrite,Urine Negative (Negative); PH, Urine 7.5; Specific Gravity,Urine 1.016 (1.001-1.030)
[2023-08-29 16:09] LABS: Bacteria,Urine None Seen (None Seen)
[2023-08-29 16:11] LABS: Basophils # (A) 0.04 X 10*3/uL (0.00-0.10); Basophils % (A) 0.5 %; Eosinophils % (A) 3.9 %; HCT 43.7 % (39.6-50.0); Lymphocytes # (A) 1.34 X 10*3/uL (0.90-5.00); Lymphocytes % (A) 17.3 %; MCH 30.2 pg (27.0-32.0); MCV 94.2 FL (80.0-97.0); Monocytes # (A) 0.61 X 10*3/uL (0.20-1.00); Monocytes % (A) 7.9 %; NRBC Per 100 WBC 0 X 10*3/uL (0.00-0.01); Neutrophils # (A) 5.43 X 10*3/uL (1.80-7.70); Neutrophils % (A) 70.3 %; Platelet Count 226 X 10*3/uL (140-440); RBC 4.64 X 10*6/uL (4.40-5.60); RDW 13.6 % (11.5-14.5); WBC 7.73 X 10*3/uL (4.50-10.00)
[2023-08-29 16:33] LABS: % Iron Saturation 26.56 (15.00-50.00); Albumin 4.3 g/dL (3.8-4.9); Blood Urea Nitrogen 44.4 mg/dL (9.0-27.0); Calcium 9.2 mg/dL (8.7-10.3); Carbon Dioxide 19.6 mmol/L (21.6-31.8); Chloride 110 mmol/L (96-109); Glucose 135 mg/dL (70-110); Iron 81 UG/DL (65-175); Phosphorus 3.8 mg/dL (2.4-5.1); Sodium 143 mmol/L (135-145); Total Iron Binding Capacity 305 UG/DL (228-460); Uric Acid 7.1 mg/dL (3.7-8.7)
== END | disposition home or self-care (01) ==
LOC: LABWHC1 09:21
PROVIDERS: ATTEND Nurse Practitioner Family
DX: N25.81 Secondary hyperparathyroidism of renal origin (principal); N18.4 Chronic kidney disease, stage 4 (severe); D63.1 Anemia in chronic kidney disease; E55.9 Vitamin D deficiency, unspecified; M10.9 Gout, unspecified; N39.0 Urinary tract infection, site not specified; R80.9 Proteinuria, unspecified
CPT/HCPCS: 36415; 80048; 81001; 82040; 82043; 82306; 82570; 82728; 83540; 83550; 83735; 83970; 84100; 84550; 85025; 86038

== ENCOUNTER → 2023-08-29 | Outpatient (CLI) | payer MEDICARE ==
--- NOTE | 2023-08-29 17:37 | US ---
EXAMINATION TYPE: US kidneys/renal and bladder DATE OF EXAM: 08/29/2023 COMPARISON: 09/05/2022 CLINICAL INDICATION: Male, 72 years old with history of N18.4 CHRONIC KIDNEY DISEASE, STAGE 4 (SEVERE ); CKD EXAM MEASUREMENTS: Right Kidney: 10.8 x 8.5 x 6.8 cm Left Kidney: estimated to be 11.2 x 6.4 x 5.9 cm Limited visibility due to overlying bowel Right Kidney: There is a 4.2 x 4.4 x 4.2cm anechoic area seen within the right kidney, previously glynn sured 4.3 x 3.1 x 3.4 Left Kidney: There are multiple anechoic structures seen within the left kidney. ? renal cysts vs hyd ronephrosis. Bladder: Partially distended bladder. WNL as best seen. Bilateral Jets seen: No No left renal tissue is identified. There is a markedly dilated collecting system which has been seen on multiple prior renal ultrasounds and CT of the abdomen and pelvis. IMPRESSION: 1. No appreciable left renal cortex. Markedly dilated collecting system consistent with chronic sever e hydronephrosis demonstrated on multiple prior studies. 2. No solid renal mass, renal calculus or hydronephrosis on the right. There is a simple cortical cys t 3. Limited evaluation of the bladder. No bladder jets seen.
== END | disposition home or self-care (01) ==
LOC: RADUSWWP 14:19
PROVIDERS: ATTEND Internal Medicine Nephrology
DX: N28.1 Cyst of kidney, acquired (principal); N18.4 Chronic kidney disease, stage 4 (severe)
CPT/HCPCS: 76770

== ENCOUNTER 2024-01-02 10:50 | Emergency (ER) | payer MEDICARE | END 2024-01-02 13:31 | disposition home or self-care (01) | LOC: EC 10:50 | CPT/HCPCS: 93005; 99283 ==

== ENCOUNTER → 2024-03-16 | Outpatient (CLI) | payer MEDICARE ==
--- NOTE | 2024-03-16 14:34 | US ---
EXAMINATION TYPE: US kidneys/renal and bladder DATE OF EXAM: 03/16/2024 COMPARISON: 08/29/2023 CLINICAL INDICATION: Male, 73 years old with history of N18.4 CHRONIC KIDNEY DISEASE, STAGE 4 (SEVERE ); CKD TECHNIQUE: Grayscale imaging of the bilateral kidneys and urinary bladder: FINDINGS: EXAM MEASUREMENTS: Right Kidney: 13.3x7.1x6.4 cm Left Kidney: no renal tissue visualized Right Kidney: cyst again seen: 4.0x3.9x3.7cm Left Kidney: dilated collecting system again seen Bladder: wnl Bilateral Jets seen: Yes No nephrolithiasis is seen. The urinary bladder is anechoic. IMPRESSION: 1. Dilated left-sided renal collecting system unchanged. 2. Stable right renal cyst. [facility], , 03/16/2024 2:32 PM
== END | disposition home or self-care (01) ==
LOC: RADUSWWP 10:24
PROVIDERS: ATTEND Internal Medicine Nephrology
DX: N18.4 Chronic kidney disease, stage 4 (severe) (principal); N28.1 Cyst of kidney, acquired
CPT/HCPCS: 76770